=== PATIENT | male | born 1990 | race Caucasian/White ===

== ENCOUNTER 2023-03-12 16:30 | Inpatient (IN) | payer MEDICAID, OTHER ==
[2023-03-12] MEDS ORDERED: SODIUM CHLORIDE 0.9% 1,000 ML IV STA ×2 (17:07→17:28)
[2023-03-12] MEDS ORDERED: ASPIRIN 81 MG PO STA (17:07)
[2023-03-12] MEDS ORDERED: KETOROLAC 15 MG/ML 1 ML VIAL IVP STA (17:08)
[2023-03-12] MEDS ORDERED: THIAMINE 100 MG/ML 2 ML VIAL IM STA (17:27)
[2023-03-12] MEDS ORDERED: LORazepam 2 MG/ML INJ IV PRN ×3 (17:27)
--- NOTE | 2023-03-12 17:27 | ED ---
General Adult HPI - General Chief complaint: Psychiatric Symptoms Stated complaint: Suicidal Time Seen by Provider: 03/12/23 16:40 Source: patient, EMS, RN notes reviewed, old records reviewed Mode of arrival: EMS Limitations: altered mental status - History of Present Illness Initial comments: Patient is a 32-year-old male who presents emergency Department who complains of suicidal ideations. Has a history of alcohol abuse. Has not been evaluated at our facility before. States he felt daily. States he attempted to kill himself today by drinking too much alcohol. States he has been having these thoughts for a long time. Denies any other attempts. Denies any other plans. Denies homicidal ideations, attempts complaints. Denies visual or auditory hallucinations. He endorses chronic chest pain across his chest that is nonspecific otherwise he is concerned about his heart. States has been there for months. No change. States is always there. States he does have a history of alcohol withdrawals. His no other acute complaints at this time. Presents for psychiatric evaluation as well as alcohol intoxication. - Related Data Home Medications Medication Instructions Recorded Confirmed No Known Home Medications 03/12/23 03/12/23 Allergies Allergy/AdvReac Type Severity Reaction Status Date / Time No Known Allergies Allergy Verified 03/13/23 08:00 Review of Systems ROS Statement: Those systems with pertinent positive or pertinent negative responses have been documented in the HPI. Review of Systems: CONST: Denies fever EYES: Denies blurry vision ENT: Denies nasal congestion C/V: Endorses chronic chest pain RESP: Denies shortness of breath GI: Denies abdominal pain : Denies dysuria SKIN: Denies rash. MSK: Denies joint pain. NEURO: Denies headache PSYCH: Denies homicidal ideations/plans/attempts. Denies visual or auditory hallucinations. He endorses suicidal ideation, plan. Also had loose attempt of drinking himself to . However is a chronic alcoholic. ROS Other: All systems not noted in ROS Statement are negative. Past Medical History Past Medical History: Hypertension Past Surgical History: No Surgical Hx Reported Past Psychological History: Anxiety, Bipolar, Depression Smoking Status: Vaper Past Alcohol Use History: Abuse Past Drug Use History: None Reported General Exam Limitations: altered mental status Course Vital Signs 03/12/23 03/13/23 03/13/23 16:38 00:14 06:44 Temperature 98.4 F 98.4 F Pulse Rate 111 H 74 Pulse Rate [ Pulse Oximetery ] Pulse Rate [ 76 Right Sitting Pulse Oximetery ] Respiratory 18 18 18 Rate Blood Pressure 117/63 112/64 Blood Pressure [Left Arm] Blood Pressure 130/73 [Right Arm Sitting] O2 Sat by Pulse 98 99 97 Oximetry 03/13/23 09:37 Temperature Pulse Rate Pulse Rate [ 96 Pulse Oximetery ] Pulse Rate [ Right Sitting Pulse Oximetery ] Respiratory 18 Rate Blood Pressure Blood Pressure 126/76 [Left Arm] Blood Pressure [Right Arm Sitting] O2 Sat by Pulse 96 Oximetry Medical Decision Making - Medical Decision Making Was pt. sent in by a medical professional or institution (, PA, WHEEL ROLLER, urgent care, hospital, or senior living...) When possible be specific @ -No Did you speak to anyone other than the patient for history (EMS, parent, family, police, friend...)? What history was obtained from this source @ -No Did you review nursing and triage notes (agree or disagree)? Why? @ -I reviewed and agree with nursing and triage notes Were old charts reviewed (outside hosp., previous admission, EMS record, old EKG, old radiological studies, urgent care reports/EKG's, senior living records)? Report findings @ -No old charts were reviewed Differential Diagnosis (chest pain, altered mental status, abdominal pain women, abdominal pain men, vaginal bleeding, weakness, fever, dyspnea, syncope, heada aundrea, dizziness, GI bleed, back pain, seizure, CVA, palpatations, mental health, musculoskeletal)? @ -Differential Chest Pain: Stable Angina, Unstable Angina, STEMI, NSTEMI Aortic Dissection, Pneumothorax, Musculoskeletal, Esophageal Spasm GERD, Cholecystitis, Pancreatitis, Zoster, this is not meant to be an all-inclusive list. Differential Mental Health Depression, anxiety, bipolar, psychosis, schizophrenia, borderline personality, situational depression, adjustment disorder, behavioral disorder, brain tumor, malingering, substance abuse, encephalopathy, medication reaction, dementia, hypothyroidism, degenerative neurologic disorder, lupus.... This is not meant to be all-inclusive list EKG interpreted by me (3pts min.). @ -As above X-rays interpreted by me (1pt min.). @ -Chest x-ray revealed no obvious acute cardio pulmonary process. CT interpreted by me (1pt min.). @ -None done U/S interpreted by me (1pt. min.). @ -None done What testing was considered but not performed or refused? (CT, X-rays, U/S, labs)? Why? @ -None What meds were considered but not given or refused? Why? @ -None Did you discuss the management of the patient with other professionals (professionals i.e. ., PA, WHEEL ROLLER, lab, RT, psych nurse, social scientist, internet retailer, teacher, chemical instrumentation officer, immigration case worker)? Give summary @ -I spoke with ANDREY Ward and notified her of the patient pending sobriety requiring psychiatric evaluation and she was in agreement this plan. Was smoking cessation discussed for >3mins.? @ -No Was critical care preformed (if so, how long)? @ -No Were there social determinants of health that impacted care today? How? (Homelessness, low income, unemployed, alcoholism, drug addiction, transportation, low edu. Level, literacy, decrease access to med. care, care home, rehab)? @ -No Was there de-escalation of care discussed even if they declined (Discuss DNR or withdrawal of care, Hospice)? DNR status @ -No What co-morbidities impacted this encounter? (DM, HTN, Smoking, COPD, CAD, Cancer, CVA, ARF, Chemo, Hep., AIDS, mental health diagnosis, sleep apnea, morbid obesity)? @ -Alcohol abuse Was patient admitted / discharged? Hospital course, mention meds given and route, prescriptions, significant lab abnormalities, going to OR and other pertinent info. @ -Based on the patient's presentation and physical exam, I'm concerned for suicidal ideations for the patient as well as his chronic chest pain. We have no prior evaluation. The patient in our system. Therefore we will obtain a cardiac workup. Patient was placed in green scrubs. Sitter was ordered. Suicide precautions were ordered. He does not appear to be acutely withdrawing from alcohol but we will monitor him closely. Vital signs are within except for limits. He was in agreement with this plan. He will be started on IV fluids. Will receive Toradol and aspirin for his chest pain. EKG is unremarkable. Chest x-ray within acceptable limits. Labs are relatively unremarkable except for acute alcohol intoxication of 256. Troponin is undetectable. On reevaluation, patient is resting comfortably. Still no evidence of alcohol withdrawals. Chest pain is resolved. I discussed is negative workup. Patient is cleared from a medical standpoint at this time other than the alcohol intoxication. His chest pain is chronic and his heart score is low at 1. Disposition is pending psychiatric evaluation upon sobriety. I did the patient and he was in agreement this plan. He was placed on CIWV protocol for alcohol withdrawals. Currently no evidence of withdrawals at this time. I notify Sylvia of EPS was notified of the patient, and they will evaluate the patient when sober. Patient eventually evaluated and admitted to inpatient psych after my shift. Undiagnosed new problem with uncertain prognosis? @ -No Drug Therapy requiring intensive monitoring for toxicity (Heparin, Nitro, Insulin, Cardizem)? @ -No Were any procedures done? @ -No Diagnosis/symptom? @ -Alcohol abuse, chest pain Acute, or Chronic, or Acute on Chronic? @ -Chronic Uncomplicated (without systemic symptoms) or Complicated (systemic symptoms)? @ -Uncomplicated Side effects of treatment? @ -none Exacerbation, Progression, or Severe Exacerbation] @ -no Poses a threat to life or bodily function? @ -no Diagnosis/symptom? @ -Suicidal ideations, plan Acute, or Chronic, or Acute on Chronic? @ -Acute Uncomplicated (without systemic symptoms) or Complicated (systemic symptoms)? @ -Uncomplicated Side effects of treatment? @ -none Exacerbation, Progression, or Severe Exacerbation] @ -no Poses a threat to life or bodily function? @ -Yes - Lab Data Result diagrams: 03/12/23 17:28 03/12/23 17:28 Lab Results 03/12/23 03/12/23 03/12/23 Range/Units 17:28 17:28 17:28 WBC 4.9 (3.8-10.6) k/uL RBC 4.61 (4.30-5.90) m/uL Hgb 13.8 (13.0-17.5) gm/dL Hct 42.3 (39.0-53.0) % MCV 91.7 (80.0-100.0) fL MCH 29.9 (25.0-35.0) pg MCHC 32.6 (31.0-37.0) g/dL RDW 13.5 (11.5-15.5) % Plt Count 242 (150-450) k/uL MPV 8.8 Neutrophils % 56 % Lymphocytes % 30 % Monocytes % 8 % Eosinophils % 3 % Basophils % 1 % Neutrophils # 2.7 (1.3-7.7) k/uL Lymphocytes # 1.5 (1.0-4.8) k/uL Monocytes # 0.4 (0-1.0) k/uL Eosinophils # 0.1 (0-0.7) k/uL Basophils # 0.0 (0-0.2) k/uL PT 10.2 (9.0-12.0) sec INR 1.0 (<1.2) APTT 25.1 (22.0-30.0) sec Sodium (137-145) mmol/L Potassium (3.5-5.1) mmol/L Chloride (98-107) mmol/L Carbon Dioxide (22-30) mmol/L Anion Gap mmol/L BUN (9-20) mg/dL Creatinine (0.66-1.25) mg/dL Est GFR (CKD-EPI)AfAm (>60 ml/min/1.73 sqM) Est GFR (CKD-EPI)NonAf (>60 ml/min/1.73 sqM) Glucose (74-99) mg/dL Calcium (8.4-10.2) mg/dL Magnesium (1.6-2.3) mg/dL Total Bilirubin (0.2-1.3) mg/dL AST (17-59) U/L ALT (4-49) U/L Alkaline Phosphatase (38-126) U/L Troponin I (0.000-0.034) ng/mL Total Protein (6.3-8.2) g/dL Albumin (3.5-5.0) g/dL Lipase (23-300) U/L Urine Opiates Screen Not Detected (NotDetected) Ur Oxycodone Screen Not Detected (NotDetected) Urine Methadone Screen Not Detected (NotDetected) Ur Propoxyphene Screen Not Detected (NotDetected) Ur Barbiturates Screen Not Detected (NotDetected) U Tricyclic Antidepress Not Detected (NotDetected) Ur Phencyclidine Scrn Not Detected (NotDetected) Ur Amphetamines Screen Not Detected (NotDetected) U Methamphetamines Scrn Not Detected (NotDetected) U Benzodiazepines Scrn Not Detected (NotDetected) Urine Cocaine Screen Not Detected (NotDetected) U Marijuana (THC) Screen Not Detected (NotDetected) Serum Alcohol mg/dL Coronavirus (PCR) (Not Detectd) 03/12/23 03/12/23 03/13/23 Range/Units 17:28 17:28 04:00 WBC (3.8-10.6) k/uL RBC (4.30-5.90) m/uL Hgb (13.0-17.5) gm/dL Hct (39.0-53.0) % MCV (80.0-100.0) fL MCH (25.0-35.0) pg MCHC (31.0-37.0) g/dL RDW (11.5-15.5) % Plt Count (150-450) k/uL MPV Neutrophils % % Lymphocytes % % Monocytes % % Eosinophils % % Basophils % % Neutrophils # (1.3-7.7) k/uL Lymphocytes # (1.0-4.8) k/uL Monocytes # (0-1.0) k/uL Eosinophils # (0-0.7) k/uL Basophils # (0-0.2) k/uL PT (9.0-12.0) sec INR (<1.2) APTT (22.0-30.0) sec Sodium 146 H (137-145) mmol/L Potassium 4.0 (3.5-5.1) mmol/L Chloride 110 H (98-107) mmol/L Carbon Dioxide 23 (22-30) mmol/L Anion Gap 13 mmol/L BUN 8 L (9-20) mg/dL Creatinine 0.79 (0.66-1.25) mg/dL Est GFR (CKD-EPI)AfAm >90 (>60 ml/min/1.73 sqM) Est GFR (CKD-EPI)NonAf >90 (>60 ml/min/1.73 sqM) Glucose 105 H (74-99) mg/dL Calcium 8.3 L (8.4-10.2) mg/dL Magnesium 2.0 (1.6-2.3) mg/dL Total Bilirubin 0.4 (0.2-1.3) mg/dL AST 43 (17-59) U/L ALT 48 (4-49) U/L Alkaline Phosphatase 96 (38-126) U/L Troponin I <0.012 (0.000-0.034) ng/mL Total Protein 7.8 (6.3-8.2) g/dL Albumin 4.5 (3.5-5.0) g/dL Lipase 136 (23-300) U/L Urine Opiates Screen (NotDetected) Ur Oxycodone Screen (NotDetected) Urine Methadone Screen (NotDetected) Ur Propoxyphene Screen (NotDetected) Ur Barbiturates Screen (NotDetected) U Tricyclic Antidepress (NotDetected) Ur Phencyclidine Scrn (NotDetected) Ur Amphetamines Screen (NotDetected) U Methamphetamines Scrn (NotDetected) U Benzodiazepines Scrn (NotDetected) Urine Cocaine Screen (NotDetected) U Marijuana (THC) Screen (NotDetected) Serum Alcohol 256 H* mg/dL Coronavirus (PCR) Not Detected (Not Detectd) - EKG Data -: EKG Interpreted by Me EKG Comments: 12-lead Electrocardiogram Interpretation Note EKG was reviewed and interpreted by myself. 12-lead ECG performed at 1757 is interpreted by me as revealing normal sinus rhythm at a rate of 95 beats per minute. Edmond is normal. CO interval is 194 ms, QRS durations 109 ms, QTc is 405 ms.. There were no ST or T wave abnormalities to suggest myocardial ischemia or injury. R wave progression across the precordium was satisfactory. By my interpretation this EKG is non-diagnostic for acute ischemia. Disposition Clinical Impression: Suicidal ideation, Alcohol intoxication, Encounter for psychological evaluation, Chronic chest pain Disposition: ADMITTED IP TO THIS HOSP Condition: Stable
[2023-03-12 17:41] LABS: Basophils % (A) 1 %; Eosinophils # (A) 0.1 k/uL (0-0.7); Eosinophils % (A) 3 %; HCT 42.3 % (39.0-53.0); HGB 13.8 gm/dL (13.0-17.5); Lymphocytes # (A) 1.5 k/uL (1.0-4.8); Lymphocytes % (A) 30 %; MCH 29.9 pg (25.0-35.0); MCHC 32.6 g/dL (31.0-37.0); MCV 91.7 fL (80.0-100.0); Mean Platelet Volume 8.8; Monocytes # (A) 0.4 k/uL (0-1.0); Monocytes % (A) 8 %; Neutrophils # (A) 2.7 k/uL (1.3-7.7); Neutrophils % (A) 56 %; Platelet Count 242 k/uL (150-450); RBC 4.61 m/uL (4.30-5.90); RDW 13.5 % (11.5-15.5); WBC 4.9 k/uL (3.8-10.6)
--- NOTE | 2023-03-12 17:53 | XR ---
EXAMINATION TYPE: XR chest 2V DATE OF EXAM: 03/12/2023 5:49 PM COMPARISON: None TECHNIQUE: XR chest 2V Frontal and lateral views of the chest. CLINICAL INDICATION:Male, 32 years old with history of Chest Pain; FINDINGS: Lungs/Pleura: There is no evidence of pleural effusion, focal consolidation, or pneumothorax. Pulmonary vascularity: Unremarkable. Heart/mediastinum: Cardiomediastinal silhouette is unremarkable. Musculoskeletal: No acute osseous pathology. IMPRESSION: No acute cardiopulmonary disease/process.
[2023-03-12 17:56] LABS: Partial Thromboplastin Time 25.1 sec (22.0-30.0); Prothrombin Time 10.2 sec (9.0-12.0)
[2023-03-12 18:03] LABS: ALT 48 U/L (4-49); AST 43 U/L (17-59); African American GFR (CKD) >90 (>60 ml/min/1.73 sqM); Albumin 4.5 g/dL (3.5-5.0); Alkaline Phosphatase 96 U/L (38-126); Anion Gap 13 mmol/L; Blood Urea Nitrogen 8 mg/dL (9-20); Calcium 8.3 mg/dL (8.4-10.2); Carbon Dioxide 23 mmol/L (22-30); Chloride 110 mmol/L (98-107); Glucose 105 mg/dL (74-99); Lipase 136 U/L (23-300); Non-African American GFR(CKD) >90 (>60 ml/min/1.73 sqM); Sodium 146 mmol/L (137-145); Total Bilirubin 0.4 mg/dL (0.2-1.3); Total Protein 7.8 g/dL (6.3-8.2)
[2023-03-12 18:14] LABS: Alcohol 256 mg/dL
[2023-03-12 18:19] LABS: Amphetamine Screen,Urine Not Detected (NotDetected); Barbiturate Screen,Urine Not Detected (NotDetected); Benzodiazepines Screen,Urine Not Detected (NotDetected); Cocaine Screen,Urine Not Detected (NotDetected); Methadone Screen, Urine Not Detected (NotDetected); Opiate Screen,Urine Not Detected (NotDetected); Oxycodone Screen, Urine Not Detected (NotDetected); Phencyclidine Screen,Urine Not Detected (NotDetected); Tricyclic Antidepressant,Urine Not Detected (NotDetected); Urn Cannabinoid Scrn Not Detected (NotDetected)
[2023-03-13] MEDS ORDERED: LORazepam 1 MG TAB PO STA (05:15)
[2023-03-13] MEDS ORDERED: ACETAMINOPHEN TAB 325 MG TAB PO PRN (05:46)
[2023-03-13] MEDS ORDERED: MAGNESIUM HYDROXIDE 2,400 MG/10 ML CUP PO PRN (05:46)
[2023-03-13] MEDS ORDERED: LORazepam 1 MG TAB PO PRN (05:46)
[2023-03-13] MEDS ORDERED: HALOPERIDOL LACTATE 5 MG/ML 1 ML VIAL IM PRN (05:46)
[2023-03-13] MEDS ORDERED: MAG HYDROX/AL HYDROX/SIMETH 30 ML CUP PO PRN (05:46)
[2023-03-13] MEDS ORDERED: LORazepam 2 MG/ML INJ IM PRN (05:46)
[2023-03-13 08:00] LABS: ALT 40 U/L (4-49); AST 31 U/L (17-59); Albumin 3.9 g/dL (3.5-5.0); Alkaline Phosphatase 94 U/L (38-126); Bilirubin, Delta 0.1 mg/dL (0.0-0.2); Bilirubin,Unconjugated 0.3 mg/dL (0.0-1.1); Total Bilirubin 0.4 mg/dL (0.2-1.3)
[2023-03-13] MEDS: NICOTINE 14MG/24HR PATCH TRANSDERM SCH (09:29)
[2023-03-13] MEDS: FOLIC ACID 1 MG TAB PO SCH (09:31)
[2023-03-13] MEDS: THIAMINE 100 MG TAB PO SCH (09:31)
[2023-03-13] MEDS: MULTIVITAMINS, THERA 1 EACH TAB PO SCH (09:31)
[2023-03-13] MEDS: LORazepam 1 MG TAB PO PRN ×2 (09:40→20:21)
[2023-03-13] MEDS: PARoxetine 20 MG TAB PO SCH (11:31)
[2023-03-13 14:10] LABS: Chol/HDL Ratio 4.32 Ratio; LDL Cholesterol,Calculated 79.5 mg/dL (0.0-131.0)
--- NOTE | 2023-03-13 15:47 | P.HP ---
Psychiatric H&P - . H&P Date: 03/13/23 History & Physical: Allergies Allergy/AdvReac Type Severity Reaction Status Date / Time No Known Allergies Allergy Verified 03/13/23 08:00 Vital Signs Temp 98.4 F 03/13/23 06:44 Pulse 96 03/13/23 09:37 Resp 18 03/13/23 09:37 BP 126/76 03/13/23 09:37 Pulse Ox 96 03/13/23 09:37 FiO2 Intake & Output 03/12/23 03/13/23 03/13/23 18:59 06:59 18:59 Weight 99.79 kg 161.1 kg Laboratory Last Values WBC 4.9 k/uL (3.8-10.6) 03/12/23 17: RBC 4.61 m/uL (4.30-5.90) 03/12/23 17:28 Hgb 13.8 gm/dL (13.0-17.5) 03/12/23 17:28 Hct 42.3 % (39.0-53.0) 03/12/23 17:28 MCV 91.7 fL (80.0-100.0) 03/12/23 17:28 MCH 29.9 pg (25.0-35.0) 03/12/23 17:28 MCHC 32.6 g/dL (31.0-37.0) 03/12/23 17:28 RDW 13.5 % (11.5-15.5) 03/12/23 17:28 Plt Count 242 k/uL (150-450) 03/12/23 17:28 MPV 8.8 03/12/23 17:28 Neutrophils % 56 % 03/12/23 17:28 Lymphocytes % 30 % 03/12/23 17:28 Monocytes % 8 % 03/12/23 17:28 Eosinophils % 3 % 03/12/23 17:28 Basophils % 1 % 03/12/23 17:28 Neutrophils # 2.7 k/uL (1.3-7.7) 03/12/23 17:28 Lymphocytes # 1.5 k/uL (1.0-4.8) 03/12/23 17:28 Monocytes # 0.4 k/uL (0-1.0) 03/12/23 17:28 Eosinophils # 0.1 k/uL (0-0.7) 03/12/23 17:28 Basophils # 0.0 k/uL (0-0.2) 03/12/23 17:28 PT 10.2 sec (9.0-12.0) 03/12/23 17: INR 1.0 (<1.2) 03/12/23 17:28 APTT 25.1 sec (22.0-30.0) 03/12/23 17:28 Sodium 146 mmol/L (137-145) H 03/12/23 17:28 Potassium 4.0 mmol/L (3.5-5.1) 03/12/23 17: Chloride 110 mmol/L (98-107) H 03/12/23 17:28 Carbon Dioxide 23 mmol/L (22-30) 03/12/23 17: Anion Gap 13 mmol/L 03/12/23 17: BUN 8 mg/dL (9-20) L 03/12/23 17: Creatinine 0.79 mg/dL (0.66-1.25) 03/12/23 17:28 Est GFR (CKD-EPI)AfAm >90 (>60 ml/min/1.73 sqM) 03/12/23 17: Est GFR (CKD-EPI)NonAf >90 (>60 ml/min/1.73 sqM) 03/12/23 17: Glucose 105 mg/dL (74-99) H 03/12/23 17:28 Calcium 8.3 mg/dL (8.4-10.2) L 03/12/23 17:28 Magnesium 2.0 mg/dL (1.6-2.3) 03/12/23 17:28 Total Bilirubin 0.4 mg/dL (0.2-1.3) 03/13/23 07:19 Conjugated Bilirubin 0.0 mg/dL (0.0-0.3) 03/13/23 07: Unconjugated Bilirubin 0.3 mg/dL (0.0-1.1) 03/13/23 07:19 Delta Bilirubin 0.1 mg/dL (0.0-0.2) 03/13/23 07:19 AST 31 U/L (17-59) 03/13/23 07:19 ALT 40 U/L (4-49) 03/13/23 07:19 Alkaline Phosphatase 94 U/L (38-126) 03/13/23 07:19 Troponin I <0.012 ng/mL (0.000-0.034) 03/12/23 17:28 Total Protein 7.0 g/dL (6.3-8.2) 03/13/23 07:19 Albumin 3.9 g/dL (3.5-5.0) 03/13/23 07:19 Lipase 136 U/L (23-300) 03/12/23 17:28 TSH 0.420 mIU/L (0.465-4.680) L 03/13/23 07:19 Urine Opiates Screen Not Detected (NotDetected) 03/12/23 17:28 Ur Oxycodone Screen Not Detected (NotDetected) 03/12/23 17:28 Urine Methadone Screen Not Detected (NotDetected) 03/12/23 17:28 Ur Propoxyphene Screen Not Detected (NotDetected) 03/12/23 17:28 Ur Barbiturates Screen Not Detected (NotDetected) 03/12/23 17:28 U Tricyclic Antidepress Not Detected (NotDetected) 03/12/23 17:28 Ur Phencyclidine Scrn Not Detected (NotDetected) 03/12/23 17:28 Ur Amphetamines Screen Not Detected (NotDetected) 03/12/23 17:28 U Methamphetamines Scrn Not Detected (NotDetected) 03/12/23 17:28 U Benzodiazepines Scrn Not Detected (NotDetected) 03/12/23 17:28 Urine Cocaine Screen Not Detected (NotDetected) 03/12/23 17:28 U Marijuana (THC) Screen Not Detected (NotDetected) 03/12/23 17:28 Serum Alcohol 256 mg/dL H* 03/12/23 17:28 Coronavirus (PCR) Not Detected (Not Detectd) 03/13/23 04:00 03/13/23 09:44 IDENTIFYING DATA: Patient is a single, unemployed, 32-year-old I[place]ian male who is presenting with suicidal ideation and alcohol use. HPI: Patient states that he has been residing at [address] [place] [address] and was sober for 3 months. He reports having stress at work, that he drank on 03/11/23 night (drank a fifth) and quit his work that he disliked. He says he continued to drink (around a pint) during the daytime on 03/12/[address] [place] [address] and therefore needed to leave the housing. He reports feeling suicidal subsequently and was thinking about "drinking himself to ". He says that while he was walking down the street, he decided to call 911 instead. He describes a long history of struggle with alcohol. He says that thoughts of "I'm just going to do it once" being a trigger. He endorses a history of becoming delirious but denies having experienced seizures. He endorses experiencing passive suicidal ideation when sober but says that it worsens while he is drinking. He describes a cycle of guilt and shame that causes him to become more depressed. He currently endorses suicidal ideation and says that he would like to drink himself to . He reports doing well on Paxil 20 mg daily and Seroquel 100 mg at night. He states that he is compliant with the medications. Regarding alcohol use, he says he began drinking when he was 21 years old and it increased significantly when he was 22 years old. At the time, he was drinking 1 pint daily of Vodka. He says in 2019, his drinking increased considerably for 3 months to being throughout the day. He went to rehab in 2018 at [facility] and was sober for 2 months. In 2021, he reports attending a different sober house and was sober for 3 months (longest period of sobriety). More recently, he was drinking 2-3 days at a time and then got mental health help along with residential rehab. He reports experiencing depressed mood from his teen years. He says he has recently been feeling depressed for the past 3 years. He reports decreased concentration, anhedonia, fluctuating energy, and feelings of guilt. He says he has a fair appetite. He endorses sleep maintenance issues but is convinced that he has sleep apnea. He did not have sleep study but hopes to get this scheduled. He endorses worrying often and says he has catastrophic thinking. He reports having racing thoughts and feeling keyed up. He states that he is able to relax and that his sleep is not impacted by his worrying. Patient denies constellation of symptoms consistent with mahnaz. He denies homicidal ideation, auditory and visual hallucinations, and paranoia, as asked and assessed. PSYCH HX: Previous psychiatrist: Elmer Jhaveri [facility] Past tx: Paxil 20 mg daily and Seroquel 100 mg qHS. He reports compliance with these medications at home. Trazodone - "wired" and says he did not feel tired from this Hospitalizations: Once in 2018, twice in 2018, and numerous times since then. Most recently was at [facility] Dec 2022. NSSI: Cut himself twice in the past SA: Tried to hang himself with a noose, was planning to get hit by a train but he passed out before that from drinking PMH: Hypertension? ALLERGIES: Denies PCP: Denies Head injuries: Denies Seizures: Denies SUBSTANCE HX: Alcohol: he began drinking when he was 21 years old and it increased significantly when he was 22 years old. At the time, he was drinking 1 pint daily of Vodka. He says in 2019, his drinking increased considerably for 3 months to being throughout the day. He went to rehab in 2018 at [facility] and was sober for 2 months. In 2021, he reports attending a different sober house and was sober for 3 months (longest period of sobriety). More recently, he was drinking 2-3 days at a time and then got mental health help along with residential rehab. Tobacco: Vape Cannabis: Denies Denies using other substances SOCIAL/LEGAL HX: He grew up near [place]. He says his parents when he was 2 years old but he was able to spend time with both of them. He describes having had a happy childhood. He has 1 older sister and 2 half brother and 2 half sisters. He says he is close to his father, grandmother, and aunt. 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 Legal problems: DUI in 2018 and a fight in 2021 FAM PSYCH HX: Father's side and his father: alcohol Mother's side: depression and anxiety Suicide attempts: Sister MENTAL STATUS EXAM: General Appearance: Patient appears to be stated age is alert, directable, and attempts to cooperate. Overweight with a well groomed [place]. Patient appears to have fair hygiene and grooming. Behavior: Patient is seated without any agitated behavior. Speech: Patient's speech is fluent and nonpressured. Mood/Affect: Patient reports their mood is "depressed", affect is congruent and constricted. Suicidality/Homicidality: Patient denies having any homicidal ideation intent or plan. Endorses suicidal ideation with plan Perceptions: Patient denies any visual hallucinations and denies any auditory hallucinations Though content/process: There is no evidence of any delusional thought content and thought process is linear and goal-directed. Memory and concentration: AOX3, grossly intact for the purposes of this session. Can spell "WORLD" backwards Judgment and insight: Fair towards seeking treatment but poor towards substance use STRENGTHS/WEAKNESSES: Strength is seeking treatment. Weakness is comorbid severe alcohol use use INTELLECT: average IMPRESSIONS: Major depressive disorder, recurrent, severe, without psychotic features Alcohol use disorder, severe Generalized Anxiety Disorder PLAN: -Patient is admitted under voluntary status to MHU for stabilization of psychiatric symptoms and safety. Patient signed adult voluntary form and medication consent and is placed in patient's chart. -Medications: Resume Paxil 20 mg daily Resume Seroquel 100 mg HS Thiamin and folate CIWA protocol. Monitoring vital signs and symptoms Discussed medication assisted treatment for alcohol use disorder including naltrexone, Campral, Antabuse. However, patient is hesitant and refuses any one of these medications at this time. -Haldol/Ativan for agitation -Risks, benefits, side effects, and alternative treatments were discussed. -Patient was counselled on substance abuse and desired to cut back on use. Motivational interviewing. Patient interested in seeking rehab following discharge from inpatient psychiatric hospitalization. -Patient was informed of the risks, benefits and side effects of the medication and patient verbally consented to taking the medications. Patient signed med consent form and was placed in chart. -Internal Medicine consult to perform medical evaluation and physical. -SW on board for discharge planning. Encourage patient to participate in groups to work on coping skills. 03/13/23 15:33 03/13/23 15:47
--- NOTE | 2023-03-13 17:46 | P.MDCNMH ---
History of Present Illness H&P Date: 03/13/23 Chief Complaint: Medical evaluation 32-year-old man with a medical history of hypertension, obesity class III, alcohol abuse disorder presented for mental health evaluation. Medicine was consulted for medical clearance as well as evaluation. Patient has no complaints at this time. He has a history of high blood pressure, but does not take any medication for this. He was supposed to be under lifestyle modifications. He denies fevers, chills, nausea, vomiting, chest pain, palpitations, syncope, presyncope, cough, dyspnea, abdominal pain, constipation, diarrhea, dysuria, dyschezia, numbness/weakness of extremities. Upon my Evaluation, patient was afebrile, 126/76, heart rate 96, 96% on room air. CBC is unremarkable. Chemistry showed hypernatremia to 146, hyper chloremia to 110. Liver function tests are unremarkable. Troponin was less than 0.012. Lipase was 136. Coags were unremarkable. Urine tox screen is negative. Serum alcohol level was 256 on arrival. Covid was negative. Today, lab work demonstrates a TSH of 0.42, HDL 34, triglycerides 175, liver function profile is unremarkable. A1c was 5.9%. EKG demonstrates normal sinus rhythm with right axis deviation. Chest x-ray demonstrates clear parenchyma bilaterally with no evidence of overt heart failure, acute pathology. All Systems reviewed and pertinent positives and negatives noted in HPI, all other symptoms are negative Gen: in no apparent distress, resting comfortably in bed Eyes: PERRL, no scleral injection or icterus HENT: normocephalic, atraumatic, good hearing acuity, moist mucous membranes Neck: no tracheal deviation, full range of motion Resp: good air exchange, breathing comfortably with no accessory muscle use, no tactile fremitus CVS: good distal perfusion x 4, no pitting edema GI: soft, NTTP, ND, no hepatosplenomegaly : no suprapubic tenderness, no CVAT, hercules catheter not present MSK: no clubbing, no cyanosis, no noted contractures of extremities Skin: no noted rashes, petechiae; temperature of skin is appropriate Neuro: moving all extremities without signs of weakness, CN II-XII intact Psych: cooperative, euthymic mood, insight and judgment intact Labs and imaging as above Assessment: Hypertension Prediabetes Obesity, class III Alcohol abuse disorder Abnormal TSH Hypertriglyceridemia Plan: Vital signs reviewed and noted in the HPI Lab work reviewed and noted in the HPI EKG and CXR are personally interpreted and noted in the HPI High blood pressure should be monitored, continue lifestyle modifications at home including diet, exercise, cessation of alcohol TSH should be followed up with a free T4, if this is not ordered as a reflex, I recommend it is placed as an a.m. lab Patient has prediabetes as well as obesity, would be a candidate for 500 twice a day of metformin on discharge, no need to start while inpatient Thank you for this consult. A member of our team is available [phone], should any questions or concerns arise, please reach out via perfect serve Past Medical History Past Medical History: Hypertension History of Any Multi-Drug Resistant Organisms: None Reported Past Surgical History: No Surgical Hx Reported Past Anesthesia/Blood Transfusion Reactions: No Reported Reaction Past Psychological History: Anxiety, Bipolar, Depression Smoking Status: Vaper Past Alcohol Use History: Abuse Past Drug Use History: None Reported Medications and Allergies Home Medications Medication Instructions Recorded Confirmed Type No Known Home Medications 03/12/23 03/12/23 History Allergies Allergy/AdvReac Type Severity Reaction Status Date / Time No Known Allergies Allergy Verified 03/13/23 08:00 Physical Exam Osteopathic Statement: *. No significant issues noted on an osteopathic st ructural exam other than those noted in the History and Physical/Consult. Vitals: Vital Signs Temp Pulse Pulse Pulse Resp BP BP 03/13/23 09:37 96 18 126/76 03/13/23 06:44 98.4 F 76 18 03/13/23 00:14 74 18 112/64 BP Pulse Ox 03/13/23 09:37 96 03/13/23 06:44 130/73 97 03/13/23 00:14 99 Intake and Output 03/13/23 03/13/23 03/13/23 06:59 14:59 22:59 Other: Weight 161.1 kg Cranial Nerve Examination - Cranial Nerves Cranial Nerve II- Optic: Intact Cranial Nerve III- Oculomotor: Intact Cranial Nerve IV- Trochlear: Intact Cranial Nerve V- Trigeminal: Intact Cranial Nerve - Abducens: Intact Cranial Nerve VII- Facial: Intact Cranial Nerve VIII- Auditory: Intact Cranial Nerve IX- Glossopharyngeal: Intact Cranial Nerve X- Vagus: Intact Cranial Nerve XI- Accessory: Intact Cranial Nerve XII- Hypoglossal: Intact Results CBC & Chem 7: 03/12/23 17:28 03/12/23 17:28 Labs: Abnormal Lab Results - Last 24 Hours (Table) 03/12/23 03/13/23 Range/Units 17:28 07:19 Sodium 146 H (137-145) mmol/L Chloride 110 H (98-107) mmol/L BUN 8 L (9-20) mg/dL Glucose 105 H (74-99) mg/dL Calcium 8.3 L (8.4-10.2) mg/dL Triglycerides 175.00 H (0.00-149.00) mg/dL HDL Cholesterol 34.50 L (40.00-60.00) mg/dL TSH 0.420 L (0.465-4.680) mIU/L Serum Alcohol 256 H* mg/dL
[2023-03-13] MEDS: QUEtiapine 100 MG TAB PO SCH (20:21)
[2023-03-14] MEDS: FOLIC ACID 1 MG TAB PO SCH (08:33)
[2023-03-14] MEDS: MULTIVITAMINS, THERA 1 EACH TAB PO SCH (08:33)
[2023-03-14] MEDS: THIAMINE 100 MG TAB PO SCH (08:33)
[2023-03-14] MEDS: PARoxetine 20 MG TAB PO SCH (08:33)
[2023-03-14] MEDS: NICOTINE 14MG/24HR PATCH TRANSDERM SCH (10:07)
--- NOTE | 2023-03-14 13:18 | P.PN ---
Progress Note - Text Progress Note Date: 03/14/23 Interval History: Patient was seen bedside this morning. Patient states that he is feeling "depressed ". Reports that his mood is so low and therefore he would like to be resting during the daytime today. Behavioral activation was encouraged and patient said that he would like to participate in more groups tomorrow. He states that he is continuing to have suicidal ideation today without a current plan. However, patient is not future oriented and states that he does not have anything to live for. He reports sleeping well and fair appetite. He reports low energy levels. He denies other concerns. At this time patient denies any homicidal ideations, intent or plan. Patient denies any auditory, visual hallucinations and denies any paranoia or delusions. Patient denies any side effects from the medications and has been compliant with meds. Mental Status Exam: General Appearance: Patient appears to be stated age is alert, directable, and attempts to cooperate. Overweight with a well groomed [place]. Patient appears to have poor hygiene and grooming. Behavior: Patient is seated without any agitated behavior. Speech: Patient's speech is fluent and nonpressured. Mood/Affect: Patient reports their mood is "depressed", affect is congruent and constricted. Suicidality/Homicidality: Patient denies having any homicidal ideation intent or plan. Endorses suicidal ideation Perceptions: Patient denies any visual hallucinations and denies any auditory hallucinations Though content/process: There is no evidence of any delusional thought content and thought process is linear and goal-directed. Memory and concentration: AOX3, grossly intact for the purposes of this session. Can spell "WORLD" backwards Judgment and insight: Fair towards seeking treatment but poor towards substance use Assessment Major depressive disorder, recurrent, severe, without psychotic features Alcohol use disorder, severe Generalized Anxiety Disorder PLAN: -Patient is admitted under voluntary status to [facility] for stabilization of psych iatric symptoms and safety. Patient signed adult voluntary form and medication consent and is placed in patient's chart. -Medications: Increase Paxil to 30 mg daily Continue Seroquel 100 mg HS Thiamin and folate CIWA protocol. Monitoring vital signs and symptoms Discussed medication assisted treatment for alcohol use disorder including naltrexone, Campral, Antabuse. However, patient is hesitant and refuses any one of these medications at this time. -Haldol/Ativan for agitation -Risks, benefits, side effects, and alternative treatments were discussed. -Patient was counselled on substance abuse and desired to cut back on use. Motivational interviewing. Patient interested in seeking rehab following discharge from inpatient psychiatric hospitalization. -Patient was informed of the risks, benefits and side effects of the medication and patient verbally consented to taking the medications. Patient signed med consent form and was placed in chart. -Internal Medicine consult to perform medical evaluation and physical. -SW on board for discharge planning. Encourage patient to participate in groups to work on coping skills.
[2023-03-14] MEDS: QUEtiapine 100 MG TAB PO SCH (22:01)
[2023-03-15] MEDS: PARoxetine 10 MG TAB PO SCH (08:38)
[2023-03-15] MEDS: MULTIVITAMINS, THERA 1 EACH TAB PO SCH (08:38)
[2023-03-15] MEDS: THIAMINE 100 MG TAB PO SCH (08:38)
[2023-03-15] MEDS: FOLIC ACID 1 MG TAB PO SCH (08:38)
[2023-03-15] MEDS: NICOTINE 14MG/24HR PATCH TRANSDERM SCH (08:38)
--- NOTE | 2023-03-15 11:52 | P.PN ---
Progress Note - Text Progress Note Date: 03/15/23 Interval History: Patient was seen initially in his room however was complaining of a panic attack in his psychiatric evaluation. After he was able to work out a discharge plan in terms of going to rehab, he was directable and agreeable to speak with the check writer in the office. Currently, the patient is not reporting any suicidal or homicidal ideation, intention, and/or plan. He is not reporting any auditory or visual hallucinations. He is not reporting any paranoia or other delusions. He has been adherent with his medication and is not reporting any significant side effects. The patient reports that he was extremely overwhelmed after relapsing into heavy alcohol use again and was kicked out of [facility]. He was reporting feeling hopeless and suicidal as he felt that he had no place to go. He states that [facility] is going to take him back if he goes back to substance abuse rehabilitation. He reports that he has contacted [facility] and is working on going to rehab. The patient does report a long history of anxiety. He expresses that he feels l jovanni he needs to isolate when he feels anxious. He is encouraged to go to groups. He reports no issues regarding his sleep or his appetite. Mental Status Exam: General Appearance: Patient appears to be stated age is alert, directable, and cooperative. Behavior: Patient is calmly seated without any agitated behavior. Speech: Patient's speech is fluent and nonpressured. Mood/Affect: Mood is improving mildly, affect is congruent and constricted. Suicidality/Homicidality: Patient denies having any suicidal or homicidal ideation intent or plan. Perceptions: Patient denies any visual hallucinations and denies any auditory hallucinations Though content/process: There is no evidence of any delusional thought content and thought process is linear and goal-directed. Memory and concentration: AOX3, grossly intact for the purposes of this session Judgment and insight: Improving mildly Vital Signs Temp 97.4 F L 03/15/23 06:53 Pulse 114 H 03/15/23 08:43 Resp 16 03/15/23 06:53 BP 129/91 03/15/23 08:43 Pulse Ox 98 03/15/23 06:53 FiO2 Intake & Output 03/14/23 03/15/23 03/15/23 18:59 06:59 18:59 Weight 115.4 kg Assessment Major depressive disorder, recurrent, severe, without psychotic features Alcohol use disorder, severe Generalized Anxiety Disorder Rule out cluster B personality disorder Plan: -Patient continues to meet criteria for inpatient psychiatric admission for symptom stabilization and safety. Patient has signed adult voluntary form and medication consent and was placed in patient's chart. -Medications: Paxil 30 mg daily for depression/anxiety Seroquel 100 mg by mouth at bedtime for insomnia/mood augmentation CIWA protocol. Thiamine and folate. -Discussed with the patient initiation of alcohol cessation medications including naltrexone, Campral, and Antabuse. He is refusing at this time. -When necessary Ativan and Haldol for agitation/aggression. -SW on board for discharge planning. Encouraged the patient to participate in milieu.
[2023-03-15] MEDS: LORazepam 1 MG TAB PO PRN (18:50)
[2023-03-15] MEDS: QUEtiapine 100 MG TAB PO SCH (20:05)
[2023-03-16] MEDS: THIAMINE 100 MG TAB PO SCH (09:21)
[2023-03-16] MEDS: FOLIC ACID 1 MG TAB PO SCH (09:21)
[2023-03-16] MEDS: PARoxetine 10 MG TAB PO SCH (09:21)
[2023-03-16] MEDS: MULTIVITAMINS, THERA 1 EACH TAB PO SCH (09:21)
[2023-03-16] MEDS: LORazepam 1 MG TAB PO PRN ×2 (09:25→20:54)
[2023-03-16] MEDS: haloperidoL 5 MG TAB PO PRN (09:25)
[2023-03-16] MEDS: NICOTINE 14MG/24HR PATCH TRANSDERM SCH (09:39)
--- NOTE | 2023-03-16 13:23 | P.PN ---
Progress Note - Text Progress Note Date: 03/16/23 Interval History: Patient was seen wandering the hallways and was agreeable to keno writer / runner in the office. Currently, the patient expresses future and goal orientation and plans to go to [place] for inpatient substance rehabilitation for his alcohol use so that he may return to [facility] for housing. He is currently denying any suicidal or homicidal ideation, intention, and/or plan. He is not sure visual hallucinations. He reports no paranoia or other delusions. He reports that his anxiety continues to be elevated however is improving. He reports no issues regarding his sleep or his appetite. He has been in adherent with his medication and is not endorsing any significant side effects. He did contact access. Mental Status Exam: General Appearance: Patient appears to be stated age is alert, directable, and cooperative. Behavior: Patient is calmly seated without any agitated behavior. Speech: Patient's speech is fluent and nonpressured. Mood/Affect: Mood is improving mildly, affect is congruent and constricted. Suicidality/Homicidality: Patient denies having any suicidal or homicidal ideation intent or plan. Perceptions: Patient denies any visual hallucinations and denies any auditory hallucinations Though content/process: There is no evidence of any delusional thought content and thought process is linear and goal-directed. Memory and concentration: AOX3, grossly intact for the purposes of this session Judgment and insight: Improving mildly Vital Signs Temp 98.6 F 03/16/23 06:47 Pulse 66 03/16/23 06:47 Resp 17 03/16/23 06:47 BP 126/79 03/16/23 06:47 Pulse Ox 94 L 03/16/23 06:47 FiO2 Laboratory Results WBC 4.9 k/uL (3.8-10.6) 03/12/23 17: RBC 4.61 m/uL (4.30-5.90) 03/12/23 17:28 Hgb 13.8 gm/dL (13.0-17.5) 03/12/23 17:28 Hct 42.3 % (39.0-53.0) 03/12/23 17: MCV 91.7 fL (80.0-100.0) 03/12/23 17: MCH 29.9 pg (25.0-35.0) 03/12/23 17:28 MCHC 32.6 g/dL (31.0-37.0) 03/12/23 17: RDW 13.5 % (11.5-15.5) 03/12/23 17: Plt Count 242 k/uL (150-450) 03/12/23 17: MPV 8.8 03/12/23 17: Neutrophils % 56 % 03/12/23 17: Lymphocytes % 30 % 03/12/23 17: Monocytes % 8 % 03/12/23 17: Eosinophils % 3 % 03/12/23 17: Basophils % 1 % 03/12/23 17: Neutrophils # 2.7 k/uL (1.3-7.7) 03/12/23: Lymphocytes # 1.5 k/uL (1.0-4.8) 03/12/23: Monocytes # 0.4 k/uL (0-1.0) 03/12/23: Eosinophils # 0.1 k/uL (0-0.7) 03/12/23: Basophils # 0.0 k/uL (0-0.2) 03/12/23 17: PT 10.2 sec (9.0-12.0) 03/12/23 17: INR 1.0 (<1.2) 03/12/23: APTT 25.1 sec (22.0-30.0) 03/12/23 17: Sodium 146 mmol/L (137-145) H 03/12/23 17: Potassium 4.0 mmol/L (3.5-5.1) 03/12/23 17: Chloride 110 mmol/L (98-107) H 03/12/23 17: Carbon Dioxide 23 mmol/L (22-30) 03/12/23 17: Anion Gap 13 mmol/L 03/12/23 17: BUN 8 mg/dL (9-20) L 03/12/23 17: Creatinine 0.79 mg/dL (0.66-1.25) 03/12/23 17: Est GFR (CKD-EPI)AfAm >90 (>60 ml/min/1.73 sqM) 03/12/23 17: Est GFR (CKD-EPI)NonAf >90 (>60 ml/min/1.73 sqM) 03/12/23 17:28 Glucose 105 mg/dL (74-99) H 03/12/23 17:[address] Glu mg/dL 123 03/13/23 07:19 Hemoglobin A1c 5.9 % (0.0-6.0) 03/13/23 07:19 Calcium 8.3 mg/dL (8.4-10.2) L 03/12/23 17: Magnesium 2.0 mg/dL (1.6-2.3) 03/12/23 17:28 Total Bilirubin 0.4 mg/dL (0.2-1.3) 03/13/23 07:19 Conjugated Bilirubin 0.0 mg/dL (0.0-0.3) 03/13/23 07: Unconjugated Bilirubin 0.3 mg/dL (0.0-1.1) 03/13/23 07:19 Delta Bilirubin 0.1 mg/dL (0.0-0.2) 03/13/23 07:19 AST 31 U/L (17-59) 03/13/23 07:19 ALT 40 U/L (4-49) 03/13/23 07:19 Alkaline Phosphatase 94 U/L (38-126) 03/13/23 07:19 Troponin I <0.012 ng/mL (0.000-0.034) 03/12/23 17:28 Total Protein 7.0 g/dL (6.3-8.2) 03/13/23 07:19 Albumin 3.9 g/dL (3.5-5.0) 03/13/23 07:19 Triglycerides 175.00 mg/dL (0.00-149.00) H 03/13/23 07:19 Cholesterol 149.00 mg/dL (0.00-200.00) 03/13/23 07:19 LDL Cholesterol, Calc 79.5 mg/dL (0.0-131.0) 03/13/23 07:19 VLDL Cholesterol, Calc 35.00 mg/dL (5.00-40.00) 03/13/23 07:19 HDL Cholesterol 34.50 mg/dL (40.00-60.00) L 03/13/23 07:19 Cholesterol/HDL Ratio 4.32 Ratio 03/13/23 07:19 Lipase 136 U/L (23-300) 03/12/23 17:28 TSH 0.420 mIU/L (0.465-4.680) L 03/13/23 07:19 Urine Opiates Screen Not Detected (NotDetected) 03/12/23 17:28 Ur Oxycodone Screen Not Detected (NotDetected) 03/12/23 17:28 Urine Methadone Screen Not Detected (NotDetected) 03/12/23 17:28 Ur Propoxyphene Screen Not Detected (NotDetected) 03/12/23 17:28 Ur Barbiturates Screen Not Detected (NotDetected) 03/12/23 17:28 U Tricyclic Antidepress Not Detected (NotDetected) 03/12/23 17:28 Ur Phencyclidine Scrn Not Detected (NotDetected) 03/12/23 17:28 Ur Amphetamines Screen Not Detected (NotDetected) 03/12/23 17:28 U Methamphetamines Scrn Not Detected (NotDetected) 03/12/23 17:28 U Benzodiazepines Scrn Not Detected (NotDetected) 03/12/23 17:28 Urine Cocaine Screen Not Detected (NotDetected) 03/12/23 17:28 U Marijuana (THC) Screen Not Detected (NotDetected) 03/12/23 17:28 Serum Alcohol 256 mg/dL H* 03/12/23 17:28 Coronavirus (PCR) Not Detected (Not Detectd) 03/13/23 04:00 Assessment Major depressive disorder, recurrent, severe, without psychotic features Alcohol use disorder, severe Generalized Anxiety Disorder Rule out cluster B personality disorder Plan: -Patient continues to meet criteria for inpatient psychiatric admission for symptom stabilization and safety. Patient has signed adult voluntary form and medication consent and was placed in patient's chart. -Medications: Paxil 30 mg daily for depression/anxiety Seroquel 100 mg by mouth at bedtime for insomnia/mood augmentation [facility] protocol. Thiamine and folate. -Discussed with the patient initiation of alcohol cessation medications including naltrexone, Campral, and Antabuse. He is refusing at this time. -When necessary Ativan and Haldol for agitation/aggression. -SW on board for discharge planning. Encouraged the patient to participate in milieu.
[2023-03-16] MEDS: QUEtiapine 100 MG TAB PO SCH (20:53)
[2023-03-17] MEDS: THIAMINE 100 MG TAB PO SCH (10:21)
[2023-03-17] MEDS: FOLIC ACID 1 MG TAB PO SCH (10:21)
[2023-03-17] MEDS: PARoxetine 10 MG TAB PO SCH (10:21)
[2023-03-17] MEDS: MULTIVITAMINS, THERA 1 EACH TAB PO SCH (10:22)
[2023-03-17] MEDS: haloperidoL 5 MG TAB PO PRN (10:25)
[2023-03-17] MEDS: LORazepam 1 MG TAB PO PRN ×2 (10:26→19:47)
[2023-03-17] MEDS: NICOTINE 14MG/24HR PATCH TRANSDERM SCH (10:32)
--- NOTE | 2023-03-17 10:53 | P.PN ---
Progress Note - Text Progress Note Date: 03/17/23 Interval History: Patient was seen wandering the hallways and was agreeable to chart writer in the office. Currently, the patient expresses future and goal orientation and plans to go to [place] for inpatient substance rehabilitation for his alcohol use so that he may return to [facility] for housing. He reports that he got accepted to [facility] with his intake on Wednesday. He is currently not reporting any suicidal or homicidal ideation, intention, and/or plan. He denies any issues regarding his sleep or his appetite. He continues to report elevated anxiety and required when necessary Ativan and Haldol due to intense panic. He states he would like to continue his current medication regimen and may consider an increase tomorrow. Mental Status Exam: General Appearance: Patient appears to be stated age is alert, directable, and cooperative. Behavior: Patient is calmly seated without any agitated behavior. Speech: Patient's speech is fluent and nonpressured. Mood/Affect: Mood is "very anxious", affect is congruent and nervous. Suicidality/Homicidality: Patient denies having any suicidal or homicidal ideation intent or plan. Perceptions: Patient denies any visual hallucinations and denies any auditory hallucinations Though content/process: There is no evidence of any delusional thought content and thought process is linear and goal-directed. Memory and concentration: AOX3, grossly intact for the purposes of this session Judgment and insight: Improving mildly Vital Signs Temp 98.6 F 03/16/23 06:47 Pulse 66 03/16/23 06:47 Resp 17 03/16/23 06:47 BP 126/79 03/16/23 06:47 Pulse Ox 94 L 03/16/23 06:47 FiO2 Assessment Major depressive disorder, recurrent, severe, without psychotic features Alcohol use disorder, severe Generalized Anxiety Disorder Rule out cluster B personality disorder Plan: -Patient continues to meet criteria for inpatient psychiatric admission for symptom stabilization and safety. Patient has signed adult voluntary form and medication consent and was placed in patient's chart. -Medications: Paxil 30 mg daily for depression/anxiety Seroquel 100 mg by mouth at bedtime for insomnia/mood augmentation Thiamine and folate. -Discussed with the patient initiation of alcohol cessation medications including naltrexone, Campral, and Antabuse. He is refusing at this time. -When necessary Ativan and Haldol for agitation/aggression. -SW on board for discharge planning. Encouraged the patient to participate in milieu.
[2023-03-17] MEDS: QUEtiapine 100 MG TAB PO SCH (19:47)
[2023-03-18] MEDS: PARoxetine 10 MG TAB PO SCH (08:27)
[2023-03-18] MEDS: MULTIVITAMINS, THERA 1 EACH TAB PO SCH (08:27)
[2023-03-18] MEDS: THIAMINE 100 MG TAB PO SCH (08:27)
[2023-03-18] MEDS: FOLIC ACID 1 MG TAB PO SCH (08:27)
[2023-03-18] MEDS: LORazepam 1 MG TAB PO PRN (08:28)
[2023-03-18] MEDS: NICOTINE 14MG/24HR PATCH TRANSDERM SCH (08:28)
[2023-03-18] MEDS ORDERED: LORazepam 2 MG/ML INJ IM PRN (10:40)
[2023-03-18] MEDS ORDERED: LORazepam 1 MG TAB PO PRN (10:41)
--- NOTE | 2023-03-18 10:45 | P.PN ---
Progress Note - Text Progress Note Date: 03/18/23 Interval History: Patient was seen wandering the hallways and was agreeable to chief writer in the office. Currently, the patient expresses future and goal orientation and plans to go to [place] for inpatient substance rehabilitation for his alcohol use so that he may return to [facility] for housing. He however has been intermittently attending groups and continues to endorse anxiety however has been using PRN ativan frequently. He was informed that he is to attend groups and milieu therapies. He was also informed that his ativan will be tapered as he will be going to rehab in the near future and there will be no ativan at the rehab facility. He expresses understanding. He reports no suicidal or homicidal ideation, intention, and/or plan. He reports no auditory or visual hallucinations. He reports no paranoia or other delusions. He reports fatigue as a side effect of his medications. He reports no medical issues or concerns. Mental Status Exam: General Appearance: Patient appears to be stated age is alert, directable, and cooperative. Behavior: Patient is calmly seated without any agitated behavior. Speech: Patient's speech is fluent and nonpressured. Mood/Affect: Mood is "nervous", affect is euthymic. Suicidality/Homicidality: Patient denies having any suicidal or homicidal ideation intent or plan. Perceptions: Patient denies any visual hallucinations and denies any auditory hallucinations Though content/process: There is no evidence of any delusional thought content and thought process is linear and goal-directed. Memory and concentration: AOX3, grossly intact for the purposes of this session Judgment and insight: Improving mildly Vital Signs Temp 98.1 F 03/18/23 08:30 Pulse 110 H 03/18/23 08:30 Resp 17 03/16/23 06:47 BP 137/81 03/18/23 08:30 Pulse Ox 94 L 03/16/23 06:47 FiO2 Assessment Major depressive disorder, recurrent, severe, without psychotic features Alcohol use disorder, severe Generalized Anxiety Disorder Rule out cluster B personality disorder Plan: -Patient continues to meet criteria for inpatient psychiatric admission for symptom stabilization and safety. Patient has signed adult voluntary form and medication consent and was placed in patient's chart. -Medications: Paxil 30 mg daily for depression/anxiety Seroquel 100 mg by mouth at bedtime for insomnia/mood augmentation -TAPER ATIVAN TO 1 MG BID. Will taper to 0.5 mg BID tomorrow. Thiamine and folate. -Discussed with the patient initiation of alcohol cessation medications including naltrexone, Campral, and Antabuse. He is refusing at this time. -When necessary Ativan and Haldol for agitation/aggression. -SW on board for discharge planning. Encouraged the patient to participate in milieu.
[2023-03-18] MEDS: QUEtiapine 100 MG TAB PO SCH (20:08)
[2023-03-18] MEDS ORDERED: LORazepam 1 MG TAB PO SCH (21:00)
[2023-03-19 05:40] VITALS: BP 122/79; PULSE 108; RESP 16; TEMP 98.5
[2023-03-19] MEDS: PARoxetine 10 MG TAB PO SCH (08:57)
[2023-03-19] MEDS: FOLIC ACID 1 MG TAB PO SCH (08:57)
[2023-03-19] MEDS: MULTIVITAMINS, THERA 1 EACH TAB PO SCH (08:57)
[2023-03-19] MEDS: THIAMINE 100 MG TAB PO SCH (08:58)
[2023-03-19] MEDS: NICOTINE 14MG/24HR PATCH TRANSDERM SCH (08:58)
--- NOTE | 2023-03-19 12:04 | P.DS ---
Providers Date of admission: 03/13/23 05:31 Expected date of discharge: 03/19/23 Attending physician: Laron Blackwell MD Consults: 03/13/23 05:46 Consult Physician Routine Consulting Provider: Iram Hoff Consult Reason/Comments: For H & P for Medical Follow Up Do you want consulting provider notified?: Yes Primary care physician: Stated None - Discharge Diagnosis(es) (1) Major depressive disorder, recurrent episode, severe Status: Acute Priority: High (2) Alcohol use disorder Status: Chronic Priority: Medium (3) Generalized anxiety disorder Status: Chronic Priority: Medium (4) Cluster B personality disorder Status: Chronic Priority: Medium Hospital Course: Admission HPI: Initial psychiatric evaluation was completed by Dr Saavedra on 03/13/2023 who wrote: Patient is a single, unemployed, 32-year-old [place] male who is presenting with suicidal ideation and alcohol use. Patient states that he has been residing at [address] [place] [address] and was sober for 3 months. He reports having stress at work, that he drank on 03/11/23 night (drank a fifth) and quit his work that he disliked. He says he continued to drink (around a pint) during the daytime on 03/12/[address] [place] [id number] and therefore needed to leave the housing. He reports feeling suicidal subsequently and was thinking about "drinking himself to ". He says that while he was walking down the street, he decided to call 911 instead. He describes a long history of struggle with alcohol. He says that thoughts of "I'm just going to do it once" being a trigger. He endorses a history of becoming delirious but denies having experienced seizures. He endorses experiencing passive suicidal ideation when sober but says that it worsens while he is drinking. He describes a cycle of guilt and shame that causes him to become more depressed. He currently endorses suicidal ideation and says that he would like to drink himself to . He reports doing well on Paxil 20 mg daily and Seroquel 100 mg at night. He states that he is compliant with the medications. Regarding alcohol use, he says he began drinking when he was 21 years old and it increased significantly when he was 22 years old. At the time, he was drinking 1 pint daily of Vodka. He says in 2019, his drinking increased considerably for 3 months to being throughout the day. He went to rehab in 2018 at [facility] and was sober for 2 months. In 2021, he reports attending a different sober house and was sober for 3 months (longest period of sobriety). More recently, he was drinking 2-3 days at a time and then got mental health help along with residential rehab. He reports experiencing depressed mood from his teen years. He says he has recently been feeling depressed for the past 3 years. He reports decreased concentration, anhedonia, fluctuating energy, and feelings of guilt. He says he has a fair appetite. He endorses sleep maintenance issues but is convinced that he has sleep apnea. He did not have sleep study but hopes to get this scheduled. He endorses worrying often and says he has catastrophic thinking. He reports having racing thoughts and feeling keyed up. He states that he is able to relax and that his sleep is not impacted by his worrying. Patient denies constellation of symptoms consistent with mahnaz. He denies homicidal ideation, auditory and visual hallucinations, and paranoia, as asked and assessed. Hospital course: Upon admission to the unit patient was initially as depressed in the context of alcohol relapse and pending homelessness. Patient was however directable and agreeable to commence treatment. Patient got along well with other patients on t he unit and followed unit protocol. Patient was compliant with the medications and denied any side effects throughout hospital course. Patient was started on Paxil and Seroquel for management of his depression and anxiety. Patient spoke of his stressors however was intermittently adherent with any milieu therapies. He expresses strong desire to go to rehab and was able to set up an intake with [facility] for 03/22/2023. Initially, the patient wanted to stay on the psychiatric unit until his rehab appointment however he did not wish to participate in treatment programs regarding his anxiety. He refused to attend groups and would only attend them if encouraged to do so. On the day of discharge, the patient is not reporting any suicidal or homicidal ideation, intention, and/or plan. He reports that he wishes to be discharged so that he may not have to attend any groups stating that he feels like he is able to handle things. He is not reporting any auditory or visual hallucinations. He is denying any paranoia or other delusions. He reports no access to firearms or other weapons. The patient remains future and goal oriented with plans to go to rehab on Wednesday. As the patient no longer met criteria for continued inpatient psychiatric hospitalization, he was subsequently discharged. Mental status exam: General Appearance: Patient appears to be stated age is alert, pleasant, and cooperative. Patient is in no acute distress and has fair hygiene and grooming Behavior: Patient is calmly seated without any agitated behavior. Speech: Patient's speech is fluent and nonpressured. Mood/Affect: Patient reports their mood is "much better", affect is congruent and euthymic. Suicidality/Homicidality: Patient denies having any suicidal or homicidal ideation intent or plan. Perceptions: Patient denies any auditory or visual hallucinations. Though content/process: There is no evidence of any delusional thought content and thought process is linear and goal-directed. Patient is future oriented Memory and concentration: AOX3, grossly intact for the purposes of this session. Can spell "WORLD" backwards correctly. Judgment and insight: Improved with guarded prognosis Impression: Major depressive disorder, recurrent, severe, without psychotic features Alcohol use disorder, severe Generalized Anxiety Disorder Cluster B personality disorder Plan: -Continue with discharge today as patient has improved and stabilized psychiatrically and is not currently an imminent threat to himself and/or others. Patient will remain at chronically elevated risk due to his alcohol use, poor frustration tolerance, and poor ego integrity. -Continue medications: Multivitamin, folic acid, thiamine supplementation Seroquel 100 mg by mouth at bedtime for mood augmentation Paxil 30 mg by mouth daily for depression/anxiety -Patient was counseled on the need for medication compliance and appropriate follow-up at mental health and also primary care for medical issues. Patient verbalized understanding and agreed. -Social work to arrange for and conduct family meeting to ensure safety upon discharge and answer any questions/concerns. Social work also to arrange for patients follow up appointments with [facility] for substance abuse/psychiatric care along with follow up with primary care provider. -Patient counseled on abstaining from recreational drugs and marijuana and alcohol. Was informed/educated on the adverse effects on their physical and mental health. Patient verbally agreed and understood. Patient is scheduled to go to [facility] on Wednesday, March 22. -Patient was instructed to return to the hospital or seek immediate medical care if their psychiatric or medical symptoms do worsen or reoccur. -Psychoeducation and supportive therapy provided to patient. Risks and benefits of pharmacological treatment versus the risks and benefits of nontreatment weight and discussed. Informed consent discussion held. Common side effects of psychotropics discussed such as, but not limited to headache, GI disturbance, sexual dysfunction, movement disorders, sedation, and orthostatic hypotension. Life threatening and blackbox warnings of prescribed medications also discussed. Potential risks of operating a vehicle or heavy machinery discussed with patient at length. Advised on importance of compliance and a reliable and responsible manner. Patient advised to review FDA consumer labeling of all medications prior to taking. Patient verbalized understanding of potential risks, and agrees with current treatment plan. Patient advised to medically contact physician/emergency personnel if any acute changes in condition occur. Vital Signs Temp 98.5 F 03/19/23 05:39 Pulse 108 H 03/19/23 05:39 Resp 16 03/19/23 05:39 BP 122/79 03/19/23 05:39 Pulse Ox 98 03/19/23 05:39 FiO2 Laboratory Results WBC 4.9 k/uL (3.8-10.6) 03/12/23 17: RBC 4.61 m/uL (4.30-5.90) 03/12/23 17: Hgb 13.8 gm/dL (13.0-17.5) 03/12/23 17:28 Hct 42.3 % (39.0-53.0) 03/12/23 17: MCV 91.7 fL (80.0-100.0) 03/12/23 17: MCH 29.9 pg (25.0-35.0) 03/12/23 17: MCHC 32.6 g/dL (31.0-37.0) 03/12/23 17: RDW 13.5 % (11.5-15.5) 03/12/23 17: Plt Count 242 k/uL (150-450) 03/12/23 17: MPV 8.8 03/12/23 17: Neutrophils % 56 % 03/12/23 17:28 Lymphocytes % 30 % 03/12/23 17:28 Monocytes % 8 % 03/12/23 17: Eosinophils % 3 % 03/12/23 17:28 Basophils % 1 % 03/12/23 17:28 Neutrophils # 2.7 k/uL (1.3-7.7) 03/12/23 17:28 Lymphocytes # 1.5 k/uL (1.0-4.8) 03/12/23 17:28 Monocytes # 0.4 k/uL (0-1.0) 03/12/23 17:28 Eosinophils # 0.1 k/uL (0-0.7) 03/12/23 17:28 Basophils # 0.0 k/uL (0-0.2) 03/12/23 17:28 PT 10.2 sec (9.0-12.0) 03/12/23 17: INR 1.0 (<1.2) 03/12/23 17: APTT 25.1 sec (22.0-30.0) 03/12/23 17:28 Sodium 146 mmol/L (137-145) H 03/12/23 17: Potassium 4.0 mmol/L (3.5-5.1) 03/12/23 17: Chloride 110 mmol/L (98-107) H 03/12/23 17:28 Carbon Dioxide 23 mmol/L (22-30) 03/12/23 17: Anion Gap 13 mmol/L 03/12/23 17:28 BUN 8 mg/dL (9-20) L 03/12/23 17:28 Creatinine 0.79 mg/dL (0.66-1.25) 03/12/23 17:28 Est GFR (CKD-EPI)AfAm >90 (>60 ml/min/1.73 sqM) 03/12/23 17:28 Est GFR (CKD-EPI)NonAf >90 (>60 ml/min/1.73 sqM) 03/12/23 17:28 Glucose 105 mg/dL (74-99) H 03/12/23 17:[address] Glu mg/dL 123 03/13/23 07:19 Hemoglobin A1c 5.9 % (0.0-6.0) 03/13/23 07:19 Calcium 8.3 mg/dL (8.4-10.2) L 03/12/23 17:28 Magnesium 2.0 mg/dL (1.6-2.3) 03/12/23 17:28 Total Bilirubin 0.4 mg/dL (0.2-1.3) 03/13/23 07:19 Conjugated Bilirubin 0.0 mg/dL (0.0-0.3) 03/13/23 07:19 Unconjugated Bilirubin 0.3 mg/dL (0.0-1.1) 03/13/23 07:19 Delta Bilirubin 0.1 mg/dL (0.0-0.2) 03/13/23 07:19 AST 31 U/L (17-59) 03/13/23 07:19 ALT 40 U/L (4-49) 03/13/23 07:19 Alkaline Phosphatase 94 U/L (38-126) 03/13/23 07:19 Troponin I <0.012 ng/mL (0.000-0.034) 03/12/23 17:28 Total Protein 7.0 g/dL (6.3-8.2) 03/13/23 07:19 Albumin 3.9 g/dL (3.5-5.0) 03/13/23 07:19 Triglycerides 175.00 mg/dL (0.00-149.00) H 03/13/23 07:19 Cholesterol 149.00 mg/dL (0.00-200.00) 03/13/23 07:19 LDL Cholesterol, Calc 79.5 mg/dL (0.0-131.0) 03/13/23 07:19 VLDL Cholesterol, Calc 35.00 mg/dL (5.00-40.00) 03/13/23 07:19 HDL Cholesterol 34.50 mg/dL (40.00-60.00) L 03/13/23 07:19 Cholesterol/HDL Ratio 4.32 Ratio 03/13/23 07:19 Lipase 136 U/L (23-300) 03/12/23 17:28 TSH 0.420 mIU/L (0.465-4.680) L 03/13/23 07:19 Urine Opiates Screen Not Detected (NotDetected) 03/12/23 17:28 Ur Oxycodone Screen Not Detected (NotDetected) 03/12/23 17:28 Urine Methadone Screen Not Detected (NotDetected) 03/12/23 17:28 Ur Propoxyphene Screen Not Detected (NotDetected) 03/12/23 17:28 Ur Barbiturates Screen Not Detected (NotDetected) 03/12/23 17:28 U Tricyclic Antidepress Not Detected (NotDetected) 03/12/23 17:28 Ur Phencyclidine Scrn Not Detected (NotDetected) 03/12/23 17:28 Ur Amphetamines Screen Not Detected (NotDetected) 03/12/23 17:28 U Methamphetamines Scrn Not Detected (NotDetected) 03/12/23 17:28 U Benzodiazepines Scrn Not Detected (NotDetected) 03/12/23 17:28 Urine Cocaine Screen Not Detected (NotDetected) 03/12/23 17:28 U Marijuana (THC) Screen Not Detected (NotDetected) 03/12/23 17:28 Serum Alcohol 256 mg/dL H* 03/12/23 17:28 Coronavirus (PCR) Not Detected (Not Detectd) 03/13/23 04:00 Allergies Allergy/AdvReac Type Severity Reaction Status Date / Time No Known Allergies Allergy Verified 03/13/23 08:00 Patient Condition at Discharge: Stable Plan - Discharge Summary New Discharge Prescriptions: New QUEtiapine [SEROquel] 100 mg PO HS 30 Days #30 tab Thiamine [Vitamin B-1] 100 mg PO DAILY 30 Days #30 tab Folic Acid 1 mg PO DAILY 30 Days #30 tab Multivitamins, Thera [Multivitamin (formulary)] 1 each PO DAILY 30 Days #30 tab PARoxetine [Paxil] 30 mg PO DAILY 30 Days #90 tab Discharge Medication List Folic Acid 1 mg PO DAILY 30 Days #30 tab 03/19/23 [Rx] Multivitamins, Thera [Multivitamin (formulary)] 1 each PO DAILY 30 Days #30 tab 03/19/23 [Rx] PARoxetine [Paxil] 30 mg PO DAILY 30 Days #90 tab 03/19/23 [Rx] QUEtiapine [SEROquel] 100 mg PO HS 30 Days #30 tab 03/19/23 [Rx] Thiamine [Vitamin B-1] 100 mg PO DAILY 30 Days #30 tab 03/19/23 [Rx] Follow up Appointment(s)/Referral(s): [facility] [Outside] - 03/22/23 10:00 am [facility] [NON-STAFF] - 1 Week Patient Instructions/Handouts: Depression (DC), Generalized Anxiety Disorder (GEN), Abuse of Alcohol (DC), Borderline Personality Disorder (DC) Activity/Diet/Wound Care/Special Instructions: Avoid the use of street drugs and alcohol. Take all medications as prescribed. When you are in need of refills on your medications, please contact your medical provider and/or outpatient psychiatrist to have this done. Please go to scheduled outpatient appointments for aftercare treatment. If symptoms return or become worse, call the crisis line at and/or go to the nearest emergency room for evaluation. Discharge/Stand Alone Forms: AA Meetings [place] Discharge Disposition: HOME SELF-CARE
== END 2023-03-19 11:48 | disposition home or self-care (01) | DRG 751 ==
LOC: EC 16:30 → 3MHU 03-13 05:31
PROVIDERS: ADMIT Psychiatry & Neurology Psychiatry; ATTEND Psychiatry & Neurology Psychiatry
DX: F33.2 Major depressive disorder, recurrent severe without psychotic features (principal); F10.229 Alcohol dependence with intoxication, unspecified; F10.239 Alcohol dependence with withdrawal, unspecified; F31.9 Bipolar disorder, unspecified; F41.0 Panic disorder [episodic paroxysmal anxiety]; F41.1 Generalized anxiety disorder; F60.89 Other specific personality disorders; G47.30 Sleep apnea, unspecified; G89.29 Other chronic pain; R45.851 Suicidal ideations; Z79.899 Other long term (current) drug therapy; Z20.822 Contact with and (suspected) exposure to COVID-19
CPT/HCPCS: 36415; 71046; 80053; 80061; 80076; 80306; 80320; 82075; 83036; 83690; 83735; 84443; 84484; 85025; 85610; 85730; 87635; 93005; 96361; 96372; 96374; 99285

== ENCOUNTER 2023-03-19 20:56 | Inpatient (IN) | payer MEDICAID, OTHER ==
--- NOTE | 2023-03-19 21:40 | ED ---
Psych HPI - General Source: EMS, RN notes reviewed, old records reviewed Mode of arrival: EMS Limitations: altered mental status, physical limitation - History of Present Illness MD Complaint: suicidal ideation, feels depressed, altered mental status, other (Alcohol intoxication) -: unknown Associated Psychiatric Symptoms: depression, suicidal ideation History of same: Yes Quality: constant Improves With: none Worsens With: none Context: recent alcohol abuse Associated Symptoms: denies other symptoms Treatments Prior to Arrival: placed on mental health hold If Self Harm: admits thoughts of self harm <Edgar Everett - Last Filed: 03/19/23 22:06> <Maik Stephenson - Last Filed: 03/20/23 08:55> - General Chief Complaint: Psychiatric Symptoms Stated Complaint: MENTAL HEALTH Time Seen by Provider: 03/19/23 21:07 - History of Present Illness Initial Comments: This is a 30-year-old male to the emergency department for evaluation by my PD petition. Patient's petition for psychiatric evaluation secondary to suicidal thoughts patient significantly intoxicated not participating history taking (Edgar Everett) - Related Data Home Medications Medication Instructions Recorded Confirmed Multivitamins, Thera [Multivitamin 1 tab PO DAILY 03/19/23 03/19/23 (formulary)] Previous Rx's Medication Instructions Recorded Folic Acid 1 mg PO DAILY 30 Days #30 tab 03/19/23 PARoxetine [Paxil] 30 mg PO DAILY 30 Days #90 tab 03/19/23 QUEtiapine [SEROquel] 100 mg PO HS 30 Days #30 tab 03/19/23 Thiamine [Vitamin B-1] 100 mg PO DAILY 30 Days #30 tab 03/19/23 Allergies Allergy/AdvReac Type Severity Reaction Status Date / Time No Known Allergies Allergy Verified 03/19/23 21:43 Review of Systems ROS Other: All systems not noted in ROS Statement are negative. <Edgar Everett - Last Filed: 03/19/23 22:06> ROS Other: All systems not noted in ROS Statement are negative. <Maik Stephenson - Last Filed: 03/20/23 08:55> ROS Statement: Those systems with pertinent positive or pertinent negative responses have been documented in the HPI. Past Medical History Past Medical History: Hypertension History of Any Multi-Drug Resistant Organisms: None Reported Past Surgical History: No Surgical Hx Reported Past Anesthesia/Blood Transfusion Reactions: No Reported Reaction Past Psychological History: Anxiety, Bipolar, Depression Smoking Status: Vaper Past Alcohol Use History: Abuse Past Drug Use History: None Reported <Edgar Everett - Last Filed: 03/19/23 22:06> General Exam Limitations: altered mental status General appearance: alert, appears intoxicated, anxious, lethargic Head exam: Present: atraumatic, normocephalic, normal inspection Eye exam: Present: normal appearance, PERRL, EOMI. Absent: scleral icterus, conjunctival injection, periorbital swelling ENT exam: Present: normal exam, mucous membranes moist Neck exam: Present: normal inspection. Absent: tenderness, meningismus, lymphadenopathy Respiratory exam: Present: normal lung sounds bilaterally. Absent: respiratory distress, wheezes, rales, rhonchi, stridor Cardiovascular Exam: Present: normal rhythm, tachycardia, normal heart sounds. Absent: systolic murmur, diastolic murmur, rubs, gallop, clicks GI/Abdominal exam: Present: soft, normal bowel sounds. Absent: distended, tenderness, guarding, rebound, rigid Extremities exam: Present: normal inspection, full ROM, normal capillary refill. Absent: tenderness, pedal edema, joint swelling, calf tenderness Back exam: Present: normal inspection Neurological exam: Present: alert, oriented X3, CN II-XII intact Psychiatric exam: Present: normal affect, normal mood Skin exam: Present: warm, dry, intact, normal color. Absent: rash <Edgar Everett - Last Filed: 03/19/23 22:06> Course <Edgar Everett - Last Filed: 03/19/23 22:06> Vital Signs 03/19/23 21:07 Temperature 98.9 F Pulse Rate 110 H Respiratory 18 Rate Blood Pressure 123/84 O2 Sat by Pulse 94 L Oximetry - Reevaluation(s) Reevaluation #1: 03/19/23 22:06 Medical record review of (Edgar Everett) Reevaluation #2: 03/19/23 22:06 Medical clear for psychiatric evaluation (Edgar Everett) Medical Decision Making <Maik Stephenson - Last Filed: 03/20/23 08:55> - Medical Decision Making Patient was holding in the emergency department pending psychiatric evaluation. EPS notified me following evaluation and determined that he will be admitted to inpatient psychiatry. Clinical certificate was completed by myself. Patient admitted in stable condition. Diagnosis/symptom? @ -Alcohol intoxication, suicidal ideations, encounter for psychiatric evaluation Acute, or Chronic, or Acute on Chronic? @ -Acute Uncomplicated (without systemic symptoms) or Complicated (systemic symptoms)? @ -Complicated Side effects of treatment? @ -none Exacerbation, Progression, or Severe Exacerbation] @ -no Poses a threat to life or bodily function? @ -Yes (Maik Stephenson) Disposition <Edgar Everett - Last Filed: 03/19/23 22:06> <Maik Stephenson - Last Filed: 03/20/23 08:55> Clinical Impression: Encounter for psychiatric assessment, Suicidal ideations Disposition: ADMITTED IP TO THIS HOSP Condition: Stable
[2023-03-19] MEDS ORDERED: NICOTINE 21MG/24HR PATCH TRANSDERM STA (21:49)
[2023-03-20] MEDS ORDERED: MAG HYDROX/AL HYDROX/SIMETH 30 ML CUP PO PRN (07:45)
[2023-03-20] MEDS ORDERED: HALOPERIDOL LACTATE 5 MG/ML 1 ML VIAL IM PRN (07:45)
[2023-03-20] MEDS ORDERED: ACETAMINOPHEN TAB 325 MG TAB PO PRN (07:45)
[2023-03-20] MEDS ORDERED: haloperidoL 5 MG TAB PO PRN (07:45)
[2023-03-20] MEDS ORDERED: MAGNESIUM HYDROXIDE 2,400 MG/10 ML CUP PO PRN (07:45)
[2023-03-20] MEDS ORDERED: LORazepam 0.5 MG TAB PO STA (08:25)
[2023-03-20] MEDS ORDERED: ONDANSETRON ODT 4 MG TAB PO STA (08:25)
[2023-03-20] MEDS: MULTIVITAMINS, THERA 1 EACH TAB PO SCH (08:38)
[2023-03-20] MEDS: FOLIC ACID 1 MG TAB PO SCH (08:38)
[2023-03-20] MEDS: PARoxetine 10 MG TAB PO SCH (08:38)
[2023-03-20] MEDS: NICOTINE 14MG/24HR PATCH TRANSDERM SCH (08:40)
[2023-03-20] MEDS: LORazepam 1 MG TAB PO PRN ×2 (10:10→19:01)
--- NOTE | 2023-03-20 17:10 | P.HP ---
Psychiatric H&P - . H&P Date: 03/20/23 History & Physical: IDENTIFYING DATA: Patient is a single, unemployed, 32-year-old male who is presenting with suicidal ideation and alcohol use. HPI: Patient presented to the hospital last night due to suicidal ideations. Per EPS note, "Patient brought to and petitioned by police after a receiving a 911 call from Dad who stated patient called him and stated he was going to kill himself by ETOH and believed to be in the [place] area. Patient just discharged yesterday from [facility] and was staying at hotel near by until transfer to [place] on Wednesday. Patient was found naked and blacked out on the floor of his hotel room. Patient reports doesnt know why just relapsed and denies remembering talking to his Dad. Patient reports not having suicidal at present it always happens when I am drinking and I have needed inpatient multiple ray es." Per petition completed by precinct police lieutenant, "male was passed out in the hallway of a hotel. Male was unaware of his surroundings and what day it is. Father told police Horcae called him saying he was 'done' with life and was going to kill himself. He has a history of suicide [attempt]." On assessment, he reports he left the hospital on Wednesday, he was not suicidal when he left the hospital but admits he was craving alcohol, and went to the part store and bought 1/2 gallon of vodka, went to a hotel and drank about 1/5 of vodka. He reports he started to feel suicidal after drinking, reports he "blacked out fairly quickly". He does not recall calling his father to say he was suicidal. Police went into the hotel room for a safety check and found him naked on his bed, but does not recall what happened. Today, he states he feels "concerned" but denies suicidal thoughts, intent or plan. He reports he started drinking at age 22 yo, and has been drinking heavily for the past 10 years but is has gotten worse. He plans to go to rehab on Wednesday morning at [facility] at 9am. He reports his mood is "not that bad" but is anxious and worried. Patient denies any suicidal or homicidal ideation, intent or plan. At this time patient denies any auditory or visual hallucinations. Patient denies any flight of ideas racing thoughts and increased in goal directed behavior. PAST PSYCHIATRIC HISTORY: The following history is taken from H&P dated 03/13/23 and updated as needed: Previous psychiatrist: [facility] Past tx: Paxil 20 mg daily and Seroquel 100 mg qHS. He reports compliance with these medications at home. Trazodone - "wired" and says he did not feel tired from this Hospitalizations: Once in 2017, twice in 2018, and numerous times since then. Most recently was at [facility] Dec 2022 and again at [facility] 03/13/23-03/19/23. NSSI: Cut himself twice in the past SA: Tried to hang himself with a noose, was planning to get hit by a train but he passed out before that from drinking PMH: The following history is taken from H&P dated 03/13/23 and updated as needed: Hypertension? ALLERGIES: Denies PCP: Denies Head injuries: Denies Seizures: Denies ALLERGIES: as per EMR CHEMICAL DEPENDENCY HISTORY: The following history is taken from H&P dated 03/13/23 and updated as needed: Alcohol: he began drinking when he was 21 years old and it increased significantly when he was 22 years old. At the time, he was drinking 1 pint daily of Vodka. He says in 2019, his drinking increased considerably for 3 months to being throughout the day. He went to rehab in 2018 at [facility] and was sober for 2 months. In 2021, he reports attending a different sober house and was sober for 3 months (longest period of sobriety). More recently, he was drinking 2-3 days at a time and then got mental health help along with residential rehab. Tobacco: Vape Cannabis: Denies Denies using other substances FAMILY PSYCHIATRIC/SUBSTANCE USE HISTORY: The following history is taken from H&P dated 03/13/23 and updated as needed: Father's side and his father: alcohol Mother's side: depression and anxiety Suicide attempts: Sister SOCIAL HISTORY: Homeless, staying at hotel. The following history is taken from H&P dated 03/13/23 and updated as needed: He grew up near [place]. He says his parents when he was 2 years old but he was able to spend time with both of them. He describes having had a happy childhood. He has 1 older sister and 2 half brother and 2 half sisters. He says he is close to his father, grandmother, and aunt. Highest level of education: High school Vocation: Worked in a [employer] and [employer]. Legal problems: DUI in 2018 and a fight in 2021 MENTAL STATUS EXAM: General Appearance: Patient appears to be stated age is alert, directable, and attempts to cooperate. Has worthington and nose ring, has tattoos on his neck and hands. Behavior: Patient is seated without any agitated behavior. Speech: Patient's speech is fluent and non-pressured. Mood/Affect: Patient reports their mood is "not that bad" but anxious, affect is congruent and constricted. Suicidality/Homicidality: Patient denies having any homicidal ideation intent or plan. Denies any suicidal ideation, intent or plan. Perceptions: Patient denies any visual hallucinations and denies any auditory hallucinations. Though content/process: There is no evidence of any delusional thought content and thought process is linear and goal-directed. Memory and concentration: AOX3, grossly intact for the purposes of this session. Can spell "WORLD" backwards Judgment and insight: Poor STRENGTHS/WEAKNESSES: Strength is that patient is patient has some family support. Weakness is that patient has poor judgment, is impulsive, substance abuse and unstable housing. INTELLECT: Average IMPRESSIONS: Major depressive disorder, recurrent, severe, without psychotic features Alcohol use disorder, severe Generalized Anxiety Disorder Cluster B personality disorder PLAN: -Patient is admitted under involuntary status (pet/cert) to MHU for stabilization of psychiatric symptoms and safety. Patient has signed adult voluntary form and medication consent and is placed in patient's chart. -Medications: Will continue patient on Paxil 30 mg daily for depression/anxiety and Seroquel 100 mg QHS for mood augmentation. -Ativan and Haldol PRN for agitation/aggression -Started thiamine, MVM for Etoh use -CIWA protocol with Ativan PRN for ETOH withdrawal -Patient was counselled on substance abuse and desired to cut back on use -Patient was informed of the risks, benefits and side effects of the medication and patient verbally consented to taking the medications. Patient signed med consent form and was placed in chart. -Internal Medicine consult to perform medical evaluation and physical. -NRT - nicotine patch -SW on board for discharge planning. Encourage patient to participate in groups to work on coping skills. Will await deferral and court date. Allergies Allergy/AdvReac Type Severity Reaction Status Date / Time No Known Allergies Allergy Verified 03/20/23 10:15 Vital Signs Temp 98.4 F 03/20/23 09:30 Pulse 95 03/20/23 09:30 Resp 18 03/20/23 09:30 BP 134/73 03/20/23 09:30 Pulse Ox 97 03/20/23 09:30 FiO2 Intake & Output 03/19/23 03/20/23 03/20/23 18:59 06:59 18:59 Weight 116.3 kg 114.56 kg Laboratory Last Values Coronavirus (PCR) Not Detected (Not Detectd) 03/20/23 07:39 03/20/23 14:43 03/20/23 16:12
[2023-03-20] MEDS: QUEtiapine 100 MG TAB PO SCH (21:19)
--- NOTE | 2023-03-21 00:28 | P.PN ---
Progress Note - Text Progress Note Date: 03/21/23 Attempted to see the patient in the mental health unit. The patient refused to be seen or be evaluated. Will attempt again tomorrow
[2023-03-21 06:59] VITALS: TEMP 97.8
[2023-03-21] MEDS: LORazepam 1 MG TAB PO PRN ×3 (07:03→20:30)
[2023-03-21] MEDS: PARoxetine 10 MG TAB PO SCH (08:38)
[2023-03-21] MEDS: FOLIC ACID 1 MG TAB PO SCH (08:39)
[2023-03-21] MEDS: MULTIVITAMINS, THERA 1 EACH TAB PO SCH (08:39)
[2023-03-21] MEDS: NICOTINE 14MG/24HR PATCH TRANSDERM SCH (08:39)
[2023-03-21] MEDS: QUEtiapine 100 MG TAB PO SCH (20:30)
--- NOTE | 2023-03-21 20:47 | P.PN ---
Progress Note - Text Progress Note Date: 03/21/23 Interval history: Patient was seen asleep in his room and snoring loudly. He was directable and agreeable to speak with communications writer. He states he suspects he has sleep apnea and will go see a sleep doctor after discharge due to his snoring. At this time patient denies any suicidal or homicidal ideation, intent or plan. Denies any auditory or visual hallucinations. Patient denies any side effects from the medications and has been compliant with meds. He is looking forward to discharge tomorrow morning to go to substance abuse rehab. Mental status exam: General Appearance: Patient appears to be stated age is alert, directable, and attempts to cooperate. Has worthington and nose ring, has tattoos on his neck and hands. Behavior: Patient is seated without any agitated behavior. Speech: Patient's speech is fluent and non-pressured. Mood/Affect: Patient reports their mood is "ok", affect is congruent and constricted. Suicidality/Homicidality: Patient denies having any homicidal ideation intent or plan. Denies any suicidal ideation, intent or plan. Perceptions: Patient denies any visual hallucinations and denies any auditory hallucinations. Though content/process: There is no evidence of any delusional thought content and thought process is linear and goal-directed. Memory and concentration: AOX3, grossly intact for the purposes of this session. Judgment and insight: improving mildly Assessment/Plan: Continue with current diagnosis. Patient continues to meet criteria for inpatient psychiatric admission for symptom stabilization and safety. Patient will be maintained on current psychotropic medication regimen. Monitor for medication compliance and for any psychotropic medication side effects. Will continue to monitor ongoing response to treatment. Encouraged participation in milieu. Plan to discharge tomorrow morning to substance abuse treatment facility for alcoholism.
--- NOTE | 2023-03-21 23:09 | P.CONS ---
History of Present Illness - Reason for Consult Consult date: 03/21/23 - History of Present Illness The patient is a 32-year-old male with a PMH of alcohol abuse who presented to the emergency room with complaints of depression and suicidal ideation. The patient was admitted to the mental health unit where he was seen and evaluated. The patient reports that he has been having alcohol binges where he drinks a fifth a day. He is trying to quit and wanted to seek further help. He also rep orts that he was depressed and feeling down about his life due to his ongoing alcohol abuse which prompted him to come to the emergency room. At time of the interview, the patient denied experiencing any physical complaints. He denied chest discomfort, shortness of breath, nausea, vomiting, fever, chills, cough. He denied illicit substance use. Review of systems: Pertinent positives and negatives as discussed in HPI, a complete review of systems was performed and all other systems are negative. Physical examination: General: non toxic, no distress, appears at stated age, normal weight Derm: no unusual rashes/lesions, no unusual ecchymoses, warm, dry Head: atraumatic, normocephalic, symmetric Eyes: EOMI, no lid lag, anicteric sclera ENT: Nose and ears atraumatic, no thrush, no pharyngeal erythema Neck: trachea midline, supple Mouth: no lip lesion, mucus membranes moist Cardiovascular: S1S2 reg, no murmur, no edema Lungs: CTA bilateral, no rhonchi, no rales , no accessory muscle use Abdominal: soft, nontender to palpation, no guarding Ext: no gross muscle atrophy, no contractures, Neuro: No gross focal neuro deficits noted Psych: Alert, oriented, appropriate affect Assessment: Alcohol abuse Depression and suicidal ideation Imaging: None performed Data Review: Coronavirus PCR negative Plan: Strongly advised on importance of alcohol use cessation Monitor CIWA scale Defer management of depression and suicidal ideation to the primary psychitry service Thank you for allowing us to participate in the care of this patient. We will follow peripherally. Do not hesitate to contact us with questions. Someone can be reached from the [facility] hospitalist group at all hours of the day at [phone]. Past Medical History Past Medical History: Hypertension History of Any Multi-Drug Resistant Organisms: None Reported Past Surgical History: No Surgical Hx Reported Past Anesthesia/Blood Transfusion Reactions: No Reported Reaction Smoking Status: Vaper - Past Family History Mother Family Medical History: Hyperlipidemia Medications and Allergies Home Medications Medication Instructions Recorded Confirmed Type Folic Acid 1 mg PO DAILY 30 Days #30 tab 03/19/23 03/19/23 Rx Multivitamins, Thera [Multivitamin 1 tab PO DAILY 03/19/23 03/19/23 History (formulary)] PARoxetine [Paxil] 30 mg PO DAILY 30 Days #90 tab 03/19/23 03/19/23 Rx QUEtiapine [SEROquel] 100 mg PO HS 30 Days #30 tab 03/19/23 03/19/23 Rx Thiamine [Vitamin B-1] 100 mg PO DAILY 30 Days #30 tab 03/19/23 03/19/23 Rx Allergies Allergy/AdvReac Type Severity Reaction Status Date / Time No Known Allergies Allergy Verified 03/20/23 10:15 Physical Exam Vitals: Vital Signs Temp Pulse Resp BP Pulse Ox 03/21/23 06:58 97.8 F 97 18 127/96 98 Intake and Output 03/21/23 03/21/23 03/21/23 06:59 14:59 22:59 Other: Weight 116.3 kg
[2023-03-22 06:45] VITALS: BP 121/89; PULSE 91; RESP 16
--- NOTE | 2023-03-22 13:51 | P.DS ---
Providers Date of admission: 03/20/23 07:39 Expected date of discharge: 03/22/23 Attending physician: Laron Blackwell MD Consults: 03/20/23 07:45 Consult Physician Routine Consulting Provider: Iram Hoff Consult Reason/Comments: H&P for [facility] admission Do you want consulting provider notified?: Yes Primary care physician: Stated None - Discharge Diagnosis(es) (1) Major depressive disorder, recurrent episode, severe Status: Acute Priority: High (2) Alcohol use disorder Status: Chronic Priority: Medium (3) Cluster B personality disorder Status: Chronic Priority: Medium (4) Generalized anxiety disorder Status: Chronic Priority: Medium Hospital Course: Admission HPI: Patient is a single, unemployed, 32-year-old male who is presenting with suicidal ideation and alcohol use. Patient presented to the hospital last night due to suicidal ideations. Per EPS note, "Patient brought to and petitioned by police after a receiving a 911 call from Dad who stated patient called him and stated he was going to kill himself by ETOH and believed to be in the [place] area. Patient just discharged yesterday from [facility] and [facility] until transfer to [place] on Wednesday. Patient was found naked and blacked out on the floor of his hotel room. Patient reports doesnt know why just relapsed and denies remembering talking to his Dad. Patient reports not having suicidal at present it always happens when I am drinking and I have needed inpatient multiple times." Per petition completed by police lieutenant, "male was passed out in the hallway of a hotel. Male was unaware of his surroundings and what day it is. Father told police Horace called him saying he was 'done' with life and was going to kill himself. He has a history of suicide attempt." On assessment, he reports he left the hospital on Wednesday, he was not suicidal when he left the hospital but admits he was craving alcohol, and went to the part store and bought 1/2 gallon of vodka, went to a hotel and drank about 1/5 of vodka. He reports he started to feel suicidal after drinking, reports he "blacked out fairly quickly". He does not recall calling his father to say he was suicidal. Police went into the hotel room for a safety check and found him naked on his bed, but does not recall what happened. Today, he states he feels "concerned" but denies suicidal thoughts, intent or plan. He reports he started drinking at age 22 yo, and has been drinking heavily for the past 10 years but is has gotten worse. He plans to go to rehab on Wednesday morning at [facility] at 9am. He reports his mood is "not that bad" but is anxious and worried. Patient denies any suicidal or homicidal ideation, intent or plan. At this time patient denies any auditory or visual hallucinations. Patient denies any flight of ideas racing thoughts and increased in goal directed behavior. Hospital course: Patient was recently released on March 19 after an admission to the unit for depression and suicidal ideation in the context of alcohol relapse and pending homelessness. The patient decided that he would prefer to return to the psychiatric unit on Wednesday. Patient was compliant with the medications and denied any side effects throughout hospital course. Patient was started on Paxil and Seroquel for management of his depression and anxiety. Patient spoke of his stressors however was intermittently adherent with any milieu therapies. He expresses strong desire to go to rehab and was able to set up an intake with [facility] for 03/22/2023. On the day of discharge, the patient is not reporting any suicidal or homicidal ideation, intention, and/or plan. He reports that he wishes to be discharged so that he may not have to attend any groups stating that he feels like he is able to handle things. He is not reporting any auditory or visual hallucinations. He is denying any paranoia or other delusions. He reports no access to firearms or other weapons. The patient remains future and goal oriented with plans to go to rehab on Wednesday. As the patient no longer met criteria for continued inpatient psychiatric hospitalization, he was subsequently discharged. Mental status exam: General Appearance: Patient appears to be stated age is alert, pleasant, and cooperative. Patient is in no acute distress and has fair hygiene and grooming Behavior: Patient is calmly seated without any agitated behavior. Speech: Patient's speech is fluent and nonpressured. Mood/Affect: Patient reports their mood is "much better", affect is congruent and euthymic. Suicidality/Homicidality: Patient denies having any suicidal or homicidal ideation intent or plan. Perceptions: Patient denies any auditory or visual hallucinations. Though content/process: There is no evidence of any delusional thought content and thought process is linear and goal-directed. more future oriented Memory and concentration: AOX3, grossly intact for the purposes of this session. Can spell "WORLD" backwards correctly. Judgment and insight: Improved with guarded prognosis Impression: Major depressive disorder, recurrent, severe, without psychotic features Alcohol use disorder, severe Generalized Anxiety Disorder Cluster B personality disorder Plan: -Continue with discharge today as patient has improved and stabilized psychiatrically and is not currently an imminent threat to himself and/or others. Patient will remain at chronically elevated risk due to his alcohol use, poor frustration tolerance, and poor ego integrity. He appears to have a cluster B personality disorder underlying his substance abuse. -Continue medications: Multivitamin, folic acid, thiamine supplementation Seroquel 100 mg by mouth at bedtime for mood augmentation Paxil 30 mg by mouth daily for depression/anxiety -Patient was counseled on the need for medication compliance and appropriate fo llow-up at mental health and also primary care for medical issues. Patient verbalized understanding and agreed. -Social work to arrange for and conduct family meeting to ensure safety upon discharge and answer any questions/concerns. Social work also to arrange for patients follow up appointments with [facility] for substance abuse/psychiatric care along with follow up with primary care provider. -Patient counseled on abstaining from recreational drugs and marijuana and alcohol. Was informed/educated on the adverse effects on their physical and mental health. Patient verbally agreed and understood. Patient will be going to [facility] today. -Patient was instructed to return to the hospital or seek immediate medical care if their psychiatric or medical symptoms do worsen or reoccur. -Psychoeducation and supportive therapy provided to patient. Risks and benefits of pharmacological treatment versus the risks and benefits of nontreatment weight and discussed. Informed consent discussion held. Common side effects of psychotropics discussed such as, but not limited to headache, GI disturbance, sexual dysfunction, movement disorders, sedation, and orthostatic hypotension. Life threatening and blackbox warnings of prescribed medications also discussed. Potential risks of operating a vehicle or heavy machinery discussed with patient at length. Advised on importance of compliance and a reliable and responsible manner. Patient advised to review FDA consumer labeling of all medications prior to taking. Patient verbalized understanding of potential risks, and agrees with current treatment plan. Patient advised to medically contact physician/emergency personnel if any acute changes in condition occur. Vital Signs Temp 97.8 F 03/21/23 06:58 Pulse 91 03/22/23 06:45 Resp 16 03/22/23 06:45 BP 121/89 03/22/23 06:45 Pulse Ox 98 03/22/23 06:45 FiO2 Intake & Output 03/21/23 03/22/23 03/22/23 18:59 06:59 18:59 Weight 116.3 kg Laboratory Results Coronavirus (PCR) Not Detected (Not Detectd) 03/20/23 07:39 Allergies Allergy/AdvReac Type Severity Reaction Status Date / Time No Known Allergies Allergy Verified 03/20/23 10:15 Patient Condition at Discharge: Stable Plan - Discharge Summary New Discharge Prescriptions: Continue QUEtiapine [SEROquel] 100 mg PO HS 30 Days #30 tab Thiamine [Vitamin B-1] 100 mg PO DAILY 30 Days #30 tab Folic Acid 1 mg PO DAILY 30 Days #30 tab PARoxetine [Paxil] 30 mg PO DAILY 30 Days #90 tab Multivitamins, Thera [Multivitamin (formulary)] 1 tab PO DAILY Discharge Medication List Folic Acid 1 mg PO DAILY 30 Days #30 tab 03/19/23 [Rx] Multivitamins, Thera [Multivitamin (formulary)] 1 tab PO DAILY 03/19/23 [History] PARoxetine [Paxil] 30 mg PO DAILY 30 Days #90 tab 03/19/23 [Rx] QUEtiapine [SEROquel] 100 mg PO HS 30 Days #30 tab 03/19/23 [Rx] Thiamine [Vitamin B-1] 100 mg PO DAILY 30 Days #30 tab 03/19/23 [Rx] Follow up Appointment(s)/Referral(s): [facility] [Outside] - 03/22/23 9:45 am [facility]int[facility] Patient Instructions/Handouts: Depression (DC), Generalized Anxiety Disorder (ED), Alcohol Intoxication (DC) Activity/Diet/Wound Care/Special Instructions: Avoid the use of street drugs and alcohol. Take all medications as prescribed. When you are in need of refills on your medications, please contact your medical provider and/or outpatient psychiatrist to have this done. Please go to scheduled outpatient appointments for aftercare treatment. If symptoms return o r become worse, call the crisis line at and/or go to the nearest emergency room for evaluation. Discharge Disposition: HOME SELF-CARE
== END 2023-03-22 09:58 | DRG 751 ==
LOC: EC 20:56 → 3MHU 03-20 07:39
PROVIDERS: ADMIT Psychiatry & Neurology Psychiatry; ATTEND Psychiatry & Neurology Psychiatry
DX: F33.2 Major depressive disorder, recurrent severe without psychotic features (principal); R45.851 Suicidal ideations; F10.229 Alcohol dependence with intoxication, unspecified; F60.89 Other specific personality disorders; Z20.822 Contact with and (suspected) exposure to COVID-19; Z28.310 Unvaccinated for COVID-19; F41.1 Generalized anxiety disorder; I10 Essential (primary) hypertension; R06.83 Snoring; Z79.899 Other long term (current) drug therapy; Z91.51 Personal history of suicidal behavior; Z56.0 Unemployment, unspecified; Z59.00 Homelessness unspecified; Z65.3 Problems related to other legal circumstances
CPT/HCPCS: 82075; 87635; 99285

== ENCOUNTER 2023-09-22 14:07 | Observation (INO) | payer OTHER ==
[2023-09-22 15:54] LABS: Basophils % (A) 1 %; Eosinophils # (A) 0.1 k/uL (0-0.7); Eosinophils % (A) 2 %; HCT 39.1 % (39.0-53.0); HGB 13.4 gm/dL (13.0-17.5); Lymphocytes # (A) 1.9 k/uL (1.0-4.8); Lymphocytes % (A) 33 %; MCH 30.9 pg (25.0-35.0); MCHC 34.2 g/dL (31.0-37.0); MCV 90.5 fL (80.0-100.0); Mean Platelet Volume 8.9; Monocytes # (A) 0.3 k/uL (0-1.0); Monocytes % (A) 5 %; Neutrophils # (A) 3.5 k/uL (1.3-7.7); Neutrophils % (A) 59 %; Platelet Count 205 k/uL (150-450); RBC 4.32 m/uL (4.30-5.90); RDW 13.1 % (11.5-15.5); WBC 5.9 k/uL (3.8-10.6)
--- NOTE | 2023-09-22 16:10 | ED ---
Psych HPI - General Chief Complaint: Psychiatric Symptoms Stated Complaint: Mental Health Time Seen by Provider: 09/22/23 14:21 Source: patient, RN notes reviewed Mode of arrival: ambulatory Limitations: no limitations - History of Present Illness Initial Comments: This is a 32-year-old male who presents to the emergency department for suicidal ideations and alcohol intoxication. Reports feeling increasingly depressed and suicidal recently, and states that last night he had plans of potentially jumping in front of a train. He went to the extent of looking up local train times and schedules. Denies any homicidal ideations or auditory/visual hallu cinations. States that he has also started to drink heavily again and consumed a pint of alcohol earlier today. Denies any nausea/vomiting or other complaints. Does state that after being in the hospital he plans on moving away from [place]. He is also currently homeless. MD Complaint: suicidal ideation, feels depressed - Related Data Home Medications Medication Instructions Recorded Confirmed No Known Home Medications 09/22/23 09/22/23 Allergies Allergy/AdvReac Type Severity Reaction Status Date / Time No Known Allergies Allergy Verified 09/22/23 16:59 Review of Systems ROS Statement: Those systems with pertinent positive or pertinent negative responses have been documented in the HPI. ROS Other: All systems not noted in ROS Statement are negative. Past Medical History Past Medical History: Hypertension History of Any Multi-Drug Resistant Organisms: None Reported Past Surgical History: No Surgical Hx Reported Past Anesthesia/Blood Transfusion Reactions: No Reported Reaction Past Psychological History: Anxiety, Bipolar, Depression Smoking Status: Vaper Past Alcohol Use History: Abuse, Daily, Heavy Past Drug Use History: None Reported - Past Family History Mother Family Medical History: Hyperlipidemia General Exam Limitations: no limitations General appearance: alert, appears intoxicated Head exam: Present: atraumatic, normocephalic, normal inspection Respiratory exam: Present: normal lung sounds bilaterally. Absent: respiratory distress, wheezes, rales, rhonchi, stridor Cardiovascular Exam: Present: regular rate, normal rhythm, normal heart sounds. Absent: systolic murmur, diastolic murmur, rubs, gallop, clicks Neurological exam: Present: alert, oriented X3, CN II-XII intact Psychiatric exam: Present: normal affect, normal mood Skin exam: Present: warm, dry, intact, normal color. Absent: rash Course Vital Signs 09/22/23 09/22/23 14:08 19:36 Temperature 98.4 F 97.6 F Pulse Rate 113 H 89 Respiratory 18 20 Rate Blood Pressure 122/82 108/61 O2 Sat by Pulse 96 99 Oximetry Medical Decision Making - Medical Decision Making This is a 32-year-old male who presents to the emergency department for suicidal ideations and alcohol intoxication. Was pt. sent in by a medical professional or institution? @ -No Did you speak to anyone other than the patient for history? @ -No Did you review nursing and triage notes? @ -Yes, and I agree, it is accurate with regards to the patient's symptoms. Were old charts reviewed? @ -No Differential Diagnosis? @ -Differential Mental Health: Depression, anxiety, bipolar, psychosis, schizophrenia, borderline personality, situational depression, adjustment disorder, behavioral disorder, brain tumor, malingering, substance abuse, encephalopathy, medication reaction, dementia, hypothyroidism, degenerative neurologic disorder, lupus.... This is not meant to be all-inclusive list EKG interpreted by me (3pts min.)? @ -Not obtained X-rays interpreted by me (1pt min.)? @ -Not obtained CT interpreted by me (1pt min.)? @ -Not obtained U/S interpreted by me (1pt. min.)? @ -Not obtained What testing was considered but not performed? (CT, X-rays, U/S, labs)? Why? @ -None What meds were considered but not given? Why? @ -None Did you discuss the management of the patient with other professionals? @ -Yes, Brock Whiting with [facility] who accepts the patient for admission. Did you reconcile home meds? @ -Yes Was smoking cessation discussed for >3mins.? @ -No Was critical care preformed (if so, how long)? @ -No Were there social determinants of health that impacted care today? How? (Homelessness, low income, unemployed, alcoholism, drug addiction, transportation, low edu. Level, literacy, decrease access to med. care, [facility], rehab)? @ -Alcoholism, increasing his mental health problems and leading to hospital visits for alcohol intoxication. Patient is also homeless, making it difficult for him to get to medical appointments and this also increases the severity of his mental health problems. Was there de-escalation of care discussed even if they declined? (Discuss DNR or withdrawal of care, Hospice)? @ -No What co-morbidities impacted this encounter? (DM, HTN, Smoking, COPD, CAD, Cancer, CVA, Hep., AIDS, mental health diagnosis, sleep apnea, morbid obesity)? @ -Mental health diagnosis, alcoholism Was patient admitted / discharged? @ -Admitted. Lab work obtained revealing an alcohol level of 355, and was otherwise unremarkable. This indicates that the patient will be sober in 14 hours at approximately 0530 tomorrow morning. Patient admitted to medicine for alcohol intoxication with plan for psychiatric evaluation in the morning related to suicidal ideations and increasing depression. Consult placed for psychiatry in the morning. CIWA protocol ordered in the event it is needed. Undiagnosed new problem with uncertain prognosis? @ -None Drug Therapy requiring intensive monitoring for toxicity (Heparin, Nitro, Insulin, Cardizem)? @ -None Were any procedures done? @ -None Diagnosis/symptom? @ -Suicidal ideations, alcohol intoxication Acute, or Chronic, or Acute on Chronic? @ -Acute Uncomplicated (without systemic symptoms) or Complicated (systemic symptoms)? @ -Uncomplicated Side effects of treatment? @ -None Exacerbation, Progression, or Severe Exacerbation] @ -Not applicable Poses a threat to life or bodily function? @ -Yes This case was discussed in detail with the attending ED physician, Dr. Everett. Presentation, findings, and treatment plan discussed in detail as well. - Lab Data Result diagrams: 09/22/23 15:26 09/22/23 15:26 Lab Results 09/22/23 09/22/23 Range/Units 15:26 15:26 WBC 5.9 (3.8-10.6) k/uL RBC 4.32 (4.30-5.90) m/uL Hgb 13.4 (13.0-17.5) gm/dL Hct 39.1 (39.0-53.0) % MCV 90.5 (80.0-100.0) fL MCH 30.9 (25.0-35.0) pg MCHC 34.2 (31.0-37.0) g/dL RDW 13.1 (11.5-15.5) % Plt Count 205 (150-450) k/uL MPV 8.9 Neutrophils % 59 % Lymphocytes % 33 % Monocytes % 5 % Eosinophils % 2 % Basophils % 1 % Neutrophils # 3.5 (1.3-7.7) k/uL Lymphocytes # 1.9 (1.0-4.8) k/uL Monocytes # 0.3 (0-1.0) k/uL Eosinophils # 0.1 (0-0.7) k/uL Basophils # 0.0 (0-0.2) k/uL Sodium 146 H (137-145) mmol/L Potassium 3.6 (3.5-5.1) mmol/L Chloride 107 (98-107) mmol/L Carbon Dioxide 24 (22-30) mmol/L Anion Gap 15 mmol/L BUN 8 L (9-20) mg/dL Creatinine 0.72 (0.66-1.25) mg/dL Est GFR (CKD-EPI)AfAm >90 (>60 ml/min/1.73 sqM) Est GFR (CKD-EPI)NonAf >90 (>60 ml/min/1.73 sqM) Glucose 100 H (74-99) mg/dL Calcium 8.6 (8.4-10.2) mg/dL Phosphorus 4.0 (2.5-4.5) mg/dL Magnesium 1.9 (1.6-2.3) mg/dL Total Bilirubin 0.6 (0.2-1.3) mg/dL AST 26 (17-59) U/L ALT 26 (4-49) U/L Alkaline Phosphatase 69 (38-126) U/L Total Protein 7.6 (6.3-8.2) g/dL Albumin 4.5 (3.5-5.0) g/dL Serum Alcohol 355 H* mg/dL Disposition Clinical Impression: Suicidal ideations, Alcohol intoxication Disposition: ADMITTED IP TO THIS HOSP
[2023-09-22 16:11] LABS: ALT 26 U/L (4-49); AST 26 U/L (17-59); African American GFR (CKD) >90 (>60 ml/min/1.73 sqM); Albumin 4.5 g/dL (3.5-5.0); Alkaline Phosphatase 69 U/L (38-126); Anion Gap 15 mmol/L; Blood Urea Nitrogen 8 mg/dL (9-20); Calcium 8.6 mg/dL (8.4-10.2); Carbon Dioxide 24 mmol/L (22-30); Chloride 107 mmol/L (98-107); Glucose 100 mg/dL (74-99); Magnesium 1.9 mg/dL (1.6-2.3); Non-African American GFR(CKD) >90 (>60 ml/min/1.73 sqM); Potassium 3.6 mmol/L (3.5-5.1); Sodium 146 mmol/L (137-145); Total Bilirubin 0.6 mg/dL (0.2-1.3); Total Protein 7.6 g/dL (6.3-8.2)
[2023-09-22 16:38] LABS: Alcohol 355 mg/dL
[2023-09-22] MEDS ORDERED: IBUPROFEN 400 MG TAB PO PRN (17:03)
[2023-09-22] MEDS ORDERED: ONDANSETRON 4 MG/2 ML VIAL IVP PRN (17:03)
[2023-09-22] MEDS ORDERED: ACETAMINOPHEN TAB 325 MG TAB PO PRN (17:03)
[2023-09-22] MEDS ORDERED: NALOXONE 0.4 MG/ML 1 ML VIAL IV PRN (17:03)
[2023-09-22] MEDS ORDERED: chlordiazePOXIDE 25 MG CAP PO PRN ×3 (17:08)
[2023-09-22] MEDS ORDERED: THIAMINE 100 MG/ML 2 ML VIAL IM STA (17:08)
[2023-09-22] MEDS ORDERED: LORazepam 2 MG/ML INJ IV PRN (17:08)
[2023-09-22] MEDS: chlordiazePOXIDE 25 MG CAP PO PRN (17:24)
[2023-09-22] MEDS: LORazepam 1 MG TAB PO PRN ×2 (17:45→22:46)
[2023-09-23] MEDS: LORazepam 1 MG TAB PO PRN ×2 (00:58→06:48)
[2023-09-23] MEDS ORDERED: traMADol 50 MG TAB PO PRN (09:25)
[2023-09-23] MEDS ORDERED: HYDROcodone/APAP 5-325MG 1 EACH TAB PO PRN (09:25)
[2023-09-23] MEDS ORDERED: HYDROmorphone 1 MG/ML 1 ML SYRINGE IVP PRN (09:25)
[2023-09-23] MEDS: THIAMINE 100 MG TAB PO SCH (10:34)
[2023-09-23] MEDS: chlordiazePOXIDE 25 MG CAP PO PRN (11:10)
[2023-09-23] MEDS: SODIUM CHLORIDE 0.9% 1,000 ML IV SCH ×2 (11:49→21:07)
--- NOTE | 2023-09-23 12:09 | P.HPIM ---
History of Present Illness H&P Date: 09/23/23 Chief Complaint: Suicidal ideation * 32-year-old gentleman with past medical history significant for hypertension, presents to the emergency department with suicidal ideation and noted to be intoxicated. Patient noted to have blood alcohol level which was elevated. While in the emergency patient was noted to be depressed and had suicidal ideation. Patient mentioned to the side that he planned to jump in front of a train and hypertensive.. Patient denied associated homicidal ideation. * Workup initiated in ER included hepatology which was essentially normal. Serum chemistry obtained showed sodium of 146, renal function B18 creatinine 0.72 and blood glucose ordered liver profile within normal limits * Blood alcohol level 355 * Patient admitted to medical floor with consultation from behavioral health team for further evaluation REVIEW OF SYSTEMS: Depressed mood, suicidal ideation CONSTITUTIONAL: No fever, no malaise, no fatigue. HEENT: No recent visual problems or hearing problems. Denied any sore throat. CARDIOVASCULAR: No chest pain, orthopnea, PND, no palpitations, no syncope. PULMONARY: No shortness of breath, no cough, no hemoptysis. GASTROINTESTINAL: No diarrhea, no nausea, no vomiting, no abdominal pain. NEUROLOGICAL: No headaches, no weakness, no numbness. HEMATOLOGICAL: Denies any bleeding or petechiae. GENITOURINARY: Denies any burning micturition, frequency, or urgency. MUSCULOSKELETAL/RHEUMATOLOGICAL: Denies any joint pain, swelling, or any muscle pain. ENDOCRINE: Denies any polyuria or polydipsia. PHYSICAL EXAMINATION: GENERAL: The patient is alert and oriented x3, not in any acute distress. Well developed, well nourished. HEENT: Pupils are round and equally reacting to light. EOMI. CARDIOVASCULAR: S1 and S2 present. No murmurs, rubs, or gallops. PULMONARY: Chest is clear to auscultation, no wheezing or crackles. ABDOMEN: Soft, nontender, nondistended, normoactive bowel sounds. No palpable organomegaly. MUSCULOSKELETAL: No joint swelling or deformity. EXTREMITIES: No cyanosis, clubbing, or pedal edema. NEUROLOGICAL: Gross neurological examination did not reveal any focal deficits. SKIN: No rashes. Past Medical History Past Medical History: Hypertension Additional Past Medical History / Comment(s): Patient states they occasionally have high BP but in coorlation to drinking, not a continual condition they have History of Any Multi-Drug Resistant Organisms: None Reported Past Surgical History: No Surgical Hx Reported Past Anesthesia/Blood Transfusion Reactions: No Reported Reaction Past Psychological History: Anxiety, Bipolar, Depression Smoking Status: Vaper Past Alcohol Use History: Abuse, Daily, Heavy Past Drug Use History: None Reported - Past Family History Mother Family Medical History: Hyperlipidemia Medications and Allergies Home Medications Medication Instructions Recorded Confirmed Type No Known Home Medications 09/22/23 09/22/23 History Allergies Allergy/AdvReac Type Severity Reaction Status Date / Time No Known Allergies Allergy Verified 09/22/23 16:59 Physical Exam Vitals: Vital Signs Temp Pulse Pulse Resp BP BP Pulse Ox 09/23/23 07:35 93 18 09/23/23 07:22 97.6 F 93 18 111/71 98 09/23/23 00:50 97.9 F 84 17 111/69 94 L 09/22/23 21:43 97.5 F L 77 18 110/71 92 L 09/22/23 19:36 97.6 F 89 20 108/61 99 09/22/23 14:08 98.4 F 113 H 18 122/82 96 Intake and Output 09/22/23 09/23/23 09/23/23 22:59 06:59 14:59 Output Total 0 0 Balance 0 0 Output: Urine 0 0 Other: # Voids 1 1 Weight 108.862 kg Results CBC & Chem 7: 09/22/23 15:26 09/22/23 15:26 Labs: Abnormal Lab Results - Last 24 Hours (Table) 09/22/23 Range/Units 15:26 Sodium 146 H (137-145) mmol/L BUN 8 L (9-20) mg/dL Glucose 100 H (74-99) mg/dL Serum Alcohol 355 H* mg/dL Thrombosis Risk Factor Assmnt - Choose All That Apply Any of the Below Risk Factors Present?: No Other Risk Factors: No Thrombosis Risk Factor Assessment Level: Very Low Risk Assessment and Plan Assessment: Assessment and plan Major depression with suicidal ideation Alcohol use disorder with intoxication Acute hypernatremia * In regards to depression, so psychiatry consulted for evaluation. Maintain maximal safety precautions while inpatient * In regards to acute hypernatremia continue patient on IV normal saline follow- up on serum chemistry and complaints of metabolic panel * In regards to alcohol use continue patient on Librium, as needed Zofran ordered continue thiamine * CODE STATUS is full code
[2023-09-23] MEDS ORDERED: traZODone HCL 50 MG TAB PO PRN (14:15)
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
[2023-09-23] MEDS: chlordiazePOXIDE 25 MG CAP PO SCH ×2 (16:30→21:11)
[2023-09-24] MEDS: chlordiazePOXIDE 25 MG CAP PO SCH ×2 (08:14→17:46)
[2023-09-24] MEDS: THIAMINE 100 MG TAB PO SCH (08:14)
[2023-09-24] MEDS: LORazepam 1 MG TAB PO PRN (08:25)
[2023-09-24] MEDS ORDERED: ENOXAPARIN 40 MG/0.4 ML SYRINGE SQ SCH (09:00)
[2023-09-24 10:51] LABS: Basophils # (A) 0.05 X 10*3/uL (0.00-0.10); Basophils % (A) 1.1 %; Eosinophils # (A) 0.16 X 10*3/uL (0.04-0.35); Eosinophils % (A) 3.5 %; HCT 38.4 % (39.6-50.0); HGB 12.9 g/dL (13.0-17.0); Lymphocytes # (A) 1.34 X 10*3/uL (0.90-5.00); Lymphocytes % (A) 29.7 %; MCH 30.6 pg (27.0-32.0); MCHC 33.6 g/dL (32.0-37.0); MCV 91.2 FL (80.0-97.0); Mean Platelet Volume 11.6 FL (9.5-12.2); Monocytes # (A) 0.34 X 10*3/uL (0.20-1.00); Monocytes % (A) 7.5 %; NRBC Per 100 WBC 0 X 10*3/uL (0.00-0.01); Neutrophils % (A) 57.8 %; Platelet Count 181 X 10*3/uL (140-440); RBC 4.21 X 10*6/uL (4.40-5.60); RDW 13.1 % (11.5-14.5); WBC 4.51 X 10*3/uL (4.50-10.00)
[2023-09-24 11:15] LABS: ALT 21 U/L (10-49); AST 15 U/L (14-35); Albumin 3.8 g/dL (3.8-4.9); Albumin/Globulin Ratio 1.58 Ratio (1.60-3.17); Alkaline Phosphatase 73 U/L (41-126); BUN/Creat Ratio 12.83 Ratio (12.00-20.00); Blood Urea Nitrogen 7.7 mg/dL (9.0-27.0); Calcium 8.8 mg/dL (8.7-10.3); Carbon Dioxide 25.8 mmol/L (21.6-31.8); Chloride 106 mmol/L (96-109); Globulin 2.4 g/dL (1.6-3.3); Glucose 91 mg/dL (70-110); Magnesium 1.8 mg/dL (1.5-2.4); Sodium 141 mmol/L (135-145); Total Bilirubin 0.9 mg/dL (0.3-1.2); Total Protein 6.2 g/dL (6.2-8.2)
--- NOTE | 2023-09-24 11:16 | P.DS ---
Providers Date of admission: 09/22/23 16:44 Expected date of discharge: 09/24/23 Attending physician: Serg Calzada Consults: 09/23/23 05:30 Consult Physician Routine Consulting Provider: Silver Escobedo Consult Reason/Comments: Suicidal ideations, sober at 0530 am 09/23 Do you want consulting provider notified?: Already Contacted Primary care physician: Stated None Hospital Course: * 32-year-old gentleman with past medical history significant for hypertension, presents to the emergency department with suicidal ideation and noted to be intoxicated. Patient noted to have blood alcohol level which was elevated. While in the emergency patient was noted to be depressed and had suicidal ideation. Patient mentioned to the side that he planned to jump in front of a train and hypertensive.. Patient denied associated homicidal ideation. * Workup initiated in ER included hepatology which was essentially normal. Serum chemistry obtained showed sodium of 146, renal function B18 creatinine 0.72 and blood glucose ordered liver profile within normal limits * Blood alcohol level 355 * Patient admitted to medical floor with consultation from behavioral health team for further evaluation * Patient was admitted to medical floor and monitored for alcohol withdrawal. * During the hospital stay patient was seen by psychiatry as well and recommended inpatient behavioral health admission * Blood work included comprehensive metabolic panel and left frontal panel was reviewed * Patient was given Librium, thiamine while inpatient upon discharge to psychiatry unit we will health team to reassess and start medications for anxiety and insomnia REVIEW OF SYSTEMS: Depressed mood, suicidal ideation CONSTITUTIONAL: No fever, no malaise, no fatigue. HEENT: No recent visual problems or hearing problems. Denied any sore throat. CARDIOVASCULAR: No chest pain, orthopnea, PND, no palpitations, no syncope. PULMONARY: No shortness of breath, no cough, no hemoptysis. GASTROINTESTINAL: No diarrhea, no nausea, no vomiting, no abdominal pain. NEUROLOGICAL: No headaches, no weakness, no numbness. HEMATOLOGICAL: Denies any bleeding or petechiae. GENITOURINARY: Denies any burning micturition, frequency, or urgency. MUSCULOSKELETAL/RHEUMATOLOGICAL: Denies any joint pain, swelling, or any muscle pain. ENDOCRINE: Denies any polyuria or polydipsia. PHYSICAL EXAMINATION: GENERAL: The patient is alert and oriented x3, not in any acute distress. Well developed, well nourished. HEENT: Pupils are round and equally reacting to light. EOMI. CARDIOVASCULAR: S1 and S2 present. No murmurs, rubs, or gallops. PULMONARY: Chest is clear to auscultation, no wheezing or crackles. ABDOMEN: Soft, nontender, nondistended, normoactive bowel sounds. No palpable organomegaly. MUSCULOSKELETAL: No joint swelling or deformity. EXTREMITIES: No cyanosis, clubbing, or pedal edema. NEUROLOGICAL: Gross neurological examination did not reveal any focal deficits. SKIN: No rashes. Assessment: Assessment and plan Major depression with suicidal ideation Alcohol use disorder with intoxication Acute hypernatremia resolved * In regards to depression, so psychiatry consulted for evaluation. Maintain maximal safety precautions while inpatient, commended transition to inpatient behavioral health unit petition and circulation completed * In regards to acute hypernatremia continue patient on IV normal saline follow- up on serum chemistry shows normal serum sodium levels liver profile within normal limits * In regards to alcohol use , CIWWA protocol was initiated. patient remains stable and discharged to inpatient behavioral health unit Patient Condition at Discharge: Fair Plan - Discharge Summary Discharge Rx Participant: No New Discharge Prescriptions: No Action No Known Home Medications Discharge Medication List No Known Home Medications 09/22/23 [History] Follow up Appointment(s)/Referral(s): None,Stated [Primary Care Provider] - 1-2 days Discharge Disposition: TRANSFER TO PSYCH HOSP/UNIT
[2023-09-24 20:23] VITALS: BP 121/78; PULSE 68; RESP 16; TEMP 98.3
== END 2023-09-24 22:10 ==
LOC: EC 14:07 → 6NMEDSUR 16:44 → 4SSUR 21:08
PROVIDERS: ADMIT Hospitalist; ATTEND Hospitalist
DX: F33.2 Major depressive disorder, recurrent severe without psychotic features (principal); R45.851 Suicidal ideations; F10.220 Alcohol dependence with intoxication, uncomplicated; E87.0 Hyperosmolality and hypernatremia; F41.1 Generalized anxiety disorder; F60.89 Other specific personality disorders; I10 Essential (primary) hypertension; F17.290 Nicotine dependence, other tobacco product, uncomplicated; Y90.8 Blood alcohol level of 240 mg/100 ml or more; Z20.822 Contact with and (suspected) exposure to COVID-19; Z59.00 Homelessness unspecified
CPT/HCPCS: 96372 ×2; 82075; 96374; 99285; 36415; 80053 ×2; 83735 ×2; 84100; 85025 ×2; 87635; G0378 ×4; G0480; J3411; J2405; J1650; 80320

== ENCOUNTER 2023-09-24 22:01 | Inpatient (IN) | payer MEDICAID, OTHER ==
[2023-09-24] MEDS ORDERED: LORazepam 1 MG TAB PO PRN (22:16)
[2023-09-24] MEDS ORDERED: HALOPERIDOL LACTATE 5 MG/ML 1 ML VIAL IM PRN (22:16)
[2023-09-24] MEDS ORDERED: MAG HYDROX/AL HYDROX/SIMETH 30 ML CUP PO PRN (22:16)
[2023-09-24] MEDS ORDERED: MAGNESIUM HYDROXIDE 2,400 MG/30 ML CUP PO PRN (22:16)
[2023-09-24] MEDS ORDERED: haloperidoL 5 MG TAB PO PRN (22:16)
[2023-09-24] MEDS ORDERED: LORazepam 2 MG/ML INJ IM PRN (22:16)
[2023-09-24] MEDS ORDERED: ACETAMINOPHEN TAB 325 MG TAB PO PRN (22:16)
[2023-09-24] MEDS ORDERED: chlordiazePOXIDE 25 MG CAP PO STA (22:47)
[2023-09-25] MEDS: LORazepam 1 MG TAB PO PRN ×2 (01:20→18:43)
[2023-09-25] MEDS: NICOTINE 14MG/24HR PATCH TRANSDERM SCH (09:31)
[2023-09-25] MEDS: chlordiazePOXIDE 25 MG CAP PO SCH ×3 (09:31→21:00)
--- NOTE | 2023-09-25 12:15 | P.CONS ---
History of Present Illness - Reason for Consult Consult date: 09/25/23 - Chief Complaint Suicidal ideation - History of Present Illness * 32 old gentleman with past medical history significant for hypertension, depression admitted to behavioral health unit after seen in patient for suicidal ideation. At the time of presentation in ED patient was noted to be intoxicated with blood alcohol level elevated. Patient was seen by psychiatry during inpatient hospitalization and recommended transfer to inpatient behavioral health unit for depression and suicidal ideation * Patient was seen in behavioral health unit alert and oriented 4 appears depressed however denies active suicidal ideation * Blood work obtained from 09/24 including serum chemistry reviewed REVIEW OF SYSTEMS: CONSTITUTIONAL: No fever, no malaise, no fatigue. Depressed HEENT: No recent visual problems or hearing problems. Denied any sore throat. CARDIOVASCULAR: No chest pain, orthopnea, PND, no palpitations, no syncope. PULMONARY: No shortness of breath, no cough, no hemoptysis. GASTROINTESTINAL: No diarrhea, no nausea, no vomiting, no abdominal pain. NEUROLOGICAL: No headaches, no weakness, no numbness. HEMATOLOGICAL: Denies any bleeding or petechiae. GENITOURINARY: Denies any burning micturition, frequency, or urgency. MUSCULOSKELETAL/RHEUMATOLOGICAL: Denies any joint pain, swelling, or any muscle pain. ENDOCRINE: Denies any polyuria or polydipsia. PHYSICAL EXAMINATION: GENERAL: The patient is alert and oriented x3, not in any acute distress. Well developed, well nourished. HEENT: Pupils are round and equally reacting to light. EOMI. CARDIOVASCULAR: S1 and S2 present. No murmurs, rubs, or gallops. PULMONARY: Chest is clear to auscultation, no wheezing or crackles. ABDOMEN: Soft, nontender, nondistended, normoactive bowel sounds. No palpable organomegaly. MUSCULOSKELETAL: No joint swelling or deformity. EXTREMITIES: No cyanosis, clubbing, or pedal edema. NEUROLOGICAL: Gross neurological examination did not reveal any focal deficits. SKIN: No rashes. Past Medical History Past Medical History: Hypertension Additional Past Medical History / Comment(s): Patient states they occasionally have high BP but in correlation to drinking. History of Any Multi-Drug Resistant Organisms: None Reported Past Surgical History: No Surgical Hx Reported Past Anesthesia/Blood Transfusion Reactions: No Reported Reaction Past Psychological History: Anxiety, Bipolar, Depression Smoking Status: Vaper Past Alcohol Use History: Abuse, Daily, Heavy Past Drug Use History: None Reported - Past Family History Mother Family Medical History: Hyperlipidemia Medications and Allergies Home Medications Medication Instructions Recorded Confirmed Type No Known Home Medications 09/22/23 09/24/23 History Allergies Allergy/AdvReac Type Severity Reaction Status Date / Time No Known Allergies Allergy Verified 09/22/23 16:59 Physical Exam Vitals: Vital Signs Temp Resp BP Pulse Ox 09/25/23 00:10 97.8 F 16 130/82 97 Intake and Output 09/24/23 09/25/23 09/25/23 22:59 06:59 14:59 Other: Weight 105 kg 100.1 kg Assessment and Plan Assessment: Assessment and plan * Major depression with suicidal ideation * Alcohol use disorder * Continue management in behavioral health unit, maintain maximum safety precautions * Patient started on Librium, Haldol as needed ordered, Ativan ordered, trazodone * Recommend QTC monitoring while on anti psychotic medications Time with Patient: Greater than 30
[2023-09-25] MEDS: traZODone HCL 50 MG TAB PO PRN (21:00)
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
--- NOTE | 2023-09-26 09:31 | P.PN ---
Progress Note - Text Interval history: Patient was seen in his room and was directable and agreeable to speak with advertising copywriter. States that he continues to have suicidal ideations with a plan. States that his withdrawal symptoms are improving. Reports anxiety, tremors, feeling tired. Per nursing, he had a Ciwa of 16 last night. Reports lethargy due to medications.. At this time patient denies any suicidal or homicidal ideations intent or plan. Denies any Auditory or visual hallucinations. He was given the option of starting psychotropic today or holding off until tomorrow when his withdrawals improve, patient chose the latter Mental status exam: General Appearance: [Patient appears to be stated age is alert, directable, and cooperative.] Behavior: [No agitated behavior. Patient is calm and directable] Speech: Patient's speech is fluent and nonpressured. Mood/Affect: Mood is improving mildly, affect is congruent and constricted. Suicidality/Homicidality: States that he has suicidal ideations with a plan. Patient denies having homicidal ideation intent or plan. Perceptions: Patient denies any auditory or visual hallucinations. Though content/process: [There is no evidence of any delusional thought content and thought process is linear and goal-directed.] Memory and concentration: AOX3, grossly intact for the purposes of this session Judgment and insight: improving mildly Assessment/Plan: Continue with current diagnosis. Patient continues to meet criteria for inpatient psychiatric admission for symptom stabilization and safety.[Patient will be maintained on current psychotropic medication regimen.] Will defer discussion of psychotropic to primary team tomorrow after his withdrawals improve. Monitor for medication compliance and for any medication side effects. Will continue to monitor ongoing response to treatment. Encouraged participation in milieu.
[2023-09-26] MEDS: chlordiazePOXIDE 25 MG CAP PO SCH ×3 (09:32→21:00)
[2023-09-26] MEDS: NICOTINE 14MG/24HR PATCH TRANSDERM SCH (10:42)
[2023-09-26] MEDS: LORazepam 1 MG TAB PO PRN ×2 (13:16→19:08)
[2023-09-26] MEDS: traZODone HCL 50 MG TAB PO PRN (22:34)
[2023-09-27] MEDS: LORazepam 1 MG TAB PO PRN ×2 (01:05→07:53)
[2023-09-27] MEDS: NICOTINE 14MG/24HR PATCH TRANSDERM SCH (07:51)
[2023-09-27] MEDS: chlordiazePOXIDE 25 MG CAP PO SCH (07:53)
--- NOTE | 2023-09-27 11:32 | P.PN ---
Progress Note - Text Progress Note Date: 09/27/23 Interval history: Patient was seen in the hallway, and was directable and agreeable to speak with content writer. Claims that he was very intoxicated, and was told to say he was suicidial to be able to get a bed on the unit, because he was kicked out of the 3/4 house he was staying at. States that his withdrawal symptoms are improving. Reports some anxiety. Patient is going to groups. States sleep has not been well, because of excitement at the opportunity to go to the [facility] [place].. At this time patient denies any suicidal or homicidal ideations intent or plan. Denies any Auditory or visual hallucinations. Patient counseled on medication for alcohol cravings, patient will think about it. Minimizing need for treatment. Mental status exam: General Appearance: Patient appears to be stated age is alert, directable, and cooperative. Behavior: No agitated behavior. Patient is calm and directable Speech: Patient's speech is fluent and nonpressured. Mood/Affect: Mood is improving mildly, affect is congruent and composed. Suicidality/Homicidality: denies SI Patient denies having homicidal ideation intent or plan. Perceptions: Patient denies any auditory or visual hallucinations. Though content/process: There is no evidence of any delusional thought content and thought process is linear and goal-directed. Memory and concentration: AOX3, grossly intact for the purposes of this session Judgment and insight: improving mildly Plan: -Patient continues to meet criteria for inpatient psychiatric admission for symptom stabilization and safety. Patient has signed adult voluntary form and medication consent and was placed in patient's chart. -Medications: start Effexor 37.5mg daily for mood/anxiety, decrease Librium 10mg po qid for etoh withdrawal, trazadone 50mg po qhs prn for insomnia. Melatonin 6mg qhs for sleep will monitor for side effects. Patient counseled on medication for alcohol cravings, patient will think about it -When necessary Ativan and Haldol for agitation/aggression. -NRT - nicotine patch -SW on board for discharge planning. [facility] peer support is trying to get him a place in [place] at a recovery center. Encouraged the patient to participate in milieu. likely discharge wednesday if patient continues to improve.
[2023-09-27] MEDS: VENLAFAXINE HCL ER 37.5 MG CAP PO SCH (12:15)
[2023-09-27] MEDS ORDERED: MELATONIN 3 MG TABLET PO SCH (21:00)
[2023-09-28 01:56] VITALS: TEMP 97.6
[2023-09-28] MEDS: traZODone HCL 50 MG TAB PO PRN ×2 (01:57→21:27)
[2023-09-28] MEDS: VENLAFAXINE HCL ER 37.5 MG CAP PO SCH (08:34)
[2023-09-28] MEDS: NICOTINE 14MG/24HR PATCH TRANSDERM SCH (08:34)
[2023-09-28 17:02] VITALS: RESP 16
[2023-09-28] MEDS ORDERED: MELATONIN 5 MG TABLET PO SCH (21:00)
[2023-09-29 07:30] VITALS: BP 131/76; PULSE 73
[2023-09-29] MEDS: NICOTINE 14MG/24HR PATCH TRANSDERM SCH (08:16)
[2023-09-29] MEDS: VENLAFAXINE HCL ER 37.5 MG CAP PO SCH (08:17)
--- NOTE | 2023-09-29 10:05 | P.PN ---
Progress Note - Text Progress Note Date: 09/28/23 Interval history: Patient was seen in the hallway, and was directable and agreeable to speak with freelance writer. States that his withdrawal symptoms gone.. Patient is going to groups. Patient is excited for Wednesday, as he will be going to [place] for recovery. States sleep is improving. States anxiety and mood are 'really good'. Patient denies any side effects from medication, and is tolerating it well. At this time patient denies any suicidal or homicidal ideations intent or plan. Denies any Auditory or visual hallucinations. Mental status exam: General Appearance: Patient appears to be stated age is alert, directable, and cooperative. Behavior: No agitated behavior. Patient is calm and directable Speech: Patient's speech is fluent and nonpressured. Mood/Affect: Mood is improving .affect is congruent and composed. Suicidality/Homicidality: denies SI Patient denies having homicidal ideation intent or plan. Perceptions: Patient denies any auditory or visual hallucinations. Though content/process: There is no evidence of any delusional thought content and thought process is linear and goal-directed. Memory and concentration: AOX3, grossly intact for the purposes of this session Judgment and insight: improving Plan: -Patient continues to meet criteria for inpatient psychiatric admission for symptom stabilization and safety. Patient has signed adult voluntary form and medication consent and was placed in patient's chart. -Medications Effexor 37.5mg daily for mood/anxiety, decrease Librium 10mg po tid for etoh withdrawal, trazadone 50mg po qhs prn for insomnia. Increase Melatonin 10mg qhs for sleep. will monitor for side effects. Patient counseled on medication for alcohol cravings, patient will think about it -When necessary Ativan and Haldol for agitation/aggression. -NRT - nicotine patch -SW on board for discharge planning. [facility] peer support is trying to get him a place in [place] at a recovery center. Encouraged the patient to participate in milieu. likely discharge to hot with father, wednesday if patient continues to improve.
--- NOTE | 2023-09-29 11:30 | P.DS ---
Providers Date of admission: 09/24/23 22:12 Expected date of discharge: 09/29/23 Attending physician: Silver Escobedo MD Consults: 09/24/23 22:25 Consult Physician Routine Consulting Provider: Serg Calzada Consult Reason/Comments: Medical managment Do you want consulting provider notified?: Yes, Notify in am Primary care physician: Stated None - Discharge Diagnosis(es) (1) Major depressive disorder, recurrent severe without psychotic features Current Visit: Yes Status: Acute Priority: High (2) Suicidal ideations Current Visit: Yes Status: Acute Priority: High (3) Alcohol abuse Current Visit: Yes Status: Acute Priority: High (4) Cluster B personality disorder Current Visit: Yes Status: Acute Priority: Medium (5) Nicotine dependence Current Visit: Yes Status: Acute Priority: Low Hospital Course: Admission HPI: Admission note was completed by Dr Goodson "Patient is a single, unemployed, 32-year-old male who is presenting with suicidal ideation and alcohol use/intoxication. [facility]. Single, no kids, currently works at the [employer]. Mr. Nguyen is admitted to the mental health unit after being transferred from the medical floor. He was admitted to the hospital on September 22 for suicidal ideations and alcohol intoxication. He voiced suicidal ideations with a plan. According to ER report patient was apparently endorsing depression and a plan to jump into train tracks and apparently was looking into trying schedules and times. He has not been taking his medications for the past month. On interview, he states that he was suicidal yesterday but denies current suicidal ideations. He states that he is "real tight". He denies any withdrawal symptoms, hallucinations, medication side effects. Patient denies any flight of ideas racing thoughts and increased in goal directed behavior. Drinking one pint per day of vodka." Hospital course: Upon admission to the unit patient was directable and agreeable to commence treatment and signed adult voluntary form. Patient got along well with other patients on the unit and followed unit protocol. Patient was compliant with the medications and denied any side effects throughout hospital course. Patient was started on CIWA protocol with when necessary Ativan and also scheduled Librium which was gradually tapered off for alcohol withdrawal. Patient was also started on Effexor XL 37.5 mg daily for mood/anxiety, trazodone 50 mg daily at bedtime when necessary for insomnia, melatonin 10 mg daily at bedtime for sleep. Consultation on medications for alcohol cravings however patient declined at this time. Patient spoke of his stressors and engaged in therapy both group and individual. Patient was also seen by medical team for history and physical exam. Throughout the course of the hospitalization patient gradually improved with regards to mood, anxiety, suicidal thoughts, sleep and became more future oriented with improved insight and judgment. On the day of discharge patient denied any suicidal or homicidal ideations intent or plan denied any auditory or visual hallucinations. Patient endorsed wanting to live for his sobriety and his future. The patient denied any access to guns or weapons. Patient denied any paranoia and did not endorse any delusions. Patient does have a significant history of substance abuse and was counseled on abstaining from all substances including alcohol and marijuana. Patient was accepted to a rehab in [place], he will be discharged today to gather his belongings, take care of errands and also await his flight on Wednesday to [place] to go to rehab. Patient's father will be taking him to the airport. Patient was also counseled on the medications and need for regular compliance and was encouraged to follow-up with their outpatient appointment for mental health and also for primary care. Prior to discharge a family meeting will be arranged by social studies department chair to answer any questions and ensure safety upon discharge. Mental status exam: General Appearance: Patient appears to be stated age is alert, pleasant, and cooperative. Patient is in no acute distress and has improved hygiene and grooming Behavior: Patient is calmly seated without any agitated behavior. Speech: Patient's speech is fluent and nonpressured. Mood/Affect: Patient reports their mood is "good", affect is congruent Suicidality/Homicidality: Patient denies having any suicidal or homicidal ideation intent or plan. Perceptions: Patient denies any auditory or visual hallucinations. Though content/process: There is no evidence of any delusional thought content and thought process is linear and goal-directed. more future oriented Memory and concentration: AOX3, grossly intact for the purposes of this session. Can spell "WORLD" backwards correctly. Judgment and insight: improved with guarded prognosis Impression: Major depressive disorder, severe, without psychotic features Suicidal ideations Alcohol abuse Cluster B personality disorder Nicotine dependence Plan: -Continue with discharge today as patient has improved and stabilized psychiatr ically and is not currently an imminent threat to himself and/or others. Patient will remain at chronically elevated risk for harm to self and/or others due to his impulsivity and substance abuse. -Continue medications: Effexor XR 37.5 mg daily for mood/anxiety, Librium was discontinued. Trazodone 50 mg-100 mg when necessary for insomnia, melatonin 10 mg daily at bedtime for sleep. -Patient was counseled on the need for medication compliance and appropriate follow-up at mental health and also primary care for medical issues. Patient verbalized understanding and agreed. -Social work to arrange for and conduct family meeting to ensure safety upon discharge and answer any questions/concerns. Social work also to arrange for patients follow up appointments for psychiatric care along with follow up with primary care provider. -Patient counseled on abstaining from recreational drugs and marijuana and alcohol. Was informed/educated on the adverse effects on their physical and mental health. Patient verbally agreed and understood. Patient will be discharged to a hotel for today, will be taking care of errands for the next couple of days, he is accepted to rehab in [place], his flight will leave on Wednesday, his father will be taking him to the airport. -Patient was instructed to return to the hospital or seek immediate medical care if their psychiatric or medical symptoms do worsen or reoccur. Allergies Allergy/AdvReac Type Severity Reaction Status Date / Time No Known Allergies Allergy Verified 09/22/23 16:59 Vital Signs Temp 97.6 F 09/28/23 01:36 Pulse 73 09/29/23 07:10 Resp 16 09/28/23 16:35 BP 131/76 09/29/23 07:10 Pulse Ox 99 09/26/23 07:00 FiO2 Patient Condition at Discharge: Stable Plan - Discharge Summary Discharge Rx Participant: Yes New Discharge Prescriptions: New Nicotine 14Mg/24Hr Patch [Habitrol] 1 patch TRANSDERM DAILY 14 Days #14 patch Venlafaxine HCl ER [Effexor XR] 37.5 mg PO DAILY 30 Days #30 cap Melatonin 10 mg PO HS 30 Days #60 tab traZODone HCL 50 - 100 mg PO HS PRN 30 Days #30 tablet PRN Reason: Insomnia Discharge Medication List Melatonin 10 mg PO HS 30 Days #60 tab 09/29/23 [Rx] Nicotine 14Mg/24Hr Patch [Habitrol] 1 patch TRANSDERM DAILY 14 Days #14 patch 09/29/23 [Rx] Venlafaxine HCl ER [Effexor XR] 37.5 mg PO DAILY 30 Days #30 cap 09/29/23 [Rx] traZODone HCL 50 - 100 mg PO HS PRN 30 Days #30 tablet 09/29/23 [Rx] Follow up Appointment(s)/Referral(s): [facility] [Other] - 10/04/23 Patient Instructions/Handouts: How to Stop Smoking (DC), Depression (DC), Gen eralized Anxiety Disorder (GEN), Abuse of Alcohol (DC) Activity/Diet/Wound Care/Special Instructions: Avoid the use of street drugs and alcohol. Take all medications as prescribed. When you are in need of refills on your medications, please contact your medical provider and/or outpatient psychiatrist/provider to have this done. Please go to your scheduled outpatient appointment for aftercare treatment. If symptoms return or become worse, call the crisis line at and/or go to the nearest emergency room for evaluation. National Suicide Hotline 645. Discharge Disposition: OTHER INSTITUTION NOT DEFINED
== END 2023-09-29 11:25 | disposition home or self-care (01) | DRG 751 ==
LOC: 3MHU 22:12
PROVIDERS: ADMIT Psychiatry & Neurology Psychiatry; ATTEND Psychiatry & Neurology Psychiatry
DX: F33.2 Major depressive disorder, recurrent severe without psychotic features (principal); F10.239 Alcohol dependence with withdrawal, unspecified; F17.200 Nicotine dependence, unspecified, uncomplicated; F31.9 Bipolar disorder, unspecified; F41.1 Generalized anxiety disorder; F60.89 Other specific personality disorders; G47.00 Insomnia, unspecified; I10 Essential (primary) hypertension; R45.851 Suicidal ideations; Z59.00 Homelessness unspecified; Z79.899 Other long term (current) drug therapy; Z91.148 Patient's other noncompliance with medication regimen for other reason

== ENCOUNTER 2023-10-03 10:00 | Observation (INO) | payer OTHER ==
[2023-10-03 10:25] VITALS: BP 140/90; PULSE 111; RESP 18; TEMP 98
[2023-10-03] MEDS ORDERED: SODIUM CHLORIDE 0.9% 1,000 ML IV ONE (10:27)
[2023-10-03 11:18] LABS: Basophils # (A) 0.1 k/uL (0-0.2); Basophils % (A) 1 %; Eosinophils # (A) 0.1 k/uL (0-0.7); Eosinophils % (A) 1 %; HCT 48.6 % (39.0-53.0); Lymphocytes # (A) 2.1 k/uL (1.0-4.8); Lymphocytes % (A) 30 %; MCH 31.3 pg (25.0-35.0); MCHC 34.4 g/dL (31.0-37.0); MCV 90.8 fL (80.0-100.0); Monocytes # (A) 0.3 k/uL (0-1.0); Monocytes % (A) 5 %; Neutrophils # (A) 4.3 k/uL (1.3-7.7); Neutrophils % (A) 62 %; Platelet Count 252 k/uL (150-450); RBC 5.35 m/uL (4.30-5.90); RDW 13.9 % (11.5-15.5)
[2023-10-03 11:21] LABS: HGB 16.7 gm/dL (13.0-17.5)
[2023-10-03 11:32] LABS: ALT 35 U/L (4-49); AST 47 U/L (17-59); African American GFR (CKD) >90 (>60 ml/min/1.73 sqM); Albumin 4.8 g/dL (3.5-5.0); Alkaline Phosphatase 94 U/L (38-126); Anion Gap 16 mmol/L; Blood Urea Nitrogen 10 mg/dL (9-20); Calcium 8.9 mg/dL (8.4-10.2); Carbon Dioxide 28 mmol/L (22-30); Chloride 100 mmol/L (98-107); Glucose 137 mg/dL (74-99); Non-African American GFR(CKD) >90 (>60 ml/min/1.73 sqM); Potassium 4.4 mmol/L (3.5-5.1); Sodium 144 mmol/L (137-145); Total Protein 8.4 g/dL (6.3-8.2)
[2023-10-03 12:31] LABS: Alcohol 328 mg/dL
--- NOTE | 2023-10-03 12:33 | ED ---
General Adult HPI - General Chief complaint: Alcohol Stated complaint: ETOH Time Seen by Provider: 10/03/23 10:26 Source: EMS Mode of arrival: EMS Limitations: no limitations - History of Present Illness Initial comments: 32-year-old male with past medical history significant for EtOH presents to the emergency department with a chief complaint of alcohol withdrawal. Patient reports that he's had a brief period of being sober however he had a relapse today. Drink a pint of vodka. He does report that he has withdrawn in the past however denies any seizures. Denies any recent falls or trauma. Denies dizziness or lightheadedness, headache, vision changes vision loss, abdominal pain. Patient verbalizes that he would like assistance in detoxing. - Related Data Home Medications Medication Instructions Recorded Confirmed No Known Home Medications 10/03/23 10/03/23 Allergies Allergy/AdvReac Type Severity Reaction Status Date / Time No Known Allergies Allergy Verified 10/03/23 15:07 Review of Systems ROS Statement: Those systems with pertinent positive or pertinent negative responses have been documented in the HPI. ROS Other: All systems not noted in ROS Statement are negative. Past Medical History Past Medical History: Hypertension Additional Past Medical History / Comment(s): Patient states they occasionally have high BP but in correlation to drinking. History of Any Multi-Drug Resistant Organisms: None Reported Past Surgical History: No Surgical Hx Reported Past Anesthesia/Blood Transfusion Reactions: No Reported Reaction Past Psychological History: Anxiety, Bipolar, Depression Smoking Status: Vaper Past Alcohol Use History: Abuse, Daily, Heavy Past Drug Use History: None Reported - Past Family History Mother Family Medical History: Hyperlipidemia General Exam - General Exam Comments Initial Comments: General: Alert, in no acute distress, appears clinically intoxicated Head: atraumatic normocephalic. Eyes PERRL, EOMI intact, mucous membranes moist Respiratory: Lungs clear to auscultation bilaterally Cardiovascular: Tachycardic Abdominal: Soft without guarding or rebound Extremities: Normal inspection with full range of motion and normal capillary refill Neuroogic: alert and oriented 3, CN II-XII intact, able to ambulate with steady gait Skin: warm dry and intact with normal color Limitations: no limitations Course Vital Signs 10/03/23 10:03 Temperature 98 F Pulse Rate 111 H Respiratory 18 Rate Blood Pressure 140/90 O2 Sat by Pulse 96 Oximetry - Reevaluation(s) Reevaluation #1: 10/03/23 13:[address] Gallardo who agrees with plan of care EKG Findings - EKG Comments: EKG Findings:: I interpreted the following: EKG performed at 11:10 rate 11 0 bpm and sinus tachycardia CO interval 186, QRS duration 107, QT/QTc 33/399 Medical Decision Making - Medical Decision Making Was pt. sent in by a medical professional or institution (, [facility], GOLDBEATER, urgent care, hospital, or assisted...) When possible be specific @ -[No] Did you speak to anyone other than the patient for history (EMS, parent, family, police, friend...)? What history was obtained from this source @ -EMS Did you review nursing and triage notes (agree or disagree)? Why? @ -[I reviewed and agree with nursing and triage notes] Were old charts reviewed (outside hosp., previous admission, EMS record, old EKG, old radiological studies, urgent care reports/EKG's, assisted records)? Report findings @ -[No old charts were reviewed] Differential Diagnosis (chest pain, altered mental status, abdominal pain women, abdominal pain men, vaginal bleeding, weakness, fever, dyspnea, syncope, headache, dizziness, GI bleed, back pain, seizure, CVA, palpatations, mental health, musculoskeletal)? @ -[not applicable] EKG interpreted by me (3pts min.). @ -[As above] X-rays interpreted by me (1pt min.). @ -[None done] CT interpreted by me (1pt min.). @ -[None done] U/S interpreted by me (1pt. min.). @ -[None done] What testing was considered but not performed or refused? (CT, X-rays, U/S, labs)? Why? @ -[None] What meds were considered but not given or refused? Why? @ -[None] Did you discuss the management of the patient with other professionals (professionals i.e. LAMAR Le, GOLDBEATER, lab, RT, psych nurse, social services director, purchasing specialist, teacher, chief sustainability officer, telehealth case manager)? Give summary @ -Dr. gallardo who agrees and accepts Was smoking cessation discussed for >3mins.? @ -[No] Was critical care preformed (if so, how long)? @ -[No] Were there social determinants of health that impacted care today? How? (Homelessness, low income, unemployed, alcoholism, drug addiction, transportation, low edu. Level, literacy, decrease access to med. care, retirement, rehab)? @ -[No] Was there de-escalation of care discussed even if they declined (Discuss DNR or withdrawal of care, Hospice)? DNR status @ -[No] What co-morbidities impacted this encounter? (DM, HTN, Smoking, COPD, CAD, Cancer, CVA, ARF, Chemo, Hep., AIDS, mental health diagnosis, sleep apnea, morbid obesity)? @ -[None] Was patient admitted / discharged? Hospital course, mention meds given and route, prescriptions, significant lab abnormalities, going to OR and other pertinent info. @ -Admission. This is a 32-year-old male who presents the emergency department with alcohol intoxication. Patient had a thorough physical exam performed. Physical exam essentially unremarkable. Patient appears clinically intoxicated. Patient's alcohol level 328 Case is discussed with Dr. Patterson who agrees and accepts the patient for admission for observation and assistance with alcohol withdrawal. Undiagnosed new problem with uncertain prognosis? @ -[No] Drug Therapy requiring intensive monitoring for toxicity (Heparin, Nitro, Insulin, Cardizem)? @ -[No] Were any procedures done? @ -[No] Diagnosis/symptom? @ -Alcohol intoxication Acute, or Chronic, or Acute on Chronic? @ -Acute Uncomplicated (without systemic symptoms) or Complicated (systemic symptoms)? @ -Uncomplicated Side effects of treatment? @ -[No] Exacerbation, Progression, or Severe Exacerbation? @ -[No] Poses a threat to life or bodily function? How? (Chest pain, USA, [place], pneumonia, PE, COPD, DKA, ARF, appy, cholecystitis, CVA, Diverticulitis, Homicidal, Suicidal, threat to staff... and all critical care pts) @ -Low likleihood - Lab Data Result diagrams: 10/03/23 11:04 10/03/23 11:04 Lab Results 10/03/23 10/03/23 Range/Units 11:04 11:04 WBC 7.0 (3.8-10.6) k/uL RBC 5.35 (4.30-5.90) m/uL Hgb 16.7 D (13.0-17.5) gm/dL Hct 48.6 (39.0-53.0) % MCV 90.8 (80.0-100.0) fL MCH 31.3 (25.0-35.0) pg MCHC 34.4 (31.0-37.0) g/dL RDW 13.9 (11.5-15.5) % Plt Count 252 (150-450) k/uL MPV 8.0 Neutrophils % 62 % Lymphocytes % 30 % Monocytes % 5 % Eosinophils % 1 % Basophils % 1 % Neutrophils # 4.3 (1.3-7.7) k/uL Lymphocytes # 2.1 (1.0-4.8) k/uL Monocytes # 0.3 (0-1.0) k/uL Eosinophils # 0.1 (0-0.7) k/uL Basophils # 0.1 (0-0.2) k/uL Sodium 144 (137-145) mmol/L Potassium 4.4 (3.5-5.1) mmol/L Chloride 100 (98-107) mmol/L Carbon Dioxide 28 (22-30) mmol/L Anion Gap 16 mmol/L BUN 10 (9-20) mg/dL Creatinine 0.66 (0.66-1.25) mg/dL Est GFR (CKD-EPI)AfAm >90 (>60 ml/min/1.73 sqM) Est GFR (CKD-EPI)NonAf >90 (>60 ml/min/1.73 sqM) Glucose 137 H (74-99) mg/dL Calcium 8.9 (8.4-10.2) mg/dL Total Bilirubin 1.0 (0.2-1.3) mg/dL AST 47 (17-59) U/L ALT 35 (4-49) U/L Alkaline Phosphatase 94 (38-126) U/L Total Protein 8.4 H (6.3-8.2) g/dL Albumin 4.8 (3.5-5.0) g/dL Serum Alcohol 328 H* mg/dL Disposition Clinical Impression: Alcohol intoxication, Alcohol abuse Disposition: LEFT AGAINST MEDICAL ADVICE Condition: Fair Time of Disposition: 13:01
[2023-10-03] MEDS ORDERED: LORazepam 2 MG/ML INJ IV PRN ×3 (13:02)
[2023-10-03] MEDS ORDERED: LORazepam 1 MG TAB PO PRN ×3 (13:02)
[2023-10-03] MEDS ORDERED: THIAMINE 100 MG/ML 2 ML VIAL IM STA (13:02)
[2023-10-03] MEDS ORDERED: LORazepam 0.5 MG TAB PO PRN (13:02)
[2023-10-03] MEDS ORDERED: ONDANSETRON 4 MG/2 ML VIAL IVP PRN (13:04)
[2023-10-03] MEDS ORDERED: NALOXONE 0.4 MG/ML 1 ML VIAL IV PRN (13:04)
[2023-10-03] MEDS ORDERED: SODIUM CHLORIDE 0.9% 1,000 ML IV SCH (13:15)
--- NOTE | 2023-10-03 15:13 | P.HPIM ---
History of Present Illness H&P Date: 10/03/23 History of Presenting Illness: Patient is a 32-year-old male with a past medical history of anxiety and bipolar disorder with long-standing history of alcohol abuse reportedly drinking 1-1/2 pints daily of vodka. Patient reports long-standing history of alcohol abuse and was sober for 2 months but again has been binge drinking over the past few days. Patient reports he came to the emergency department today because he needs assistance with detox because he wants to stop. Patient denies history of alcohol withdrawal seizures but does report multiple hospitalizations for withdrawal. He denies any ICU stays or need for intubation during withdrawal process. Patient seen and fully evaluated at the bedside. Patient currently intoxicated and reports feeling anxious and a little nauseous. He denies having any headache, lightheadedness, dizziness, chest pain, palpitations, shortness of breath, or experiencing any numbness/tingling/weakness/swelling in his extremities. Patient underwent full evaluation in the emergency department. Labs completed and reviewed. CBC and CMP were unremarkable with no abnormalities. Serum alcohol level was 328. Patient was admitted under our services to medical observation unit for assistance with detox. Review of systems: Pertinent positives and negatives as discussed in HPI, a complete review of systems was performed and all other systems are negative. Physical exam: Vital signs reviewed and stable. General: Nontoxic, no distress and appears stated age. Derm: Skin warm and dry, normal coloration for ethnicity. Head: Atraumatic, normocephalic and symmetric. Eyes: EOMs intact, no lid lag, and anicteric sclera Mouth: no lip lesions, mucus membranes moist Cardiovascular: regular rate and rhythm with normal S1S2, no murmur, positive posterior tibial pulses bilaterally, and cap refill < 2 seconds. Lungs: Respirations even, regular, and unlabored on room air. Lungs CTA bilaterally, no rhonchi, no rales, no wheezing, and no accessory muscle usage. Abdominal: soft, nontender to palpation, no guarding, no appreciable organomegaly Ext: ROM intact. No gross muscle atrophy, no edema, no contractures Neuro: Speech clear, face symmetrical and CN II-XII grossly intact with no noted focal neuro deficits Psych: Alert and oriented to person, place, time, and situation. Appropriate and pleasant affect. Assessment and Plan of Care: Alcohol intoxication pending withdrawal Anxiety Bipolar disorder -Order placed for monitoring of CIWA scores and patient to be medicated with Ativan 0.5 mg every 4 hours as needed for CIWA score of 4-5, Ativan 1 mg every 4 hours for CIWA score of 6-7, Ativan 2 mg every 3 hours CIWA score of 8-9, and Ativan 2 mg every 2 hours forr CIWA score of 10 or greater. -Continuous IV hydration. -Thiamine 100 mg twice a day -Multivitamin daily -Folate 1 mg daily -Seizure, fall, aspiration, and elopement precautions in place. -Urine drug screen -Continued close monitoring of electrolytes and replace as needed. -Telemetry monitoring. CODE STATUS: Full code Anticipated discharge date: Clinical course to determine likely 24-[address]: Home Patient was seen independently by Nurse Practitioner. This document was prepared using [employer] dictation software. Please allow for errors in grain receiver while rare they do occur. Gt Donaldson NP rendered care for this patient independently, reviewed the findings and plan as documented in the note above. I did not physically speak with or examine the patient on this date. Past Medical History Past Medical History: Hypertension Additional Past Medical History / Comment(s): Patient states they occasionally have high BP but in correlation to drinking. History of Any Multi-Drug Resistant Organisms: None Reported Past Surgical History: No Surgical Hx Reported Past Anesthesia/Blood Transfusion Reactions: No Reported Reaction Past Psychological History: Anxiety, Bipolar, Depression Smoking Status: Vaper Past Alcohol Use History: Abuse, Daily, Heavy Past Drug Use History: None Reported - Past Family History Mother Family Medical History: Hyperlipidemia Medications and Allergies Home Medications Medication Instructions Recorded Confirmed Type No Known Home Medications 10/03/23 10/03/23 History Allergies Allergy/AdvReac Type Severity Reaction Status Date / Time No Known Allergies Allergy Verified 10/03/23 15:07 Physical Exam Vitals: Vital Signs Temp Pulse Resp BP Pulse Ox 10/03/23 10:03 98 F 111 H 18 140/90 96 Intake and Output 10/03/23 10/03/23 10/03/23 06:59 14:59 22:59 Other: Weight 79.379 kg Results CBC & Chem 7: 10/03/23 11:04 10/03/23 11:04 Labs: Abnormal Lab Results - Last 24 Hours (Table) 10/03/23 Range/Units 11:04 Glucose 137 H (74-99) mg/dL Total Protein 8.4 H (6.3-8.2) g/dL Serum Alcohol 328 H* mg/dL
--- NOTE | 2023-10-04 07:46 | P.DS ---
Providers Date of admission: 10/03/23 13:21 Expected date of discharge: 10/04/23 Attending physician: Jordon Garrett MD Primary care physician: Stated None Hospital Course: Per Documentation in chart, patient reportedly left AGAINST MEDICAL ADVICE on 10/03/23 at 3:44 PM. Providers were not notified of patient's leaving until review of chart. Gt Donaldson NP rendered care for this patient independently, reviewed the findings and plan as documented in the note above. I did not physically speak with or examine the patient on this date. Patient Condition at Discharge: Undetermined Plan - Discharge Summary New Discharge Prescriptions: No Action No Known Home Medications Discharge Medication List No Known Home Medications 10/03/23 [History] Follow up Appointment(s)/Referral(s): None,Stated [Primary Care Provider] - 1-2 days Discharge Disposition: LEFT AGAINST MEDICAL ADVICE
[2023-10-04] MEDS ORDERED: THIAMINE 100 MG TAB PO SCH (09:00)
[2023-10-04] MEDS ORDERED: FOLIC ACID 1 MG TAB PO SCH (09:00)
[2023-10-04] MEDS ORDERED: MULTIVITAMINS, THERA 1 EACH TAB PO SCH (09:00)
== END 2023-10-03 15:52 | disposition left against medical advice (07) ==
LOC: EC 10:00 → 6NMEDSUR 13:21
PROVIDERS: ADMIT Student in an Organized Health Care Education/Training Program; ATTEND Student in an Organized Health Care Education/Training Program
DX: F10.129 Alcohol abuse with intoxication, unspecified (principal); R00.0 Tachycardia, unspecified; F41.9 Anxiety disorder, unspecified; F31.9 Bipolar disorder, unspecified; I10 Essential (primary) hypertension; F17.290 Nicotine dependence, other tobacco product, uncomplicated; Y90.8 Blood alcohol level of 240 mg/100 ml or more; Z53.29 Procedure and treatment not carried out because of patient's decision for other reasons; Z83.49 Family history of other endocrine, nutritional and metabolic diseases
CPT/HCPCS: 82075; 96372; 99285; 36415; 93005; 80053; 85025; G0378; G0480; J3411; 80320

== ENCOUNTER 2024-11-12 19:01 | Inpatient (IN) | payer MEDICAID, OTHER ==
--- NOTE | 2024-11-12 21:07 | ED ---
Psych HPI - General Source: patient Mode of arrival: ambulatory <Fatou Amador - Last Filed: 11/12/24 21:01> <Richard Elder - Last Filed: 11/13/24 04:15> - General Chief Complaint: Psychiatric Symptoms Stated Complaint: Suicidal ideations Time Seen by Provider: 11/12/24 19:24 - History of Present Illness Initial Comments: 33-year-old male with past medical history of alcohol abuse, hypertension who presents emergency department suicidal ideations. Patient has history of depression. Previously admitted for suicidal ideations. States that if we handed him a gun he would kill himself. He denies any attempt at harming himself. Admits that he has been drinking heavily today. Denies homicidal ideations. No hallucinations. No other alleviating, precipitating or modifying factors (Fatou Amador) - Related Data Home Medications Medication Instructions Recorded Confirmed No Known Home Medications 10/03/23 10/03/23 Allergies Allergy/AdvReac Type Severity Reaction Status Date / Time No Known Allergies Allergy Verified 11/12/24 19:15 Review of Systems ROS Other: All systems not noted in ROS Statement are negative. <Fatou Amador - Last Filed: 11/12/24 21:01> ROS Other: All systems not noted in ROS Statement are negative. <Richard Elder - Last Filed: 11/13/24 04:15> ROS Statement: Those systems with pertinent positive or pertinent negative responses have been documented in the HPI. Past Medical History Past Medical History: Hypertension Additional Past Medical History / Comment(s): Patient states they occasionally have high BP but in correlation to drinking. History of Any Multi-Drug Resistant Organisms: None Reported Past Surgical History: No Surgical Hx Reported Past Anesthesia/Blood Transfusion Reactions: No Reported Reaction Past Psychological History: Anxiety, Bipolar, Depression Smoking Status: Former smoker, Vaper Past Alcohol Use History: Abuse, Daily, Heavy Past Drug Use History: None Reported - Past Family History Mother Family Medical History: Hyperlipidemia <PerryFatou Sophie - Last Filed: 11/12/24 21:01> General Exam Limitations: altered mental status General appearance: alert, appears intoxicated Head exam: Present: atraumatic, normocephalic, normal inspection Eye exam: Present: normal appearance, PERRL, EOMI. Absent: scleral icterus, conjunctival injection, periorbital swelling ENT exam: Present: normal exam, mucous membranes moist Neck exam: Present: normal inspection. Absent: tenderness, meningismus, lymphadenopathy Respiratory exam: Present: normal lung sounds bilaterally. Absent: respiratory distress, wheezes, rales, rhonchi, stridor Cardiovascular Exam: Present: tachycardia GI/Abdominal exam: Present: soft, normal bowel sounds. Absent: distended, tenderness, guarding, rebound, rigid Neurological exam: Present: altered Psychiatric exam: Present: depressed <Fatou Amador A - Last Filed: 11/12/24 21:01> Course Vital Signs 11/12/24 19:12 Temperature 98.2 F Pulse Rate 111 H Respiratory 20 Rate Blood Pressure 123/79 O2 Sat by Pulse 96 Oximetry Medical Decision Making <PerryFatou A - Last Filed: 11/12/24 21:01> <Richard Elder - Last Filed: 11/13/24 04:15> - Medical Decision Making Was pt. sent in by a medical professional or institution (, PA, FOUND[employer]IDENT [employer], urgent care, hospital, or senior living...) When possible be specific @ -No Did you speak to anyone other than the patient for history (EMS, parent, family, police, friend...)? What history was obtained from this source @ -No Did you review nursing and triage notes (agree or disagree)? Why? @ -I reviewed and agree with nursing and triage notes Were old charts reviewed (outside hosp., previous admission, EMS record, old EKG, old radiological studies, urgent care reports/EKG's, senior living records)? Report findings @ -No old charts were reviewed Differential Diagnosis (chest pain, altered mental status, abdominal pain women, abdominal pain men, vaginal bleeding, weakness, fever, dyspnea, syncope, headache, dizziness, GI bleed, back pain, seizure, CVA, palpatations, mental health, musculoskeletal)? @ -Differential Mental Health Depression, anxiety, bipolar, psychosis, schizophrenia, borderline personality, situational depression, adjustment disorder, behavioral disorder, brain tumor, malingering, substance abuse, encephalopathy, medication reaction, dementia, hypothyroidism, degenerative neurologic disorder, lupus.... This is not meant to be all-inclusive list EKG interpreted by me (3pts min.). @ -Not done X-rays interpreted by me (1pt min.). @ -None done CT interpreted by me (1pt min.). @ -None done U/S interpreted by me (1pt. min.). @ -None done What testing was considered but not performed or refused? (CT, X-rays, U/S, labs)? Why? @ -None What meds were considered but not given or refused? Why? @ -None Did you discuss the management of the patient with other professionals (professionals i.e. , PA, FOUNDER PRESIDENT [employer] CEO, lab, RT, psych nurse, social science professor, traffic rate computer, teacher, contact officer, case management social worker)? Give summary @ -EPS Was smoking cessation discussed for >3mins.? @ -No Was critical care preformed (if so, how long)? @ -No Were there social determinants of health that impacted care today? How? (Homelessness, low income, unemployed, alcoholism, drug addiction, transportation, low edu. Level, literacy, decrease access to med. care, correction, rehab)? @ -No Was there de-escalation of care discussed even if they declined (Discuss DNR or withdrawal of care, Hospice)? DNR status @ -No What co-morbidities impacted this encounter? (DM, HTN, Smoking, COPD, CAD, Cancer, CVA, ARF, Chemo, Hep., AIDS, mental health diagnosis, sleep apnea, morbid obesity)? @ -Alcohol abuse Was patient admitted / discharged? Hospital course, mention meds given and route, prescriptions, significant lab abnormalities, going to OR and other pertinent info. @ -Patient arrives reporting suicidal ideations. He is intoxicated. He will be medically clear at 3 AM and EPS will evaluate him at that time Undiagnosed new problem with uncertain prognosis? @ -No Drug Therapy requiring intensive monitoring for toxicity (Heparin, Nitro, Insulin, Cardizem)? @ -No Were any procedures done? @ -No Diagnosis/symptom? @ -depression, suicidal ideations Acute, or Chronic, or Acute on Chronic? @ -acute Uncomplicated (without systemic symptoms) or Complicated (systemic symptoms)? @ -complicated Side effects of treatment? @ -No Exacerbation, Progression, or Severe Exacerbation? @ -No Poses a threat to life or bodily function? How? (Chest pain, [place], [place], pneumonia, PE, COPD, DKA, ARF, appy, cholecystitis, CVA, Diverticulitis, Homicidal, Suicidal, threat to staff... and all critical care pts) @ -yes as patient is suicidal (PerryFatou) Patient care signed out to me by previous shift physician, Dr. Ba. Briefly, patient is a 33-year-old male presents with alcohol intoxication and suicidal ideation. Plan at signout was to follow-up of EPS evaluation. EPS evaluated the patient after ER observation pending sobriety and recommended admission. Clinical certification completed. (Richard Elder) - Lab Data Lab Results 11/12/24 Range/Units 19:48 Influenza Type A (PCR) Not Detected (Not Detectd) Influenza Type B (PCR) Not Detected (Not Detectd) RSV (PCR) Not Detected (Not Detectd) SARS-CoV-2 (PCR) Not Detected (Not Detectd) Disposition <Fatou Amador - Last Filed: 11/12/24 21:01> <Richard Elder - Last Filed: 11/13/24 04:15> Clinical Impression: Suicidal ideation Disposition: TRANSFER TO PSYCH HOSP/UNIT Condition: Fair Referrals: None,Stated [Primary Care Provider] - 1-2 days
[2024-11-13] MEDS: LORazepam 2 MG/ML INJ IM STA (06:26)
[2024-11-13 06:46] LABS: Appearance,Urine Clear (Clear); Bilirubin,Urine Negative (Negative); Blood,Urine Negative (Negative); Color,Urine Light Yellow; Glucose,Urine (UA) Negative (Negative); Ketones,Urine 1+ (Negative); Leukocyte Esterase,Urine Negative (Negative); Nitrite,Urine Negative (Negative); PH, Urine 6.5 (5.0-8.0); Protein,Urine Trace (Negative); Specific Gravity,Urine 1.031 (1.001-1.035); Urobilinogen,Urine <2.0 mg/dL (<2.0)
[2024-11-13 07:00] LABS: Amphetamine Screen,Urine Not Detected (NotDetected); Barbiturate Screen,Urine Not Detected (NotDetected); Benzodiazepines Screen,Urine Not Detected (NotDetected); Cocaine Screen,Urine Not Detected (NotDetected); Methadone Screen, Urine Not Detected (NotDetected); Opiate Screen,Urine Not Detected (NotDetected); Oxycodone Screen, Urine Not Detected (NotDetected); Phencyclidine Screen,Urine Not Detected (NotDetected); Tricyclic Antidepressant,Urine Not Detected (NotDetected); Urn Cannabinoid Scrn Not Detected (NotDetected)
[2024-11-13 07:01] LABS: Basophils # (A) 0.1 k/uL (0-0.2); Basophils % (A) 1 %; Eosinophils # (A) 0.1 k/uL (0-0.7); Eosinophils % (A) 2 %; HGB 14.3 gm/dL (13.0-17.5); Lymphocytes # (A) 1.5 k/uL (1.0-4.8); Lymphocytes % (A) 28 %; MCH 31.2 pg (25.0-35.0); MCHC 33.3 g/dL (31.0-37.0); MCV 93.7 fL (80.0-100.0); Mean Platelet Volume 8.4; Monocytes # (A) 0.5 k/uL (0-1.0); Monocytes % (A) 9 %; Neutrophils # (A) 3.2 k/uL (1.3-7.7); Neutrophils % (A) 59 %; Platelet Count 195 k/uL (150-450); RBC 4.59 m/uL (4.30-5.90); RDW 13.7 % (11.5-15.5); WBC 5.5 k/uL (3.8-10.6)
[2024-11-13 07:16] LABS: ALT 36 U/L (4-49); AST 27 U/L (17-59); African American GFR (CKD) >90 (>60 ml/min/1.73 sqM); Albumin 4.2 g/dL (3.5-5.0); Alkaline Phosphatase 67 U/L (38-126); Anion Gap 11 mmol/L; Blood Urea Nitrogen 15 mg/dL (9-20); Calcium 8.5 mg/dL (8.4-10.2); Carbon Dioxide 25 mmol/L (22-30); Chloride 108 mmol/L (98-107); Glucose 97 mg/dL (74-99); Non-African American GFR(CKD) >90 (>60 ml/min/1.73 sqM); Potassium 3.8 mmol/L (3.5-5.1); Sodium 144 mmol/L (137-145); Total Bilirubin 0.2 mg/dL (0.2-1.3); Total Protein 6.8 g/dL (6.3-8.2)
[2024-11-13] MEDS ORDERED: HALOPERIDOL LACTATE 5 MG/ML 1 ML VIAL IM PRN (14:43)
[2024-11-13] MEDS ORDERED: LORazepam 2 MG/ML INJ IM PRN (14:43)
[2024-11-13] MEDS ORDERED: haloperidoL 5 MG TAB PO PRN (14:43)
[2024-11-13] MEDS ORDERED: MAG HYDROX/AL HYDROX/SIMETH 355 ML BOTTLE PO PRN (14:43)
[2024-11-13] MEDS ORDERED: MAGNESIUM HYDROXIDE 2,400 MG/30 ML CUP PO PRN (14:43)
[2024-11-13] MEDS ORDERED: ACETAMINOPHEN TAB 325 MG TAB PO PRN (14:43)
[2024-11-13] MEDS: IBUPROFEN 600 MG TAB PO PRN (16:03)
[2024-11-13] MEDS: LORazepam 1 MG TAB PO PRN (16:03)
[2024-11-13] MEDS: chlordiazePOXIDE 25 MG CAP PO SCH (16:54)
[2024-11-13] MEDS: carBAMazepine 200 MG TAB PO SCH (20:41)
[2024-11-14] MEDS: LORazepam 1 MG TAB PO PRN (10:57)
[2024-11-14] MEDS: MULTIVITAMINS, THERA 1 EACH TAB PO SCH (10:58)
[2024-11-14] MEDS: THIAMINE 100 MG TAB PO SCH (10:58)
[2024-11-14] MEDS: FOLIC ACID 1 MG TAB PO SCH (10:58)
[2024-11-14] MEDS: PARoxetine 10 MG TAB PO SCH (10:58)
[2024-11-14] MEDS: NICOTINE 14MG/24HR PATCH TRANSDERM SCH (10:58)
--- NOTE | 2024-11-14 14:45 | P.HP ---
Psychiatric H&P - . H&P Date: 11/14/24 History & Physical: Allergies Allergy/AdvReac Type Severity Reaction Status Date / Time No Known Allergies Allergy Verified 11/12/24 19:15 Vital Signs Temp 97.5 F L 11/14/24 06:35 Pulse 92 11/14/24 11:00 Resp 16 11/14/24 06:35 BP 145/86 11/14/24 11:00 Pulse Ox 98 11/14/24 06:35 FiO2 Intake & Output 11/13/24 11/14/24 11/14/24 18:59 06:59 18:59 Weight 108.7 kg Laboratory Last Values WBC 5.5 k/uL (3.8-10.6) 11/13/24 06:42 RBC 4.59 m/uL (4.30-5.90) 11/13/24 06:42 Hgb 14.3 gm/dL (13.0-17.5) 11/13/24 06:42 Hct 43.0 % (39.0-53.0) 11/13/24 06:42 MCV 93.7 fL (80.0-100.0) 11/13/24 06:42 MCH 31.2 pg (25.0-35.0) 11/13/24 06:42 MCHC 33.3 g/dL (31.0-37.0) 11/13/24 06:42 RDW 13.7 % (11.5-15.5) 11/13/24 06:42 Plt Count 195 k/uL (150-450) 11/13/24 06:42 MPV 8.4 11/13/24 06:42 Neutrophils % 59 % 11/13/24 06:42 Lymphocytes % 28 % 11/13/24 06:42 Monocytes % 9 % 11/13/24 06:42 Eosinophils % 2 % 11/13/24 06:42 Basophils % 1 % 11/13/24 06:42 Neutrophils # 3.2 k/uL (1.3-7.7) 11/13/24 06:42 Lymphocytes # 1.5 k/uL (1.0-4.8) 11/13/24 06:42 Monocytes # 0.5 k/uL (0-1.0) 11/13/24 06:42 Eosinophils # 0.1 k/uL (0-0.7) 11/13/24 06:42 Basophils # 0.1 k/uL (0-0.2) 11/13/24 06:42 Sodium 144 mmol/L (137-145) 11/13/24 06:42 Potassium 3.8 mmol/L (3.5-5.1) 11/13/24 06:42 Chloride 108 mmol/L (98-107) H 11/13/24 06:42 Carbon Dioxide 25 mmol/L (22-30) 11/13/24 06:42 Anion Gap 11 mmol/L 11/13/24 06:42 BUN 15 mg/dL (9-20) 11/13/24 06:42 Creatinine 0.77 mg/dL (0.66-1.25) 11/13/24 06:42 Est GFR (CKD-EPI)AfAm >90 (>60 ml/min/1.73 sqM) 11/13/24 06:42 Est GFR (CKD-EPI)NonAf >90 (>60 ml/min/1.73 sqM) 11/13/24 06:42 Glucose 97 mg/dL (74-99) 11/13/24 06:[address] Glu mg/dL 105 mg/dL 11/14/24 07:38 Hemoglobin A1c 5.3 % (<=6.0) 11/14/24 07:38 Calcium 8.5 mg/dL (8.4-10.2) 11/13/24 06:42 Total Bilirubin 0.2 mg/dL (0.2-1.3) 11/13/24 06:42 AST 27 U/L (17-59) 11/13/24 06:42 ALT 36 U/L (4-49) 11/13/24 06:42 Alkaline Phosphatase 67 U/L (38-126) 11/13/24 06:42 Total Protein 6.8 g/dL (6.3-8.2) 11/13/24 06:42 Albumin 4.2 g/dL (3.5-5.0) 11/13/24 06:42 TSH 0.941 mIU/L (0.465-4.680) 11/14/24 07:38 Urine Color Light Yellow 11/13/24 04:15 Urine Appearance Clear (Clear) 11/13/24 04:15 Urine pH 6.5 (5.0-8.0) 11/13/24 04:15 Ur Specific Mandan 1.031 (1.001-1.035) 11/13/24 04:15 Urine Protein Trace (Negative) H 11/13/24 04:15 Urine Glucose (UA) Negative (Negative) 11/13/24 04:15 Urine Ketones 1+ (Negative) H 11/13/24 04:15 Urine Blood Negative (Negative) 11/13/24 04:15 Urine Nitrite Negative (Negative) 11/13/24 04:15 Urine Bilirubin Negative (Negative) 11/13/24 04:15 Urine Urobilinogen <2.0 mg/dL (<2.0) 11/13/24 04:15 Ur Leukocyte Esterase Negative (Negative) 11/13/24 04:15 Urine Opiates Screen Not Detected (NotDetected) 11/12/24 19:26 Ur Oxycodone Screen Not Detected (NotDetected) 11/12/24 19:26 Urine Methadone Screen Not Detected (NotDetected) 11/12/24 19:26 Ur Barbiturates Screen Not Detected (NotDetected) 11/12/24 19:26 U Tricyclic Antidepress Not Detected (NotDetected) 11/12/24 19:26 Ur Phencyclidine Scrn Not Detected (NotDetected) 11/12/24 19:26 Ur Amphetamines Screen Not Detected (NotDetected) 11/12/24 19:26 U Methamphetamines Scrn Not Detected (NotDetected) 11/12/24 19:26 U Benzodiazepines Scrn Not Detected (NotDetected) 11/12/24 19:26 Urine Cocaine Screen Not Detected (NotDetected) 11/12/24 19:26 U Marijuana (THC) Screen Not Detected (NotDetected) 11/12/24 19:26 Influenza Type A (PCR) Not Detected (Not Detectd) 11/12/24 19:48 Influenza Type B (PCR) Not Detected (Not Detectd) 11/12/24 19:48 RSV (PCR) Not Detected (Not Detectd) 11/12/24 19:48 SARS-CoV-2 (PCR) Not Detected (Not Detectd) 11/12/24 19:48 11/14/24 14:33 IDENTIFYING DATA: Patient is a 33-year-old male, unemployed and living at [facility] CHIEF COMPLAINT: Suicidal ideations HPI: Patient presented to the hospital with SI. EPS note revealed, "Patient intoxicated with BAT 0.219 upon admission to , pt sober at 0230. Patient states he relapsed on alcohol approx 2 days ago. Patient states he is still actively suicidal with "a plan to drink self ". Patient states I have a lot of "suicidal ideations and have negative thoughts". Patient denies HI, A/VH. Patient states he has "not strong will to live". Patient states being sober is "uncomfortable" but not being sober is "depressing". Patient believes his low dose of paxil has not helped either. Patient states he currently lives in a recovery house and they are aware of his relapse and his belongings are still there, he believes he can still return. Patient denies access to guns and weapons, states he has a support system. Patient rates depression 10/10 and anxiety 10/10. Patient states poor sleep, poor appetite and poor hygiene. Patient has multiple IP stays, and rehab stays. Patient states last IP was 1 month ago but pt unsure of name or city of stand alone facility." Patient seen and evaluated on the unit and was agreeable with speaking to automobile service writer in office. He required frequent attempts at interview as he declined earlier due to not having his cap that he wears on his head. Patient would not divulge in the reasonings behind this but staff stated he mentioned that this was "spiritual". He states maintaining sobriety for roughly 5 months before relapsing on Wednesday. He states he has been staying at a recovery house and contacted his sponsor who recommended he come to the ED after he was expressing suicidal thoughts. He no longer feels suicidal but does report depressive symptoms, specifically hypersomnia, low energy, anhedonia but denied any appetite changes. He is interested in going to [facility] and then later transitioning to a recovery house and he wants to be started on disulfiram however we do not have this medication in stock in the pharmacy. He states the recovery house is willing to administer disulfiram every morning to have so that he will not be able to relapse on alcohol. He declined starting naltrexone today stating that this was ineffective in the past. He does report a history of panic attacks however has last had one 6 months ago but does report generalized worry about many different things outside of his control. Patient denies any suicidal or homicidal ideations intent or plan. At this time patient denies any auditory or visual hallucinations. Patient denies any flight of ideas racing thoughts and increased in goal directed behavior. Patient admits to using alcohol only, relapsing on Wednesday after 5 months of sobriety. His last drink was on Wednesday to arrival to the hospital. PAST PSYCHIATRIC HISTORY: Patient has a history of MDD, alcohol use disorder, cluster B traits. Patient is currently prescribed Paxil 10 mg daily, Tegretol 200 mg daily. He said he has tried several psychotropic medications in the past however he has had good experience with Paxil and prefers to stay on this. Patient reports greater than 10 inpatient hospitalizations, most recent in an unknown facility 1 month ago. He was last seen here back in 2022. Patient denies any psychiatric outpatient follow-up. Patient denies any history of suicide attempts in the past. PMH: as per ER note ALLERGIES: as per EMR SUBSTANCE USE HISTORY: As per HPI FAMILY PSYCHIATRIC/SUBSTANCE USE HISTORY: Denies SOCIAL HISTORY: Patient is single and have no children. He completed high school and is currently unemployed. He is currently staying at [facility] MENTAL STATUS EXAM: General Appearance: Patient appears to be stated age is alert, directable, and attempts to cooperate. Patient appears to have fair hygiene and grooming. He is wearing a black cap in his head Behavior: Patient is seated without any agitated behavior. Speech: Patient's speech is fluent and nonpressured. Mood/Affect: Patient reports their mood is depressed, affect is congruent and constricted. Suicidality/Homicidality: Patient denies having any homicidal ideation intent or plan. Denies any suicidal ideations intent or plan Perceptions: Patient denies any visual hallucinations and denies any auditory hallucinations Though content/process: There is no evidence of any delusional thought content and thought process is linear and goal-directed. Memory and concentration: AOX3, grossly intact for the purposes of this session. Can spell "WORLD" backwards Judgment and insight: Poor STRENGTHS/WEAKNESSES: strength is that patient is resilient. Weakness is that patient abuses alcohol, has poor judgment and is impulsive INTELLECT: Average IMPRESSIONS: Depression, unspecified, likely substance-induced Alcohol use disorder, in withdrawal Generalized anxiety disorder with panic attacks Tobacco use disorder, in sustained remission Cluster B traits PLAN: -Patient is admitted under voluntary status to [facility]HU for stabilization of psychiatric symptoms and safety. Patient has signed adult voluntary form and medication consent and is placed in patient's chart. -Medications : Increase Paxil to 20 mg daily for depression/anxiety, continue Tegretol 200 mg daily for mood stabilization, unable to start disulfiram for alcohol use as pharmacy does not have this in stock. -Ativan and Haldol PRN for agitation/aggression -Started thiamine, MVM for etoh use -CIWA protocol with Ativan PRN for ETOH withdrawal. Scheduled Librium for alcohol withdrawal with plan to taper. -Patient was counselled on substance abuse and desired to cut back on use. Patient states he wishes to go to [facility] re[facility] and then transition to sober living facility -Patient was informed of the risks, benefits and side effects of the medication and patient verbally consented to taking the medications. Patient signed med consent form and was placed in chart. -Internal Medicine consult to perform medical evaluation and physical. -NRT -not needed as patient does not smoke -SW on board for discharge planning. Encourage patient to participate in groups to work on coping skills. 11/14/24 14:40
[2024-11-14] MEDS: PARoxetine 10 MG TAB PO STA (15:21)
[2024-11-14 15:50] LABS: Chol/HDL Ratio 4.65 Ratio; LDL Cholesterol,Calculated 85.8 mg/dL (0.0-131.0)
[2024-11-15] MEDS: PARoxetine 20 MG TAB PO SCH (08:17)
[2024-11-15] MEDS: LORazepam 1 MG TAB PO PRN (08:17)
--- NOTE | 2024-11-15 14:31 | P.PN ---
Progress Note - Text Progress Note Date: 11/15/24 Interval History: Patient was seen in bed however he declined interview stating he was tired. P atient has been adherent with medications and CIWA's have been low. Will continue tapering Librium. Patient to be discharged to rehab pending stabilization and suicidal ideations and withdrawal symptoms Mental Status Exam: General Appearance: Patient appears to be stated age is fatigued and uncooperative Behavior: Patient is calmly laying without any agitated behavior. Speech: Patient's speech is brief and nonpressured. Mood/Affect: Mood is "tired", affect is congruent and constricted. Suicidality/Homicidality: Patient denies having any suicidal or homicidal ideation intent or plan. Perceptions: Patient denies any visual hallucinations and denies any auditory hallucinations Though content/process: There is no overt delusional thoughts expressed Memory and concentration: AOX3, grossly intact for the purposes of this session Judgment and insight: Improving mildly Assessment Depression, unspecified, likely substance-induced Alcohol use disorder, in withdrawal Generalized anxiety disorder with panic attacks Tobacco use disorder, in sustained remission Cluster B traits Plan: -Patient continues to meet criteria for inpatient psychiatric admission for symptom stabilization and safety. Patient has signed adult voluntary form and medication consent and was placed in patient's chart. -Medications: Continue Paxil 20 mg daily for depression/anxiety, Tegretol 200 mg daily for mood stabilization. Patient to start disulfiram for alcohol use once discharged as pharmacy does not have this medication in stock -When necessary Ativan and Haldol for agitation/aggression. -Labs: Reviewed -CIWA protocol with Ativan PRN for ETOH withdrawal. Continue to taper Librium -SW on board for discharge planning. Encouraged the patient to participate in milieu. Patient to call access for rehab
[2024-11-15] MEDS: chlordiazePOXIDE 25 MG CAP PO SCH (15:43)
--- NOTE | 2024-11-16 01:37 | P.MDCNMH ---
History of Present Illness H&P Date: 11/16/24 Chief Complaint: medical eval 33 year old male with alcohol abuse , patient presented due to suicidal ideation , patient admits to alcohol abuse and denies any street drugs or smoking . he claims quitting smoking about 2 months ago Denies any fever, chills, cough, sore throat, chest pain , trouble breathing , nausea , vomiting, abd pain , changes in urinary or bowel habits. review of systems Pertinent positives as noted in HPI. All other systems were reviewed and are negative on exam Constitutional: No acute distress, conversant, pleasant Eyes: Anicteric sclerae, moist conjunctiva, Pupils equal round reactive to light ENMT: NC/AT Oropharynx clear, no erythema, or exudates Lungs: Clear to auscultation Clear to percussion Normal respiratory effort, no accessory muscle use Cardiovascular: Heart regular in rate and rhythm, No murmurs, gallops, or rubs No peripheral edema Abdominal: Soft Nontender, no guarding, rebound or rigidity Abdomen moving with respiration Normoactive bowel sounds Psychiatric: Alert and oriented to person, place and time Neuro Muscles Strength 5/5 in all 4 extremities Sensation to light touch grossly present throughout Cranial nerves II-XII grossly intact Past Medical History Past Medical History: No Reported History, Hypertension Additional Past Medical History / Comment(s): Patient states they occasionally have high BP but in correlation to drinking. History of Any Multi-Drug Resistant Organisms: None Reported Past Surgical History: No Surgical Hx Reported Past Anesthesia/Blood Transfusion Reactions: No Reported Reaction Smoking Status: Current every day smoker, Vaper - Past Family History Mother Family Medical History: Hyperlipidemia Medications and Allergies Home Medications Medication Instructions Recorded Confirmed Type PARoxetine [Paxil] 10 mg PO DAILY 11/13/24 11/13/24 History carBAMazepine [TEGretol] 200 mg PO BID 11/13/24 11/13/24 History Allergies Allergy/AdvReac Type Severity Reaction Status Date / Time No Known Allergies Allergy Verified 11/12/24 19:15 Physical Exam Vitals: Vital Signs Temp Pulse Resp BP Pulse Ox 11/15/24 06:44 97.7 F 80 16 117/78 98 Cranial Nerve Examination - Cranial Nerves Cranial Nerve II- Optic: Intact Cranial Nerve III- Oculomotor: Intact Cranial Nerve IV- Trochlear: Intact Cranial Nerve V- Trigeminal: Intact Cranial Nerve - Abducens: Intact Cranial Nerve VII- Facial: Intact Cranial Nerve VIII- Auditory: Intact Cranial Nerve IX- Glossopharyngeal: Intact Cranial Nerve X- Vagus: Intact Cranial Nerve XI- Accessory: Intact Cranial Nerve XII- Hypoglossal: Intact Results CBC & Chem 7: 11/13/24 06:42 11/13/24 06:42 Assessment and Plan Assessment: alcohol abuse monitor for alcohol withdrawal Benzo per CIWA thiamine PO daily counseled to quit drinking suicidal ideation , management per psych blood work reviewed and unremarkable thank you for this consultation
--- NOTE | 2024-11-16 12:49 | P.PN ---
Progress Note - Text Progress Note Date: 11/16/24 Interval History: Patient was seen wandering the hallways and was directable and agreeable to sp ping with property underwriter in the office. He states feeling "okay" today, the same as yesterday. He reports moderate depression today but states that it is more manageable. He has yet to call access for rehab and now appears contemplative on going or not. He states that he has contacts that he is able to stay with and that he has income if he decides not to go to rehab. He denied any withdrawal symptoms. CIWA's have been low but up to 11 patient did receive 1 as needed Ativan for this. He does not feel like he needs Librium anymore as he states he only relapsed for 2 days. At this time patient denies any suicidal or homicidal ideations, intent or plan. Patient denies any auditory, visual hallucinations and denies any paranoia or delusions. Patient denies any side effects from the medications and has been compliant with meds. Mental Status Exam: General Appearance: Patient appears to be stated age is alert, directable, and cooperative. He is wearing a black cap Behavior: Patient is calmly seated without any agitated behavior. Speech: Patient's speech is fluent and nonpressured. Mood/Affect: Mood is improving mildly, affect is congruent and constricted. Suicidality/Homicidality: Patient denies having any suicidal or homicidal ideation intent or plan. Perceptions: Patient denies any visual hallucinations and denies any auditory hallucinations Though content/process: There is no evidence of any delusional thought content and thought process is linear and goal-directed. Memory and concentration: AOX3, grossly intact for the purposes of this session Judgment and insight: Improving mildly Assessment Depression, unspecified, likely substance-induced Alcohol use disorder Generalized anxiety disorder with panic attacks Tobacco use disorder, in sustained remission Cluster B traits Plan: -Patient continues to meet criteria for inpatient psychiatric admission for symptom stabilization and safety. Patient has signed adult voluntary form and medication consent and was placed in patient's chart. -Medications: Increase Paxil to 40 mg daily for depression/anxiety tomorrow and continue Tegretol 200 mg daily for mood stabilization. -When necessary Ativan and Haldol for agitation/aggression. Librium to be tapered off today -Labs: Reviewed -CIWA protocol with Ativan PRN for ETOH withdrawal. -SW on board for discharge planning. Encouraged the patient to participate in milieu. Anticipate discharge either tomorrow with friend or early next week with rehab
[2024-11-16] MEDS ORDERED: chlordiazePOXIDE 25 MG CAP PO SCH (21:00)
[2024-11-17 06:56] VITALS: BP 100/67; PULSE 73; RESP 14; TEMP 97.3
[2024-11-17] MEDS: PARoxetine 20 MG TAB PO SCH (08:56)
--- NOTE | 2024-11-17 11:54 | P.DS ---
Providers Date of admission: 11/13/24 14:41 Expected date of discharge: 11/17/24 Attending physician: Tiny Holguin MD Consults: 11/13/24 14:43 Consult Physician Routine Consulting Provider: Iram Hoff Consult Reason/Comments: H&P and medical Do you want consulting provider notified?: Yes Primary care physician: Stated None - Discharge Diagnosis(es) (1) Depression, unspecified Current Visit: Yes Status: Acute Priority: High (2) Generalized anxiety disorder with panic attacks Current Visit: Yes Status: Acute Priority: Medium (3) Cluster B personality disorder Current Visit: Yes Status: Acute Priority: Low (4) Alcohol use disorder Current Visit: Yes Status: Chronic Priority: High (5) Tobacco use disorder, mild, in early remission Current Visit: No Status: Chronic Priority: Low Hospital Course: Admission HPI: Admission note was completed by manual writer "Patient presented to the hospital with SI. EPS note revealed, "Patient intoxicated with BAT 0.219 upon admission to , pt sober at 0230. Patient states he relapsed on alcohol approx 2 days ago. Patient states he is still actively suicidal with "a plan to drink self ". Patient states I have a lot of "suicidal ideations and have negative thoughts". Patient denies HI, A/VH. Patient states he has "not strong will to live". Patient states being sober is "uncomfortable" but not being sober is "depressing". Patient believes his low dose of paxil has not helped either. Patient states he currently lives in a recovery house and they are aware of his relapse and his belongings are still there, he believes he can still return. Patient denies access to guns and weapons, states he has a support system. Patient rates depression 10/10 and anxiety 10/10. Patient states poor sleep, poor appetite and poor hygiene. Patient has multiple IP stays, and rehab stays. Patient states last IP was 1 month ago but pt unsure of name or city of stand alone facility." Patient seen and evaluated on the unit and was agreeable with speaking to manual writer in office. He required frequent attempts at interview as he declined earlier due to not having his cap that he wears on his head. Patient would not divulge in the reasonings behind this but staff stated he mentioned that this was "spiritual". He states maintaining sobriety for roughly 5 months before relapsing on Wednesday. He states he has been staying at a recovery house and contacted his sponsor who recommended he come to the ED after he was expressing suicidal thoughts. He no longer feels suicidal but does report depressive symptoms, specifically hypersomnia, low energy, anhedonia but denied any appetite changes. He is interested in going to [place] and then later transitioning to a recovery house and he wants to be started on disulfiram however we do not have this medication in stock in the pharmacy. He states the recovery house is willing to administer disulfiram every morning to have so that he will not be able to relapse on alcohol. He declined starting naltrexone today stating that this was ineffective in the past. He does report a history of panic attacks however has last had one 6 months ago but does report generalized worry about many different things outside of his control. Patient denies any suicidal or homicidal ideations intent or plan. At this time patient denies any auditory or visual hallucinations. Patient denies any flight of ideas racing thoughts and increased in goal directed behavior. Patient admits to using alcohol only, relapsing on Wednesday after 5 months of sobriety. His last drink was on Wednesday to arrival to the hospital." Hospital course: Upon admission to the unit patient was directable and agreeable to commence treatment and signed adult voluntary form.. Patient got along well with other patients on the unit and followed unit protocol. Patient was initially isolative to room, often seen sleeping however towards the end of his stay was attending groups and more social. Patient was compliant with the medications and denied any side effects throughout hospital course. Patient was started on Paxil and this was increased to 40 mg daily for depression/anxiety, Tegretol continued at 200 mg daily for mood stabilization. Patient was also started on Librium for alcohol withdrawal which was tapered off. Patient spoke of his stressors and engaged in therapy both group and individual. Patient was also seen by medical team for history and physical exam. Throughout the course of the hospitalization patient gradually improved with regards to mood, anxiety, sleep and became more future oriented with improved insight and judgment. On the day of discharge patient denied any suicidal or homicidal ideations intent or plan denied any auditory or visual hallucinations. The patient denied any access to guns or weapons. Patient denied any paranoia and did not endorse any delusions. Patient does have a significant history of substance abuse and was counseled on abstaining from all substances including alcohol and marijuana. Patient was offered however declined inpatient substance-abuse rehab. Patient was also counseled on the medications and need for regular compliance and was encouraged to follow-up with their outpatient appointment for mental health and also for primary care. Patient to be discharged to [facility] and will follow-up with [facility]. Mental status exam: General Appearance: Patient appears to be stated age is alert, pleasant, and cooperative. Patient is in no acute distress and has good hygiene and grooming. He is wearing a black cap Behavior: Patient is calmly seated without any agitated behavior. Speech: Patient's speech is fluent and nonpressured. Mood/Affect: Patient reports their mood is "better", affect is congruent and euthymic, reactive. Suicidality/Homicidality: Patient denies having any suicidal or homicidal ideation intent or plan. Perceptions: Patient denies any auditory or visual hallucinations. Though content/process: There is no evidence of any delusional thought content and thought process is linear and goal-directed. More future oriented Memory and concentration: AOX3, grossly intact for the purposes of this session. Can spell "WORLD" backwards correctly. Judgment and insight: Fair Impression: Depression, unspecified, likely substance-induced Alcohol use disorder Generalized anxiety disorder with panic attacks Tobacco use disorder, in sustained remission Cluster B traits Plan: -Continue with discharge today as patient has improved and stabilized psychiatrically and is not currently an imminent threat to themself and/or others. Patient will remain at chronically elevated risk for harm to self and/or others due to their impulsivity and substance abuse. -Continue medications: Paxil 40 mg daily, Tegretol 200 mg daily -Patient was counseled on the need for medication compliance and appropriate follow-up at mental health and also primary care for medical issues. Patient verbalized understanding and agreed. -Social work to [help coordinate patients discharge today. also to ensure safe home environment that guns/weapons are either removed from the home or locked away. Social work also to arrange for patients follow up appointments with [facility] for psychiatric care along with follow up with primary care provider. -Patient counseled on abstaining from recreational drugs and marijuana and alcohol. Was informed/educated on the adverse effects on their physical and mental health. Patient verbally agreed and understood. Patient was offered substance abuse treatment however declined at this time. -Patient was instructed to return to the hospital or seek immediate medical care if their psychiatric or medical symptoms do worsen or reoccur. Abnormal Labs 11/13/24 11/13/24 11/14/24 04:15 06:42 07:38 Chloride 108 H Triglycerides 297.00 H VLDL Cholesterol, Calc 59.40 H HDL Cholesterol 39.80 L Urine Protein Trace H Urine Ketones 1+ H Vital Signs Temp 97.3 F L 11/17/24 06:56 Pulse 73 11/17/24 06:56 Resp 14 11/17/24 06:56 BP 100/67 11/17/24 06:56 Pulse Ox 96 11/17/24 06:56 FiO2 Allergies Allergy/AdvReac Type Severity Reaction Status Date / Time No Known Allergies Allergy Verified 11/12/24 19:15 Patient Condition at Discharge: Stable Plan - Discharge Summary Discharge Rx Participant: No New Discharge Prescriptions: New Folic Acid 1 mg PO DAILY 30 Days #30 tab PARoxetine [Paxil] 40 mg PO DAILY 30 Days #60 tab Thiamine [Vitamin B-1] 100 mg PO DAILY 30 Days #30 tab Multivitamins, Thera [Multivitamin (formulary)] 1 each PO DAILY 30 Days #30 tab Continue carBAMazepine [TEGretol] 200 mg PO BID Discontinued PARoxetine [Paxil] 10 mg PO DAILY Discharge Medication List carBAMazepine [TEGretol] 200 mg PO BID 11/13/24 [History] Folic Acid 1 mg PO DAILY 30 Days #30 tab 11/17/24 [Rx] Multivitamins, Thera [Multivitamin (formulary)] 1 each PO DAILY 30 Days #30 tab 11/17/24 [Rx] PARoxetine [Paxil] 40 mg PO DAILY 30 Days #60 tab 11/17/24 [Rx] Thiamine [Vitamin B-1] 100 mg PO DAILY 30 Days #30 tab 11/17/24 [Rx] Follow up Appointment(s)/Referral(s): [facility] [NON-STAFF] - 1 Week Patient Instructions/Handouts: Depression (DC), Generalized Anxiety Disorder (GEN), Abuse of Alcohol (DC) Activity/Diet/Wound Care/Special Instructions: [facility] Discharge Info Avoid the use of street drugs and alcohol. Take all medications as prescribed. When you are in need of refills on your medications, please contact your outpatient medical provider and/or outpatient psychiatrist. Please go to your scheduled outpatient appointments for aftercare treatment. If symptoms return or become worse, call the crisis line at or and/or visit the nearest emergency room for assistance. National Suicide and Crisis Lifeline - call or text 988 Discharge Disposition: HOME SELF-CARE
== END 2024-11-17 13:50 | disposition home or self-care (01) | DRG 751 ==
LOC: EC 19:01 → 3MHU 11-13 14:41
PROVIDERS: ADMIT Psychiatry & Neurology Psychiatry; ATTEND Psychiatry & Neurology Psychiatry
PROC: HZ2ZZZZ Detoxification Services for Substance Abuse Treatment (ICD-10-PCS; principal; 2024-11-13)
DX: F32.A Depression, unspecified (principal); F10.139 Alcohol abuse with withdrawal, unspecified; F41.0 Panic disorder [episodic paroxysmal anxiety]; F60.89 Other specific personality disorders; F12.288 Cannabis dependence with other cannabis-induced disorder; F10.188 Alcohol abuse with other alcohol-induced disorder; I10 Essential (primary) hypertension; F41.1 Generalized anxiety disorder; F17.210 Nicotine dependence, cigarettes, uncomplicated; Z71.6 Tobacco abuse counseling; R45.851 Suicidal ideations; Z56.0 Unemployment, unspecified; Z79.899 Other long term (current) drug therapy; Z71.41 Alcohol abuse counseling and surveillance of alcoholic; Z71.51 Drug abuse counseling and surveillance of drug abuser
CPT/HCPCS: 36415; 80053; 80061; 80306; 81003; 82075; 83036; 84443; 85025; 87636; 96372; 99291

== ENCOUNTER 2024-11-21 11:36 | Observation (INO) | payer OTHER ==
--- NOTE | 2024-11-21 11:48 | ED ---
General Adult HPI - General Stated complaint: ETOH,Suicidal Ideations Time Seen by Provider: 11/21/24 11:38 - History of Present Illness Initial comments: Dictation was produced using [employer] dictation software. please excuse any grammatical, word or spelling errors. Chief Complaint: 34-year-old male presents to the ER for suicidal ideation History of Present Illness: Patient is a 34-year-old alcoholic dependent male presents to the emergency department for suicidal ideation. Patient does not have a specific plan states he last drank just before coming to the emergency department. Patient states he has history of psychiatric illness and had con templated suicide in the past. Denies any physical complaints. States that he depends on alcohol or also gets shaky. The ROS documented in this emergency department record has been reviewed and co nfirmed by me. Those systems with pertinent positive or negative responses have been documented in the HPI. All other systems are other negative and/or noncontributory. - Related Data Home Medications Medication Instructions Recorded Confirmed carBAMazepine [TEGretol] 200 mg PO BID 11/13/24 11/13/24 Multivitamins, Thera [Multivitamin 1 tab PO DAILY 11/21/24 11/21/24 (formulary)] Previous Rx's Medication Instructions Recorded Folic Acid 1 mg PO DAILY 30 Days #30 tab 11/17/24 PARoxetine [Paxil] 40 mg PO DAILY 30 Days #60 tab 11/17/24 Thiamine [Vitamin B-1] 100 mg PO DAILY 30 Days #30 tab 11/17/24 Allergies Allergy/AdvReac Type Severity Reaction Status Date / Time No Known Allergies Allergy Verified 11/21/24 13:35 Review of Systems ROS Statement: Those systems with pertinent positive or pertinent negative responses have been documented in the HPI. ROS Other: All systems not noted in ROS Statement are negative. Past Medical History Past Medical History: No Reported History, Hypertension Additional Past Medical History / Comment(s): Patient states they occasionally have high BP but in correlation to drinking. History of Any Multi-Drug Resistant Organisms: None Reported Past Surgical History: No Surgical Hx Reported Past Anesthesia/Blood Transfusion Reactions: No Reported Reaction Smoking Status: Current every day smoker, Vaper - Past Family History Mother Family Medical History: Hyperlipidemia General Exam - General Exam Comments Initial Comments: PHYSICAL EXAM: General Impression: Alert and oriented x3, not in acute distress HEENT: Normocephalic atraumatic, extra-ocular movements intact, pupils equal and reactive to light bilaterally, mucous membranes moist. Cardiovascular: Heart regular rate and rhythm Chest: Able to complete full sentences, no retractions, no tachypnea Abdomen: abdomen soft, non-tender, non-distended, no organomegaly Musculoskeletal: Pulses present and equal in all extremities, no peripheral edema Motor: no focal deficits noted Neurological: CN II-XII grossly intact, no focal motor or sensory deficits noted Skin: Intact with no visualized rashes Psych: Normal affect and mood Course Vital Signs 11/21/24 11/21/24 11:48 11:53 Temperature 99 F Pulse Rate 105 H 96 Respiratory 20 20 Rate Blood Pressure 141/97 140/96 O2 Sat by Pulse 98 98 Oximetry Medical Decision Making - Medical Decision Making Was pt. sent in by a medical professional or institution (, PA, PRODUCTION ADMINISTRATOR, urgent care, hospital, or correction...) When possible be specific @ -No Did you speak to anyone other than the patient for history (EMS, parent, family, police, friend...)? What history was obtained from this source @ -No Did you review nursing and triage notes (agree or disagree)? Why? @ -I reviewed and agree with nursing and triage notes Were old charts reviewed (outside hosp., previous admission, EMS record, old EKG, old radiological studies, urgent care reports/EKG's, correction records)? Report findings @ -No old charts were reviewed Differential Diagnosis (chest pain, altered mental status, abdominal pain women, abdominal pain men, vaginal bleeding, musculoskeletal, weakness, fever, dyspnea, syncope, headache, dizziness, GI bleed, back pain, seizure, CVA, palpatations, mental health)? @ -Differential Mental Health: Depression, anxiety, bipolar, psychosis, schizophrenia, borderline personality, situational depression, adjustment disorder, behavioral disorder, brain tumor, malingering, substance abuse, encephalopathy, medication reaction, dementia, hypothyroidism, degenerative neurologic disorder, lupus.... This is not meant to be all-inclusive list EKG interpreted by me (3pts min.). @ -None done X-rays interpreted by me (1pt min.). @ -None done CT interpreted by me (1pt min.). @ -None done U/S interpreted by me (1pt. min.). @ -None done What testing was considered but not performed or refused? (CT, X-rays, U/S, la bs)? Why? @ -None What meds were considered but not given or refused? Why? @ -None Was smoking cessation discussed for >3mins.? @ -No Were there social determinants of health that impacted care today? How? (Homelessness, low income, unemployed, alcoholism, drug addiction, transportation, low edu. Level, literacy, decrease access to med. care, senior care, rehab)? @ -Alcohol dependence Was there de-escalation of care discussed even if they declined (Discuss DNR or withdrawal of care, Hospice)? DNR status @ -No What co-morbidities impacted this encounter? (DM, HTN, Smoking, COPD, CAD, Cancer, CVA, ARF, Chemo, Hep., AIDS, mental health diagnosis, sleep apnea, morbid obesity)? @ -None Was patient admitted / discharged? Hospital course, mention meds given and route, prescriptions, significant lab abnormalities, going to OR and other pertinent info. @ -34-year-old male with suicidal ideation. Vital signs stable. Patient states he drank just prior to arrival in our emergency department. Laboratory evaluation obtained. Alcohol level is 281. Rest of labs within acceptable limits. No acidosis. Patient be admitted for alcohol intoxication. Psychiatry consult for suicidal ideation. Did you discuss the management of the patient with other professionals (professionals i.e. , PA, PRODUCTION ADMINISTRATOR, lab, RT, psych nurse, psychiatric social worker, shirt trimmer, teacher, vessel traffic officer, poker manager)? Give summary @ -Case discussed with hospitalist for admission Was critical care preformed (if so, how long)? @ -No Undiagnosed new problem with uncertain prognosis? @ -No Drug Therapy requiring intensive monitoring for toxicity (Heparin, Nitro, Insulin, Cardizem)? @ -No Were any procedures done? @ -No Diagnosis/symptom? Acute, or Chronic, or Acute on Chronic? Uncomplicated (without systemic symptoms) or Complicated (systemic symptoms)? @ -Suicidal ideation, alcohol intoxication Side effects of treatment? @ -No Exacerbation, Progression, or Severe Exacerbation? @ -No Poses a threat to life or bodily function? How? (Chest pain, USA, DE, pneumonia, PE, COPD, DKA, ARF, appy, cholecystitis, CVA, Diverticulitis, Homicidal, Suicidal, threat to staff... and all critical care pts) @ -Yes - Lab Data Result diagrams: 11/21/24 11:47 11/21/24 11:47 Lab Results 11/21/24 11/21/24 Range/Units 11:47 11:47 WBC 5.5 (3.8-10.6) k/uL RBC 5.29 (4.30-5.90) m/uL Hgb 16.7 (13.0-17.5) gm/dL Hct 48.5 (39.0-53.0) % MCV 91.6 (80.0-100.0) fL MCH 31.5 (25.0-35.0) pg MCHC 34.4 (31.0-37.0) g/dL RDW 13.3 (11.5-15.5) % Plt Count 230 (150-450) k/uL MPV 7.8 Neutrophils % 60 % Lymphocytes % 29 % Monocytes % 7 % Eosinophils % 1 % Basophils % 1 % Neutrophils # 3.3 (1.3-7.7) k/uL Lymphocytes # 1.6 (1.0-4.8) k/uL Monocytes # 0.4 (0-1.0) k/uL Eosinophils # 0.1 (0-0.7) k/uL Basophils # 0.1 (0-0.2) k/uL Sodium 143 (137-145) mmol/L Potassium 4.0 (3.5-5.1) mmol/L Chloride 101 (98-107) mmol/L Carbon Dioxide 28 (22-30) mmol/L Anion Gap 14 mmol/L BUN 15 (9-20) mg/dL Creatinine 0.81 (0.66-1.25) mg/dL Est GFR (CKD-EPI)AfAm >90 (>60 ml/min/1.73 sqM) Est GFR (CKD-EPI)NonAf >90 (>60 ml/min/1.73 sqM) Glucose 105 H (74-99) mg/dL Calcium 8.5 (8.4-10.2) mg/dL Magnesium 1.9 (1.6-2.3) mg/dL Total Bilirubin 0.4 (0.2-1.3) mg/dL AST 40 (17-59) U/L ALT 43 (4-49) U/L Alkaline Phosphatase 71 (38-126) U/L Total Protein 7.7 (6.3-8.2) g/dL Albumin 4.7 (3.5-5.0) g/dL Serum Alcohol 281 H* mg/dL Disposition Clinical Impression: Alcohol intoxication, Suicidal ideation Disposition: ADMITTED IP TO THIS HOSP Condition: Fair Referrals: None,Stated [Primary Care Provider] - 1-2 days Decision Time: 13:36
[2024-11-21 12:58] LABS: Basophils # (A) 0.1 k/uL (0-0.2); Basophils % (A) 1 %; Eosinophils # (A) 0.1 k/uL (0-0.7); Eosinophils % (A) 1 %; HCT 48.5 % (39.0-53.0); HGB 16.7 gm/dL (13.0-17.5); Lymphocytes # (A) 1.6 k/uL (1.0-4.8); Lymphocytes % (A) 29 %; MCH 31.5 pg (25.0-35.0); MCHC 34.4 g/dL (31.0-37.0); MCV 91.6 fL (80.0-100.0); Mean Platelet Volume 7.8; Monocytes # (A) 0.4 k/uL (0-1.0); Monocytes % (A) 7 %; Neutrophils # (A) 3.3 k/uL (1.3-7.7); Neutrophils % (A) 60 %; Platelet Count 230 k/uL (150-450); RBC 5.29 m/uL (4.30-5.90); RDW 13.3 % (11.5-15.5); WBC 5.5 k/uL (3.8-10.6)
[2024-11-21 13:11] LABS: ALT 43 U/L (4-49); AST 40 U/L (17-59); African American GFR (CKD) >90 (>60 ml/min/1.73 sqM); Albumin 4.7 g/dL (3.5-5.0); Alkaline Phosphatase 71 U/L (38-126); Anion Gap 14 mmol/L; Blood Urea Nitrogen 15 mg/dL (9-20); Calcium 8.5 mg/dL (8.4-10.2); Carbon Dioxide 28 mmol/L (22-30); Chloride 101 mmol/L (98-107); Glucose 105 mg/dL (74-99); Magnesium 1.9 mg/dL (1.6-2.3); Non-African American GFR(CKD) >90 (>60 ml/min/1.73 sqM); Sodium 143 mmol/L (137-145); Total Bilirubin 0.4 mg/dL (0.2-1.3); Total Protein 7.7 g/dL (6.3-8.2)
[2024-11-21 13:25] LABS: Alcohol 281 mg/dL
[2024-11-21] MEDS ORDERED: NALOXONE 0.4 MG/ML 1 ML VIAL IV PRN (13:29)
[2024-11-21] MEDS: SODIUM CHLORIDE 0.9% 1,000 ML IV SCH (13:57)
[2024-11-21] MEDS: LORazepam 2 MG/ML INJ IV PRN ×2 (14:02→17:54)
--- NOTE | 2024-11-21 18:54 | P.HPIM ---
History of Present Illness H&P Date: 11/21/24 Chief Complaint: Alcohol withdrawal, depressed I am covering for Dr. Lobito Arriaga, who called me this evening he is not feeling well. 34-year-old patient, presented to the ER with suicidal ideation and some alcohol withdrawal. He normally drinks vodka and gin. And had drank just before coming to the ER. During my interview he still feels suicidal and depressed. After presenting he started hallucinating and thirtieths people standing at the edge of the bed. Had a bowel movement today. He was discharged just a week ago from the psychiatry unit. Admitted with depression unspecified. Generalized anxiety disorder and panic attacks. Upon getting discharged patient went and checked himself into a hotel. And went back to drinking alcohol. Review of systems: GEN.: None EYES: None HEENT: None NECK: None RESPIRATORY: None CARDIOVASCULAR: None GASTROINTESTINAL: None GENITOURINARY: None MUSCULOSKELETAL: None LYMPHATICS: None HEMATOLOGICAL: None PSYCHIATRY: Depressed suicidal] Social history: Patient checked into a hotel after leaving from here a week ago. Does vaping. Does variable amount of vodka and gin. Physical examination: VITAL SIGNS: 99, 110, 20, [birth year]08[birth year]1985, 98% room air GENERAL: BMI 31.6, laying bed awake slightly anxious depressed. EYES: Pupils equal. Conjunctiva manpreet l. HEENT: External appearance of nose and ears normal, oral cavity grossly normal. NECK: JVD not raised; masses not palpable. HEART: First and second heart sounds are normal; no edema. LUNGS: Respiratory rate normal; clear to auscultation. ABDOMEN: Soft, nontender, liver spleen not palpable, no masses palpable. PSYCH: [Alert and oriented x3; mood and affect with anxious and depressed. MUSCULOSKELETAL:No Clubbing/cyanosis;muscles-grossly intact NEUROLOGICAL: Cranial nerves grossly intact; no facial asymmetry, power and sensation grossly intact. LYMPHATICS: No lymph nodes palpable in the axilla and neck NEUROLOGICAL: None INVESTIGATIONS, reviewed in the clinical context: November 21: White count 5.5 hemoglobin 16.7 platelets 230 sodium 143 potassium 4 creatinine 0.81. Serum alcohol 281 Recent labs: LDL 85.8 Assessment plan: -Acute alcohol excessive intake in a patient with known chronic alcoholism Alcohol level was 281 on presentation. He drank just before coming in. Will start the patient on Valium 2 mg 3 times daily for DVT prophylaxis. Will also add a small dose of Lopressor to cut back on sympathetic drive. -Early alcohol withdrawals Valium 2 mg 3 times daily. CIWA scale. Lopressor 12.5 twice daily. -Chronic alcohol use disorder. Patient been drinking since age of 22. Progressively getting worse specially during COVID. Will add thiamine. Multivitamin. -Depression otherwise specified. Panic attacks with anxiety disorder. Suicidal ideations. More recently under the care of psychiatrist. Will be consulted. Sitter at bedside Care was discussed with patient. Questions answered. Past Medical History Past Medical History: No Reported History, Hypertension Additional Past Medical History / Comment(s): Patient states they occasionally have high BP but in correlation to drinking. History of Any Multi-Drug Resistant Organisms: None Reported Past Surgical History: No Surgical Hx Reported Past Anesthesia/Blood Transfusion Reactions: No Reported Reaction Smoking Status: Current every day smoker, Vaper - Past Family History Mother Family Medical History: Hyperlipidemia Medications and Allergies Home Medications Medication Instructions Recorded Confirmed Type carBAMazepine [TEGretol] 200 mg PO BID 11/13/24 11/21/24 History Folic Acid 1 mg PO DAILY 30 Days #30 tab 11/17/24 11/21/24 Rx PARoxetine [Paxil] 40 mg PO DAILY 30 Days #60 tab 11/17/24 11/21/24 Rx Thiamine [Vitamin B-1] 100 mg PO DAILY 30 Days #30 tab 11/17/24 11/21/24 Rx Multivitamins, Thera [Multivitamin 1 tab PO DAILY 11/21/24 11/21/24 History (formulary)] Allergies Allergy/AdvReac Type Severity Reaction Status Date / Time No Known Allergies Allergy Verified 11/21/24 13:35 Physical Exam Vitals: Vital Signs Temp Pulse Resp BP Pulse Ox 11/21/24 17:50 110 H 20 130/86 98 11/21/24 15:58 112 H 20 125/81 96 11/21/24 14:00 108 H 16 130/60 98 11/21/24 13:53 104 H 20 137/84 98 11/21/24 11:53 96 20 140/96 98 11/21/24 11:48 99 F 105 H 20 141/97 98 Intake and Output 11/21/24 11/21/24 11/21/24 06:59 14:59 22:59 Other: Weight 99.79 kg Results CBC & Chem 7: 11/21/24 11:47 11/21/24 11:47 Labs: Abnormal Lab Results - Last 24 Hours (Table) 11/21/24 Range/Units 11:47 Glucose 105 H (74-99) mg/dL Serum Alcohol 281 H* mg/dL
[2024-11-21] MEDS: carBAMazepine 200 MG TAB PO SCH (20:40)
[2024-11-21] MEDS: METOPROLOL TARTRATE 12.5 MG TAB PO SCH (20:40)
[2024-11-21] MEDS: diazePAM 2 MG TAB PO SCH (21:51)
[2024-11-22] MEDS: MULTIVITAMINS, THERA 1 EACH TAB PO SCH (08:10)
[2024-11-22] MEDS: PARoxetine 20 MG TAB PO SCH (08:10)
[2024-11-22] MEDS: THIAMINE 100 MG TAB PO SCH (08:11)
[2024-11-22] MEDS: FOLIC ACID 1 MG TAB PO SCH (08:11)
--- NOTE | 2024-11-22 11:43 | P.PN ---
Progress Note - Text Progress Note Date: 11/22/24 Chief Complaint: Alcohol withdrawal, depressed I am covering for Dr. Lobito Arriaga, who called me this evening he is not feeling well. 34-year-old patient, presented to the ER with suicidal ideation and some alcohol withdrawal. He normally drinks vodka and gin. And had drank just before coming to the ER. During my interview he still feels suicidal and depressed. After presenting he started hallucinating and thirtieths people standing at the edge of the bed. Had a bowel movement today. He was discharged just a week ago from the psychiatry unit. Admitted with depression unspecified. Generalized anxiety disorder and panic attacks. Upon getting discharged patient went and checked himself into a hotel. And went back to drinking alcohol. November 22: Patient on Valium 2 mg 3 times daily and small dose of Lopressor for alcohol withdrawal. Appears rather comfortable. Slept well. No further hallucinations. Had a full breakfast. Has a sitter. Awaiting psychiatry input. Active Medications Carbamazepine (Carbamazepine 200 Mg Tab) 200 mg PO BID [facility] Last Admin: 11/22/24 08:11 Dose: 200 mg Diazepam (Diazepam 2 Mg Tab) 2 mg PO TID [facility] Last Admin: 11/22/24 08:10 Dose: 2 mg Folic Acid (Folic Acid 1 Mg Tab) 1 mg PO DAILY [facility] Last Admin: 11/22/24 08:11 Dose: 1 mg Sodium Chloride (Saline 0.9%) 1,000 mls @ 20 mls/hr IV .Q24H [facility] Last Admin: 11/21/24 13:57 Dose: 20 mls/hr Lorazepam (Lorazepam 2 Mg/Ml Inj) 1 mg IV Q1HR PRN PRN Reason: CIWA 10 to 15 Last Admin: 11/22/24 08:10 Dose: 1 mg Lorazepam (Lorazepam 2 Mg/Ml Inj) 1 mg IV Q2HR PRN PRN Reason: CIWA 8 or 9 Lorazepam (Lorazepam 2 Mg/Ml Inj) 2 mg IV Q10M PRN PRN Reason: CIWA 16 or higher Stop: 11/23/24 13:30 Last Admin: 11/21/24 17:54 Dose: 2 mg Metoprolol Tartrate (Metoprolol Tartrate 12.5 Mg Tab) 12.5 mg PO BID [facility] Last Admin: 11/22/24 08:10 Dose: 12.5 mg Multivitamins (Multivitamins, Thera 1 Each Tab) 1 each PO DAILY [facility] Last Admin: 11/22/24 08:10 Dose: 1 each Naloxone HCl (Naloxone 0.4 Mg/Ml 1 Ml Vial) 0.2 mg IV Q2M PRN PRN Reason: Opioid Reversal Paroxetine HCl (Paroxetine 20 Mg Tab) 40 mg PO DAILY [facility] Last Admin: 11/22/24 08:10 Dose: 40 mg Thiamine HCl (Thiamine 100 Mg Tab) 100 mg PO DAILY [facility] Last Admin: 11/22/24 08:11 Dose: 100 mg Social history: Patient checked into a hotel after leaving from here a week ago. Does vaping. Does variable amount of vodka and gin. Physical examination: VITAL SIGNS: 97.6, 84, 18, 143/90, 99% room air GENERAL: BMI 31.6, rest in bed. Multiple tattoos EYES: Pupils equal. Conjunctiva manpreet l. HEENT: External appearance of nose and ears normal, oral cavity grossly normal. NECK: JVD not raised; masses not palpable. HEART: First and second heart sounds are normal; no edema. LUNGS: Respiratory rate normal; clear to auscultation. ABDOMEN: Soft, nontender, liver spleen not palpable, no masses palpable. PSYCH: [Alert and oriented x3; mood and affect with anxious and depressed. NEUROLOGICAL: Cranial nerves grossly intact; no facial asymmetry, power and sensation grossly intact. No tremors INVESTIGATIONS, reviewed in the clinical context: November 21: White count 5.5 hemoglobin 16.7 platelets 230 sodium 143 potassium 4 creatinine 0.81. Serum alcohol 281 Recent labs: LDL 85.8 Assessment plan: -Acute alcohol excessive intake in a patient with known chronic alcoholism Alcohol level was 281 on presentation. He drank just before coming in. Valium 2 mg 3 times daily for DVT prophylaxis. small dose of Lopressor to cut back on sympathetic drive. -Early alcohol withdrawals Valium 2 mg 3 times daily. CIWA scale. Lopressor 12.5 twice daily. -Chronic alcohol use disorder. Patient been drinking since age of 22. Progressively getting worse specially during COVID. Will add thiamine. Multivitamin. -Depression otherwise specified. Panic attacks with anxiety disorder. Suicidal ideations. More recently under the care of psychiatrist. Will be consulted. Sitter at bedside Discussed with patient. Sitter. Await psychiatry input. Past Medical History Past Medical History: No Reported History, Hypertension Additional Past Medical History / Comment(s): Patient states they occasionally have high BP but in correlation to drinking. History of Any Multi-Drug Resistant Organisms: None Reported Past Surgical History: No Surgical Hx Reported Past Anesthesia/Blood Transfusion Reactions: No Reported Reaction Smoking Status: Current every day smoker, Vaper
--- NOTE | 2024-11-22 12:55 | P.CN ---
Psychiatric Consult - . Consult date: 11/22/24 Consult:: 11/22/24 12:45 IDENTIFYING DATA: This patient is a 34-year-old male, unemployed and living in a hotel REASON FOR REFERRAL: Psychiatry was consulted for SI HISTORY OF PRESENT ILLNESS: The patient presented to the hospital suicidal ideat ion and alcohol intoxication. Patient reportedly had last drink just before coming to the ED with alcohol level at 281. Patient was placed on CIWA protocol with Valium scheduled. CIWA's has been up to 16. Patient seen and evaluated in his room with sitter at bedside. He states going to a hotel once discharged on the and immediately began binging on alcohol. Patient was unable to quantify the amount however he states that it was a "sizable amount however it was all a blur". He expressed feeling guilty because of his alcohol use that led to him having suicidal ideations with a plan however he thought of his mom and how that would make her feel and this is what brought him to the hospital to seek help. He now realizes he needs to go to rehab as he is unable to maintain control without help. He states speaking to recovery house later and they are willing for him to return as long as he is able to be monitored for administration of Antabuse daily. He reports sleep difficulties, feeling guilty, low energy, but denied any appetite changes. He reported suicidal ideations however was able to contract for safety in the hospital. He reported high anxiety, more generalized in nature. He reports being nonadherent with his psychotropic medications and is agreeable with cross titrating Paxil with a different antidepressant. At this time patient denies any homical ideations, intent or plan. Patient denies any auditory, visual hallucinations and denies any paranoia or delusions. Patients admits to using alcohol daily and nicotine intermittently. PAST PSYCHIATRIC HISTORY: Patient has a a history of depression, cluster B traits, AMANDA, alcohol use disorder. Patient was recently admitted to [facility] and was discharged on Paxil 40 mg daily, Tegretol 200 mg twice daily. Patient reports >10 inpatient hospitalizations in his lifetime. Patient denies any psychiatric outpatient follow-up. Patient denies any history of suicide attempts in the past. PAST MEDICAL HISTORY: Hypertension. ALLERGIES: as per EMR. CHEMICAL DEPENDENCY HISTORY: as per HPI. FAMILY PSYCHIATRIC/SUBSTANCE USE HISTORY: Patient reports strong alcohol use disorder on his father side including his father but denied any suicide attempts in the family. SOCIAL HISTORY: Patient is single and has no children. He completed high school and is currently unemployed, living at a hotel. MENTAL STATUS EXAM: General Appearance: Patient appears to be stated age is alert, pleasant, and cooperative. Patient appears to have fair hygiene poor grooming wearing hospital gown with fair eye contact. Behavior: Patient is calmly lying in bed without any agitated behavior. Speech: Patient's speech is fluent and nonpressured. Mood/Affect: Patient reports their mood is "depressed", affect is congruent Suicidality/Homicidality: Patient denies having any homicidal ideation intent or plan. He reports suicidal ideations with a plan, no intent Perceptions: Patient denies any visual hallucinations and denies any auditory hallucinations Though content/process: There is no evidence of any delusional thought content and thought process is linear and logical. Memory and concentration: AOX3, grossly intact for the purposes of this session. Can spell "WORLD" backwards Judgment and insight: Poor IMPRESSIONS: Alcohol use disorder, severe in withdrawal Depression, unspecified, likely substance-induced Generalized anxiety disorder with panic attacks Cluster B traits PLAN: -At this time patient DOES meet criteria for inpatient psychiatric admission. -Would recommend the following medication changes/additions: Decrease Paxil to 20 mg daily for depression/anxiety. Will cross titrate this medication with another antidepressant but will wait until transfer to MHU given withdrawal symptoms -WA protocol with PRN Ativan for alcohol withdrawal. Continue to monitor vital signs. Continue scheduled Valium -Continue 1:1 sitter for safety -Cannot leave AMA at this time. Patient will need a petition and certification if attempting to leave AMA. -Binder Lockstitch spoke with patient about substance abuse and the harmful effects on medical and mental health, patient verbally understood and agreed. -When medically stable, patient is eligible for transfer to a psych bed when available. -Communicated plan to patient's nurse -Psychiatry will sign off at this time -Please contact with any questions.
[2024-11-22] MEDS: LORazepam 2 MG/ML INJ IV PRN (14:29)
[2024-11-23] MEDS: PARoxetine 20 MG TAB PO SCH (09:23)
--- NOTE | 2024-11-23 19:33 | P.DS ---
Providers Date of admission: 11/21/24 13:30 Expected date of discharge: 11/23/24 Attending physician: Lobito Arriaga Consults: 11/21/24 13:29 Consult Physician Routine Consulting Provider: Silver Escobedo Consult Reason/Comments: suicidal Do you want consulting provider notified?: Yes Primary care physician: Stated None Hospital Course: Chief Complaint: Alcohol withdrawal, depressed I am covering for Dr. Lobito Arriaga, who called me this evening he is not feeling well. 34-year-old patient, presented to the ER with suicidal ideation and some alcohol withdrawal. He normally drinks vodka and gin. And had drank just before coming to the ER. During my interview he still feels suicidal and depressed. After presenting he started hallucinating and thirtieths people standing at the edge of the bed. Had a bowel movement today. He was discharged just a week ago from the psychiatry unit. Admitted with depression unspecified. Generalized anxiety disorder and panic attacks. Upon getting discharged patient went and checked himself into a hotel. And went back to drinking alcohol. November 22: Patient on Valium 2 mg 3 times daily and small dose of Lopressor for alcohol withdrawal. Appears rather comfortable. Slept well. No further hallucinations. Had a full breakfast. Has a sitter. Awaiting psychiatry input. November 23: Stable. Tolerating diet. Up to the bathroom. Has a sitter. Excepted by psychiatry to [facility]. Will stop Valium after the evening dose. Lopressor discontinued. Discussed with patient. He is ready to go down to [facility]. Did call [facility]. Social history: Patient checked into a hotel after leaving from here a week ago. Does vaping. Does variable amount of vodka and gin. Physical examination: VITAL SIGNS: 97.4, 73, 17, 115 x 68, 97% room air GENERAL: BMI 31.6, rest in bed. Multiple tattoos. Comfortable EYES: Pupils equal. Conjunctiva manpreet l. HEENT: External appearance of nose and ears normal, oral cavity grossly normal. NECK: JVD not raised; masses not palpable. HEART: First and second heart sounds are normal; no edema. LUNGS: Respiratory rate normal; clear to auscultation. ABDOMEN: Soft, nontender, liver spleen not palpable, no masses palpable. PSYCH: [Alert and oriented x3; mood and affect low NEUROLOGICAL: Cranial nerves grossly intact; no facial asymmetry, power and sensation grossly intact. No tremors INVESTIGATIONS, reviewed in the clinical context: November 21: White count 5.5 hemoglobin 16.7 platelets 230 sodium 143 potassium 4 creatinine 0.81. Serum alcohol 281 Recent labs: LDL 85.8 Assessment plan: -Acute alcohol excessive intake in a patient with known chronic alcoholism Alcohol level was 281 on presentation. He drank just before coming in. Received Valium and Lopressor. Will be discontinued -Early alcohol withdrawals Valium and Lopressor will be discontinued tonight -Chronic alcohol use disorder. Patient been drinking since age of 22. Progressively getting worse specially during COVID. Will add thiamine. Multivitamin. -Depression otherwise specified. Panic attacks with anxiety disorder. Suicidal ideations. Seen by psychiatrist. Excepted to [facility]. Sitter at bedside Disposition: Inpatient psychiatry unit at [facility] at [facility]. Past Medical History Past Medical History: No Reported History, Hypertension Additional Past Medical History / Comment(s): Patient states they occasionally have high BP but in correlation to drinking. History of Any Multi-Drug Resistant Organisms: None Reported Past Surgical History: No Surgical Hx Reported Past Anesthesia/Blood Transfusion Reactions: No Reported Reaction Smoking Status: Current every day smoker, Vaper Plan - Discharge Summary New Discharge Prescriptions: New PARoxetine [Paxil] 20 mg PO DAILY tab Continue carBAMazepine [TEGretol] 200 mg PO BID Folic Acid 1 mg PO DAILY 30 Days #30 tab Thiamine [Vitamin B-1] 100 mg PO DAILY 30 Days #30 tab Multivitamins, Thera [Multivitamin (formulary)] 1 tab PO DAILY Discontinued PARoxetine [Paxil] 40 mg PO DAILY 30 Days #60 tab Discharge Medication List carBAMazepine [TEGretol] 200 mg PO BID 11/13/24 [History] Folic Acid 1 mg PO DAILY 30 Days #30 tab 11/17/24 [Rx] Thiamine [Vitamin B-1] 100 mg PO DAILY 30 Days #30 tab 11/17/24 [Rx] Multivitamins, Thera [Multivitamin (formulary)] 1 tab PO DAILY 11/21/24 [History] PARoxetine [Paxil] 20 mg PO DAILY tab 11/23/24 [Rx] Follow up Appointment(s)/Referral(s): Lobito Arriaga MD [STAFF PHYSICIAN] - 1 Week
[2024-11-23 20:02] VITALS: BP 131/80; PULSE 86; RESP 16; TEMP 98.3
[2024-11-23 22:07] LABS: Influenza A Not Detected (Not Detectd); Influenza B Not Detected (Not Detectd); RSV Not Detected (Not Detectd)
== END 2024-11-23 23:22 ==
LOC: EC 11:36 → 5NMEDONC 13:30
PROVIDERS: ADMIT Family Medicine; ATTEND Family Medicine
DX: R45.851 Suicidal ideations (principal); F10.230 Alcohol dependence with withdrawal, uncomplicated; F10.229 Alcohol dependence with intoxication, unspecified; Y90.8 Blood alcohol level of 240 mg/100 ml or more; I10 Essential (primary) hypertension; F32.A Depression, unspecified; F41.1 Generalized anxiety disorder; F41.0 Panic disorder [episodic paroxysmal anxiety]; F17.290 Nicotine dependence, other tobacco product, uncomplicated; Z56.0 Unemployment, unspecified; Z59.01 Sheltered homelessness; Z79.899 Other long term (current) drug therapy
CPT/HCPCS: 96376 ×3; 82075; 96374; 99285; 36415; 80053; 83735; 85025; 80320; 87636; G0378 ×3; J2060 ×3

== ENCOUNTER 2024-11-23 22:11 | Inpatient (IN) | payer MEDICAID ==
[2024-11-23] MEDS ORDERED: IBUPROFEN 600 MG TAB PO PRN (22:14)
[2024-11-23] MEDS ORDERED: traZODone HCL 50 MG TAB PO PRN (22:14)
[2024-11-23] MEDS ORDERED: MAG HYDROX/AL HYDROX/SIMETH 355 ML BOTTLE PO PRN (22:14)
[2024-11-23] MEDS ORDERED: MAGNESIUM HYDROXIDE 2,400 MG/30 ML CUP PO PRN (22:14)
[2024-11-23] MEDS ORDERED: HALOPERIDOL LACTATE 5 MG/ML 1 ML VIAL IM PRN (22:14)
[2024-11-23] MEDS ORDERED: LORazepam 2 MG/ML INJ IM PRN (22:14)
[2024-11-24] MEDS: MULTIVITAMINS, THERA 1 EACH TAB PO SCH (08:27)
[2024-11-24] MEDS: NICOTINE 14MG/24HR PATCH TRANSDERM SCH (08:27)
[2024-11-24] MEDS: THIAMINE 100 MG TAB PO SCH (08:27)
[2024-11-24] MEDS: FOLIC ACID 1 MG TAB PO SCH (08:27)
[2024-11-24] MEDS ORDERED: chlordiazePOXIDE 25 MG CAP PO SCH (09:00)
[2024-11-24] MEDS: SERTRALINE 50 MG TAB PO SCH (12:29)
--- NOTE | 2024-11-24 13:38 | P.HP ---
Psychiatric H&P - . H&P Date: 11/24/24 History & Physical: Allergies Allergy/AdvReac Type Severity Reaction Status Date / Time No Known Allergies Allergy Verified 11/21/24 13:35 Vital Signs Temp 98.0 F 11/23/24 22:27 Pulse 111 H 11/24/24 08:29 Resp 16 11/23/24 22:27 BP 125/93 11/24/24 08:29 Pulse Ox 98 11/23/24 22:27 FiO2 Intake & Output 11/23/24 11/24/24 11/24/24 18:59 06:59 18:59 Weight 105.744 kg 11/24/24 13:30 IDENTIFYING DATA: Patient is a 34-year-old male, unemployed and living in a hotel CHIEF COMPLAINT: SI, alcohol use HPI: Patient presented to the hospital with suicidal ideations and alcohol intoxication. Grain Inspector saw patient when he was admitted to the medical floor and note is as follows: "Patient reportedly had last drink just before coming to the ED with alcohol level at 281. Patient was placed on CIWA protocol with Valium scheduled. CIWA's has been up to 16. Patient seen and evaluated in his room with sitter at bedside. He states going to a hotel once discharged on the and immediately began binging on alcohol. Patient was unable to quantify the amount however he states that it was a "sizable amount however it was all a blur". He expressed feeling guilty because of his alcohol use that led to him having suicidal ideations with a plan however he thought of his mom and how that would make her feel and this is what brought him to the hospital to seek help. He now realizes he needs to go to rehab as he is unable to maintain control without help. He states speaking to recovery house later and they are willing for him to return as long as he is able to be monitored for administration of Antabuse daily. He reports sleep difficulties, feeling guilty, low energy, but denied any appetite changes. He reported suicidal ideations however was able to contract for safety in the hospital. He reported high anxiety, more generalized in nature. He reports being nonadherent with his psychotropic medications and is agreeable with cross titrating Paxil with a different antidepressant. At th is time patient denies any homical ideations, intent or plan. Patient denies any auditory, visual hallucinations and denies any paranoia or delusions. Patients admits to using alcohol daily and nicotine intermittently." Patient was placed on CIWA and was medically cleared transferred to behavioral health unit. Patient seen and evaluated on the unit and was agreeable with speaking to conventional underwriter in his room. He states still being open to rehab however he wishes to focus on his depressive symptoms initially as his suicidal ideations are "at an all-time high". He denied any discontinuation symptoms from decreasing Paxil he was agreeable with trying Zoloft, stating he has tried this in the past but for only 1 week. He reports sleep difficulties but declined any medications to help with this. He reports cravings, stating naltrexone was not effective in the past but he is open to trying Antabuse once he gets to rehab as this is not in formulary at this hospital. Patient reports suicidal ideations with no intent, stating he realizes he is in a safe environment and is unable to do so. Patient denies any homicidal ideations intent or plan. At this time patient denies any auditory or visual hallucinations. Patient denies any flight of ideas racing thoughts and increased in goal directed behavior. Patient admits to using alcohol daily and nicotine intermittently. PAST PSYCHIATRIC HISTORY: Patient has a history of alcohol use disorder, depression, cluster B traits, AMANDA. And has had >10 inpatient hospitalizations, most recent earlier this month at this facility. He is currently taking Paxil 40 mg daily, Tegretol 200 mg twice daily. He states trying Abilify, Lexapro, Zoloft, Cymbalta in the past however did state not taking them for long before discontinuing. Patient denies any psychiatric outpatient follow-up. Patient denies any history of suicide attempts in the past. PMH: as per ER note ALLERGIES: as per EMR SUBSTANCE USE HISTORY: As per HPI FAMILY PSYCHIATRIC/SUBSTANCE USE HISTORY: He states alcohol use disorder on his father side including his father, no suicide attempts in the family SOCIAL HISTORY: Patient is single, has no children. He completed high school and is currently unemployed, living at a hotel MENTAL STATUS EXAM: General Appearance: Patient appears to be stated age is alert, directable, and attempts to cooperate. Patient appears to have fair hygiene and grooming. Behavior: Patient is laying without any agitated behavior. Speech: Patient's speech is fluent and nonpressured. Mood/Affect: Patient reports their mood is depressed, affect is congruent and constricted. Suicidality/Homicidality: Patient denies having any homicidal ideation intent or plan. He reports suicidal ideations, no intent Perceptions: Patient denies any visual hallucinations and denies any auditory hallucinations Though content/process: There is no evidence of any delusional thought content and thought process is linear and logical. Memory and concentration: AOX3, grossly intact for the purposes of this session. Can spell "WORLD" backwards Judgment and insight: Poor STRENGTHS/WEAKNESSES: strength is that patient is resilient and resourceful. Weakness is that patient abuses alcohol, has poor judgment and is impulsive INTELLECT: Average IMPRESSIONS: Depression, unspecified, likely substance-induced Alcohol use disorder, severe Generalized anxiety disorder with panic attacks Cluster B traits PLAN: -Patient is admitted under voluntary status to MHU for stabilization of psychiatric symptoms and safety. Patient has signed adult voluntary form and medication consent and is placed in patient's chart. -Medications : Start Zoloft 50 mg daily for depression/anxiety trazodone 50 mg as needed at bedtime for insomnia -Ativan and Haldol PRN for agitation/aggression -Started thiamine, MVM for etoh use -CIWA protocol with Ativan PRN for ETOH withdrawal. Scheduled Librium for alcohol withdrawal with plan to taper. -Patient was counselled on substance abuse and desired to cut back on use-Will offer patient subtance use rehab -Patient was informed of the risks, benefits and side effects of the medication and patient verbally consented to taking the medications. Patient signed med consent form and was placed in chart. -Internal Medicine consult to perform medical evaluation and physical. -NRT -nicotine patch -SW on board for discharge planning. Encourage patient to participate in groups to work on coping skills.
[2024-11-24] MEDS: ACETAMINOPHEN TAB 325 MG TAB PO PRN (14:27)
[2024-11-24] MEDS: LORazepam 1 MG TAB PO PRN ×3 (14:27→22:44)
--- NOTE | 2024-11-24 16:34 | P.CONS ---
History of Present Illness - Reason for Consult Consult date: 11/24/24 Medical management Requesting physician: Silver Escobedo - Chief Complaint Depression - History of Present Illness I am covering for Dr. Lobito Arriaga, . Patient was inpatient medical service from November 21 through November 23. 34-year-old patient, presented to the ER with suicidal ideation and some alcohol withdrawal. He normally drinks vodka and gin. And had drank just before coming to the ER. During my interview he still feels suicidal and depressed. After presenting he started hallucinating and thirtieths people standing at the edge of the bed. Had a bowel movement today. He was discharged just a week ago from the psychiatry unit. Admitted with depression unspecified. Generalized anxiety disorder and panic attacks. Upon getting discharged patient went and checked himself into a hotel. And went back to drinking alcohol. Patient was treated with Valium. CIWA scale. Had a sitter. Responded. Seen by psychiatry. Excepted to 3 with psychiatry unit. Today patient doing well. Still depressed. Oral intake good. Ambulating.. Review of systems: GEN.: None EYES: None HEENT: None NECK: None RESPIRATORY: None CARDIOVASCULAR: None GASTROINTESTINAL: None GENITOURINARY: None MUSCULOSKELETAL: None LYMPHATICS: None HEMATOLOGICAL: None PSYCHIATRY: Depressed Social history: Patient checked into a hotel after leaving from here a week ago. Does vaping. Does variable amount of vodka and gin. Physical examination: VITAL SIGNS: 98, 87, 16, 134/90, 98% room air GENERAL: BMI 33.4, sitting up, eating, fairly well-groomed EYES: Pupils equal. Conjunctiva mapnreet l. HEENT: External appearance of nose and ears normal, oral cavity grossly normal. NECK: JVD not raised; masses not palpable. HEART: First and second heart sounds are normal; no edema. LUNGS: Respiratory rate normal; clear to auscultation. ABDOMEN: Soft, nontender, liver spleen not palpable, no masses palpable. PSYCH: [Alert and oriented x3; mood and affect low NEUROLOGICAL: Cranial nerves grossly intact; no facial asymmetry, power and sensation grossly intact. No tremors INVESTIGATIONS, reviewed in the clinical context: November 21: White count 5.5 hemoglobin 16.7 platelets 230 sodium 143 potassium 4 creatinine 0.81. Serum alcohol 281 Influenza type A, type B, RSV, COVID-19: Not detected Recent labs: LDL 85.8 Assessment plan: -Acute alcohol excessive intake in a patient with known chronic alcoholism on presentation Alcohol level was 281 on November 21. No withdrawal symptoms -Chronic alcohol use disorder. Patient been drinking since age of 22. Progressively getting worse specially during COVID. thiamine. Multivitamin. -Depression otherwise specified. Panic attacks with anxiety disorder. Suicidal ideations. Seen by psychiatrist. Medications as per psychiatry Patient had no questions. Thank you Past Medical History Past Medical History: No Reported History, Hypertension Additional Past Medical History / Comment(s): Patient states they occasionally have high BP but in correlation to drinking. History of Any Multi-Drug Resistant Organisms: None Reported Past Surgical History: No Surgical Hx Reported Past Anesthesia/Blood Transfusion Reactions: No Reported Reaction Smoking Status: Current every day smoker, Vaper Past Medical History Past Medical History: Hypertension Additional Past Medical History / Comment(s): Patient states they occasionally have high BP but in correlation to drinking. History of Any Multi-Drug Resistant Organisms: None Reported Past Surgical History: No Surgical Hx Reported Past Anesthesia/Blood Transfusion Reactions: No Reported Reaction Past Psychological History: Anxiety, Bipolar, Depression Smoking Status: Current every day smoker, Vaper Past Alcohol Use History: Abuse, Daily, Heavy Past Drug Use History: Marijuana - Past Family History Mother Family Medical History: Hyperlipidemia Medications and Allergies Home Medications Medication Instructions Recorded Confirmed Type carBAMazepine [TEGretol] 200 mg PO BID 11/13/24 11/24/24 History Folic Acid 1 mg PO DAILY 30 Days #30 tab 11/17/24 11/24/24 Rx Thiamine [Vitamin B-1] 100 mg PO DAILY 30 Days #30 tab 11/17/24 11/24/24 Rx Multivitamins, Thera [Multivitamin 1 tab PO DAILY 11/21/24 11/24/24 History (formulary)] PARoxetine [Paxil] 20 mg PO DAILY tab 11/23/24 11/24/24 Rx Allergies Allergy/AdvReac Type Severity Reaction Status Date / Time No Known Allergies Allergy Verified 11/21/24 13:35 Physical Exam Vitals: Vital Signs Temp Pulse Resp BP Pulse Ox 11/24/24 08:29 111 H 125/93 11/23/24 22:27 98.0 F 87 16 134/90 98
[2024-11-24] MEDS: haloperidoL 5 MG TAB PO PRN (22:44)
--- NOTE | 2024-11-25 13:03 | P.PN ---
Subjective Progress Note Date: 11/25/24 Principal diagnosis: major depression recurrent nonpsychotic subjective: Patient bases says he is here to get back on his medications that he has got restarted not having him bad side effects really don't want talk to him by to Wednesday when the regular doctor comes back. He says he is not particularly sleepy this sleepy during the day because it is boring around here. Objective patient was lying in bed at 10:00 when I saw him and he refuses doctor because he just fall asleep. I came back at 1 and he was well and talk briefly but not in any depth. Response time for reasonable eye contact was adequate self-care was adequate but cooperation with pretty low. He said he been in places "like this" before I just needs to get back on his medicine. MENTAL STATUS EXAM: General Appearance: Patient appears to be stated age is alert, directable, and attempts to cooperate. Patient appears to have fair hygiene and grooming. Behavior: Patient is laying without any agitated behavior. Speech: Patient's speech is fluent and nonpressured. Mood/Affect: Patient reports their mood is depressed, affect is congruent and constricted. Suicidality/Homicidality: Patient denies having any homicidal ideation intent or plan. He reports suicidal ideations, no intent Perceptions: Patient denies any visual hallucinations and denies any auditory hallucinations Though content/process: There is no evidence of any delusional thought content and thought process is linear and logical. Memory and concentration: AOX3, grossly intact for the purposes of this session. Can spell "WORLD" backwards Judgment and insight: Poor STRENGTHS/WEAKNESSES: strength is that patient is resilient and resourceful. Weakness is that patient abuses alcohol, has poor judgment and is impulsive IMPRESSIONS: Depression, unspecified, likely substance-induced Alcohol use disorder, severe Generalized anxiety disorder with panic attacks Cluster B traits PLAN: no change in medications I told him that if he had issues a like talking about the would be willing to listen and try to help him. -Patient is admitted under voluntary status to [facility] for stabilization of psychiatric symptoms and safety. Patient has signed adult voluntary form and medication consent and is placed in patient's chart. -Medications : Start Zoloft 50 mg daily for depression/anxiety trazodone 50 mg as needed at bedtime for insomnia -Ativan and Haldol PRN for agitation/aggression -Started thiamine, MVM for etoh use -CIWA protocol with Ativan PRN for ETOH withdrawal. Scheduled Librium for alcohol withdrawal with plan to taper. -Patient was counselled on substance abuse and desired to cut back on use-Will offer patient subtance use rehab -Patient was informed of the risks, benefits and side effects of the medication and patient verbally consented to taking the medications. Patient signed med consent form and was placed in chart. -Internal Medicine consult to perform medical evaluation and physical. -NRT -nicotine patch -SW on board for discharge planning. Encourage patient to participate in groups to work on coping skills.subjective: Objective - Vital Signs Vital signs: Vital Signs Temp 97.6 F 11/25/24 00:05 Pulse 112 H 11/25/24 08:38 Resp 16 11/25/24 00:05 BP 119/84 11/25/24 08:38 Pulse Ox 100 11/25/24 00:05 FiO2
[2024-11-26] MEDS: QUEtiapine 100 MG TAB PO STA (00:37)
--- NOTE | 2024-11-26 13:30 | P.PN ---
Subjective Progress Note Date: 11/26/24 Principal diagnosis: major depression recurrent nonpsychotic subjective: Patient bases says he is here to get back on his medications. He did not get any benifit from the trazodone but was able to sleep with ativan and some seroquel. Objective The patient came readily to talk, no questions but did ask for an increase in seroquel MENTAL STATUS EXAM: General Appearance: Patient appears to be stated age is alert, directable, and attempts to cooperate. Patient appears to have fair hygiene and grooming. Behavior: Patient is laying without any agitated behavior. Speech: Patient's speech is fluent and nonpressured. Mood/Affect: Patient reports their mood is depressed, affect is congruent and constricted. Suicidality/Homicidality: Patient denies having any homicidal ideation intent or plan. He reports suicidal ideations, no intent Perceptions: Patient denies any visual hallucinations and denies any auditory hallucinations Though content/process: There is no evidence of any delusional thought content and thought process is linear and logical. Memory and concentration: AOX3, grossly intact for the purposes of this session. Can spell "WORLD" backwards Judgment and insight: Poor STRENGTHS/WEAKNESSES: strength is that patient is resilient and resourceful. Weakness is that patient abuses alcohol, has poor judgment and is impulsive IMPRESSIONS: Depression, unspecified, likely substance-induced Alcohol use disorder, severe Generalized anxiety disorder with panic attacks Cluster B traits PLAN: Increase Seroquel as needed to 200 mg at night -Patient is admitted under voluntary status to [facility]HU for stabilization of psychiatric symptoms and safety. Patient has signed adult voluntary form and medication consent and is placed in patient's chart. -Medications :Increase zoloft to 100 mg daily for depression/anxiety trazodone 50 mg as needed at bedtime for insomnia -Ativan and Haldol PRN for agitation/aggression -Started thiamine, MVM for etoh use -CIWA protocol with Ativan PRN for ETOH withdrawal. Scheduled Librium for alcohol withdrawal with plan to taper. -Patient was counselled on substance abuse and desired to cut back on use-Will offer patient subtance use rehab -Patient was informed of the risks, benefits and side effects of the medication and patient verbally consented to taking the medications. Patient signed med consent form and was placed in chart. -Internal Medicine consult to perform medical evaluation and physical. -NRT -nicotine patch -SW on board for discharge planning. Encourage patient to participate in groups to work on coping skills.subjective: Objective - Vital Signs Vital signs: Vital Signs Temp 97.9 F 11/26/24 06:38 Pulse 98 11/26/24 06:38 Resp 16 11/25/24 00:05 BP 143/89 11/26/24 06:38 Pulse Ox 99 11/26/24 06:38 FiO2
[2024-11-26] MEDS: QUEtiapine 200 MG TAB PO PRN (21:30)
[2024-11-27] MEDS: SERTRALINE 50 MG TAB PO ONE (09:44)
--- NOTE | 2024-11-27 13:17 | P.PN ---
Progress Note - Text Progress Note Date: 11/27/24 Interval History: Patient was seen wandering the hallways and was directable and agreeable to armand feng with caption writer in the office. He reports issues with a peer over the weekend however he has been able to maintain his distance. He reports sleeping better at 100 mg Seroquel and requested decrease this tonight. Patient continues to display precontemplation in terms of going to rehab, stating he has already been taught the skills there he just needs to apply this however caption writer strongly encouraged him to consider rehab as he immediately relapsed once was discharged from the hospital at his most recent visit. He states he will be likely discharged back to her hotel and that he will be in contact with his sponsor. He states anxiety fluctuates but his baseline is 4-5. At this time patient denies any suicidal or homicidal ideations, intent or plan. Patient denies any auditory, visual hallucinations and denies any paranoia or delusions. Patient denies any side effects from the medications and has been compliant with meds. Mental Status Exam: General Appearance: Patient appears to be stated age is alert, directable, and cooperative. Wearing a black cap with fair grooming and hygiene Behavior: Patient is calmly seated without any agitated behavior. Speech: Patient's speech is fluent and nonpressured. Mood/Affect: Mood is improving mildly, affect is congruent and constricted. Suicidality/Homicidality: Patient denies having any suicidal or homicidal ideation intent or plan. Perceptions: Patient denies any visual hallucinations and denies any auditory hallucinations Though content/process: There is no evidence of any delusional thought content and thought process is linear and goal-directed. Memory and concentration: AOX3, grossly intact for the purposes of this session Judgment and insight: Improving mildly Assessment Depression, unspecified, likely substance-induced Alcohol use disorder, severe Generalized anxiety disorder with panic attacks Cluster B traits Plan: -Patient continues to meet criteria for inpatient psychiatric admission for symptom stabilization and safety. Patient has signed adult voluntary form and medication consent and was placed in patient's chart. -Medications: Continue Zoloft 100 mg daily for depression/anxiety, decrease Seroquel to 100 mg as needed at bedtime for insomnia. Librium to be tapered off today -When necessary Ativan and Haldol for agitation/aggression. -Labs: Reviewed -SW on board for discharge planning. Encouraged the patient to participate in milieu. Anticipate discharge to [facility] tomorrow. Patient to be set up with dual diagnosis treatment for outpatient
[2024-11-27] MEDS: QUEtiapine 100 MG TAB PO PRN (20:01)
[2024-11-28] MEDS: SERTRALINE 100 MG TAB PO SCH (08:45)
[2024-11-28] MEDS ORDERED: hydrOXYzine pamoate 25 MG CAP PO PRN (09:45)
--- NOTE | 2024-11-28 10:57 | P.PN ---
Progress Note - Text Progress Note Date: 11/28/24 Interval History: Patient was seen group and was directable and agreeable to speak with typewriter repairer in the office. He states reflecting heavily yesterday and ultimately, to the decision that he needs to go to rehab given his ongoing cravings and recent relapse which resulted in suicidal ideations when he was previously discharged to a hotel. He states he will contact access today and at least get date set up before being discharged. He reports poor sleep overnight due to these issues but states he would likely not need any as needed medications for sleep as he feels tired this morning. He states Seroquel causes an increase in anxiety in addition to trazodone and he was agreeable with trying hydroxyzine as needed instead. He reports high anxiety today likely related to poor sleep overnight. At this time patient denies any suicidal or homicidal ideations, intent or plan. Patient denies any auditory, visual hallucinations and denies any paranoia or delusions. Patient denies any side effects from the medications and has been compliant with meds. Mental Status Exam: General Appearance: Patient appears to be stated age is alert, directable, and cooperative. He is wearing a black cap with fair grooming and hygiene Behavior: Patient is calmly seated without any agitated behavior. Speech: Patient's speech is fluent and nonpressured. Mood/Affect: Mood is improving mildly, affect is congruent and blunted but reactive. Suicidality/Homicidality: Patient denies having any suicidal or homicidal ideation intent or plan. Perceptions: Patient denies any visual hallucinations and denies any auditory hallucinations Though content/process: There is no evidence of any delusional thought content and thought process is linear and goal-directed. Memory and concentration: AOX3, grossly intact for the purposes of this session Judgment and insight: Improving mildly Assessment Depression, unspecified, likely substance-induced Alcohol use disorder, severe Generalized anxiety disorder with panic attacks Cluster B traits Plan: -Patient continues to meet criteria for inpatient psychiatric admission for symptom stabilization and safety. Patient has signed adult voluntary form and medication consent and was placed in patient's chart. -Medications: Continue Zoloft 100 mg daily for depression/anxiety, change Seroquel to Vistaril 50 mg as needed at bedtime for insomnia -When necessary Ativan and Haldol for agitation/aggression. -Labs: Reviewed -SW on board for discharge planning. Encouraged the patient to participate in milieu. Anticipate discharge to rehab later this week, will keep patient here in the interim given recent history of suicidal ideations once discharged prior to rehab
[2024-11-28] MEDS: LORazepam 1 MG TAB PO ONE (12:04)
[2024-11-29 06:30] VITALS: BP 101/63; PULSE 58; RESP 15; TEMP 97.9
--- NOTE | 2024-11-29 13:35 | P.DS ---
Providers Date of admission: 11/23/24 22:11 Expected date of discharge: 11/29/24 Attending physician: Tiny Holguin MD Consults: 11/23/24 22:14 Consult Physician Routine Consulting Provider: Lobito Arriaga Consult Reason/Comments: H & P Do you want consulting provider notified?: Yes, Notify in am Primary care physician: Lobito Arriaga - Discharge Diagnosis(es) (1) Depression, unspecified Status: Acute Priority: High (2) Generalized anxiety disorder with panic attacks Status: Acute Priority: Medium (3) Alcohol use disorder Status: Chronic Priority: High (4) Cluster B personality disorder Status: Chronic Priority: Medium Hospital Course: Admission HPI: Admission note was completed by technical proposal writer" Patient presented to the hospital with suicidal ideations and alcohol intoxication. Recruiting Coordinator saw patient when he was admitted to the medical floor and note is as follows: "Patient reportedly had last drink just before coming to the ED with alcohol level at 281. Patient was placed on CIWA protocol with Valium scheduled. CIWA's has been up to 16. Patient seen and evaluated in his room with sitter at bedside. He states going to a hotel once discharged on the and immediately began binging on alcohol. Patient was unable to quantify the amount however he states that it was a "sizable amount however it was all a blur". He expressed feeling guilty because of his alcohol use that led to him having suicidal ideations with a plan however he thought of his mom and how that would make her feel and this is what brought him to the hospital to seek help. He now realizes he needs to go to rehab as he is unable to maintain control without help. He states speaking to recovery house later and they are willing for him to return as long as he is able to be monitored for administration of Antabuse daily. He reports sleep difficulties, feeling guilty, low energy, but denied any appetite changes. He reported suicidal ideations however was able to contract for safety in the hospital. He reported high anxiety, more generalized in nature. He reports being nonadherent with his psychotropic medications and is agreeable with cross titrating Paxil with a different antidepressant. At this time patient denies any homical ideations, intent or plan. Patient denies any auditory, visual hallucinations and denies any paranoia or delusions. Patients admits to using alcohol daily and nicotine intermittently." Patient was placed on CIWA and was medically cleared transferred to behavioral health unit. Patient seen and evaluated on the unit and was agreeable with speaking to technical proposal writer in his room. He states still being open to rehab however he wishes to focus on his depressive symptoms initially as his suicidal ideations are "at an all-time high". He denied any discontinuation symptoms from decreasing Paxil he was agreeable with trying Zoloft, stating he has tried this in the past but for only 1 week. He reports sleep difficulties but declined any medications to help with this. He reports cravings, stating naltrexone was not effective in the past but he is open to trying Antabuse once he gets to rehab as this is not in formulary at this hospital. Patient reports suicidal ideations with no intent, stating he realizes he is in a safe environment and is unable to do so. Patient denies any homicidal ideations intent or plan. At this time patient denies any auditory or visual hallucinations. Patient denies any flight of ideas racing thoughts and increased in goal directed behavior. Patient admits to using alcohol daily and nicotine intermittently." Hospital course: Upon admission to the unit patient was directable and agreeable to commence treatment and signed adult voluntary form.. Patient got along well with other patients on the unit and followed unit protocol. Patient was compliant with the medications and denied any side effects throughout hospital course. Patient was started on Zoloft and this was increased to 100 mg daily for depression/anxiety, seroquel as needed at bedtime for insomnia however this was discontinued due to increase in anxiety. Patient was offered however declined to be started on naltrexone for alcohol cravings and sobriety. Patient spoke of his stressors and engaged in therapy both group and individual. Patient was also seen by medical team for history and physical exam. Throughout the course of the hospitalization patient gradually improved with regards to mood, anxiety, sleep and returned back to their baseline level of functioning. On the day of discharge patient denied any suicidal or homicidal ideations intent or plan denied any auditory or visual hallucinations. The patient denied any access to guns or weapons. Patient denied any paranoia and did not endorse any delusions. Patient does have a significant history of substance abuse and was counseled on abstaining from all substances including alcohol and marijuana. Patient ended up agreeing to inpatient subtance rehab. Patient was also counseled on the medications and need for regular compliance and was encouraged to follow-up with their outpatient appointment for mental health and also for primary care. Patient to be discharged to [facility] given ongoing substance use. Mental status exam: General Appearance: Patient appears to be stated age is alert, pleasant, and cooperative. Patient is in no acute distress and has improved hygiene and grooming Behavior: Patient is calmly seated without any agitated behavior. Speech: Patient's speech is fluent and nonpressured. Mood/Affect: Patient reports their mood is "better", affect is congruent and euthymic. Suicidality/Homicidality: Patient denies having any suicidal or homicidal i deation intent or plan. Perceptions: Patient denies any auditory or visual hallucinations. Though content/process: There is no evidence of any delusional thought content and thought process is linear and goal-directed. More future oriented Memory and concentration: AOX3, grossly intact for the purposes of this session. Can spell "WORLD" backwards correctly. Judgment and insight: Chronically poor, however has improved with guarded prognosis Impression: Depression, unspecified, likely substance-induced Alcohol use disorder, severe Generalized anxiety disorder with panic attacks Cluster B traits Plan: -Continue with discharge today as patient has improved and stabilized psychiatrically and is not currently an imminent threat to themself and/or others. Patient will remain at chronically elevated risk for harm to self and/or others due to their impulsivity and substance abuse. -Continue medications: Zoloft 100 mg daily, patient also on thiamine, folic acid and multivitamins -Patient was counseled on the need for medication compliance and appropriate follow-up at mental health and also primary care for medical issues. Patient verbalized understanding and agreed. -Social work to help coordinate patients discharge today. also to ensure safe home environment that guns/weapons are either removed from the home or locked away. Social work also to arrange for patients follow up appointments with [facility] for psychiatric care along with follow up with primary care provider. -Patient counseled on abstaining from recreational drugs and marijuana and alcohol. Was informed/educated on the adverse effects on their physical and mental health. Patient verbally agreed and understood. -Patient was instructed to return to the hospital or seek immediate medical care if their psychiatric or medical symptoms do worsen or reoccur. Allergies Allergy/AdvReac Type Severity Reaction Status Date / Time No Known Allergies Allergy Verified 11/21/24 13:35 Vital Signs Temp 97.9 F 11/29/24 06:29 Pulse 58 L 11/29/24 06:29 Resp 15 11/29/24 06:29 BP 101/63 11/29/24 06:29 Pulse Ox 96 11/28/24 06:22 FiO2 Patient Condition at Discharge: Stable Plan - Discharge Summary Discharge Rx Participant: No New Discharge Prescriptions: New Folic Acid 1 mg PO DAILY 30 Days #30 tab Multivitamins, Thera [Multivitamin (formulary)] 1 each PO DAILY 30 Days #30 tab Thiamine [Vitamin B-1] 100 mg PO DAILY 30 Days #30 tab Sertraline [Zoloft] 100 mg PO DAILY 30 Days #30 tab Discontinued carBAMazepine [TEGretol] 200 mg PO BID Folic Acid 1 mg PO DAILY 30 Days #30 tab Thiamine [Vitamin B-1] 100 mg PO DAILY 30 Days #30 tab Multivitamins, Thera [Multivitamin (formulary)] 1 tab PO DAILY PARoxetine [Paxil] 20 mg PO DAILY tab Discharge Medication List Folic Acid 1 mg PO DAILY 30 Days #30 tab 11/29/24 [Rx] Multivitamins, Thera [Multivitamin (formulary)] 1 each PO DAILY 30 Days #30 tab 11/29/24 [Rx] Sertraline [Zoloft] 100 mg PO DAILY 30 Days #30 tab 11/29/24 [Rx] Thiamine [Vitamin B-1] 100 mg PO DAILY 30 Days #30 tab 11/29/24 [Rx] Follow up Appointment(s)/Referral(s): [facility] [Outside] - 11/29/24 12:00 pm (Intake ) Lobito Arriaga MD [Primary Care Provider] - 1 Week Patient Instructions/Handouts: Depression (DC), Generalized Anxiety Disorder (GEN), Abuse of Alcohol (DC) Activity/Diet/Wound Care/Special Instructions: [facility] Discharge Info Avoid the use of street drugs and alcohol. Take all medications as prescribed. When you are in need of refills on your medications, please contact your outpatient medical provider and/or outpatient psychiatrist. Please go to your scheduled outpatient appointments for aftercare treatment. If symptoms return or become worse, call the crisis line at or and/or visit the nearest emergency room for assistance. National Suicide and Crisis Lifeline - call or text 988 Discharge Disposition: HOME SELF-CARE
== END 2024-11-29 10:51 | disposition other institution (70) | DRG 751 ==
LOC: 3MHU 22:11
PROVIDERS: ADMIT Psychiatry & Neurology Psychiatry; ATTEND Psychiatry & Neurology Psychiatry
DX: F32.A Depression, unspecified (principal); F10.229 Alcohol dependence with intoxication, unspecified; F41.0 Panic disorder [episodic paroxysmal anxiety]; F17.290 Nicotine dependence, other tobacco product, uncomplicated; F10.239 Alcohol dependence with withdrawal, unspecified; F41.1 Generalized anxiety disorder; G47.9 Sleep disorder, unspecified; F60.89 Other specific personality disorders; I10 Essential (primary) hypertension; R45.851 Suicidal ideations; Z56.0 Unemployment, unspecified; Z59.01 Sheltered homelessness; Z79.899 Other long term (current) drug therapy; Z28.310 Unvaccinated for COVID-19; Z28.21 Immunization not carried out because of patient refusal; Z71.41 Alcohol abuse counseling and surveillance of alcoholic; Z71.89 Other specified counseling

== ENCOUNTER 2024-12-15 14:45 | Inpatient (IN) | payer OTHER ==
--- NOTE | 2024-12-15 15:00 | ED ---
General Adult HPI - General Chief complaint: Chest Pain Stated complaint: Chest pain,L arm pain Time Seen by Provider: 12/15/24 14:54 Source: patient Mode of arrival: wheelchair Limitations: no limitations - History of Present Illness Initial comments: Dictation was produced using [employer] dictation software. please excuse any grammatical, word or spelling errors. Chief Complaint: 34-year-old male with chest pain History of Present Illness: Patient 34-year-old male recovering alcoholic and opiate use disorder presents to the ER for chest pain states its pressure-like radiation to the left arm numbness. No associate diaphoresis but does complain of some nausea. Patient has history of hypertension. Complains of 8 out of 10 chest pressure at the bedside. States that he has extensive family history of acute coronary syndrome with his father having had a heart attack in his late 30s. The ROS documented in this emergency department record has been reviewed and confirmed by me. Those systems with pertinent positive or negative responses millan ve been documented in the HPI. All other systems are other negative and/or noncontributory. - Related Data Previous Rx's Medication Instructions Recorded Folic Acid 1 mg PO DAILY 30 Days #30 tab 11/29/24 Multivitamins, Thera [Multivitamin 1 each PO DAILY 30 Days #30 tab 11/29/24 (formulary)] Sertraline [Zoloft] 100 mg PO DAILY 30 Days #30 tab 11/29/24 Thiamine [Vitamin B-1] 100 mg PO DAILY 30 Days #30 tab 11/29/24 Allergies Allergy/AdvReac Type Severity Reaction Status Date / Time No Known Allergies Allergy Verified 11/21/24 13:35 Review of Systems ROS Statement: Those systems with pertinent positive or pertinent negative responses have been documented in the HPI. ROS Other: All systems not noted in ROS Statement are negative. Past Medical History Past Medical History: Hypertension Additional Past Medical History / Comment(s): Patient states they occasionally have high BP but in correlation to drinking. History of Any Multi-Drug Resistant Organisms: None Reported Past Surgical History: No Surgical Hx Reported Past Anesthesia/Blood Transfusion Reactions: No Reported Reaction Past Psychological History: Anxiety, Bipolar, Depression Smoking Status: Former smoker, Vaper Past Alcohol Use History: Abuse, Daily, Heavy Past Drug Use History: Marijuana - Past Family History Mother Family Medical History: Hyperlipidemia General Exam - General Exam Comments Initial Comments: PHYSICAL EXAM: General Impression: Alert and oriented x3, not in acute distress HEENT: Normocephalic atraumatic, extra-ocular movements intact, pupils equal and reactive to light bilaterally, mucous membranes moist. Cardiovascular: Heart regular rate and rhythm Chest: Able to complete full sentences, no retractions, no tachypnea Abdomen: abdomen soft, non-tender, non-distended, no organomegaly Musculoskeletal: Pulses present and equal in all extremities, no peripheral edema Motor: no focal deficits noted Neurological: CN II-XII grossly intact, no focal motor or sensory deficits noted Skin: Intact with no visualized rashes Psych: Normal affect and mood Limitations: no limitations Course Vital Signs 12/15/24 12/15/24 12/15/24 14:46 17:21 19:04 Temperature 98.4 F 98.1 F Pulse Rate 77 89 71 Respiratory 18 18 Rate Blood Pressure 136/84 109/77 127/77 O2 Sat by Pulse 97 96 98 Oximetry EKG Findings - EKG Comments: EKG Findings:: My EKG interpretation: Ventricular rate 74, sinus rhythm,. 160, cures 114, QTc 389. No TN prolongation, no QTC prolongation, no ST or T-wave changes noted. EKG compared to 03/03/2023 showing no changes. Overall, this EKG is unremarkable Medical Decision Making - Medical Decision Making Was pt. sent in by a medical professional or institution (LAMAR Le, TRAUMA COUNSELLOR, urgent care, hospital, or intermediate...) When possible be specific @ -No Did you speak to anyone other than the patient for history (EMS, parent, family, police, friend...)? What history was obtained from this source @ -No Did you review nursing and triage notes (agree or disagree)? Why? @ -I reviewed and agree with nursing and triage notes Were old charts reviewed (outside hosp., previous admission, EMS record, old EKG, old radiological studies, urgent care reports/EKG's, intermediate records)? Report findings @ -No old charts were reviewed Differential Diagnosis (chest pain, altered mental status, abdominal pain women, abdominal pain men, vaginal bleeding, musculoskeletal, weakness, fever, dyspnea, syncope, headache, dizziness, GI bleed, back pain, seizure, CVA, palpatations, mental health)? @ -Differential Chest Pain: Stable Angina, Unstable Angina, STEMI, NSTEMI Aortic Dissection, Pneumothorax, Musculoskeletal, Esophageal Spasm GERD, Cholecystitis, Pancreatitis, Zoster, this is not meant to be an all-inclusive list. EKG interpreted by me (3pts min.). @ -See above X-rays interpreted by me (1pt min.). @ -Chest x-ray is nonacute CT interpreted by me (1pt min.). @ -None done U/S interpreted by me (1pt. min.). @ -None done What testing was considered but not performed or refused? (CT, X-rays, U/S, labs)? Why? @ -None What meds were considered but not given or refused? Why? @ -None Was smoking cessation discussed for >3mins.? @ -No Were there social determinants of health that impacted care today? How? (Homel essness, low income, unemployed, alcoholism, drug addiction, transportation, low edu. Level, literacy, decrease access to med. care, shelter, rehab)? @ -No Was there de-escalation of care discussed even if they declined (Discuss DNR or withdrawal of care, Hospice)? DNR status @ -No What co-morbidities impacted this encounter? (DM, HTN, Smoking, COPD, CAD, Cancer, CVA, ARF, Chemo, Hep., AIDS, mental health diagnosis, sleep apnea, morbid obesity)? @ -Family history of acute coronary syndrome Was patient admitted / discharged? Hospital course, mention meds given and route, prescriptions, significant lab abnormalities, going to OR and other pertinent info. @ -34-year-old male with atypical chest pain typical features. He does have risk factor of family history of early ACS. Vital signs stable. EKG shows no acute process. Laboratory evaluation obtained. Troponin is negative. Disposition options were discussed with patient he is agreeable for observation admission with cardiology consultation. Patient given aspirin Did you discuss the management of the patient with other professionals (professionals i.e. , PA, TRAUMA COUNSELLOR, lab, RT, psych nurse, geriatric social work professor, automotive worker foreman, teacher, security flex officer, rn case management)? Give summary @ -No Was critical care preformed (if so, how long)? @ -No Undiagnosed new problem with uncertain prognosis? @ -No Drug Therapy requiring intensive monitoring for toxicity (Heparin, Nitro, Insulin, Cardizem)? @ -No Were any procedures done? @ -No Diagnosis/symptom? Acute, or Chronic, or Acute on Chronic? Uncomplicated (without systemic symptoms) or Complicated (systemic symptoms)? @ -Chest pain Side effects of treatment? @ -No Exacerbation, Progression, or Severe Exacerbation? @ -No Poses a threat to life or bodily function? How? (Chest pain, [place], [place], pneumonia, PE, COPD, DKA, ARF, appy, cholecystitis, CVA, Diverticulitis, Homicidal, Suicidal, threat to staff... and all critical care pts) @ -yes - Lab Data Result diagrams: 12/15/24 15:09 12/15/24 15:09 Lab Results 12/15/24 12/15/24 12/15/24 Range/Units 15: 15: 15: WBC 6.8 (3.8-10.6) k/uL RBC 4.84 (4.30-5.90) m/uL Hgb 15.3 (13.0-17.5) gm/dL Hct 45.0 (39.0-53.0) % MCV 92.9 (80.0-100.0) fL MCH 31.7 (25.0-35.0) pg MCHC 34.1 (31.0-37.0) g/dL RDW 12.7 (11.5-15.5) % Plt Count 218 (150-450) k/uL MPV 7.9 Neutrophils % 74 % Lymphocytes % 13 % Monocytes % 7 % Eosinophils % 4 % Basophils % 1 % Neutrophils # 5.0 (1.3-7.7) k/uL Lymphocytes # 0.9 L (1.0-4.8) k/uL Monocytes # 0.5 (0-1.0) k/uL Eosinophils # 0.2 (0-0.7) k/uL Basophils # 0.1 (0-0.2) k/uL PT 11.2 (10.0-12.5) sec INR 1.0 (<1.2) APTT 25.4 (22.0-30.0) sec Sodium 137 (137-145) mmol/L Potassium 4.1 (3.5-5.1) mmol/L Chloride 101 (98-107) mmol/L Carbon Dioxide 26 (22-30) mmol/L Anion Gap 10 mmol/L BUN 14 (9-20) mg/dL Creatinine 0.71 (0.66-1.25) mg/dL Est GFR (CKD-EPI)AfAm >90 (>60 ml/min/1.73 sqM) Est GFR (CKD-EPI)NonAf >90 (>60 ml/min/1.73 sqM) Glucose 145 H (74-99) mg/dL Calcium 9.1 (8.4-10.2) mg/dL Magnesium 1.9 (1.6-2.3) mg/dL Total Bilirubin 0.6 (0.2-1.3) mg/dL AST 27 (17-59) U/L ALT 36 (4-49) U/L Alkaline Phosphatase 90 (38-126) U/L Troponin I (0.000-0.034) ng/mL Total Protein 7.5 (6.3-8.2) g/dL Albumin 4.5 (3.5-5.0) g/dL 12/15/24 Range/Units 15:09 WBC (3.8-10.6) k/uL RBC (4.30-5.90) m/uL Hgb (13.0-17.5) gm/dL Hct (39.0-53.0) % MCV (80.0-100.0) fL MCH (25.0-35.0) pg MCHC (31.0-37.0) g/dL RDW (11.5-15.5) % Plt Count (150-450) k/uL MPV Neutrophils % % Lymphocytes % % Monocytes % % Eosinophils % % Basophils % % Neutrophils # (1.3-7.7) k/uL Lymphocytes # (1.0-4.8) k/uL Monocytes # (0-1.0) k/uL Eosinophils # (0-0.7) k/uL Basophils # (0-0.2) k/uL PT (10.0-12.5) sec INR (<1.2) APTT (22.0-30.0) sec Sodium (137-145) mmol/L Potassium (3.5-5.1) mmol/L Chloride (98-107) mmol/L Carbon Dioxide (22-30) mmol/L Anion Gap mmol/L BUN (9-20) mg/dL Creatinine (0.66-1.25) mg/dL Est GFR (CKD-EPI)AfAm (>60 ml/min/1.73 sqM) Est GFR (CKD-EPI)NonAf (>60 ml/min/1.73 sqM) Glucose (74-99) mg/dL Calcium (8.4-10.2) mg/dL Magnesium (1.6-2.3) mg/dL Total Bilirubin (0.2-1.3) mg/dL AST (17-59) U/L ALT (4-49) U/L Alkaline Phosphatase (38-126) U/L Troponin I <0.012 (0.000-0.034) ng/mL Total Protein (6.3-8.2) g/dL Albumin (3.5-5.0) g/dL Disposition Clinical Impression: Chest pain Disposition: ADMITTED IP TO THIS [facility] Condition: Fair Referrals: None,Stated [Primary Care Provider] - 1-2 days Decision Time: 19:13
--- NOTE | 2024-12-15 15:30 | XR ---
EXAMINATION TYPE: XR chest 2V DATE OF EXAM: 12/15/2024 3:26 PM COMPARISON: Chest radiographs from 03/12/2023 CLINICAL INDICATION: Male, 34 years old with history of Chest Pain; TECHNIQUE: XR chest 2V Frontal and lateral views of the chest. FINDINGS: Lungs/Pleura: There is no evidence of pleural effusion, focal consolidation, or pneumothorax. Pulmonary vascularity: Unremarkable. Heart/mediastinum: Cardiomediastinal silhouette is unremarkable. Musculoskeletal: No acute osseous pathology. IMPRESSION: No acute cardiopulmonary disease/process. [facility], , 12/15/2024 3:28 PM
[2024-12-15 15:38] LABS: Basophils # (A) 0.1 k/uL (0-0.2); Basophils % (A) 1 %; Eosinophils # (A) 0.2 k/uL (0-0.7); Eosinophils % (A) 4 %; HGB 15.3 gm/dL (13.0-17.5); Lymphocytes # (A) 0.9 k/uL (1.0-4.8); Lymphocytes % (A) 13 %; MCH 31.7 pg (25.0-35.0); MCHC 34.1 g/dL (31.0-37.0); MCV 92.9 fL (80.0-100.0); Mean Platelet Volume 7.9; Monocytes # (A) 0.5 k/uL (0-1.0); Monocytes % (A) 7 %; Neutrophils % (A) 74 %; Platelet Count 218 k/uL (150-450); RBC 4.84 m/uL (4.30-5.90); RDW 12.7 % (11.5-15.5); WBC 6.8 k/uL (3.8-10.6)
[2024-12-15 15:46] LABS: Partial Thromboplastin Time 25.4 sec (22.0-30.0); Prothrombin Time 11.2 sec (10.0-12.5)
[2024-12-15 15:59] LABS: ALT 36 U/L (4-49); AST 27 U/L (17-59); African American GFR (CKD) >90 (>60 ml/min/1.73 sqM); Albumin 4.5 g/dL (3.5-5.0); Alkaline Phosphatase 90 U/L (38-126); Anion Gap 10 mmol/L; Blood Urea Nitrogen 14 mg/dL (9-20); Calcium 9.1 mg/dL (8.4-10.2); Carbon Dioxide 26 mmol/L (22-30); Chloride 101 mmol/L (98-107); Glucose 145 mg/dL (74-99); Magnesium 1.9 mg/dL (1.6-2.3); Non-African American GFR(CKD) >90 (>60 ml/min/1.73 sqM); Potassium 4.1 mmol/L (3.5-5.1); Sodium 137 mmol/L (137-145); Total Bilirubin 0.6 mg/dL (0.2-1.3); Total Protein 7.5 g/dL (6.3-8.2)
[2024-12-15] MEDS: NITROGLYCERIN SL TABS 0.4 MG TAB SUBLINGUAL STA (19:03)
[2024-12-15] MEDS: ASPIRIN 81 MG PO STA (19:03)
--- NOTE | 2024-12-16 01:05 | P.HPIM ---
History of Present Illness H&P Date: 12/15/24 Patient is a 34-year-old male with no known past medical history who presents to the emergency department today with chief complaint of chest pain. He states that he has had worsening intermittent chest pain with exertion for the last few weeks but has had recurring chest pain similar to this for years. He states that today the chest pain worsened and radiated to the left arm as well as causing jaw heaviness. He rates the chest pain 8/10 but now is a 6/10 describing it as a squeezing feeling in his left arm. He expresses that the chest pain occurs with very minimal physical activity, including walking up 2 or 3 steps. He reports that he sometimes feels tingling in his left hand and fing ers. Currently all of his pain is localized to the left anterior chest and shoulder. He reports that he had a stress test about 10 years ago and was told that it was normal. His family history significant for paternal grandfather and father having MD at 39 and 38, respectively. He reports a fairly sedentary lifestyle due to the chest pain even with minimal exertion. He denies any medical history but does report a history of alcohol abuse currently in recovery for the last month. He states that in some of his past withdrawals he's had blood pressure readings with systolic in the 150s. At this time he denies fever/chills, nausea/vomiting, abdominal pain. He does report dyspnea and chest pain. Initial EKG: Sinus rhythm with ventricular rate 74 bpm Initial chest x-ray: No acute cardiopulmonary disease/process Review of Systems Constitutional: Denies chills, Denies fever, Denies sweats Cardiovascular: Reports chest pain, Reports dyspnea on exertion, Reports rapid heart beat, Denies orthopnea Respiratory: Reports cough with sputum ("typical phlegm"), Reports dyspnea Gastrointestinal: Reports nausea (when the L chest/arm pain occurring), Denies BRBPR, Denies hematochezia, Denies melena, Denies vomiting Past Medical History Past Medical History: Hypertension Additional Past Medical History / Comment(s): Patient states they occasionally have high BP but in correlation to drinking/withdrawal. History of Any Multi-Drug Resistant Organisms: None Reported Past Surgical History: Orthopedic Surgery Additional Past Surgical History / Comment(s): rt ankle, hardware Past Anesthesia/Blood Transfusion Reactions: No Reported Reaction Past Psychological History: Anxiety, Bipolar, Depression Smoking Status: Former smoker (quit vaping 1 month ago) Past Alcohol Use History: Abuse, Daily (hasn't drank in 1 month), Heavy Additional Past Alcohol Use History / Comment(s): last drink 11-20-2024 Past Drug Use History: Marijuana (says none in last year) - Past Family History Mother Family Medical History: Hyperlipidemia Father Family Medical History: Myocardial Infarction (MD) (Dad and paternal grandpa history of MD in late 30s) Medications and Allergies Home Medications Medication Instructions Recorded Confirmed Type Folic Acid 1 mg PO DAILY 30 Days #30 tab 11/29/24 12/15/24 Rx Sertraline [Zoloft] 100 mg PO DAILY 30 Days #30 tab 11/29/24 12/15/24 Rx Thiamine [Vitamin B-1] 100 mg PO DAILY 30 Days #30 tab 11/29/24 12/15/24 Rx Multivitamins, Thera [Multivitamin 1 tab PO DAILY 12/15/24 12/15/24 History (formulary)] Allergies Allergy/AdvReac Type Severity Reaction Status Date / Time No Known Allergies Allergy Verified 12/15/24 20:33 Physical Exam Vitals: Vital Signs Temp Pulse Resp BP Pulse Ox 12/15/24 19:04 71 18 127/77 98 12/15/24 17:21 98.1 F 89 109/77 96 12/15/24 14:46 98.4 F 77 18 136/84 97 Intake and Output 12/15/24 12/15/24 12/15/24 06:59 14:59 22:59 Other: Weight 108.862 kg 108.862 kg - Constitutional General appearance: no acute distress - Respiratory Respiratory: bilateral: CTA, negative: rales, rhonchi, wheezing - Cardiovascular Rhythm: regular Heart sounds: normal: S1, S2 Abnormal Heart Sounds: no systolic murmur, no diastolic murmur, no rub dorsalis pedis Peripheral Pulses: bilateral: Normal radial pulse Peripheral Pulses: bilateral: Normal - Gastrointestinal General gastrointestinal: no distended, normal bowel sounds, no tenderness - Integumentary Integumentary: normal - Psychiatric Psychiatric: A&O x's 3, appropriate affect, intact judgment & insight Results CBC & Chem 7: 12/15/24 15:09 12/15/24 15:09 Labs: Abnormal Lab Results - Last 24 Hours (Table) 12/15/24 12/15/24 Range/Units 15:09 15:09 Lymphocytes # 0.9 L (1.0-4.8) k/uL Glucose 145 H (74-99) mg/dL Thrombosis Risk Factor Assmnt - DVT/VTE Prophylaxis DVT/VTE Prophylaxis: Low risk, early ambulation encouraged - Choose All That Apply Each Factor Represents 1 point: Obesity (BMI >25) Thrombosis Risk Factor Assessment Total Risk Factor Score: 1 Thrombosis Risk Factor Assessment Level: Low Risk Assessment and Plan Assessment: Patient is a 34-year-old male with no known past medical history admitted for chest pain. Plan: #. Atypical chest pain, rule out ACS Troponin X2 <0.012 EKG: Normal sinus rhythm with ventricular rate of 74 bpm MAL score: 0 Cardiology consulted Begin aspirin 81 mg daily Nitroglycerin as needed for chest pain Supplemental oxygen as needed Obtain echocardiogram Cardiac monitoring #. History of alcohol abuse Patient states last drink was about a month ago CIWA protocol not indicated at this time DVT prophylaxis: Lovenox 40 mg subcutaneous daily GI prophylaxis: Protonix 40 mg daily Heart healthy diet I have seen and evaluated the patient today. I Discussed the case with the barrie stone and agree with the resident's findings I edited the assessment and plan as necessary as documented in the resident's note.
[2024-12-16 05:48] LABS: Amphetamine Screen,Urine Not Detected (NotDetected); Barbiturate Screen,Urine Not Detected (NotDetected); Benzodiazepines Screen,Urine Detected (NotDetected); Cocaine Screen,Urine Not Detected (NotDetected); Methadone Screen, Urine Not Detected (NotDetected); Opiate Screen,Urine Not Detected (NotDetected); Oxycodone Screen, Urine Not Detected (NotDetected); Phencyclidine Screen,Urine Not Detected (NotDetected); Tricyclic Antidepressant,Urine Not Detected (NotDetected); Urn Cannabinoid Scrn Not Detected (NotDetected)
[2024-12-16] MEDS: ASPIRIN 81 MG PO SCH (08:36)
[2024-12-16] MEDS ORDERED: ASPIRIN 325 MG TAB PO SCH (09:00)
--- NOTE | 2024-12-16 10:45 | P.CRDCN ---
History of Present Illness Consult date: 12/16/24 History of present illness: The patient is a pleasant 34-year-old gentleman with no significant past medical history besides vaping presented to the emergency department complaining of chest discomfort. For the last several months he has been experiencing intermittent episodes of chest discomfort in the middle of the chest as a pressure on the chest with no radiation to the arms or neck or shoulders or back and he stated that sometimes the discomfort is worse with exertion and better with resting but does not all the time. No other cardiovascular symptoms of any shortness of breath or dizziness or lightheadedness or any feeling of heart racing or fluttering or presyncope or syncope or edema in the lower extremities or lower extremities intermittent claudication. He underwent further evaluation including an EKG showing sinus mechanism with early repolarization and also cardiac enzymes came in to be unremarkable and also chest x-ray came in to be unremarkable. He still have mild to moderate chest discomfort about 4-5/10 in intensity. I am going to give the patient nitroglycerin sublingual and address the response of the chest pain to the nitroglycerin sublingual. No history of CAD or heart failure or cardiac arrhythmia and never seen a marketing rotation associate before. He does have significant family history of cardiovascular disease. The physical examination is remarkable for regular rhythm with a soft systolic murmur at the right and left upper sternal border with clear breathing sounds bilaterally and no carotid bruit and no edema was noted Assessment Chest discomfort Vaping Significant for history of cardiovascular disease Plan Acute coronary event was ruled out Obtain further cardiac evaluation including an echocardiogram with Doppler Consider obtaining a stress test as well Follow-up with the patient Past Medical History Past Medical History: Hypertension Additional Past Medical History / Comment(s): Patient states they occasionally have high BP but in correlation to drinking/withdrawal. History of Any Multi-Drug Resistant Organisms: None Reported Past Surgical History: Orthopedic Surgery Additional Past Surgical History / Comment(s): rt ankle, hardware Past Anesthesia/Blood Transfusion Reactions: No Reported Reaction Past Psychological History: Anxiety, Bipolar, Depression Smoking Status: Former smoker (quit vaping 1 month ago) Past Alcohol Use History: Abuse, Daily (hasn't drank in 1 month), Heavy Additional Past Alcohol Use History / Comment(s): last drink 11-20-2024 Past Drug Use History: Marijuana (says none in last year) - Past Family History Mother Family Medical History: Hyperlipidemia Additional Family Medical History / Comment(s): Dad and paternal grandpa history of SD in late 30s Father Family Medical History: Myocardial Infarction (SD) (Dad and paternal grandpa history of SD in late 30s) Medications and Allergies Home Medications Medication Instructions Recorded Confirmed Type Folic Acid 1 mg PO DAILY 30 Days #30 tab 11/29/24 12/15/24 Rx Sertraline [Zoloft] 100 mg PO DAILY 30 Days #30 tab 11/29/24 12/15/24 Rx Thiamine [Vitamin B-1] 100 mg PO DAILY 30 Days #30 tab 11/29/24 12/15/24 Rx Multivitamins, Thera [Multivitamin 1 tab PO DAILY 12/15/24 12/15/24 History (formulary)] Allergies Allergy/AdvReac Type Severity Reaction Status Date / Time No Known Allergies Allergy Verified 12/15/24 20:33 Physical Exam Vitals: Vital Signs Temp Pulse Pulse Resp BP BP Pulse Ox 12/16/24 07:00 97.4 F L 76 15 110/69 96 12/16/24 01:02 98 F 58 L 18 116/71 96 12/15/24 23:01 98.3 F 12/15/24 22:15 71 18 112/65 96 12/15/24 19:04 71 18 127/77 98 12/15/24 17:21 98.1 F 89 109/77 96 12/15/24 14:46 98.4 F 77 18 136/84 97 Intake and Output 12/15/24 12/16/24 12/16/24 22:59 06:59 14:59 Other: # Voids 1 Weight 108.862 kg Results 12/15/24 15:09 12/15/24 15:09 Cardiac Enzymes 12/15/24 12/15/24 12/15/24 Range/Units 15:09 15:09 19:05 AST 27 (17-59) U/L Troponin I <0.012 <0.012 (0.000-0.034) ng/mL 12/16/24 12/16/24 Range/Units 00:11 04:50 AST (17-59) U/L Troponin I <0.012 <0.012 (0.000-0.034) ng/mL Coagulation 12/15/24 Range/Units 15:09 PT 11.2 (10.0-12.5) sec APTT 25.4 (22.0-30.0) sec CBC 12/15/24 Range/Units 15:09 WBC 6.8 (3.8-10.6) k/uL RBC 4.84 (4.30-5.90) m/uL Hgb 15.3 (13.0-17.5) gm/dL Hct 45.0 (39.0-53.0) % Plt Count 218 (150-450) k/uL Comprehensive Metabolic Panel 12/15/24 Range/Units 15:09 Sodium 137 (137-145) mmol/L Potassium 4.1 (3.5-5.1) mmol/L Chloride 101 (98-107) mmol/L Carbon Dioxide 26 (22-30) mmol/L BUN 14 (9-20) mg/dL Creatinine 0.71 (0.66-1.25) mg/dL Glucose 145 H (74-99) mg/dL Calcium 9.1 (8.4-10.2) mg/dL AST 27 (17-59) U/L ALT 36 (4-49) U/L Alkaline Phosphatase 90 (38-126) U/L Total Protein 7.5 (6.3-8.2) g/dL Albumin 4.5 (3.5-5.0) g/dL Current Medications Generic Name Dose Route Start Last Admin Trade Name Freq PRN Reason Stop Dose Admin Aspirin 81 mg 12/16/24 09:00 12/16/24 08:36 Aspirin 81 Mg PO 81 mg DAILY GUICHO Administration Nitroglycerin 0.4 mg 12/16/24 01:06 Nitroglycerin Sl Tabs 0.4 Mg Tab SUBLINGUAL ONCE PRN Chest Pain Intake and Output 12/15/24 12/16/24 12/16/24 22:59 06:59 14:59 Other: # Voids 1 Weight 108.862 kg 12/15/24 15:09 12/15/24 15:09
[2024-12-16] MEDS: NITROGLYCERIN SL TABS 0.4 MG TAB SUBLINGUAL PRN (10:47)
--- NOTE | 2024-12-16 13:37 | P.PN ---
Subjective Progress Note Date: 12/16/24 Patient was seen and examined. He reports exertional chest pain. Worsening pain with deep inspiration. Trop < 0.012 x 3. D-Dimer < 0.17. UDS + benzo. General: non toxic, no distress, appears at stated age Derm: warm, dry Head: atraumatic, normocephalic, symmetric Eyes: EOMI, no lid lag, anicteric sclera Mouth: no lip lesion, mucus membranes moist Cardiovascular: S1S2 reg, no murmur Lungs: Clear to auscultation bilateral, no rhonchi, no rales , no accessory muscle use Ext: no gross muscle atrophy, no edema, no contractures Neuro: no focal neuro deficits Psych: Alert, oriented, appropriate affect Based on my assessment of this patient, this patient meets a high complexity level of care. Exertional chest pain: Troponins trended and ACS ruled out. EKG NSR. CXR within normal limits. Echo pending. Family history of father and grandfather NH in their 30s. Would recommend stress test. ASA 81 mg PO QD. Echo pending. Telemetry monitoring. Cardiology on board. Obesity: Structured weight loss diet. CODE STATUS: FULL CODE DVT Prophylaxis: SCD and early ambulation GI Prophylaxis: Designated medical POA if patient is not able to make medical decisions for themselves: I have reviewed the following design studio consultant notes: Cardiology. I have reviewed the results of the following tests: Trop x 2, D-Dimer, UDS. I have ordered the following tests: I have discussed the care of this patient with the following independent historian: I have independently interpreted the following test below: I have discussed the management of this patient with the following physician: Objective - Vital Signs Vital signs: Vital Signs Temp 97.4 F L 12/16/24 07:00 Pulse 76 12/16/24 07:00 Resp 15 12/16/24 07:00 BP 110/69 12/16/24 07:00 Pulse Ox 96 12/16/24 07:00 FiO2 Intake & Output 12/15/24 12/16/24 12/16/24 18:59 06:59 18:59 Weight 108.862 kg 108.862 kg Other: # Voids 1 - Labs CBC & Chem 7: 12/15/24 15:09 12/15/24 15:09 Labs: Abnormal Lab Results - Last 24 Hours (Table) 12/15/24 12/15/24 12/16/24 Range/Units 15:09 15:09 03:45 Lymphocytes # 0.9 L (1.0-4.8) k/uL Glucose 145 H (74-99) mg/dL U Benzodiazepines Scrn Detected H (NotDetected)
[2024-12-17] MEDS: NITROGLYCERIN SL TABS 0.4 MG TAB SUBLINGUAL PRN (11:10)
--- NOTE | 2024-12-17 12:50 | P.PN ---
Subjective Progress Note Date: 12/17/24 Patient was seen and examined. He reports tachycardia with ambulation followed by chest pain today. Feels like he has POTS. Worsening pain with deep inspiration. No new labs done today. Echo pending. Cardiology considering stress test. General: non toxic, no distress, appears at stated age Derm: warm, dry Head: atraumatic, normocephalic, symmetric Eyes: EOMI, no lid lag, anicteric sclera Mouth: no lip lesion, mucus membranes moist Cardiovascular: S1S2 reg, no murmur Lungs: Clear to auscultation bilateral, no rhonchi, no rales , no accessory muscle use Ext: no gross muscle atrophy, no edema, no contractures Neuro: no focal neuro deficits Psych: Alert, oriented, appropriate affect Based on my assessment of this patient, this patient meets a high complexity level of care. Exertional chest pain: Troponins trended and ACS ruled out. EKG NSR. CXR within normal limits. Echo pending. Family history of father and grandfather NH in their 30s. Would recommend stress test. ASA 81 mg PO QD. Echo pending. Telemetry monitoring. Cardiology on board. Obesity: Structured weight loss diet. CODE STATUS: FULL CODE DVT Prophylaxis: SCD and early ambulation GI Prophylaxis: Designated medical POA if patient is not able to make medical decisions for themselves: I have reviewed the following applications consultant notes: I have reviewed the results of the following tests: I have ordered the following tests: Trop/EKG ordered this morning. I have discussed the care of this patient with the following independent historian: ANABEL. I have independently interpreted the following test below: I have discussed the management of this patient with the following physician: Objective - Vital Signs Vital signs: Vital Signs Temp 97.6 F 12/17/24 07:00 Pulse 88 12/17/24 10:47 Resp 16 12/17/24 07:00 BP 132/85 12/17/24 10:47 Pulse Ox 99 12/17/24 10:47 FiO2 Intake & Output 12/16/24 12/17/24 12/17/24 18:59 06:59 18:59 Intake Total 240 360 Balance 240 360 Intake: Oral 240 360 Other: # Voids 2 5 - Labs CBC & Chem 7: 12/15/24 15:09 12/15/24 15:09
--- NOTE | 2024-12-17 17:18 | CA ---
Transthoracic Echo Report Name: Horace Nguyen Age: 34 Gender: M : 1990 Exam Date: 12/16/2024 15:16 Exam Location: [place] [facility] Ht (in): 70 Wt (lb): 249 Ordering Physician: Merissa Dugan MD Attending/Referring Phys: Paramedic Mihaela Dial RDCS Procedure CPT: Indications: Chest Pain Cardiac Hx: Technical Quality: Fair Contrast 1: Total Dose (mL): Contrast 2: Total Dose (mL): MEASUREMENTS (Male / Female) Normal Values 2D ECHO LV Diastolic Diameter PLAX 4.7 cm 4.2 - 5.9 / 3.9 - 5.3 cm LV Systolic Diameter PLAX 2.9 cm IVS Diastolic Thickness 1.3 cm 0.6 - 1.0 / 0.6 - 0.9 cm LVPW Diastolic Thickness 1.2 cm 0.6 - 1.0 / 0.6 - 0.9 cm LV Relative Wall Thickness 0.5 RV Internal Dim ED PLAX 3.6 cm LVOT Diameter 2.3 cm LV Diastolic Volume MOD BP 101.6 cm??? 67 - 155 / 56 - 104 cm??? LV Systolic Volume MOD BP 45.8 cm??? 22 - 58 / 19 - 49 cm??? LV Ejection Fraction MOD BP 54.9 % >= 55 % LV Cardiac Index MOD BP 1577.1 cm???/min???m??? LV Diastolic Volume MOD 4C 95.2 cm??? LV Systolic Volume MOD 4C 35.0 cm??? LV Ejection Fraction MOD 4C 63.2 % LV Cardiac Index MOD 4C 1702.4 cm???/min???m??? LV Diastolic Length 4C 8.8 cm LV Systolic Length 4C 7.3 cm LV Diastolic Volume MOD 2C 108.7 cm??? LV Systolic Volume MOD 2C 61.8 cm??? LV Ejection Fraction MOD 2C 43.1 % LV Cardiac Index MOD 2C 1326.4 cm???/min???m??? LV Diastolic Length 2C 8.8 cm LV Systolic Length 2C 7.4 cm LA Volume 44.2 cm??? 18 - 58 / 22 - 52 cm??? LA Volume Index 18.4 cm???/m??? 16 - 28 cm???/m??? DOPPLER AV Peak Velocity 115.5 cm/s AV Peak Gradient 5.3 mmHg AV Mean Velocity 80.4 cm/s AV Mean Gradient 2.9 mmHg AV Velocity Time Integral 19.0 cm LVOT Peak Velocity 87.2 cm/s LVOT Peak Gradient 3.0 mmHg LVOT Velocity Time Integral 15.9 cm LVOT Stroke Volume 64.7 cm??? LVOT Stroke Volume Index 28.2 ml/m??? LVOT Cardiac Index 1830.1 cm???/min???m??? AV Area Cont Eq vti 3.4 cm??? AV Area Cont Eq pk 3.1 cm??? MV Area PHT 3.2 cm??? Mitral E Point Velocity 69.1 cm/s Mitral A Point Velocity 40.4 cm/s Mitral E to A Ratio 1.7 MV Deceleration Time 235.7 ms MV E' Velocity 7.0 cm/s Mitral E to MV E' Ratio 9.9 FINDINGS Left Ventricle Left ventricular cavity size normal. Mildly increased left ventricular wall thickness. Normal left ventricular systolic function with no obvious regional wall motion abnormalities. Left ventricular ejection fraction is estimated at 55 %. Normal left ventricular diastolic filling pattern. Right Ventricle Normal right ventricular size and function. Right ventricular systolic pressure within normal limits. Right Atrium Normal right atrial size. Left Atrium Normal left atrial size. Mitral Valve Structurally normal mitral valve. No mitral stenosis, regurgitation or prolapse. Aortic Valve Trileaflet aortic valve. No aortic valve stenosis or regurgitation. Tricuspid Valve Structurally normal tricuspid valve. Trace tricuspid regurgitation. Pulmonic Valve Structurally normal pulmonic valve. Pericardium No pericardial effusion. Aorta Normal size aortic root and proximal ascending aorta. CONCLUSIONS Normal biventricular systolic function No significant valvular abnormalities noted No pericardial effusion Normal pulmonary artery systolic pressure Normal aortic root and proximal ascending aorta Previewed by: Dr. Mark Cobos MD (Electronically Signed) Final Date: 17 December 2024 17:17
--- NOTE | 2024-12-17 17:31 | P.PN ---
Subjective Progress Note Date: 12/17/24 The patient is a pleasant 34-year-old gentleman with no significant past medical history besides vaping presented to the emergency department complaining of chest discomfort. For the last several months he has been experiencing intermittent episodes of chest discomfort in the middle of the chest as a pre ssure on the chest with no radiation to the arms or neck or shoulders or back and he stated that sometimes the discomfort is worse with exertion and better with resting but does not all the time. No other cardiovascular symptoms of any shortness of breath or dizziness or lightheadedness or any feeling of heart racing or fluttering or presyncope or syncope or edema in the lower extremities or lower extremities intermittent claudication. He underwent further evaluation including an EKG showing sinus mechanism with early repolarization and also cardiac enzymes came in to be unremarkable and also chest x-ray came in to be unremarkable. He still have mild to moderate chest discomfort about 4-5/10 in intensity. I am going to give the patient nitroglycerin sublingual and address the response of the chest pain to the nitroglycerin sublingual. No history of CAD or heart failure or cardiac arrhythmia and never seen a computer repair technician before. He does have significant family history of cardiovascular disease. The physical examination is remarkable for regular rhythm with a soft systolic murmu r at the right and left upper sternal border with clear breathing sounds bilaterally and no carotid bruit and no edema was noted December 17, 2024 The patient was seen and evaluated this morning. Unfortunately he continues to have ongoing chest discomfort about 6/10 intensity. The chest discomfort is worse with exertion and better with resting. Otherwise no other cardiovascular symptoms besides mild shortness of repeat the echo showed preserved LV systolic function with no significant valvular abnormalities. D-dimer is unremarkable. The physical examination is remarkable for regular rhythm with a soft systolic murmur at the right upper sternal border with clear breathing sounds bilaterally and no edema was noted in the lower extremities Assessment Chest discomfort appears to be ongoing Vaping Significant for history of cardiovascular disease Plan Proceed with coronary angiogram Objective - Vital Signs Vital signs: Vital Signs Temp 98.4 F 12/17/24 14:46 Pulse 75 12/17/24 14:46 Resp 16 12/17/24 14:46 BP 112/73 12/17/24 14:46 Pulse Ox 96 12/17/24 14:46 FiO2 Intake & Output 12/16/24 12/17/2412/17/25 18:59 06:59 18:59 Intake Total 240 600 Balance 240 600 Intake: Oral 240 600 Other: # Voids 2 5 2 - Labs CBC & Chem 7: 12/15/24 15:09 12/15/24 15:09
[2024-12-17] MEDS ORDERED: NITROGLYCERIN SL TABS 0.4 MG TAB SUBLINGUAL PRN (17:45)
[2024-12-17] MEDS ORDERED: ALPRAZolam 0.25 MG TAB PO PRN (17:45)
[2024-12-17] MEDS ORDERED: SODIUM CHLORIDE 0.9% 1,000 ML IV SCH (18:00)
[2024-12-17] MEDS: ATORVASTATIN 80 MG TAB PO STA (18:03)
[2024-12-17] MEDS: ASPIRIN 325 MG TAB PO STA (18:03)
[2024-12-17 18:11] LABS: Glucose,Whole Blood 104 mg/dL (70-110)
[2024-12-17] MEDS: MIDAZOLAM 2 MG/2 ML VIAL IVP ONE (18:37)
[2024-12-17] MEDS: LIDOCAINE 1% INJ 10MG/ML (20 ML MDV) SQ ONE (18:38)
[2024-12-17] MEDS: VERAPAMIL SYRINGE (5 MG/10 ML) INTRAARTER ONE (18:39)
[2024-12-17] MEDS: HEPARIN SODIUM 1,000 UN/ML (10ML VL) IV ONE (18:41)
[2024-12-17] MEDS: SODIUM CHLORIDE 0.9% 1,000 ML IV ONE (18:41)
[2024-12-17] MEDS: HEPARIN SODIUM,PORCINE (1 ML) 2,500 UNIT in SODIUM CHLORIDE 0.9% 250 ML IRRIGATION PRN (18:42)
[2024-12-17] MEDS ORDERED: LIDOCAINE 2% SYG (PF) 100 MG/5 ML ONE (18:42)
[2024-12-17] MEDS: HEPARIN SODIUM,PORCINE 10,000 UNIT in SODIUM CHLORIDE 0.9% 1,000 ML IRRIGATION PRN (18:42)
[2024-12-17] MEDS: LIDOCAINE 2% SYG (PF) 100 MG/5 ML MISCELLANE ONE (18:42)
[2024-12-17] MEDS ORDERED: RX INFO: IV CONTRAST WAS GIVEN 1 EACH MISC MISCELLANE PRN (19:07)
[2024-12-17] MEDS: IOPAMIDOL-370 100ML BTL INJ ONE (19:09)
--- NOTE | 2024-12-17 19:11 | P.PCN ---
Date of Procedure: 12/17/24 Operative Findings: CARDIAC CATHETERIZATION PERFORMING PHYSICIAN: Mark Cobos MD, RPVI PROCEDURE PERFORMED: 1. Selective right and left coronary angiogram 2. Ultrasound-guided access of the right radial artery INDICATION: Overt concerning for unstable angina in this 34-year-old gentleman who smoke and continues to have ongoing chest discomfort about 5/10 in intensity worse with exertion and better with nitroglycerin sublingual COMPLICATION: Ventricular fibrillation required multiple shocks APPROACH: Right radial artery LEVEL OF SEDATION: Moderate with a sedation length of 22 minutes PROCEDURE DESCRIPTION: After obtaining an informed consent, the patient was brought to cardiac floating labor gang supervisor. Local anesthesia was performed using lidocaine subcutaneously. The right radial artery was cannulated using Seldinger technique, under ultrasound guidance, the guidewire passed easily, following that we advanced a 5-[place] sheath dilator assembly, the wire and dilator were removed and sheath was flushed. Following that, 2 mg of verapamil along with 5000 unit heparin were given. Selective right and left coronary angiogram using a 5-[place] JR4 and JL 3.5 catheters. The procedure was completed there was no complication. SELECTIVE CORONARY ANGIOGRAM: The right coronary artery: Large-caliber vessel and a dominant vessel. The ostial RCA on the MAYORGA view has a concerning lesion appears to be in the range of 50 to 60%. Left main: Is angiographically normal The left circumflex: Large-caliber vessel nondominant vessel appears to be normal and gives rise into large OM branch which appears to be normal The left anterior descending artery: Large-caliber vessel appears to be angiographically normal and gives rise into a diagonal branch which appears to be normal CONCLUSION: 1. Intermediate disease involving the ostial RCA POSTPROCEDURE MANAGEMENT: Consider coronary CTA
[2024-12-17] MEDS: ACETAMINOPHEN IV (For NPO) 1,000 MG in EMPTY BAG 1 BAG IVPB ONE (20:07)
[2024-12-17] MEDS: ATORVASTATIN 40 MG TAB PO SCH (20:07)
[2024-12-17] MEDS: ALPRAZolam 0.5 MG TAB PO PRN (20:07)
[2024-12-17] MEDS: SODIUM CHLORIDE 0.9% 1,000 ML IV SCH (20:08)
[2024-12-17 20:14] LABS: Glucose,Whole Blood 99 mg/dL (70-110)
[2024-12-17 20:34] LABS: African American GFR (CKD) >90 (>60 ml/min/1.73 sqM); Anion Gap 14 mmol/L; Blood Urea Nitrogen 12 mg/dL (9-20); Calcium 8.5 mg/dL (8.4-10.2); Carbon Dioxide 22 mmol/L (22-30); Chloride 100 mmol/L (98-107); Glucose 103 mg/dL (74-99); Non-African American GFR(CKD) >90 (>60 ml/min/1.73 sqM); Potassium 3.9 mmol/L (3.5-5.1); Sodium 136 mmol/L (137-145)
[2024-12-18] MEDS: MORPHINE SULFATE 4 MG/ML SYRINGE IVP PRN (00:27)
[2024-12-18 05:12] LABS: HCT 45.7 % (39.0-53.0); HGB 15.2 gm/dL (13.0-17.5); MCH 30.6 pg (25.0-35.0); MCHC 33.2 g/dL (31.0-37.0); Mean Platelet Volume 8.6; Platelet Count 197 k/uL (150-450); RBC 4.97 m/uL (4.30-5.90); RDW 13.1 % (11.5-15.5); WBC 5.3 k/uL (3.8-10.6)
[2024-12-18 05:34] LABS: African American GFR (CKD) >90 (>60 ml/min/1.73 sqM); Anion Gap 11 mmol/L; Blood Urea Nitrogen 13 mg/dL (9-20); Calcium 8.7 mg/dL (8.4-10.2); Carbon Dioxide 23 mmol/L (22-30); Chloride 104 mmol/L (98-107); Glucose 91 mg/dL (74-99); Non-African American GFR(CKD) >90 (>60 ml/min/1.73 sqM); Potassium 4.1 mmol/L (3.5-5.1); Sodium 138 mmol/L (137-145)
[2024-12-18 14:19] VITALS: BMI 34.9
[2024-12-18] MEDS: KETOROLAC 15 MG/ML 1 ML VIAL IVP STA (16:24)
[2024-12-18] MEDS: LIDOCAINE 4% PATCH TOPICAL SCH (16:24)
--- NOTE | 2024-12-18 17:04 | P.PN ---
Subjective Progress Note Date: 12/18/24 Patient was seen and examined. Underwent cardiac cath yesterday showing 50-60% of the RCA. Procedure was complicated by VFib requiring defibrillation. Patient reports soreness in his right arm. No chest pain or shortness of breath. Echo shows EF 55%. CBC and BMP unremarkable. General: non toxic, no distress, appears at stated age Derm: warm, dry Head: atraumatic, normocephalic, symmetric Eyes: EOMI, no lid lag, anicteric sclera Mouth: no lip lesion, mucus membranes moist Cardiovascular: S1S2 reg, no murmur Lungs: Clear to auscultation bilateral, no rhonchi, no rales , no accessory muscle use Ext: no gross muscle atrophy, no edema, no contractures Neuro: no focal neuro deficits Psych: Alert, oriented, appropriate affect Based on my assessment of this patient, this patient meets a high complexity level of care. CAD: Troponins trended and ACS ruled out. EKG NSR. CXR within normal limits. Ech o EF 55%. Family history of father and grandfather [place] in their 30s. ASA 81 mg PO QD, Lipitor 40 mg PO QD. Telemetry monitoring. Cardiology on board. VFib: Likely from cardiac cath requiring defibrillation. Maintain K > 4 and Mg > 2. Monitor in ICU. Cardiology on board. Nicotine abuse: Advised to quit. Obesity: Structured weight loss diet. CODE STATUS: FULL CODE DVT Prophylaxis: SCD and early ambulation GI Prophylaxis: Designated medical POA if patient is not able to make medical decisions for themselves: I have reviewed the following risk control consultant notes: Cardiac cath note. I have reviewed the results of the following tests: CBC, BMP. I have ordered the following tests: I have discussed the care of this patient with the following independent historian: I have independently interpreted the following test below: I have discussed the management of this patient with the following physician: Objective - Vital Signs Vital signs: Vital Signs Temp 98.1 F 12/18/24 12:00 Pulse 75 12/18/24 15:00 Resp 14 12/18/24 15:00 BP 115/62 12/18/24 15:00 Pulse Ox 96 12/18/24 12:00 FiO2 Intake & Output 12/17/24 12/18/24 12/18/24 18:59 06:59 18:59 Intake Total 950 1225 0 Output Total 0 Balance 950 1225 0 Weight 110.3 kg 110.3 kg Intake: IV 350 1225 0 ACETAMINOPHEN IV (For NPO 400 ) 1,000 mg In Empty Bag 1 bag @ 400 mls/hr IVPB ONCE ONE Rx#:[id number] Sodium Chloride 0.9% 1, 825 0 000 ml @ 75 mls/hr IV . [id number] GUICHO Rx#:[id number] Oral 600 Output: Urine 0 Other: Voiding Method Urinal Urinal # Voids 2 1 - Labs CBC & Chem 7: 12/18/24 04:35 12/18/24 04:35 Labs: Abnormal Lab Results - Last 24 Hours (Table) 12/17/24 Range/Units 19:37 Sodium 136 L (137-145) mmol/L Glucose 103 H (74-99) mg/dL
--- NOTE | 2024-12-18 17:20 | P.PN ---
Subjective Progress Note Date: 12/18/24 The patient is a pleasant 34-year-old gentleman with no significant past medical history besides vaping presented to the emergency department complaining of chest discomfort. For the last several months he has been experiencing intermittent episodes of chest discomfort in the middle of the chest as a pre ssure on the chest with no radiation to the arms or neck or shoulders or back and he stated that sometimes the discomfort is worse with exertion and better with resting but does not all the time. No other cardiovascular symptoms of any shortness of breath or dizziness or lightheadedness or any feeling of heart racing or fluttering or presyncope or syncope or edema in the lower extremities or lower extremities intermittent claudication. He underwent further evaluation including an EKG showing sinus mechanism with early repolarization and also cardiac enzymes came in to be unremarkable and also chest x-ray came in to be unremarkable. He still have mild to moderate chest discomfort about 4-5/10 in intensity. I am going to give the patient nitroglycerin sublingual and address the response of the chest pain to the nitroglycerin sublingual. No history of CAD or heart failure or cardiac arrhythmia and never seen a virologist before. He does have significant family history of cardiovascular disease. The physical examination is remarkable for regular rhythm with a soft systolic murmu r at the right and left upper sternal border with clear breathing sounds bilaterally and no carotid bruit and no edema was noted December 17, 2024 The patient was seen and evaluated this morning. Unfortunately he continues to have ongoing chest discomfort about 6/10 intensity. The chest discomfort is worse with exertion and better with resting. Otherwise no other cardiovascular symptoms besides mild shortness of repeat the echo showed preserved LV systolic function with no significant valvular abnormalities. D-dimer is unremarkable. The physical examination is remarkable for regular rhythm with a soft systolic murmur at the right upper sternal border with clear breathing sounds bilaterally and no edema was noted in the lower extremities 12/18/2024 Patient seen and examined at bedside this a.m. Patient underwent cardiac catheterization yesterday during cardiac authorization patient had ventricular fibrillation for which she required multiple defibrillator shocks. It was hypothesized that the reason for ventricular fibrillation during cardiac catheterization could be related to high contrast burden in conus branch of RCA. Assessment Substernal chest pressure Ventricular fibrillation during cardiac catheterization. Vaping Prior history of alcohol abuse currently in remission Plan Patient's EKG might have some suspicion for pericarditis. Will obtain ESR and CRP levels Start ibuprofen to see if this helps patient symptoms. Start Protonix for GI prophylaxis Okay to be transferred out of ICU On discharge consider 30-day LifeVest for secondary prevention SCD from ventri cular fibrillation. Objective - Vital Signs Vital signs: Vital Signs Temp 98.1 F 12/18/24 12:00 Pulse 75 12/18/24 15:00 Resp 14 12/18/24 15:00 BP 115/62 12/18/24 15:00 Pulse Ox 96 12/18/24 12:00 FiO2 Intake & Output 12/17/24 12/18/24 12/18/24 18:59 06:59 18:59 Intake Total 950 1225 0 Output Total 0 Balance 950 1225 0 Weight 110.3 kg 110.3 kg Intake: IV 350 1225 0 ACETAMINOPHEN IV (For NPO 400 ) 1,000 mg In Empty Bag 1 bag @ 400 mls/hr IVPB ONCE ONE Rx#:[id number] Sodium Chloride 0.9% 1, 825 0 000 ml @ 75 mls/hr IV . [id number] [facility] Rx#:[id number] Oral 600 Output: Urine 0 Other: Voiding Method Urinal Urinal # Voids 2 1 - Labs CBC & Chem 7: 12/18/24 04:35 12/18/24 04:35 Labs: Abnormal Lab Results - Last 24 Hours (Table) 12/17/24 Range/Units 19:37 Sodium 136 L (137-145) mmol/L Glucose 103 H (74-99) mg/dL
[2024-12-18] MEDS: PANTOPRAZOLE 40 MG TABLET PO SCH (18:19)
[2024-12-18] MEDS: IBUPROFEN 600 MG TAB PO SCH (21:10)
[2024-12-19 04:40] VITALS: TEMP 98.4
--- NOTE | 2024-12-19 11:29 | P.PN ---
Subjective Progress Note Date: 12/19/24 The patient is a pleasant 34-year-old gentleman with no significant past medical history besides vaping presented to the emergency department complaining of chest discomfort. For the last several months he has been experiencing intermittent episodes of chest discomfort in the middle of the chest as a pre ssure on the chest with no radiation to the arms or neck or shoulders or back and he stated that sometimes the discomfort is worse with exertion and better with resting but does not all the time. No other cardiovascular symptoms of any shortness of breath or dizziness or lightheadedness or any feeling of heart racing or fluttering or presyncope or syncope or edema in the lower extremities or lower extremities intermittent claudication. He underwent further evaluation including an EKG showing sinus mechanism with early repolarization and also cardiac enzymes came in to be unremarkable and also chest x-ray came in to be unremarkable. He still have mild to moderate chest discomfort about 4-5/10 in intensity. I am going to give the patient nitroglycerin sublingual and address the response of the chest pain to the nitroglycerin sublingual. 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 He does have significant family history of cardiovascular disease. The physical examination is remarkable for regular rhythm with a soft systolic murmu r at the right and left upper sternal border with clear breathing sounds bilaterally and no carotid bruit and no edema was noted December 17, 2024 The patient was seen and evaluated this morning. Unfortunately he continues to have ongoing chest discomfort about 6/10 intensity. The chest discomfort is worse with exertion and better with resting. Otherwise no other cardiovascular symptoms besides mild shortness of repeat the echo showed preserved LV systolic function with no significant valvular abnormalities. D-dimer is unremarkable. The physical examination is remarkable for regular rhythm with a soft systolic murmur at the right upper sternal border with clear breathing sounds bilaterally and no edema was noted in the lower extremities 12/18/2024 Patient seen and examined at bedside this a.m. Patient underwent cardiac catheterization yesterday during cardiac catheterization patient had ventricular fibrillation for which she required multiple defibrillator shocks. It was hypothesized that the reason for ventricular fibrillation during cardiac catheterization could be related to high contrast burden in conus branch of RCA. 12/19/2024 Patient is seen and examined at bedside this a.m. He is still complaining of the redundant substernal chest pain which did not improve with opioid-based pain medications, anti-inflammatory like Toradol, ibuprofen, Protonix, lidocaine patch. Telemetry monitoring did not show any arrhythmias. Hemodynamically stable. No signs of bleeding. His ESR and CRP were not elevated. Assessment Substernal chest pressure Ventricular fibrillation during cardiac catheterization Vaping Prior history of alcohol abuse currently in remission Plan I discussed doing a 30-day LifeVest for the patient and explained him the intricacies of this. At this time patient is not sure if he really wants this and tells me that he would like to think about it before letting me know. He wants to go home at this time and will contact me. I have given him my office contact details. Follow-up with Dr. Bah in next 1 to 2 weeks. At this time patient is cleared from cardiovascular standpoint. Cardiology team will sign off. Please reconsult us in case of any question Objective - Vital Signs Vital signs: Vital Signs Temp 98.4 F 12/19/24 04:00 Pulse 65 12/19/24 04:00 Resp 14 12/19/24 04:00 BP 128/92 12/19/24 04:00 Pulse Ox 99 12/19/24 04:00 FiO2 Intake & Output 12/18/24 12/19/24 12/19/24 18:59 06:59 18:59 Intake Total 1000 Output Total 0 Balance 1000 Weight 110.3 kg 110.3 kg Intake: IV 0 Sodium Chloride 0.9% 1, 0 000 ml @ 75 mls/hr IV . [id number] [facility]ICHO Rx#:[id number] Oral 1000 Output: Urine 0 Other: Voiding Method Urinal Urinal # Voids 1 2 - Labs CBC & Chem 7: 12/18/24 04:35 12/18/24 04:35
[2024-12-19] MEDS: CALCIUM CARBONATE 500 MG CHEWABLE PO PRN (13:05)
--- NOTE | 2024-12-19 13:32 | P.DS ---
Providers Date of admission: 12/15/24 19:11 Expected date of discharge: 12/19/24 Attending physician: Merissa Dugan MD Consults: 12/15/24 19:09 Consult Physician Urgent Consulting Provider: Mark Cobos Consult Reason/Comments: chest pain Do you want consulting provider notified?: Yes Primary care physician: Stated None Hospital Course: 34-year-old male with no known past medical history who presents to the emergency department today with chief complaint of chest pain. He states that he has had worsening intermittent chest pain with exertion for the last few weeks but has had recurring chest pain similar to this for years. He states that today the chest pain worsened and radiated to the left arm as well as causing jaw heaviness. He rates the chest pain 8/10 but now is a 6/10 describing it as a squeezing feeling in his left arm. He expresses that the chest pain occurs with very minimal physical activity, including walking up 2 or 3 steps. He reports that he sometimes feels tingling in his left hand and fingers. Currently all of his pain is localized to the left anterior chest and shoulder. He reports that he had a stress test about 10 years ago and was told that it was normal. His family history significant for paternal grandfather and father having [place] at 39 and 38, respectively. He reports a fairly sedentary lifestyle due to the chest pain even with minimal exertion. He denies any medical history but does report a history of alcohol abuse currently in recovery for the last month. He states that in some of his past withdrawals he's had blood pressure readings with systolic in the 150s. In the ED he underwent extensive evaluation. BP 136/84, HR 77, T 98.4F, 97% on RA. CBC, Coag panel, CMP significant for glu 145. D-Dimer < 0.17. Troponin < 0.012 x 4. TSH 1.03. EKG sinus rhythm with no ST T wave changes. Patient was admitted for Cardiology evaluation. Echo showed EF 55%. Persistent chest pain, underwent cardiac cath on 12/17 which showed ostial RCA on the [place]OR[place] view has a concerning lesion appears to be in the range of 50 to 60%. Procedure was complicated by VFib requiring defibrillation. Patient did not have any further episodes of VFib post procedure. 12/19 Patient was seen and examined. He reports right arm soreness improved from yesterday. Cleared by Cardiology for discharge. Discharge Plan: Follow up with Dr. Calderon within 1 week of discharge for evaluation of LifeVest. Prescription for ASA, Lipitor, Nitro and Ibuprofen sent to the pharmacy. General: non toxic, no distress, appears at stated age Derm: warm, dry Head: atraumatic, normocephalic, symmetric Eyes: EOMI, no lid lag, anicteric sclera Mouth: no lip lesion, mucus membranes moist Cardiovascular: S1S2 reg, no murmur Lungs: Clear to auscultation bilateral, no rhonchi, no rales , no accessory muscle use Ext: no gross muscle atrophy, no edema, no contractures Neuro: no focal neuro deficits Psych: Alert, oriented, appropriate affect Discharge Diagnosis CAD VFib Nicotine abuse Obesity This complex discharge took 35 minutes to complete. Patient Condition at Discharge: Stable Plan - Discharge Summary Discharge Rx Participant: No New Discharge Prescriptions: New Aspirin 81 mg PO DAILY #30 tab Ibuprofen [Motrin] 600 mg PO BID PRN #14 tab PRN Reason: Pain Atorvastatin [Lipitor] 40 mg PO HS #30 tab Nitroglycerin Sl Tabs [Nitrostat] 0.4 mg SUBLINGUAL Q5M PRN #30 tab PRN Reason: Chest Pain Continue Folic Acid 1 mg PO DAILY 30 Days #30 tab Thiamine [Vitamin B-1] 100 mg PO DAILY 30 Days #30 tab Sertraline [Zoloft] 100 mg PO DAILY 30 Days #30 tab Multivitamins, Thera [Multivitamin (formulary)] 1 tab PO DAILY Discharge Medication List Folic Acid 1 mg PO DAILY 30 Days #30 tab 11/29/24 [Rx] Sertraline [Zoloft] 100 mg PO DAILY 30 Days #30 tab 11/29/24 [Rx] Thiamine [Vitamin B-1] 100 mg PO DAILY 30 Days #30 tab 11/29/24 [Rx] Multivitamins, Thera [Multivitamin (formulary)] 1 tab PO DAILY 12/15/24 [History] Aspirin 81 mg PO DAILY #30 tab 12/19/24 [Rx] Atorvastatin [Lipitor] 40 mg PO HS #30 tab 12/19/24 [Rx] Ibuprofen [Motrin] 600 mg PO BID PRN #14 tab 12/19/24 [Rx] Nitroglycerin Sl Tabs [Nitrostat] 0.4 mg SUBLINGUAL Q5M PRN #30 tab 12/19/24 [Rx] Follow up Appointment(s)/Referral(s): Lalit Calderon MD [Medical Doctor] - 1 Week (Office will call with appointment date and time.) None,Stated [Primary Care Provider] - 1-2 days Patient Instructions/Handouts: *Surgery [facility] - After Heart Catheterization - Doubling Machine Operator Instructions, Chest Pain (DC) Discharge/Stand Alone Forms: [facility] [place], Community Resources, Outpatient Counseling, Area PCPs Discharge Disposition: HOME SELF-CARE
[2024-12-19 16:55] VITALS: BP 116/82; PULSE 70; RESP 17
--- NOTE | 2024-12-19 19:42 | CA ---
Transthoracic Echo Report Name: Horace Nguyen Age: 34 Gender: M : 1990 Exam Date: 12/18/2024 08:50 Exam Location: [facility] Ht (in): 70 Wt (lb): 240 Ordering Physician: Mark Cobos MD ([id number]) Attending/Referring Phys: [employer] Management System Operator Giulia Gannon RDCS Procedure CPT: Indications: vfib arrest Cardiac Hx: Technical Quality: Fair Contrast 1: Total Dose (mL): Contrast 2: Total Dose (mL): MEASUREMENTS (Male / Female) Normal Values 2D ECHO LV Diastolic Diameter PLAX 4.0 cm 4.2 - 5.9 / 3.9 - 5.3 cm LV Systolic Diameter PLAX 2.8 cm IVS Diastolic Thickness 1.1 cm 0.6 - 1.0 / 0.6 - 0.9 cm LVPW Diastolic Thickness 1.2 cm 0.6 - 1.0 / 0.6 - 0.9 cm LV Relative Wall Thickness 0.6 RV Internal Dim ED PLAX 2.5 cm LA Systolic Diameter LX 3.4 cm 3.0 - 4.0 / 2.7 - 3.8 cm LV Diastolic Volume MOD BP 51.0 cm??? 67 - 155 / 56 - 104 cm??? LV Systolic Volume MOD BP 26.5 cm??? 22 - 58 / 19 - 49 cm??? LV Ejection Fraction MOD BP 47.9 % >= 55 % LV Cardiac Index MOD BP 642.3 cm???/min???m??? LV Diastolic Volume MOD 4C 61.7 cm??? LV Systolic Volume MOD 4C 28.3 cm??? LV Ejection Fraction MOD 4C 54.0 % LV Cardiac Index MOD 4C 876.8 cm???/min???m??? LV Diastolic Length 4C 8.0 cm LV Systolic Length 4C 6.0 cm LV Diastolic Volume MOD 2C 40.9 cm??? LV Systolic Volume MOD 2C 24.9 cm??? LV Ejection Fraction MOD 2C 39.2 % LV Cardiac Index MOD 2C 421.6 cm???/min???m??? LV Diastolic Length 2C 7.6 cm LV Systolic Length 2C 6.0 cm FINDINGS Left Ventricle Left ventricular ejection fraction is estimated at 50-55%. Mildly increased septal wall thickness. Mildly decreased left ventricular ejection fraction. No obvious regional wall motion abnormalities. Right Ventricle Normal right ventricular size and function. Right Atrium Left Atrium Mitral Valve Aortic Valve Tricuspid Valve Pulmonic Valve Pericardium No pericardial or pleural effusion. Aorta CONCLUSIONS Diagnosis: VF arrest Reduced LV systolic function ejection fraction 45 to 50% No pericardial effusion Previewed by: Dr. Arsen Esteves MD (Electronically Signed) Final Date: 19 December 2024 19:42
--- NOTE | 2024-12-20 18:50 | CDI ---
Documentation Clarification Form Date: 12/20/2024 05:48:00 PM From: Laura Mancilla RN, CCDS Phone: [phone] Admit Date: 12/15/2024 07:11:00 PM Patient Name: Horace Nguyen Visit Number: [id number] Discharge Date: 12/19/2024 04:41:00 PM ATTENTION: The Clinical Documentation Specialists (CDI) and [facility] Coding Staff appreciate your assistance in clarifying documentation. Please respond to the clarification below the line at the bottom and electronically sign. The CDI & [facility] Coding staff will review the response and follow-up if needed. Please note: Queries are made part of the Legal Health Record. If you have any questions, please contact the author of this message via ITS. Doctor[facility]sey Cobos Ventricular fibrillation required multiple shocks is documented in the procedure note on 12/17/24 and the patient had selective right and left coronary angiogram. Additional clarification is requested regarding the relationship, if any, that exists between the diagnosis and the procedure. History/Risk Factors: Vaping, Hypertension Patients admitting Diagnosis: substernal chest pressure Post-Operative Diagnosis: Same Procedure performed: Selective right and left coronary angiogram Ultrasound- guided access of the right radial artery Clinical Indicators: 34-year-old male who smoke and continues to have ongoing chest discomfort. 12/17 Cardiac Cath report: Complication: Ventricular fibrillation required multiple shocks The procedure was completed there was no complications Intermediate disease involving the ostial RCA 12/18 Cardiology progress note: patient had ventricular fibrillation for which she required multiple defibrillator shocks. It was hypothesized that the reason for ventricular fibrillation during cardiac catheterization could be related to high contrast burden in conus branch of RCA. Treatment: ICU/Telemetry Monitoring Heparin drip per orders 12/17-12/18 What relationship, if any, exists between the diagnosis of ventricular fibrillation and the procedure? [ ] Ventricular Fibrillation is clinically significant and not a complication [ ] Ventricular Fibrillation is clinically significant and a complication [ ] Other please specify ____ [ ] Unable to determine (Template Last Revised: November 2024) MTDD
== END 2024-12-19 16:41 | disposition home or self-care (01) | DRG 191 ==
LOC: EC 14:45 → OBSVTOIN 19:11 → 6NMEDSUR 19:11 → 2SICU 12-17 18:55
PROVIDERS: ADMIT Student in an Organized Health Care Education/Training Program; ATTEND Student in an Organized Health Care Education/Training Program
PROC: B2111ZZ Fluoroscopy of Multiple Coronary Arteries using Low Osmolar Contrast (ICD-10-PCS; 2024-12-17)
PROC: 5A2204Z Restoration of Cardiac Rhythm, Single (ICD-10-PCS; 2024-12-17)
PROC: 4A023N7 Measurement of Cardiac Sampling and Pressure, Left Heart, Percutaneous Approach (ICD-10-PCS; principal; 2024-12-17 18:00)
DX: I25.110 Atherosclerotic heart disease of native coronary artery with unstable angina pectoris (principal); F10.10 Alcohol abuse, uncomplicated; I49.01 Ventricular fibrillation; E66.9 Obesity, unspecified; Z68.34 Body mass index [BMI] 34.0-34.9, adult; I10 Essential (primary) hypertension; I97.790 Other intraoperative cardiac functional disturbances during cardiac surgery; Z87.891 Personal history of nicotine dependence; F11.10 Opioid abuse, uncomplicated; Z79.82 Long term (current) use of aspirin; Z79.899 Other long term (current) drug therapy; Z82.49 Family history of ischemic heart disease and other diseases of the circulatory system
CPT/HCPCS: 36415; 71046; 80048; 80053; 80306; 83735; 84443; 84484; 85025; 85027; 85379; 85610; 85652; 85730; 86140; 93005; 93306; 93308; 93454; 99285

== ENCOUNTER 2024-12-25 15:54 | Observation (INO) | payer OTHER ==
--- NOTE | 2024-12-25 16:50 | ED ---
Chest Pain HPI - General Source: patient, RN notes reviewed, old records reviewed Mode of arrival: ambulatory Limitations: no limitations <Nadir Aguilar - Last Filed: 12/26/24 00:38> <Abbi Dixon - Last Filed: 12/26/24 16:28> - General Chief Complaint: Chest Pain Stated Complaint: chest pain, l arm pain Time Seen by Provider: 12/25/24 16:49 - History of Present Illness Initial Comments: Quick note: 34-year-old male presented to the ER for evaluation of chest discomfort. Patient states he was seen here about a week and a half ago for similar complaint. He states pain has worsened and him feel weak and nauseated. He states pain makes him feel like he is going to pass out. (Nadir Aguilar) 34-year-old male presenting with chief complaint of chest pain. Patient is having crushing pressure-like chest pain in the center and left side of the chest with radiation to the left arm. Patient was seen here recently for these complaints. He underwent a cardiac catheterization and was found to have a 60% occlusion of the RCA. During his catheterization he went into V-fib and re quired multiple shocks. It was discussed sending him home with a LifeVest, patient ended up not going home with 1. Patient is now concerned that he did not receive 1. States that his pain seems to be worsening. He does get short of breath. Pain worsens on exertion. States that he also gets episodes of palpitations. (Abbi Dixon) - Related Data Home Medications Medication Instructions Recorded Confirmed Multivitamins, Thera [Multivitamin 1 tab PO DAILY 12/15/24 12/26/24 (formulary)] Previous Rx's Medication Instructions Recorded Folic Acid 1 mg PO DAILY 30 Days #30 tab 11/29/24 Sertraline [Zoloft] 100 mg PO DAILY 30 Days #30 tab 11/29/24 Thiamine [Vitamin B-1] 100 mg PO DAILY 30 Days #30 tab 11/29/24 Aspirin 81 mg PO DAILY #30 tab 12/19/24 Atorvastatin [Lipitor] 40 mg PO HS #30 tab 12/19/24 Ibuprofen [Motrin] 600 mg PO BID PRN #14 tab 12/19/24 Nitroglycerin Sl Tabs [Nitrostat] 0.4 mg SUBLINGUAL Q5M PRN #30 tab 12/19/24 Allergies Allergy/AdvReac Type Severity Reaction Status Date / Time No Known Allergies Allergy Verified 12/26/24 08:53 Review of Systems ROS Other: All systems not noted in ROS Statement are negative. <Nadir Aguilar - Last Filed: 12/26/24 00:38> ROS Other: All systems not noted in ROS Statement are negative. <Abbi Dixon - Last Filed: 12/26/24 16:28> ROS Statement: Those systems with pertinent positive or pertinent negative responses have been documented in the HPI. Past Medical History Past Medical History: Hypertension Additional Past Medical History / Comment(s): Patient states they occasionally have high BP but in correlation to drinking/withdrawal. History of Any Multi-Drug Resistant Organisms: None Reported Past Surgical History: Orthopedic Surgery Additional Past Surgical History / Comment(s): rt ankle, hardware Past Anesthesia/Blood Transfusion Reactions: No Reported Reaction Past Psychological History: Anxiety, Bipolar, Depression Smoking Status: Former smoker Past Alcohol Use History: Abuse, Daily, Heavy Past Drug Use History: Marijuana - Past Family History Mother Family Medical History: Hyperlipidemia Additional Family Medical History / Comment(s): Dad and paternal grandpa history of [place] in late 30s Father Family Medical History: Myocardial Infarction ([place]) (Dad and paternal grandpa history of [place] in late 30s) <Nadir Aguilar - Last Filed: 12/26/24 00:38> General Exam Limitations: no limitations <Nadir Aguilar - Last Filed: 12/26/24 00:38> Limitations: no limitations General appearance: alert, in no apparent distress Head exam: Present: atraumatic, normocephalic, normal inspection Eye exam: Present: normal appearance, EOMI Neck exam: Present: normal inspection. Absent: meningismus Respiratory exam: Present: normal lung sounds bilaterally. Absent: respiratory distress, wheezes, rales, rhonchi, stridor Cardiovascular Exam: Present: regular rate, normal rhythm, normal heart sounds. Absent: systolic murmur, diastolic murmur, rubs, gallop, clicks Neurological exam: Present: alert, oriented X3 Psychiatric exam: Present: normal affect, normal mood Skin exam: Present: warm, dry, normal color <Abbi Dixon - Last Filed: 12/26/24 16:28> - General Exam Comments Initial Comments: Visual Physical Exam Vital signs reviewed General: Well-appearing, nontoxic, no acute distress. Head: Normocephalic, atraumatic Eyes: PERRLA, EOMI ENT: Airway patent Chest: Nonlabored breathing Skin: No visual rash, normal skin tone Neuro: Alert and oriented 3 Musculoskeletal: No gross abnormalities (Nadir Aguilar) Course Vital Signs 12/25/24 12/25/24 12/26/24 16:41 23:33 00:08 Temperature 98.8 F Pulse Rate 115 H 83 96 Pulse Rate [ Foil Operator ] Respiratory 18 18 18 Rate Blood Pressure 105/75 133/96 122/90 O2 Sat by Pulse 96 95 95 Oximetry 12/26/24 12/26/24 12/26/24 01:23 06:00 09:00 Temperature 98.6 F Pulse Rate 80 64 72 Pulse Rate [ Foil Operator ] Respiratory 17 16 16 Rate Blood Pressure 122/82 128/73 121/71 O2 Sat by Pulse 96 99 99 Oximetry 12/26/24 12/26/24 12/26/24 10:58 12:58 14:49 Temperature Pulse Rate 77 74 Pulse Rate [ 78 Foil Operator ] Respiratory 16 18 18 Rate Blood Pressure 110/78 115/76 O2 Sat by Pulse 97 97 Oximetry Chest Pain MDM <Nadir Aguilar - Last Filed: 12/26/24 00:38> <Abbi Dixon - Last Filed: 12/26/24 16:28> - MDM I performed the quick note portion of this chart. Electronically signed by Nadir Aguilar PA-C (Nadir Aguilar) Was pt. sent in by a medical professional or institution ([facility], FRONT END DEVELOPER JAV[employer] HTML CSS, urgent care, hospital, or intermediate...) When possible be specific @ -No Did you speak to anyone other than the patient for history (EMS, parent, family, police, friend...)? What history was obtained from this source @ -No Did you review nursing and triage notes (agree or disagree)? Why? @ -I reviewed and agree with nursing and triage notes Were old charts reviewed (outside hosp., previous admission, EMS record, old EKG, old radiological studies, urgent care reports/EKG's, intermediate records)? Report findings @ -Reviewed the patient's recent admission and cardiac catheterization Differential Diagnosis (chest pain, altered mental status, abdominal pain women, abdominal pain men, vaginal bleeding, weakness, fever, dyspnea, syncope, headache, dizziness, GI bleed, back pain, seizure, CVA, palpatations, mental health, musculoskeletal)? @ -[facility] Differential Chest Pain: Stable Angina, Unstable Angina, STEMI, NSTEMI Aortic Dissection, Pneumothorax, Musculoskeletal, Esophageal Spasm GERD, Cholecystitis, Pancreatitis, Zoster This is not meant to be an all-inclusive list. EKG interpreted by me (3pts min.). @ -KG shows sinus tachycardia ventricular rate 110. ME interval 162. QRS 104. QT 317. QTc 382. X-rays interpreted by me (1pt min.). @ -Chest x-ray shows no acute process CT interpreted by me (1pt min.). @ -None done U/S interpreted by me (1pt. min.). @ -None done What testing was considered but not performed or refused? (CT, X-rays, U/S, labs)? Why? @ -None What meds were considered but not given or refused? Why? @ -None Did you discuss the management of the patient with other professionals (pr ofessionals i.e. , PA, FRONT END DEVELOPER [employer] CSS, lab, RT, psych nurse, geriatric social worker, slot machine repairer, teacher, correctional program officer, bilingual case manager)? Give summary @ -No Was smoking cessation discussed for >3mins.? @ -No Was critical care preformed (if so, how long)? @ -No Were there social determinants of health that impacted care today? How? (Homelessness, low income, unemployed, alcoholism, drug addiction, transportation, low edu. Level, literacy, decrease access to med. care, skilled nursing, rehab)? @ -No Was there de-escalation of care discussed even if they declined (Discuss DNR or withdrawal of care, Hospice)? DNR status @ -No What co-morbidities impacted this encounter? (DM, HTN, Smoking, COPD, CAD, Cancer, CVA, ARF, Chemo, Hep., AIDS, mental health diagnosis, sleep apnea, morbid obesity)? @ -None Was patient admitted / discharged? Hospital course, mention meds given and route, prescriptions, significant lab abnormalities, going to OR and other pertinent info. @ -34-year-old male presented with chief complaint of chest pain. Workup is initiated by triage. No leukocytosis or anemia. Negative troponin. Chest x- ray shows no acute process EKG shows sinus tachycardia. Patient is mildly tachycardic upon initial evaluation. He is treated with metoprolol 25 mg and IV fluids. Given for anxiety. Second troponin is negative. Had a lengthy discussion with the patient. He does follow with cardiology. Patient would feel more comfortable with admission tonight, he will be admitted for observation with evaluation by cardiology in the morning. Patient is agreeable with this plan. I discussed this case with my attending Dr. Hui Undiagnosed new problem with uncertain prognosis? @ -No Drug Therapy requiring intensive monitoring for toxicity (Heparin, Nitro, Insulin, Cardizem)? @ -No Were any procedures done? @ -No Diagnosis/symptom? @ -Chest pain Acute, or Chronic, or Acute on Chronic? @ -Acute Uncomplicated (without systemic symptoms) or Complicated (systemic symptoms)? @ -Complicated Side effects of treatment? @ -No Exacerbation, Progression, or Severe Exacerbation? @ -No Poses a threat to life or bodily function? How? (Chest pain, [place], SD, pneumonia, PE, COPD, DKA, ARF, appy, cholecystitis, CVA, Diverticulitis, Homicidal, Suicidal, threat to staff... and all critical care pts) @ -Yes (Abbi Dixon) Disposition <Nadir Aguilar - Last Filed: 12/26/24 00:38> Time of Disposition: 01:01 <Abbi Dixon - Last Filed: 12/26/24 16:28> Clinical Impression: Chest pain Disposition: ADMITTED IP TO THIS HOSP Condition: Fair
[2024-12-25 17:06] LABS: Basophils # (A) 0.1 k/uL (0-0.2); Basophils % (A) 1 %; Eosinophils # (A) 0.1 k/uL (0-0.7); Eosinophils % (A) 1 %; HCT 49.1 % (39.0-53.0); HGB 16.6 gm/dL (13.0-17.5); Lymphocytes # (A) 1.2 k/uL (1.0-4.8); Lymphocytes % (A) 13 %; MCH 30.8 pg (25.0-35.0); MCHC 33.9 g/dL (31.0-37.0); MCV 90.8 fL (80.0-100.0); Mean Platelet Volume 8.7; Monocytes # (A) 0.6 k/uL (0-1.0); Monocytes % (A) 6 %; Neutrophils # (A) 7.6 k/uL (1.3-7.7); Neutrophils % (A) 79 %; Platelet Count 214 k/uL (150-450); RDW 12.2 % (11.5-15.5); WBC 9.6 k/uL (3.8-10.6)
[2024-12-25 17:17] LABS: ALT 29 U/L (4-49); AST 30 U/L (17-59); African American GFR (CKD) >90 (>60 ml/min/1.73 sqM); Albumin 5.2 g/dL (3.5-5.0); Alkaline Phosphatase 79 U/L (38-126); Anion Gap 18 mmol/L; Blood Urea Nitrogen 17 mg/dL (9-20); Calcium 9.7 mg/dL (8.4-10.2); Carbon Dioxide 20 mmol/L (22-30); Chloride 97 mmol/L (98-107); Glucose 88 mg/dL (74-99); Magnesium 1.9 mg/dL (1.6-2.3); Non-African American GFR(CKD) >90 (>60 ml/min/1.73 sqM); Potassium 4.3 mmol/L (3.5-5.1); Sodium 135 mmol/L (137-145); Total Bilirubin 1.5 mg/dL (0.2-1.3); Total Protein 8.9 g/dL (6.3-8.2)
[2024-12-25 17:18] LABS: INR 1.1 (<1.2); Prothrombin Time 12.2 sec (10.0-12.5)
--- NOTE | 2024-12-25 19:38 | XR ---
EXAMINATION TYPE: XR chest 2V DATE OF EXAM: 12/25/2024 6:16 PM COMPARISON: 12/15/2024 CLINICAL INDICATION: Male, 34 years old with history of Chest Pain, TECHNIQUE: XR chest 2V view(s) obtained. FINDINGS: The heart size is normal. The pulmonary vasculature is normal. The lungs are clear. IMPRESSION: 1. No acute pulmonary process. [facility], , 12/25/2024 7:35 PM
[2024-12-25] MEDS: MORPHINE SULFATE 4 MG/ML SYRINGE IVP STA (22:36)
[2024-12-25] MEDS: SODIUM CHLORIDE 0.9% 1,000 ML IV ONE (23:02)
[2024-12-25] MEDS: METOPROLOL SUCCINATE (ER) 25 MG TAB.ER.24H PO STA (23:04)
[2024-12-25] MEDS: LORazepam 2 MG/ML INJ IV STA (23:44)
[2024-12-26] MEDS ORDERED: NALOXONE 0.4 MG/ML 1 ML VIAL IV PRN (00:59)
[2024-12-26] MEDS: ASPIRIN 81 MG PO STA (01:21)
--- NOTE | 2024-12-26 06:55 | P.HPIM ---
History of Present Illness H&P Date: 12/26/24 Patient is a 34-year-old male with a past medical history significant for recent cardiac catheterization who presents to the emergency department today with chief complaint of chest pain. He was recently admitted on 12/15/2024 for similar complaints. During his most recent cardiac catheterization on 12/17/2024 patient went into V-fib, was shocked 4 times a 200 J, and then sinus rhythm was achieved. At the time he also was found to have a 60% occlusion of the RCA. On 12/18/2024 echo revealed EF 45-50%. Prior to discharge patient was offered a LifeVest but the patient declined. Followed up with cardiology outpatient with Dr. Cobos two days ago, patient says he was referred to [facility] for a scan but is unsure of what for. Last few days chest pain has been getting worse, radiating to left arm with tingling in the jaw. He states that he has not been ambulating much since leaving the hospital as he is wanted to take it easy. He reports 3 episodes of nonbloody emesis about 3 days ago, has since resolved. He also reports having decreased appetite since leaving the hospital. He denies fever/chills, myalgias, dyspnea edema, orthopnea. He reports that his chest pain worsens with exertion but is present at rest intermittently. Initial vitals: BP 105/75, RI 115 bpm, RR 18, 96% O2 saturation on room air, 98.8 F Initial labs: WBC 9.6, hemoglobin 16.6, platelets 214, D-dimer 0.21, sodium 135, potassium 4.3, chloride 97, CO2 20, BUN 17, creatinine 0.78, bilirubin 1.5, troponin x 2 < 0.012 Initial chest x-ray: No acute pulmonary process Initial EKG: Sinus tachycardia with a ventricular rate of 110 bpm, QTc 382 ms ED documentation reviewed. Given aspirin 324 mg p.o. x 1, Ativan 1 mg IV x 1, metoprolol 25 mg p.o. x 1, morphine 4 mg IVP x 1, 0.9% saline 1 L x 1 Review of Systems Pertinent positives and negatives as discussed in HPI, a complete review of systems was performed and all other systems are negative. Past Medical History Past Medical History: Heart Failure, Hypertension Additional Past Medical History / Comment(s): Patient states they occasionally have high BP but in correlation to drinking/withdrawal. History of Any Multi-Drug Resistant Organisms: None Reported Past Surgical History: Orthopedic Surgery Additional Past Surgical History / Comment(s): rt ankle, hardware Past Anesthesia/Blood Transfusion Reactions: No Reported Reaction Past Psychological History: Anxiety, Bipolar, Depression Smoking Status: Former smoker Past Alcohol Use History: Abuse, Daily, Heavy Past Drug Use History: Marijuana - Past Family History Mother Family Medical History: Hyperlipidemia Additional Family Medical History / Comment(s): Dad and paternal grandpa history of [place] in late 30s Father Family Medical History: Myocardial Infarction ([place]) (Dad and paternal grandpa history of [place] in late 30s) Medications and Allergies Home Medications Medication Instructions Recorded Confirmed Type Folic Acid 1 mg PO DAILY 30 Days #30 tab 11/29/24 12/15/24 Rx Sertraline [Zoloft] 100 mg PO DAILY 30 Days #30 tab 11/29/24 12/15/24 Rx Thiamine [Vitamin B-1] 100 mg PO DAILY 30 Days #30 tab 11/29/24 12/15/24 Rx Multivitamins, Thera [Multivitamin 1 tab PO DAILY 12/15/24 12/15/24 History (formulary)] Aspirin 81 mg PO DAILY #30 tab 12/19/24 Rx Atorvastatin [Lipitor] 40 mg PO HS #30 tab 12/19/24 Rx Ibuprofen [Motrin] 600 mg PO BID PRN #14 tab 12/19/24 Rx Nitroglycerin Sl Tabs [Nitrostat] 0.4 mg SUBLINGUAL Q5M PRN #30 tab 12/19/24 Rx Allergies Allergy/AdvReac Type Severity Reaction Status Date / Time No Known Allergies Allergy Verified 12/25/24 16:44 Physical Exam Vitals: Vital Signs Temp Pulse Resp BP Pulse Ox 12/26/24 00:08 96 18 122/90 95 12/25/24 23:33 83 18 133/96 95 12/25/24 16:41 98.8 F 115 H 18 105/75 96 Intake and Output 12/25/24 12/25/24 12/26/24 14:59 22:59 06:59 Other: Weight 108.862 kg Vital signs reviewed General: Nontoxic, no distress, appears stated age, well-appearing Derm: Warm, dry, intact, no cyanosis Head: Atraumatic, normocephalic, symmetric Eyes: EOMI, anicteric sclera, PERRL Ears: Normal appearing, no external lesions, hearing intact Nose: Normal appearing, no external lesions Mouth: No lip lesion, mucus membranes moist, no tonsilar hypertrophy or exudate Neck: Supple, without lesions, trachea midline Cardiovascular: S1-S2 regular, no murmur, no pedal edema Lungs: CTA bilateral, no wheezes, no rhonchi, no rales, no accessory muscle use Abdominal: Soft, non-tender to palpation, bowel sounds present Extremities: Muscle strength 5/5 in all extremities, radial pulses 2+ bilateral, posterior tibial pulses 2+ bilateral Neuro: Alert, oriented x 4, gross neurological examination did not reveal any focal deficits. Cranial nerves II to XII grossly intact. Psych: Appropriate affect and mood Results CBC & Chem 7: 12/25/24 16:51 12/25/24 16:51 Labs: Abnormal Lab Results - Last 24 Hours (Table) 12/25/24 Range/Units 16:51 Sodium 135 L (137-145) mmol/L Chloride 97 L (98-107) mmol/L Carbon Dioxide 20 L (22-30) mmol/L Total Bilirubin 1.5 H (0.2-1.3) mg/dL Total Protein 8.9 H (6.3-8.2) g/dL Albumin 5.2 H (3.5-5.0) g/dL Thrombosis Risk Factor Assmnt - Choose All That Apply Each Factor Represents 1 point: Heart failure (<1month), Obesity (BMI >25) Thrombosis Risk Factor Assessment Total Risk Factor Score: 2 Thrombosis Risk Factor Assessment Level: Low Risk Assessment and Plan Assessment: Patient is a 34-year-old male with past medical history significant for recent cardiac catheterization admitted for chest pain. Plan: Active #. Atypical chest pain, rule out ACS Troponin x 2 <0.012 MAL score: 0 Cardiology consulted Continue aspirin 81 mg daily Nitroglycerin as needed for chest pain Supplemental oxygen as needed Cardiac monitoring Resume home medications once confirmed Initial labs: WBC 9.6, hemoglobin 16.6, platelets 214, D-dimer 0.21, sodium 135, potassium 4.3, chloride 97, CO2 20, BUN 17, creatinine 0.78, bilirubin 1.5, troponin x 2 < 0.012 Initial chest x-ray: No acute pulmonary process Initial EKG: Sinus tachycardia with a ventricular rate of 110 bpm, QTc 382 ms DVT prophylaxis: Lovenox 40 mg subcutaneous daily GI prophylaxis: Not indicated at this time Heart healthy diet The patient is admitted with an anticipated less than 2 midnight stay for evaluation of chest pain. CODE STATUS: Full code Anticipated discharge place: Pending clinical course I have seen and evaluated the patient today. I Discussed the case with the r tavodent and agree with the resident's findings I edited the assessment and plan as necessary as documented in the resident's note.
[2024-12-26] MEDS: ENOXAPARIN 40 MG/0.4 ML SYRINGE SQ SCH (09:05)
[2024-12-26] MEDS: METOPROLOL TARTRATE 25 MG TAB PO SCH (09:05)
[2024-12-26] MEDS: ASPIRIN 81 MG PO SCH (09:05)
[2024-12-26] MEDS: ACETAMINOPHEN TAB 325 MG TAB PO PRN (09:05)
[2024-12-26] MEDS: NITROGLYCERIN SL TABS 0.4 MG TAB SUBLINGUAL PRN (09:06)
[2024-12-26] MEDS ORDERED: LORazepam 2 MG/ML INJ IV PRN ×3 (09:30)
[2024-12-26] MEDS ORDERED: LORazepam 1 MG TAB PO PRN (09:30)
[2024-12-26] MEDS: KETOROLAC 15 MG/ML 1 ML VIAL IVP STA (10:25)
[2024-12-26] MEDS: LORazepam 0.5 MG TAB PO PRN (10:25)
[2024-12-26] MEDS: THIAMINE 100 MG TAB PO SCH (10:25)
[2024-12-26] MEDS: MULTIVITAMINS, THERA 1 EACH TAB PO SCH (10:25)
[2024-12-26] MEDS: SERTRALINE 100 MG TAB PO SCH (10:25)
--- NOTE | 2024-12-26 10:31 | P.CRDCN ---
History of Present Illness Consult date: 12/26/24 Consult reason: chest pain History of present illness: This is a 34-year-old male patient of Dr. Cobos with past medical history of coronary artery disease, dyslipidemia, tobacco use, anxiety, ventricular fibrillation which is iatrogenic, hypertension, history of alcohol abuse. We have been asked to evaluate the patient for chest pain. Patient states that he developed chest pain that was very similar to that when he is had previous stent done and it radiated to the left arm. He states he has weakness when he walks. Chest pain is worse with exertion and better when he is at rest but does not go away completely. He describes the pain as heaviness. Patient was last seen in the office on 12/22/2024 and at that time plan was to obtain coronary CTA to assess the ostial RCA which has not been scheduled yet. Patient is seen today in the emergency center waiting for a bed on the observation unit. Patient has been started on the CIWA protocol. Blood pressure 121/71, heart rate 72, pulse ox 99% on room air. Patient is seen today in the emergency center waiting for a bed on the observation unit. On his last hospitalization, it was recommended the patient obtain LifeVest which patient refused. -EKG: Sinus rhythm, nonspecific T wave changes. -Chest x-ray: No acute process. -Laboratory studies: CBC, INR, D-dimer within normal limits. Sodium 135, potassium 4.3, BUN 17 creatinine 0.7. Troponin negative x 3. -Home cardiac medications: Aspirin 81 mg daily, atorvastatin 40 mg at bedtime, Nitrostat as needed. -Echocardiogram performed 12/18/2024 revealed reduced LV systolic function with EF of 45 to 50%. No pericardial effusion. -Cardiac catheterization performed 12/15/2024 revealed intermediate disease involving the ostial RCA. Patient had ventricular fibrillation which required multiple shocks during the procedure. Review Of Systems: At the time of my exam: CONSTITUTIONAL: Denies fever or chills. HEENT: Denies blurred vision, vision changes, or eye pain. Denies hemoptysis CARDIOVASCULAR: Reports chest pain. Denies orthopnea. Denies PND. Denies palpitations RESPIRATORY: Denies shortness of breath. GASTROINTESTINAL: Denies abdominal pain. Denies nausea or vomiting. HEMATOLOGIC: Denies bleeding disorders. GENITOURINARY: Denies any blood in urine. SKIN: Denies puritis. Denies rash. Physical examination: Gen: This is a 34-year-old male in no acute distress VS: reviewed HEENT: Head is atraumatic, normocephalic. Pupils equal, round. Sclerae is anicteric. NECK: Supple. No JVD. LUNGS: Clear to auscultation. No wheezes or rhonchi. No intercostal retractions. HEART: Regular rate and rhythm. Systolic murmur. ABDOMEN: Soft No tenderness. EXTREMITIES: No pedal edema. No calf tenderness. NEUROLOGICAL: Patient is awake, alert and oriented x3. Assessment: Chest pain, possible unstable angina History of coronary artery disease with intermediate disease involving the ostial RCA Recent history of ventricular fibrillation requiring multiple shocks during heart catheterization Dyslipidemia Tobacco use Anxiety Hypertension History of alcohol use Plan: Resume patient's home cardiac medications Start patient on metoprolol tartrate 25 mg twice daily Continue telemetry monitoring Plan to monitor patient overnight Obtain 2-D echocardiogram and Doppler study to assess cardiac structure and function Further recommendations to follow based upon clinical course Thank you kindly for this consultation. Nurse practitioner note has been reviewed, I agree with documented findings and plan of care. Patient was seen and examined. Past Medical History Past Medical History: Heart Failure, Hypertension Additional Past Medical History / Comment(s): Patient states they occasionally have high BP but in correlation to drinking/withdrawal. History of Any Multi-Drug Resistant Organisms: None Reported Past Surgical History: Orthopedic Surgery Additional Past Surgical History / Comment(s): rt ankle, hardware Past Anesthesia/Blood Transfusion Reactions: No Reported Reaction Past Psychological History: Anxiety, Bipolar, Depression Smoking Status: Former smoker Past Alcohol Use History: Abuse, Daily, Heavy Past Drug Use History: Marijuana - Past Family History Mother Family Medical History: Hyperlipidemia Additional Family Medical History / Comment(s): Dad and paternal grandpa history of CA in late 30s Father Family Medical History: Myocardial Infarction (CA) (Dad and paternal grandpa history of CA in late 30s) Medications and Allergies Home Medications Medication Instructions Recorded Confirmed Type Folic Acid 1 mg PO DAILY 30 Days #30 tab 11/29/24 12/26/24 Rx Sertraline [Zoloft] 100 mg PO DAILY 30 Days #30 tab 11/29/24 12/26/24 Rx Thiamine [Vitamin B-1] 100 mg PO DAILY 30 Days #30 tab 11/29/24 12/26/24 Rx Multivitamins, Thera [Multivitamin 1 tab PO DAILY 12/15/24 12/26/24 History (formulary)] Aspirin 81 mg PO DAILY #30 tab 12/19/24 12/26/24 Rx Atorvastatin [Lipitor] 40 mg PO HS #30 tab 12/19/24 12/26/24 Rx Ibuprofen [Motrin] 600 mg PO BID PRN #14 tab 12/19/24 12/26/24 Rx Nitroglycerin Sl Tabs [Nitrostat] 0.4 mg SUBLINGUAL Q5M PRN #30 tab 12/19/24 12/26/24 Rx Allergies Allergy/AdvReac Type Severity Reaction Status Date / Time No Known Allergies Allergy Verified 12/26/24 08:53 Physical Exam Vitals: Vital Signs Temp Pulse Resp BP Pulse Ox 12/26/24 06:00 98.6 F 64 16 128/73 99 12/26/24 01:23 80 17 122/82 96 12/26/24 00:08 96 18 122/90 95 12/25/24 23:33 83 18 133/96 95 12/25/24 16:41 98.8 F 115 H 18 105/75 96 Intake and Output 12/25/24 12/26/24 12/26/24 22:59 06:59 14:59 Other: Weight 108.862 kg Results 12/25/24 16:51 12/25/24 16:51 Cardiac Enzymes 12/25/24 12/25/24 12/25/24 Range/Units 16:51 16:51 23:06 AST 30 (17-59) U/L Troponin I <0.012 <0.012 (0.000-0.034) ng/mL 12/26/24 Range/Units 02:28 AST (17-59) U/L Troponin I 0.019 (0.000-0.034) ng/mL Coagulation 12/25/24 Range/Units 16:51 PT 12.2 (10.0-12.5) sec APTT 24.0 (22.0-30.0) sec CBC 12/25/24 Range/Units 16:51 WBC 9.6 (3.8-10.6) k/uL RBC 5.40 (4.30-5.90) m/uL Hgb 16.6 (13.0-17.5) gm/dL Hct 49.1 (39.0-53.0) % Plt Count 214 (150-450) k/uL Comprehensive Metabolic Panel 12/25/24 Range/Units 16:51 Sodium 135 L (137-145) mmol/L Potassium 4.3 (3.5-5.1) mmol/L Chloride 97 L (98-107) mmol/L Carbon Dioxide 20 L (22-30) mmol/L BUN 17 (9-20) mg/dL Creatinine 0.78 (0.66-1.25) mg/dL Glucose 88 (74-99) mg/dL Calcium 9.7 (8.4-10.2) mg/dL AST 30 (17-59) U/L ALT 29 (4-49) U/L Alkaline Phosphatase 79 (38-126) U/L Total Protein 8.9 H (6.3-8.2) g/dL Albumin 5.2 H (3.5-5.0) g/dL Current Medications Generic Name Dose Route Start Last Admin Trade Name Freq PRN Reason Stop Dose Admin Acetaminophen 650 mg 12/26/24 02:20 Acetaminophen Tab 325 Mg Tab PO Q6HR PRN Fever and/ or Pain Aspirin 81 mg 12/26/24 09:00 Aspirin 81 Mg PO DAILY [facility] Enoxaparin Sodium 40 mg 12/26/24 09:00 Enoxaparin 40 Mg/0.4 Ml Syringe SQ DAILY [facility] Metoprolol Tartrate 25 mg 12/26/24 09:00 Metoprolol Tartrate 25 Mg Tab PO BID [facility] Naloxone HCl 0.2 mg 12/26/24 00:59 Naloxone 0.4 Mg/Ml 1 Ml Vial IV Q2M PRN Opioid Reversal Nitroglycerin 0.4 mg 12/26/24 05:06 Nitroglycerin Sl Tabs 0.4 Mg Tab SUBLINGUAL Q5M PRN Chest Pain Intake and Output 12/25/24 12/26/24 12/26/24 22:59 06:59 14:59 Other: Weight 108.862 kg 12/25/24 16:51 12/25/24 16:51
[2024-12-26] MEDS ORDERED: MAG HYDROX/AL HYDROX/SIMETH 30 ML CUP PO PRN (12:00)
[2024-12-26] MEDS: HYDROcodone/APAP 5-325MG 1 EACH TAB PO PRN (17:23)
--- NOTE | 2024-12-26 18:58 | P.PN ---
Subjective Progress Note Date: 12/26/24 Hospital course: Patient is a 34-year-old male with a past medical history of CAD, V-fib, cardiomyopathy with previous EF of 45 to 50%, hyperlipidemia, anxiety, and alcohol abuse. He presented to the hospital on 12/25/2024 with a chief complaint of chest pain. Patient admitted under services with consultation to cardiology. Physical exam: Vital signs reviewed and stable. General: Nontoxic, no distress and appears stated age. Derm: Skin warm and dry, normal coloration for ethnicity. Head: Atraumatic, normocephalic and symmetric. Eyes: EOM's intact, no lid lag, and anicteric sclera Mouth: no lip lesions, mucus membranes moist Cardiovascular: regular rate and rhythm with normal S1S2, no murmur, positive posterior tibial pulses bilaterally, and cap refill < 2 seconds. Lungs: Respirations even, regular, and unlabored on room air. Lungs CTA bilaterally, no rhonchi, no rales, no wheezing, and no accessory muscle usage. Abdominal: soft, nontender to palpation, no guarding, no appreciable organomegaly Ext: ROM intact. No gross muscle atrophy, no edema, no contractures Neuro: Speech clear, face symmetrical and CN II-XII grossly intact with no noted focal neuro deficits Psych: Alert and oriented to person, place, time, and situation. Appropriate and pleasant affect. Assessment and Plan of Care: Chest pain, rule out acute coronary event History of CAD History of V-fib Nonischemic cardiomyopathy with EF of 45 to 50% Hyperlipidemia Hypertension -Cardiology consulted, appreciate recommendations -Telemetry monitoring -Troponins trended resulting at less than 0.012, less than 0.012, and 0.019. -Continue cardiac medication regimen with aspirin 81 mg daily, atorvastatin 40 mg nightly, and metoprolol 25 mg twice daily. -Echocardiogram Alcohol abuse -Order placed for monitoring of CIWA scores and patient to be medicated with Ativan 0.5 mg every 4 hours as needed for CIWA score of 4-5, Ativan 1 mg every 4 hours for CIWA score of 6-7, Ativan 2 mg every 3 hours CIWA score of 8-9, and Ativan 2 mg every 2 hours forr CIWA score of 10 or greater. -Continuous IV hydration. -Thiamine 100 mg daily, and Multivitamin daily, and Folate 1 mg daily -Seizure, fall, aspiration, and elopement precautions in place. -Urine drug screen -Continued close monitoring of electrolytes and replace as needed. -Telemetry monitoring. Anxiety with depression -Continue Zoloft 100 mg daily. CODE STATUS: Full code DVT prophylaxis: Lovenox Anticipated discharge date: Pending echocardiogram results and clearance by cardiology. Anticipated discharge place: Home Patient was seen independently by Nurse Pracitioner. This document was prepared using [employer]* dictation software. Please allow for errors in lead blender, while rare they do occur. Gt Donaldson NP rendered care for this patient independently, reviewed the findings and plan as documented in the note above and agree with plan. I did not physically speak with or examine the patient on this date. Objective - Vital Signs Vital signs: Vital Signs Temp 98.6 F 12/26/24 06:00 Pulse 72 12/26/24 09:00 Resp 16 12/26/24 09:00 BP 121/71 12/26/24 09:00 Pulse Ox 99 12/26/24 09:00 FiO2 Intake & Output 12/25/24 12/26/24 12/26/24 18:59 06:59 18:59 Weight 108.862 kg - Labs CBC & Chem 7: 12/25/24 16:51 12/25/24 16:51 Labs: Abnormal Lab Results - Last 24 Hours (Table) 12/25/24 Range/Units 16:51 Sodium 135 L (137-145) mmol/L Chloride 97 L (98-107) mmol/L Carbon Dioxide 20 L (22-30) mmol/L Total Bilirubin 1.5 H (0.2-1.3) mg/dL Total Protein 8.9 H (6.3-8.2) g/dL Albumin 5.2 H (3.5-5.0) g/dL
[2024-12-26] MEDS: ATORVASTATIN 40 MG TAB PO SCH (21:38)
--- NOTE | 2024-12-27 07:56 | CA ---
Transthoracic Echo Report Name: Horace Nguyen Age: 34 Gender: M : 1990 Exam Date: 12/26/2024 16:17 Exam Location: [place] [facility] Ht (in): 70 Wt (lb): 240 Ordering Physician: Meenu Woodall Attending/Referring Phys: [id number], Talisha Sandblast Operator Ragini Luz RDCS Procedure CPT: Indications: LVF Cardiac Hx: Limited for LVEF, previous echo 12/18/24 Technical Quality: Good Contrast 1: Total Dose (mL): Contrast 2: Total Dose (mL): MEASUREMENTS (Male / Female) Normal Values 2D ECHO LV Diastolic Diameter PLAX 4.8 cm 4.2 - 5.9 / 3.9 - 5.3 cm LV Systolic Diameter PLAX 3.4 cm IVS Diastolic Thickness 1.3 cm 0.6 - 1.0 / 0.6 - 0.9 cm LVPW Diastolic Thickness 0.7 cm 0.6 - 1.0 / 0.6 - 0.9 cm LV Relative Wall Thickness 0.4 LV Diastolic Volume MOD BP 104.1 cm??? 67 - 155 / 56 - 104 cm??? LV Systolic Volume MOD BP 40.3 cm??? 22 - 58 / 19 - 49 cm??? LV Ejection Fraction MOD BP 61.3 % >= 55 % LV Cardiac Index MOD BP 2330.7 cm???/min???m??? LV Diastolic Volume MOD 4C 96.1 cm??? LV Systolic Volume MOD 4C 35.8 cm??? LV Ejection Fraction MOD 4C 62.7 % LV Cardiac Index MOD 4C 2201.4 cm???/min???m??? LV Diastolic Length 4C 8.5 cm LV Systolic Length 4C 6.3 cm LV Diastolic Volume MOD 2C 108.2 cm??? LV Systolic Volume MOD 2C 41.5 cm??? LV Ejection Fraction MOD 2C 61.7 % LV Cardiac Index MOD 2C 2435.8 cm???/min???m??? LV Diastolic Length 2C 8.9 cm LV Systolic Length 2C 7.0 cm FINDINGS Left Ventricle Left ventricular ejection fraction is estimated at 60 %. Mildly increased septal wall thickness. Left ventricular cavity size normal. No obvious regional wall motion abnormalities. Right Ventricle Right Atrium Left Atrium Mitral Valve Aortic Valve Tricuspid Valve Pulmonic Valve Pericardium No pericardial effusion. Aorta CONCLUSIONS Limited study Normal LV systolic function No pericardial effusion Previewed by: Dr. Mark Cobos MD (Electronically Signed) Final Date: 27 December 2024 07:55
[2024-12-27 09:14] VITALS: BP 105/66; PULSE 88; RESP 16; TEMP 98.5
[2024-12-27] MEDS: ISOSORBIDE MONONITRATE ER 30 MG TAB.ER.24H PO SCH (09:25)
[2024-12-27] MEDS: FOLIC ACID 1 MG TAB PO SCH (09:25)
--- NOTE | 2024-12-27 10:22 | P.DS ---
Providers Date of admission: 12/26/24 01:00 Expected date of discharge: 12/27/24 Attending physician: Fern Zuleta MD Consults: 12/26/24 00:59 Consult Physician Urgent Consulting Provider: [facility] Consult Reason/Comments: Chest pain Do you want consulting provider notified?: Yes, Notify in am Primary care physician: Stated None Hospital Course: Discharge Diagnosis: Chest pain, acute coronary event ruled out History of CAD History of V-fib Nonischemic cardiomyopathy with EF of 45 to 50%, EF improving to 60% on repeat echocardiogram this admission Hyperlipidemia Hypertension Alcohol abuse. Patient strongly advised cessation alcohol use. Anxiety with depression. Continue Zoloft 100 mg daily. Hospital Course: Patient is a 34-year-old male with a past medical history of CAD, V-fib, cardiomyopathy with previous EF of 45 to 50%, hyperlipidemia, anxiety, and alcohol abuse. He presented to the hospital on 12/25/2024 with a chief complaint of chest pain. Upon arrival to our facility, patient underwent evaluation in the emergency department. Vital signs upon arrival show blood pressure 105/75, heart rate 115, respiratory rate 18, temp 98.8 F, and SpO2 of 96% on room air. EKG completed showing sinus tachycardia with a heart rate of 110 bpm and prominent Q waves in inferior leads. X-ray completed negative for acute cardiopulmonary process. Labs completed and reviewed. CBC unremarkable. Coagulation profile normal findings including negative D-dimer of 0.21. BMP showing mild metabolic alkalosis with chloride of 97, bicarb of 20, and anion gap of 18. Magnesium was 1.9. Liver profile showing slightly elevated total bili of 1.5 otherwise normal findings. Troponin was negative at less than 0.012. Patient was admitted under services with consultation to cardiology. Troponins were trended and all negative at less than 0.012, less than 0.012 and 0.019. Echocardiogram was completed showing an improved EF of 60% from previous 45-50% and no significant valvular or structural abnormalities reported. Patient was evaluated by cardiology and medication changes were made. Patient was started on metoprolol 25 mg twice daily and isosorbide mononitrate 30 mg daily. He underwent a 2 night hospitalization for cardiac observation and symptoms improved. Patient ambulating up and down the halls denying any further episodes of chest pain/pressure with exertion. Patient was free from any other complaints with the exception of anxiety. Physical exam: Vital signs reviewed and stable. General: Nontoxic, no distress and appears stated age. Derm: Skin warm and dry, normal coloration for ethnicity. Head: Atraumatic, normocephalic and symmetric. Eyes: EOM's intact, no lid lag, and anicteric sclera Mouth: no lip lesions, mucus membranes moist Cardiovascular: regular rate and rhythm with normal S1S2, no murmur, positive posterior tibial pulses bilaterally, and cap refill < 2 seconds. Lungs: Respirations even, regular, and unlabored on room air. Lungs CTA bilaterally, no rhonchi, no rales, no wheezing, and no accessory muscle usage. Abdominal: soft, nontender to palpation, no guarding, no appreciable organomegaly Ext: ROM intact. No gross muscle atrophy, no edema, no contractures Neuro: Speech clear, face symmetrical and CN II-XII grossly intact with no noted focal neuro deficits Psych: Alert and oriented to person, place, time, and situation. Appropriate and pleasant affect. A total of 34 minutes of time were spent preparing this complex discharge summary. Pt was discharged on 12/27/2024 at 10:22 AM. Patient was seen independently by Nurse Practitioner. This document was prepared using [employer] dictation software. Please allow for errors in oil heater operator while rare they do occur. Gt Donaldson NP rendered care for this patient independently, reviewed the findings and plan as documented in the note above. I did not physically speak with or examine the patient on this date. Patient Condition at Discharge: Stable Plan - Discharge Summary New Discharge Prescriptions: New Isosorbide Mononitrate ER [Imdur] 30 mg PO DAILY 30 Days #30 tab Metoprolol Tartrate [Lopressor] 25 mg PO BID 30 Days #60 tab Continue Folic Acid 1 mg PO DAILY 30 Days #30 tab Thiamine [Vitamin B-1] 100 mg PO DAILY 30 Days #30 tab Aspirin 81 mg PO DAILY #30 tab Ibuprofen [Motrin] 600 mg PO BID PRN #14 tab PRN Reason: Pain Sertraline [Zoloft] 100 mg PO DAILY 30 Days #30 tab Multivitamins, Thera [Multivitamin (formulary)] 1 tab PO DAILY Atorvastatin [Lipitor] 40 mg PO HS #30 tab Nitroglycerin Sl Tabs [Nitrostat] 0.4 mg SUBLINGUAL Q5M PRN #30 tab PRN Reason: Chest Pain Discharge Medication List Folic Acid 1 mg PO DAILY 30 Days #30 tab 11/29/24 [Rx] Sertraline [Zoloft] 100 mg PO DAILY 30 Days #30 tab 11/29/24 [Rx] Thiamine [Vitamin B-1] 100 mg PO DAILY 30 Days #30 tab 11/29/24 [Rx] Multivitamins, Thera [Multivitamin (formulary)] 1 tab PO DAILY 12/15/24 [History] Aspirin 81 mg PO DAILY #30 tab 12/19/24 [Rx] Atorvastatin [Lipitor] 40 mg PO HS #30 tab 12/19/24 [Rx] Ibuprofen [Motrin] 600 mg PO BID PRN #14 tab 12/19/24 [Rx] Nitroglycerin Sl Tabs [Nitrostat] 0.4 mg SUBLINGUAL Q5M PRN #30 tab 12/19/24 [Rx] Isosorbide Mononitrate ER [Imdur] 30 mg PO DAILY 30 Days #30 tab 12/27/24 [Rx] Metoprolol Tartrate [Lopressor] 25 mg PO BID 30 Days #60 tab 12/27/24 [Rx] Follow up Appointment(s)/Referral(s): Mark Cobos MD [STAFF PHYSICIAN] - 2 Weeks (Office will call with appointment date and time) [facility] [NON-STAFF] - 1 Week (Please call and schedule first available appointment prior to discharging patient.) Patient Instructions/Handouts: Angina (DC), Chest Pain (DC) Activity/Diet/Wound Care/Special Instructions: Activity: As tolerated. Take breaks as needed. Diet: Heart healthy and carb consistent diet. Avoid salts, or foods with hidden salts such as canned or boxed foods and frozen dinners. Extra salt makes your heart work harder and traps the fluid in your body for longer. Special Instructions: Take all of your medications as directed and remember to keep all of your doctor's appointments and follow-up as needed. Thank you for allowing us to participate in your care, it was truly a pleasure having you for our patient!!! Discharge/Stand Alone Forms: Area PCPs Discharge Disposition: HOME SELF-CARE
--- NOTE | 2024-12-27 10:59 | P.PN ---
Subjective Progress Note Date: 12/27/24 Consult reason: chest pain History of present illness: This is a 34-year-old male patient of Dr. Cobos with past medical history of coronary artery disease, dyslipidemia, tobacco use, anxiety, ventricular fibrillation which is iatrogenic, hypertension, history of alcohol abuse. We have been asked to evaluate the patient for chest pain. Patient states that he developed chest pain that was very similar to that when he is had previous stent done and it radiated to the left arm. He states he has weakness when he walks. Chest pain is worse with exertion and better when he is at rest but does not go away completely. He describes the pain as heaviness. Patient was last seen in the office on 12/22/2024 and at that time plan was to obtain coronary CTA to assess the ostial RCA which has not been scheduled yet. Patient is seen today in the emergency center waiting for a bed on the observation unit. Patient has been started on the CIWA protocol. Blood pressure 121/71, heart rate 72, pulse ox 99% on room air. Patient is seen today in the emergency center waiting for a bed on the observation unit. On his last hospitalization, it was recommended the patient obtain LifeVest which patient refused. -EKG: Sinus rhythm, nonspecific T wave changes. -Chest x-ray: No acute process. -Laboratory studies: CBC, INR, D-dimer within normal limits. Sodium 135, potassium 4.3, BUN 17 creatinine 0.7. Troponin negative x 3. -Home cardiac medications: Aspirin 81 mg daily, atorvastatin 40 mg at bedtime, Nitrostat as needed. -Echocardiogram performed 12/18/2024 revealed reduced LV systolic function with EF of 45 to 50%. No pericardial effusion. -Cardiac catheterization performed 12/15/2024 revealed intermediate disease involving the ostial RCA. Patient had ventricular fibrillation which required multiple shocks during the procedure. 12/27 Patient is seen and examined on the observation floor. He states his pain in the chest is there but it is okay right now because he just received a Morton. Yesterday we added on Lopressor which she has received. Also discussed adding on Imdur. Blood pressure 105/66, heart rate 88, pulse ox 99% on room air. Limited echocardiogram reveals EF of 60%, no pericardial effusion. Discussed results of the test with the patient and plan is for patient to continue the new medications at home and follow-up in the office with Dr. Cobos. Physical examination: Gen: This is a 34-year-old male in no acute distress VS: reviewed HEENT: Head is atraumatic, normocephalic. Pupils equal, round. Sclerae is anicteric. NECK: Supple. No JVD. LUNGS: Clear to auscultation. No wheezes or rhonchi. No intercostal retractio ns. HEART: Regular rate and rhythm. Systolic murmur. ABDOMEN: Soft No tenderness. EXTREMITIES: No pedal edema. No calf tenderness. NEUROLOGICAL: Patient is awake, alert and oriented x3. Assessment: Chest pain, possible unstable angina History of coronary artery disease with intermediate disease involving the ostial RCA Recent history of ventricular fibrillation requiring multiple shocks during heart catheterization Dyslipidemia Tobacco use Anxiety Hypertension History of alcohol use Plan: Continue patient's home cardiac medications Continue patient on metoprolol tartrate 25 mg twice daily Start patient on Imdur 30 mg daily Patient is cleared for discharge from cardiology May follow-up in the office with Dr. Cobos in 2 weeks. Nurse practitioner note has been reviewed, I agree with documented findings and plan of care. Patient was seen and examined. Objective - Vital Signs Vital signs: Vital Signs Temp 98.1 F 12/27/24 02:11 Pulse 77 12/27/24 02:11 Resp 14 12/27/24 02:11 BP 110/68 12/27/24 02:11 Pulse Ox 96 12/27/24 02:11 FiO2 Intake & Output 12/26/24 12/27/24 12/27/24 18:59 06:59 18:59 Weight 108.862 kg Other: # Voids 2 - Labs CBC & Chem 7: 12/25/24 16:51 12/25/24 16:51
== END 2024-12-27 10:42 | disposition home or self-care (01) ==
LOC: EC 15:54 → 6NMEDSUR 12-26 01:00
PROVIDERS: ADMIT Internal Medicine; ATTEND Internal Medicine
DX: R07.89 Other chest pain (principal); E87.3 Alkalosis; I25.10 Atherosclerotic heart disease of native coronary artery without angina pectoris; I49.01 Ventricular fibrillation; I42.8 Other cardiomyopathies; I10 Essential (primary) hypertension; E78.5 Hyperlipidemia, unspecified; F31.9 Bipolar disorder, unspecified; F41.9 Anxiety disorder, unspecified; F10.10 Alcohol abuse, uncomplicated; M79.602 Pain in left arm; R53.1 Weakness; E66.9 Obesity, unspecified; Z68.34 Body mass index [BMI] 34.0-34.9, adult; Z79.82 Long term (current) use of aspirin; Z79.899 Other long term (current) drug therapy; Z87.891 Personal history of nicotine dependence
CPT/HCPCS: 96361 ×2; 96372; 96374; 96375 ×2; 99285; 36415; 93005; 93308; 85379; 80053; 83735; 84484 ×2; 85025; 85610; 85730; 71046; G0378 ×2; J2060; J2270; J1650; J1885

== ENCOUNTER 2025-04-16 15:11 | Observation (INO) | payer OTHER ==
--- NOTE | 2025-04-16 15:50 | ED ---
General Adult HPI - General Chief complaint: Psychiatric Symptoms Stated complaint: Mental health eval/ETOH Time Seen by Provider: 04/16/25 15:26 Source: patient Mode of arrival: ambulatory Limitations: no limitations - History of Present Illness Initial comments: 34-year-old male presenting for mental health evaluation. Patient is currently intoxicated, uncooperative poor historian. He reports suicidal ideation, denies any plan. He tells me "I do not want to talk right now". He is showing no acute signs of distress. He is resting in the stretcher. - Related Data Home Medications Medication Instructions Recorded Confirmed Aspirin EC [Ecotrin Low Dose] 81 mg PO DAILY 04/17/25 04/17/25 Disulfiram [Antabuse] 250 mg PO DAILY 04/17/25 04/17/25 Nitroglycerin Sl Tabs [Nitrostat] 0.4 mg SL Q5M PRN 04/17/25 04/17/25 Omeprazole 20 mg PO DAILY 04/17/25 04/17/25 busPIRone HCL 15 mg PO BID 04/17/25 04/17/25 minoxidiL [Loniten] 2.5 mg PO DAILY 04/17/25 04/17/25 Previous Rx's Medication Instructions Recorded Sertraline [Zoloft] 100 mg PO DAILY 30 Days #30 tab 11/29/24 Atorvastatin [Lipitor] 40 mg PO HS #30 tab 12/19/24 Isosorbide Mononitrate ER [Imdur] 30 mg PO DAILY 30 Days #30 tab 12/27/24 Metoprolol Tartrate [Lopressor] 25 mg PO BID 30 Days #60 tab 12/27/24 LORazepam [Ativan] 1 mg PO Q8HR PRN tab 04/18/25 Ibuprofen [Motrin] 400 mg PO TID-W/MEALS tab 04/20/25 Sulfamethoxazole/Trimethoprim 1 each PO BID 7 Days #14 tablet 04/20/25 [Bactrim DS 800-160 mg] Allergies Allergy/AdvReac Type Severity Reaction Status Date / Time No Known Allergies Allergy Verified 04/17/25 09:27 Review of Systems ROS Statement: Those systems with pertinent positive or pertinent negative responses have been documented in the HPI. ROS Other: All systems not noted in ROS Statement are negative. Past Medical History Past Medical History: Chest Pain / Angina, Hypertension Additional Past Medical History / Comment(s): Patient states they occasionally have high BP but in correlation to drinking/withdrawal, last drink over a month ago, palpiation, chest pain, heart cath 12/2024 History of Any Multi-Drug Resistant Organisms: None Reported Past Surgical History: Orthopedic Surgery Additional Past Surgical History / Comment(s): rt ankle, hardware Past Anesthesia/Blood Transfusion Reactions: No Reported Reaction Past Psychological History: Anxiety, Bipolar, Depression Smoking Status: Former smoker Past Alcohol Use History: Abuse, Daily, Heavy Past Drug Use History: Marijuana - Past Family History Mother Family Medical History: Hyperlipidemia Additional Family Medical History / Comment(s): Dad and paternal grandpa history of ND in late 30s Father Family Medical History: Myocardial Infarction (ND) General Exam Limitations: no limitations General appearance: alert, in no apparent distress, appears intoxicated Head exam: Present: atraumatic, normocephalic, normal inspection Eye exam: Present: normal appearance Neck exam: Present: normal inspection Respiratory exam: Absent: respiratory distress, stridor, accessory muscle use Neurological exam: Present: alert, oriented X3 Skin exam: Present: normal color Course Vital Signs 04/16/25 04/16/25 04/17/25 15:19 23:52 04:54 Temperature 99.7 F H Pulse Rate 129 H 88 102 H Pulse Rate [ Pulse Oximetery ] Respiratory 17 17 18 Rate Blood Pressure 101/63 91/51 112/82 Blood Pressure [Left Arm] O2 Sat by Pulse 96 96 96 Oximetry 04/17/25 04/17/25 05:49 07:00 Temperature 98.5 F 98.4 F Pulse Rate Pulse Rate [ 87 Pulse Oximetery ] Respiratory 20 Rate Blood Pressure Blood Pressure 113/73 [Left Arm] O2 Sat by Pulse 95 Oximetry Medical Decision Making - Medical Decision Making Was pt. sent in by a medical professional or institution (, PA, RAILROAD ACCOUNTANT, urgent care, hospital, or assisted...) When possible be specific @ -No Did you speak to anyone other than the patient for history (EMS, parent, family, police, friend...)? What history was obtained from this source @ -No Did you review nursing and triage notes (agree or disagree)? Why? @ -I reviewed and agree with nursing and triage notes Were old charts reviewed (outside hosp., previous admission, EMS record, old EKG, old radiological studies, urgent care reports/EKG's, assisted records)? Report findings @ -No old charts were reviewed Differential Diagnosis (chest pain, altered mental status, abdominal pain women, abdominal pain men, vaginal bleeding, weakness, fever, dyspnea, syncope, headache, dizziness, GI bleed, back pain, seizure, CVA, palpatations, mental health, musculoskeletal)? @ -Differential Mental Health Depression, anxiety, bipolar, psychosis, schizophrenia, borderline personality, situational depression, adjustment disorder, behavioral disorder, brain tumor, malingering, substance abuse, encephalopathy, medication reaction, dementia, hypothyroidism, degenerative neurologic disorder, lupus.... This is not meant to be all-inclusive list EKG interpreted by me (3pts min.). @ -As above X-rays interpreted by me (1pt min.). @ -None done CT interpreted by me (1pt min.). @ -None done U/S interpreted by me (1pt. min.). @ -None done What testing was considered but not performed or refused? (CT, X-rays, U/S, labs)? Why? @ -None What meds were considered but not given or refused? Why? @ -None Did you discuss the management of the patient with other professionals (professionals i.e. , PA, RAILROAD ACCOUNTANT, lab, RT, psych nurse, social worker assistant, orchestra leader, teacher, landcare officer, classification case manager)? Give summary @ -Spoke with the EPS nurse who attempted to complete an evaluation but states that the patient was not feeling well and she could not complete the evaluation at this time. I then spoke with the [facility] provider on-call stating that the patient is going through alcohol withdrawal and he should be medically admitted with psych on consult, they accepted admission Was smoking cessation discussed for >3mins.? @ -No Was critical care preformed (if so, how long)? @ -No Were there social determinants of health that impacted care today? How? (Homelessness, low income, unemployed, alcoholism, drug addiction, transportatio n, low edu. Level, literacy, decrease access to med. care, [facility], rehab)? @ -No Was there de-escalation of care discussed even if they declined (Discuss DNR or withdrawal of care, Hospice)? DNR status @ -No What co-morbidities impacted this encounter? (DM, HTN, Smoking, COPD, CAD, Cancer, CVA, ARF, Chemo, Hep., AIDS, mental health diagnosis, sleep apnea, morbid obesity)? @ -None Was patient admitted / discharged? Hospital course, mention meds given and route, prescriptions, significant lab abnormalities, going to OR and other pertinent info. @ -34-year-old male presenting with suicidal ideation. The patient is currently intoxicated, he does admit to daily alcohol use. Patient is currently poor historian and is not willing to answer my questions. EPS attempted to evaluate the patient when he was sober, patient was not feeling well and admitting to headache, nausea, anxiety, shakiness. Patient likely beginning alcohol withdrawal, he will be medically admitted with psychiatric consult. Patient is agreeable this plan. I discussed this case with my attending Dr. Everett Undiagnosed new problem with uncertain prognosis? @ -No Drug Therapy requiring intensive monitoring for toxicity (Heparin, Nitro, Insulin, Cardizem)? @ -No Were any procedures done? @ -No Diagnosis/symptom? @ -Alcohol withdrawal, suicidal ideation Acute, or Chronic, or Acute on Chronic? @ -Acute Uncomplicated (without systemic symptoms) or Complicated (systemic symptoms)? @ -Complicated Side effects of treatment? @ -No Exacerbation, Progression, or Severe Exacerbation? @ -No Poses a threat to life or bodily function? How? (Chest pain, USA, ND, pneumonia, PE, COPD, DKA, ARF, appy, cholecystitis, CVA, Diverticulitis, Homicidal, Suicidal, threat to staff... and all critical care pts) @ -Yes - Lab Data Result diagrams: 04/18/25 04:32 04/18/25 04:32 Lab Results 04/16/25 Range/Units 22:18 Urine Opiates Screen Not Detected (NotDetected) Ur Oxycodone Screen Not Detected (NotDetected) Urine Methadone Screen Not Detected (NotDetected) Ur Barbiturates Screen Not Detected (NotDetected) U Tricyclic Antidepress Not Detected (NotDetected) Ur Phencyclidine Scrn Not Detected (NotDetected) Ur Amphetamines Screen Not Detected (NotDetected) U Methamphetamines Scrn Not Detected (NotDetected) U Benzodiazepines Scrn Not Detected (NotDetected) Urine Cocaine Screen Not Detected (NotDetected) U Marijuana (THC) Screen Not Detected (NotDetected) Disposition Clinical Impression: Alcohol withdrawal, Suicidal ideation Disposition: ADMITTED IP TO THIS HOSP Condition: Fair Time of Disposition: 00:29
[2025-04-16] MEDS: ONDANSETRON ODT 4 MG TAB PO STA (22:27)
[2025-04-16] MEDS: LORazepam 1 MG TAB PO STA (22:27)
[2025-04-16 23:13] LABS: Amphetamine Screen,Urine Not Detected (NotDetected); Barbiturate Screen,Urine Not Detected (NotDetected); Benzodiazepines Screen,Urine Not Detected (NotDetected); Cocaine Screen,Urine Not Detected (NotDetected); Methadone Screen, Urine Not Detected (NotDetected); Opiate Screen,Urine Not Detected (NotDetected); Oxycodone Screen, Urine Not Detected (NotDetected); Phencyclidine Screen,Urine Not Detected (NotDetected); Tricyclic Antidepressant,Urine Not Detected (NotDetected); Urn Cannabinoid Scrn Not Detected (NotDetected)
[2025-04-16] MEDS ORDERED: LORazepam 1 MG TAB PO PRN ×4 (23:51)
[2025-04-16] MEDS ORDERED: LORazepam 0.5 MG TAB PO PRN (23:51)
[2025-04-17] MEDS ORDERED: LORazepam 1 MG/0.5 ML VIAL IV PRN ×2 (00:11)
[2025-04-17] MEDS ORDERED: NALOXONE 0.4 MG/ML 1 ML VIAL IV PRN (00:27)
[2025-04-17] MEDS ORDERED: ONDANSETRON 4 MG/2 ML VIAL IVP PRN (00:27)
[2025-04-17 00:52] LABS: Basophils # (A) 0.04 10*3/uL (0.00-0.10); Basophils % (A) 0.7 %; Eosinophils # (A) 0.08 10*3/uL (0.04-0.35); Eosinophils % (A) 1.4 %; HCT 38.3 % (39.6-50.0); HGB 13.1 g/dL (13.0-17.0); Lymphocytes # (A) 1.64 10*3/uL (0.90-5.00); Lymphocytes % (A) 27.8 %; MCH 30.6 pg (27.0-32.0); MCHC 34.2 g/dL (32.0-37.0); MCV 89.5 fL (80.0-97.0); Mean Platelet Volume 11.1 fL (9.5-12.2); Monocytes # (A) 0.59 10*3/uL (0.20-1.00); Neutrophils # (A) 3.53 10*3/uL (1.80-7.70); Neutrophils % (A) 59.9 %; Platelet Count 207 10*3/uL (140-440); RBC 4.28 10*6/uL (4.40-5.60); RDW 12.6 % (11.5-14.5); WBC 5.89 10*3/uL (4.50-10.00)
[2025-04-17 01:11] LABS: ALT 22 U/L (4-49); AST 22 U/L (17-59); African American GFR (CKD) >90 (>60 ml/min/1.73 sqM); Albumin 4.1 g/dL (3.5-5.0); Alkaline Phosphatase 65 U/L (38-126); Anion Gap 13 mmol/L; Blood Urea Nitrogen 12 mg/dL (9-20); Calcium 8.7 mg/dL (8.4-10.2); Carbon Dioxide 25 mmol/L (22-30); Chloride 109 mmol/L (98-107); Glucose 81 mg/dL (74-99); Non-African American GFR(CKD) >90 (>60 ml/min/1.73 sqM); Potassium 3.6 mmol/L (3.5-5.1); Sodium 147 mmol/L (137-145); Total Bilirubin 0.5 mg/dL (0.2-1.3); Total Protein 6.6 g/dL (6.3-8.2)
[2025-04-17] MEDS: LORazepam 1 MG/0.5 ML VIAL IV PRN (05:41)
[2025-04-17] MEDS: METOPROLOL TARTRATE 25 MG TAB PO SCH (12:43)
--- NOTE | 2025-04-17 13:00 | P.CN ---
Psychiatric Consult - . Consult date: 04/17/25 Consult:: 04/17/25 12:41 IDENTIFYING DATA: This patient is a 34-year-old male currently unemployed, living at [place] and single REASON FOR REFERRAL: Psychiatry was consulted for suicidal statements HISTORY OF PRESENT ILLNESS: The patient presented to the hospital intoxicated noting that he was suicidal. He notes a plan of drinking himself to or finding a high place and jumping off. He notes that he relapsed on alcohol on Wednesday and continued drinking through to Wednesday. He notes that the suicidal thoughts are chronic but when he is depressed they get worse. I asked if he left today he notes that it is possible that he would go through with his suicide attempt. He notes protective factors including his family. He notes once he starts thinking of his family it helps him to motivate to go to the emergency room to get help. Notes that he has horrible and anxiety. He notes that he has panic attacks that include palpitations, sweating, feelings of that last a couple of minutes. He notes no triggers. However, he does note when he is in public he can have a panic attack and feels that he is being evaluated. Additionally, he notes that he is a chronic worrywart, has problems initiating and maintaining sleep, has muscle tension, gets nauseated and fatigued when over anxious. He notes that his depression has been chronic for years. He currently rates his depression 7/10 and his anxiety 9/10 with 10 being worst. He notes that he is sleeping well but feels rundown. He notes that appetite is good but concentration fluctuates. He has feelings of worthlessness. He denies any bouts of crying but notes that he feels guilt and shame. He denies any homicidal thoughts or access to guns. Collateral: None Review of psychiatric systems: Bipolar disorder-negative OCD-negative PTSD-negative Psychosis-negative PAST PSYCHIATRIC HISTORY: The patient has a a history of use disorder, depression, anxiety. The patient is currently on Zoloft 100 mg and BuSpar 15 mg twice daily. The patient has multiple hospitalizations in the past most recently November 2024. The patient currently resides over at [place] and the doctor there is managing his mental health medications. He notes that he is not group for substance abuse. The patient notes history of trying to drink himself to but no specific suicide attempts. The patient denies any abuse in childhood. The patient notes a history of drunken a disorder and fighting. PAST MEDICAL HISTORY: Chest pain Hypercholesterolemia Hypertension ALLERGIES: No known drug allergies CHEMICAL DEPENDENCY HISTORY: Caffeine-positive Tobacco-recently quit vaping Alcohol-patient notes heavy drinking starting in his 20s. Currently he notes that he consumes several pints a day. Notes a history of DTs but denies any seizures going through detox. He has an unknown number of detoxes and rehabs. He has been on naltrexone and Antabuse in the past. He has 1 prior DUI. Multiple members in his family suffer from substance abuse. Cannabis-past history FAMILY PSYCHIATRIC/SUBSTANCE USE HISTORY: The patient notes that his father and mother suffer from bipolar disorder. He notes multiple siblings suffering from anxiety. He notes that his father suffers from alcoholism. SOCIAL HISTORY: The patient was born and raised in [place] [place] and notes that his childhood was "good". He notes that he completed high school with good grades. 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 He notes that he is currently not relationship. He believes in a higher power and denies any service. MENTAL STATUS EXAM: General Appearance: Patient appears to be stated age is alert, pleasant, and cooperative. Patient appears to have poor hygiene and grooming wearing hospital gown with poor eye contact. Behavior: Patient is calmly lying in bed without any agitated behavior. Speech: Patient's speech is fluent and nonpressured. Mood/Affect: Patient reports their mood is "severely depressed", affect is congruent Suicidality/Homicidality: Patient denies having any suicidal or homicidal ideation intent or plan. Perceptions: Patient denies any visual hallucinations and denies any auditory hallucinations Though content/process: There is no evidence of any delusional thought content and thought process is linear and goal-directed. Memory and concentration: AOX3, grossly intact for the purposes of this session. Can spell "WORLD" backwards Judgment and insight: Poor Diagnosis: 34-year-old male presenting after relapsing on alcohol for several days. The patient developed suicidal thoughts and has a history of when drinking having intense suicidal thoughts because his depression gets worse. He also notes that sobriety causes a lot of feelings including intense anxiety feelings and this is the main trigger of him relapsing on alcohol. The patient has a specific plan of jumping off a high place or drinking himself to . At this time it is felt that the patient is a danger to himself and requires further hospitalization. PLAN: -At this time patient DOES meet criteria for inpatient psychiatric admission. -Would recommend the following medication changes/additions: Continue Zoloft 100 mg take 1 tablet by mouth once daily for depression/anxiety BuSpar 15 mg take 1 tablet by mouth twice daily for depression and anxiety -CIWA protocol with PRN Ativan for alcohol withdrawal. Continue to monitor vital signs. -Continue 1:1 sitter for safety -Cannot leave AMA at this time. Patient will need a petition and certification if attempting to leave AMA. -flare worker to provide patient with outpatient mental health/psychiatry resources for appropriate follow up upon discharge -Privacy Analyst spoke with patient about substance abuse and the harmful effects on medical and mental health, patient verbally understood and agreed. -flare worker to provide patient substance use treatment resources including AA/NA meetings in the community. -flare worker to provide patient with access line number to call for inpatient substance rehab -When medically stable, patient is eligible for transfer to a psych bed when available. -Communicated plan to patient's nurse -Will continue to follow along -Please contact with any questions. 04/17/25 12:48 04/17/25 12:51
--- NOTE | 2025-04-17 15:24 | HP ---
HISTORY AND PHYSICAL CHIEF COMPLAINT: Alcohol intoxication as well as suicidal ideation. HISTORY OF PRESENT ILLNESS: This is a 34-year-old gentleman with a past medical history of anxiety, bipolar, depression, was admitted with alcohol intoxication as well as suicidal ideation. There is no history of any fever, rigors, or chills. The patient had alcohol withdrawal symptoms previously. PAST MEDICAL HISTORY: History of hypertension, anxiety, bipolar, depression. Rest of the history and chart is also reviewed. HOME MEDICATIONS: Reviewed include Nitrostat. Dose and rest of medications reviewed. ALLERGIES: None. FAMILY HISTORY: History of hyperlipidemia. SOCIAL HISTORY: History of alcohol, THC. REVIEW OF SYSTEMS: Fourteen-point review of systems is negative, except as mentioned earlier. PHYSICAL EXAMINATION: VITAL SIGNS: Pulse 87, blood pressure 130/70, respirations 20. HEENT: Conjunctivae normal. NECK: No jugular venous distention. CARDIOVASCULAR: S1 and S2 ABDOMEN: Soft. LEGS: No edema. LABORATORY DATA: Sodium 140. Rest of the labs are noted. ASSESSMENT: 1. Alcohol intoxication. 2. Suicidal ideation. 3. Hypertension history. 4. Anxiety, bipolar, depression. 5. Polysubstance abuse. RECOMMENDATIONS: This 34-year-old gentleman presented with multiple complex medical issues. We will monitor the patient closely. Continue the current medical management and [facility] protocol. I recommend Psychiatric consultation. I will recommend repeat labs. Monitor sodium closely. The patient is medically cleared. The patient might require intense psychiatric evaluation and also recommend alcohol cessation and rehab also. RACHEAL / SWAPNAN: [id number] / MTDD
[2025-04-17] MEDS: ATORVASTATIN 40 MG TAB PO SCH (19:36)
[2025-04-17] MEDS: busPIRone HCl 5 MG TAB PO SCH (19:36)
[2025-04-18] MEDS: ACETAMINOPHEN TAB 325 MG TAB PO STA (06:04)
[2025-04-18 08:03] LABS: Basophils # (A) 0.06 X 10*3/uL (0.00-0.10); Basophils % (A) 0.9 %; Eosinophils # (A) 0.22 X 10*3/uL (0.04-0.35); Eosinophils % (A) 3.4 %; HCT 40.4 % (39.6-50.0); HGB 13.5 g/dL (13.0-17.0); Lymphocytes # (A) 1.37 X 10*3/uL (0.90-5.00); Lymphocytes % (A) 21.1 %; MCH 30.6 pg (27.0-32.0); MCHC 33.4 g/dL (32.0-37.0); MCV 91.6 FL (80.0-97.0); Mean Platelet Volume 11.3 FL (9.5-12.2); Monocytes # (A) 0.62 X 10*3/uL (0.20-1.00); Monocytes % (A) 9.6 %; NRBC Per 100 WBC 0 X 10*3/uL (0.00-0.01); Neutrophils # (A) 4.21 X 10*3/uL (1.80-7.70); Neutrophils % (A) 64.8 %; Platelet Count 189 X 10*3/uL (140-440); RBC 4.41 X 10*6/uL (4.40-5.60); WBC 6.49 X 10*3/uL (4.50-10.00)
[2025-04-18 09:06] LABS: BUN/Creat Ratio 14.86 Ratio (12.00-20.00); Blood Urea Nitrogen 10.4 mg/dL (9.0-27.0); Calcium 8.8 mg/dL (8.7-10.3); Carbon Dioxide 24.7 mmol/L (21.6-31.8); Chloride 105 mmol/L (96-109); Glucose 92 mg/dL (70-110); Potassium 3.6 mmol/L (3.5-5.5); Sodium 141 mmol/L (135-145)
[2025-04-18] MEDS: ASPIRIN 81 MG PO SCH (09:14)
[2025-04-18] MEDS: PANTOPRAZOLE 40 MG TABLET PO SCH ×2 (09:14→20:49)
[2025-04-18] MEDS: SERTRALINE 100 MG TAB PO SCH (09:14)
[2025-04-18] MEDS: ISOSORBIDE MONONITRATE ER 30 MG TAB.ER.24H PO SCH (09:14)
[2025-04-18] MEDS: minoxidiL 2.5 MG TAB PO SCH (09:14)
[2025-04-18] MEDS: DISULFIRAM 250 MG PO SCH (09:16)
--- NOTE | 2025-04-18 13:36 | P.CN ---
Psychiatric Consult - . Consult date: 04/18/25 Consult:: 04/18/25 13:31 IDENTIFYING DATA: This patient is a 34-year-old male currently unemployed, living at [place] and single REASON FOR REFERRAL: Psychiatry was consulted for suicidal statements HISTORY OF PRESENT ILLNESS: I met the patient in his room. The patient was lying down in bed and presented slightly uncomfortable. The patient noted that he was definitely not suicidal. He notes that he was severely depressed and anxious. When asking if he would like to come down to the psychiatric floor once medically cleared he was ambiguous and did not know and would have to look at his medications to make that decision. The patient notes that he slept "too good". He notes no energy at this time and that he feels that he is continually going to detox right now. He feels that his appetite is good as well as his concentration. The nurse practitioner taking care of the patient informed me that the patient had stated that he was in a "bad place". PAST PSYCHIATRIC HISTORY: The patient has a a history of use disorder, depression, anxiety. The patient is currently on Zoloft 100 mg and BuSpar 15 mg twice daily. The patient has multiple hospitalizations in the past most recently November 2024. The patient currently resides over at [place] and the doctor there is managing his mental health medications. He notes that he is not group for substance abuse. The patient notes history of trying to drink himself to but no specific suicide attempts. The patient denies any abuse in childhood. The patient notes a history of drunken a disorder and fighting. PAST MEDICAL HISTORY: Chest pain Hypercholesterolemia Hypertension ALLERGIES: No known drug allergies CHEMICAL DEPENDENCY HISTORY: Caffeine-positive Tobacco-recently quit vaping Alcohol-patient notes heavy drinking starting in his 20s. Currently he notes that he consumes several pints a day. Notes a history of DTs but denies any seizures going through detox. He has an unknown number of detoxes and rehabs. He has been on naltrexone and Antabuse in the past. He has 1 prior DUI. Multiple members in his family suffer from substance abuse. Cannabis-past history MENTAL STATUS EXAM: General Appearance: Patient appears to be stated age is alert, pleasant, and cooperative. Patient appears to have poor hygiene and grooming wearing hospital gown with poor eye contact. Behavior: Patient is calmly lying in bed but appeared to be uncomfortable Speech: Patient's speech is fluent and nonpressured. Mood/Affect: Patient reports their mood is "severely depressed", affect is congruent Suicidality/Homicidality: Patient denies having any suicidal or homicidal ideation intent or plan. Perceptions: Patient denies any visual hallucinations and denies any auditory hallucinations Though content/process: There is no evidence of any delusional thought content and thought process is linear and goal-directed. Memory and concentration: AOX3, grossly intact for the purposes of this session. Can spell "WORLD" backwards Judgment and insight: Poor Diagnosis: 34-year-old male presenting after relapsing on alcohol for several days. The patient's presenting extremely ambiguous about what he wants to do. Additionally he is telling staff that he is not in a good place and telling this practitioner a different thing. At this point whether he wants to come in voluntarily or not it is recommended that he be admitted to the hospital. Additionally since receiving the other information it is felt that he should be continued on one-to-one. PLAN: -At this time patient DOES meet criteria for inpatient psychiatric admission. -Would recommend the following medication changes/additions: Continue Zoloft 100 mg take 1 tablet by mouth once daily for depression/anxiety BuSpar 15 mg take 1 tablet by mouth twice daily for depression and anxiety -CIWA protocol with PRN Ativan for alcohol withdrawal. Continue to monitor vital signs. -Continue 1:1 sitter for safety -Cannot leave AMA at this time. Patient will need a petition and certification if attempting to leave AMA. -marshmallow machine worker to provide patient with outpatient mental health/psychiatry resources for appropriate follow up upon discharge -Associate Research Scientist spoke with patient about substance abuse and the harmful effects on medical and mental health, patient verbally understood and agreed. -marshmallow machine worker to provide patient substance use treatment resources including AA/NA meetings in the community. -marshmallow machine worker to provide patient with access line number to call for inpatient substance rehab -When medically stable, patient is eligible for transfer to a psych bed when available. -Communicated plan to patient's nurse -Will continue to follow along -Please contact with any questions.
[2025-04-18] MEDS: LORazepam 1 MG TAB PO PRN (13:55)
--- NOTE | 2025-04-18 16:58 | P.DS ---
Providers Date of admission: 04/17/25 00:27 Expected date of discharge: 04/18/25 Attending physician: Serg Calzada Consults: 04/17/25 00:27 Consult Physician Urgent Consulting Provider: Psychiatry - MPH Psychiatry Consult Reason/Comments: Suicidal ideation Do you want consulting provider notified?: Yes, Notify in am Primary care physician: Stated None Hospital Course: Final diagnosis Alcohol intoxication with concern for acute alcohol withdrawal Suicidal ideation Hypertension history Anxiety/bipolar/depression Polysubstance abuse GI prophylaxis DVT prophylaxis Full code Discharge disposition Patient is being discharged in a stable condition with guarded prognosis to 3 W. inpatient psychiatric unit here at [facility]. Patient will follow-up with his primary care provider in the outpatient setting upon discharge. Strongly recommend AA meetings and inpatient alcohol rehab. Total time taken is greater than 35 minutes. Hospital course This is a 34-year-old male who was recently admitted with acute alcohol intoxication with suicidal ideation maintained on CIWA protocol. Patient with suicidal thoughts was evaluated by psychiatry on admission initially meeting inpatient criteria for continued suicidal ideation. Patient was admitted to medicine for EtOH withdrawal and was re-evaluated by psychiatry today and cleared for discharge home although patient is actively reporting and stating "he is not in a safe place and is had". Patient reported with suicide sitter and attending at bedside he continued to have suicidal ideations. Patient was petitioned and medically started as patient is medically stable for transfer to 3 . Psychiatry was notified and agreeable to admit the patient to 3 W. once a bed is available. Please refer to other consultation notes for further HPI. Medicine will follow on 3 W. Currently no reports of chest pain, shortness of breath, or palpitations. Patient is afebrile. No reports of nausea or vomiting and patient is tolerating diet. Patient will be transferred to 3 W. inpatient psychiatric unit today once a bed is available. Physical exam: Gen: This is a 34-year-old male who is awake, alert and oriented x 3, well- developed, well-nourished HEENT: Head is atraumatic, normocephalic. Pupils equal, round. Sclerae is anicteric. NECK: Supple. No JVD. No lymphadenopathy. No thyromegaly. LUNGS: Diminished breath sounds bilaterally otherwise clear to auscultation. No wheezes or rhonchi. No intercostal retractions. HEART: Regular rate and rhythm. No murmur. ABDOMEN: Soft. Bowel sounds are present. No masses. No tenderness. EXTREMITIES: No pedal edema. No calf tenderness. NEUROLOGICAL: Patient is awake, alert and oriented x3. Cranial nerves 2 through 12 are grossly intact. Please refer to medication reconciliation sheet for a list of medications. The impression and plan of care has been dictated by Raisa Kern, Nurse Practitioner as directed. Dr. Zheng MD I have performed a history and examination and MDM of this patient, discussed the same with the dictator, and agree with the dictator's assessment and plan as written ,documented as a scribe. Based on total visit time, I have performed more than 50% of the visit. Patient Condition at Discharge: Fair Plan - Discharge Summary Discharge Rx Participant: Yes New Discharge Prescriptions: New LORazepam [Ativan] 1 mg PO Q8HR PRN tab PRN Reason: Anxiety Continue Isosorbide Mononitrate ER [Imdur] 30 mg PO DAILY 30 Days #30 tab minoxidiL [Loniten] 2.5 mg PO DAILY busPIRone HCL 15 mg PO BID Aspirin EC [Ecotrin Low Dose] 81 mg PO DAILY Sertraline [Zoloft] 100 mg PO DAILY 30 Days #30 tab Atorvastatin [Lipitor] 40 mg PO HS #30 tab Metoprolol Tartrate [Lopressor] 25 mg PO BID 30 Days #60 tab Nitroglycerin Sl Tabs [Nitrostat] 0.4 mg SL Q5M PRN PRN Reason: Chest Pain Disulfiram [Antabuse] 250 mg PO DAILY Omeprazole 20 mg PO DAILY Discharge Medication List Sertraline [Zoloft] 100 mg PO DAILY 30 Days #30 tab 11/29/24 [Rx] Atorvastatin [Lipitor] 40 mg PO HS #30 tab 12/19/24 [Rx] Isosorbide Mononitrate ER [Imdur] 30 mg PO DAILY 30 Days #30 tab 12/27/24 [Rx] Metoprolol Tartrate [Lopressor] 25 mg PO BID 30 Days #60 tab 12/27/24 [Rx] Aspirin EC [Ecotrin Low Dose] 81 mg PO DAILY 04/17/25 [History] Disulfiram [Antabuse] 250 mg PO DAILY 04/17/25 [History] Nitroglycerin Sl Tabs [Nitrostat] 0.4 mg SL Q5M PRN 04/17/25 [History] Omeprazole 20 mg PO DAILY 04/17/25 [History] busPIRone HCL 15 mg PO BID 04/17/25 [History] minoxidiL [Loniten] 2.5 mg PO DAILY 04/17/25 [History] LORazepam [Ativan] 1 mg PO Q8HR PRN tab 04/18/25 [Rx] Follow up Appointment(s)/Referral(s): None,Stated [Primary Care Provider] - 1-2 days Activity/Diet/Wound Care/Special Instructions: Patient is medically stable with petition and certification for transfer to [facility] for further psychiatric evaluation for continued suicidal comments and thoughts Follow-up primary care provider on discharge Continue taking medications as prescribed Recommend avoiding alcohol consumption and exposure to Discharge Disposition: TRANSFER TO PSYCH HOSP/UNIT
[2025-04-18] MEDS: IBUPROFEN 400 MG TAB PO SCH (18:56)
[2025-04-18] MEDS: ceFAZolin 2 GM in DEXTROSE 5% IN WATER 50 ML IVPB SCH (18:58)
[2025-04-18] MEDS: NITROGLYCERIN SL TABS 0.4 MG TAB SUBLINGUAL PRN (21:31)
--- NOTE | 2025-04-18 21:39 | PN ---
PROGRESS NOTE DATE OF SERVICE: 04/18/2025 SUBJECTIVE: This is a 34-year-old gentleman, admitted with suicidal ideation and alcohol intake, is complaining of pain and swelling below the right cheek area. No chest pain. No palpitation. OBJECTIVE: VITAL SIGNS: Pulse is 78, blood pressure 140/96. CHEST: Clear. ABDOMEN: Soft. NERVOUS SYSTEM: No focal deficit otherwise. SKIN: Right cheek cellulitis and boil present. LABORATORY DATA: Noted. ASSESSMENT: 1. Alcohol intoxication. 2. Right facial cellulitis. 3. Suicidal ideation. 4. Hypertension history. 5. Anxiety, bipolar, depression. 6. Polysubstance abuse. RECOMMENDATIONS AND DISCUSSION: Recommend to continue current management. Recommend a short course of antibiotics. Symptomatic treatment. See orders for further details. Further recommendations to follow. MMODL / IJN: [id number] /
[2025-04-18] MEDS: CALCIUM CARBONATE 500 MG CHEWABLE PO PRN (21:48)
[2025-04-18] MEDS: FAMOTIDINE 20 MG TAB PO STA (21:48)
[2025-04-18] MEDS: KETOROLAC 15 MG/ML 1 ML VIAL IVP PRN (22:41)
[2025-04-19] MEDS ORDERED: KETOROLAC 15 MG/ML 1 ML VIAL IVP SCH
[2025-04-19] MEDS: HYDROcodone/APAP 5-325MG 1 EACH TAB PO PRN (00:30)
[2025-04-19] MEDS ORDERED: VANCOMYCIN IV PER PHARMACY 1 EACH MISC MISCELLANE PRN (17:26)
[2025-04-19] MEDS: VANCOMYCIN 1,500 MG in SODIUM CHLORIDE 0.9% 500 ML 500 ML IVPB SCH (18:47)
--- NOTE | 2025-04-20 06:11 | P.PN ---
Subjective Progress Note Date: 04/19/25 This is a 34-year-old male who was recently admitted with EtOH intoxication with concerns of EtOH withdrawal being closely monitored. Patient also reporting suicidal ideations and was evaluated by psychiatry initially not meeting criteria for inpatient psych. Patient continued to report not feeling right in the head and having suicidal ideations and was petitioned and reevaluated recommending transfer to psychiatric unit. Apparently patient had a wound on his right cheek that he had been picking at and discharged to psychiatric unit was held and initiated on Keflex factious disease on consult. Patient showing clinical improvement on cefazolin although per infectious disease, recommending vancomycin and cultures with concerns of possible MRSA. Patient is afebrile with no reported chest pain or shortness of breath at this time. Patient to continue with safety equipment testing specialist until cleared and discharged to 3 W. Review of systems: Constitutional: reports of fatigue, no fever, or chills Cardiovascular: No reports of chest pain or palpitations Respiratory: No reports of shortness of breath or cough GI: No reports of nausea, no reports of vomiting, no diarrhea : No reports of dysuria or retention Neurovascular: No reports of generalized weakness All medications have been reviewed PHYSICAL EXAMINATION: GENERAL: The patient is alert and oriented x4, Well developed, well nourished. HEENT: Pupils are round and equally reacting to light. EOMI. no scleral icterus. No conjunctival pallor. Normocephalic, atraumatic. No pharyngeal erythema. No thyromegaly. Right cheek lesion noted, improving CARDIOVASCULAR: S1 and S2 muffled PULMONARY: diminished breath sounds bilaterally with no wheezing or rhonchi noted. ABDOMEN: soft. Nontender on exam. non-distended, normoactive bowel sounds. No palpable organomegaly. MUSCULOSKELETAL: No joint swelling or deformity. EXTREMITIES: No cyanosis, clubbing, or pedal edema. NEUROLOGICAL: Gross neurological examination did not reveal any focal deficits. Diffuse weakness SKIN: No rashes. Right cheek redness with concerns of possible cellulitis, with improvements in redness overnight Assessment: Alcohol intoxication, present on admission Suicidal ideation right facial lesion that patient was picking, with concerns of developing ce llulitis Hypertension history History of anxiety/bipolar/depression History of polysubstance abuse GI prophylaxis DVT prophylaxis Full code Plan: Recommend to continue with current medications and management and was scheduled to be discharged to 3 W. for further psychiatric evaluation for suicidal ideations with continued sitter at the bedside Patient was initially to be discharged although continuing to report suicidal ideations and not feeling right and safe to go home. Patient was petit Patient Patient was noted to have some redness of the right cheek and had been picking and infectious disease was consulted and started on cefazolin. The patient was started on vancomycin and attempting to obtain cultures of the right cheek wound We will discuss further with infectious disease regarding discharge planning to 3 W. Continue monitoring for any alcohol withdrawal. Patient does not appear to be actively withdrawing at this time The impression and plan of care has been dictated by Raisa Kern, nurse practitioner as directed. Dr. Zheng MD I have performed a history and examination and MDM of this patient, discussed the same with the dictator, and agree with the dictator's assessment and plan as written ,documented as a scribe. Based on total visit time, I have performed more than 50% of the visit. Any additional findings or plans will be noted. Objective - Vital Signs Vital signs: Vital Signs Temp 97.8 F 04/19/25 11:48 Pulse 72 04/19/25 11:48 Resp 16 04/19/25 11:48 BP 112/75 04/19/25 11:48 Pulse Ox 96 04/19/25 11:48 FiO2 Intake & Output 04/18/25 04/19/25 04/19/25 18:59 06:59 18:59 Intake Total 590 Balance 590 Intake: Oral 590 Other: # Voids 2 2 - Labs CBC & Chem 7: 04/18/25 04:32 04/18/25 04:32
--- NOTE | 2025-04-20 10:25 | P.CONS ---
History of Present Illness - Reason for Consult Consult date: 04/19/25 Right facial cellulitis Requesting physician: Raisa Kern - Chief Complaint Right facial pain and swelling x days - History of Present Illness Patient is a 34-year-old male with a past medical history significant for hypertension and joint presenting to the hospital 3 days ago for evaluation of mental health evaluation patient was noticed to be intoxicated and subsequently has been evaluated by admitting and psychiatry services patient was noticed to have a right cheek boil/cellulitis prompting this consultation patient mentioned it started as a small pimple few days ago that has increased in size patient been complaining of pain mostly dull aching moderate intense without radiation pain denies having any drainage from it and currently do not have any other skin soft tissue infection patient on presentation to the hospital did have low-grade fever of 99.7 F patient did have a white count of 6.49 creatinine 0.7 urine drug screen was negative patient was started on cefazolin infectious was consulted today for right facial cellulitis Review of Systems Positive point and negatives has been mentioned in the HPI, complete review of systems was performed and all other systems are negative Past Medical History Past Medical History: Chest Pain / Angina, Hypertension Additional Past Medical History / Comment(s): Patient states they occasionally have high BP but in correlation to drinking/withdrawal, last drink over a month ago, palpiation, chest pain, heart cath 12/2024 History of Any Multi-Drug Resistant Organisms: None Reported Past Surgical History: Orthopedic Surgery Additional Past Surgical History / Comment(s): rt ankle, hardware Past Anesthesia/Blood Transfusion Reactions: No Reported Reaction Past Psychological History: Anxiety, Depression Smoking Status: Former smoker Past Alcohol Use History: Abuse, Daily, Heavy Additional Past Alcohol Use History / Comment(s): last drink 11-20-2024 Past Drug Use History: Marijuana - Past Family History Mother Family Medical History: Hyperlipidemia Additional Family Medical History / Comment(s): Dad and paternal grandpa history of NH in late 30s Father Family Medical History: Myocardial Infarction (NH) Medications and Allergies Home Medications Medication Instructions Recorded Confirmed Type Sertraline [Zoloft] 100 mg PO DAILY 30 Days #30 tab 11/29/24 04/17/25 Rx Atorvastatin [Lipitor] 40 mg PO HS #30 tab 12/19/24 04/17/25 Rx Isosorbide Mononitrate ER [Imdur] 30 mg PO DAILY 30 Days #30 tab 12/27/24 04/17/25 Rx Metoprolol Tartrate [Lopressor] 25 mg PO BID 30 Days #60 tab 12/27/24 04/17/25 Rx Aspirin EC [Ecotrin Low Dose] 81 mg PO DAILY 04/17/25 04/17/25 History Disulfiram [Antabuse] 250 mg PO DAILY 04/17/25 04/17/25 History Nitroglycerin Sl Tabs [Nitrostat] 0.4 mg SL Q5M PRN 04/17/25 04/17/25 History Omeprazole 20 mg PO DAILY 04/17/25 04/17/25 History busPIRone HCL 15 mg PO BID 04/17/25 04/17/25 History minoxidiL [Loniten] 2.5 mg PO DAILY 04/17/25 04/17/25 History LORazepam [Ativan] 1 mg PO Q8HR PRN tab 04/18/25 Rx Allergies Allergy/AdvReac Type Severity Reaction Status Date / Time No Known Allergies Allergy Verified 04/17/25 09:27 Physical Exam Vitals: Vital Signs Temp Pulse Resp BP Pulse Ox 04/19/25 11:48 97.8 F 72 16 112/75 96 04/19/25 07:11 97.8 F 69 16 137/66 97 04/19/25 01:36 97.9 F 77 16 112/68 97 04/18/25 19:18 98.1 F 90 16 104/63 97 Intake and Output 04/18/25 04/19/25 04/19/25 22:59 06:59 14:59 Intake Total 590 Balance 590 Intake: Oral 590 Other: # Voids 2 2 GENERAL DESCRIPTION: Middle-age male lying in bed, no distress. No tachypnea or accessory muscle of respiration use. HEENT: Shows Pallor , no scleral icterus. Oral mucous membrane is dry. NECK: Trachea central, no thyromegaly. LUNGS: Unlabored breathing. Clear to auscultation anteriorly. No wheeze or crackle. HEART: S1, S2, regular rate and rhythm. No loud murmur ABDOMEN: Soft, no tenderness , guarding or rigidity, no organomegaly EXTREMITIES: No edema of feet. SKIN: Right facial area did have a boil coming up to the head with some surrounding redness but no drainage NEUROLOGICAL: The patient is awake, alert, oriented x3, mood and affect normal. Results CBC & Chem 7: 04/18/25 04:32 04/18/25 04:32 Assessment and Plan (1) Facial cellulitis Current Visit: Yes Status: Acute Code(s): L03.211 - CELLULITIS OF FACE SNOMED Code(s): 435873294 Plan: 1patient with a right facial area pain and swelling and redness in this patient who did have a boil with secondary cellulitis likely staphylococcal infection with a question of MRSA 2nursing staff has been advised to obtain a culture of the area started to drain. 3we will discontinue cefazolin. 4start the patient on vancomycin pharmacy to dose and watching his kidney function closely Question concern answered We will follow on clinical condition and cultures to further adjust medication if needed Thank you for this consultation we will follow the patient along with you Dictation was produced using [employer] dictation software. please excuse any grammatical, word or spelling errors. Time with Patient: Greater than 30
--- NOTE | 2025-04-20 14:43 | P.DS ---
Providers Date of admission: 04/17/25 00:27 Expected date of discharge: 04/20/25 Attending physician: Segr Calzada Consults: 04/17/25 00:27 Consult Physician Urgent Consulting Provider: Psychiatry - MPH Psychiatry Consult Reason/Comments: Suicidal ideation Do you want consulting provider notified?: Yes, Notify in am 04/19/25 14:03 Consult Physician Urgent Consulting Provider: Maria M Kauffman Consult Reason/Comments: facial cellulitis Do you want consulting provider notified?: Yes Primary care physician: Stated None Hospital Course: Final diagnosis Alcohol intoxication with concern for acute alcohol withdrawal Right cheek facial cellulitis secondary to pimple that patient picked Suicidal ideation Hypertension history Anxiety/bipolar/depression Polysubstance abuse GI prophylaxis DVT prophylaxis Full code Discharge disposition Patient is being discharged in a stable condition with guarded prognosis to 3 W. inpatient psychiatric unit here at [facility]. Patient will follow-up with his primary care provider in the outpatient setting upon discharge. Patient is to continue on oral Bactrim per ID recommendations for 1 week. Strongly recommend AA meetings and inpatient alcohol rehab. Total time taken is greater than 35 minutes. Hospital course This is a 34-year-old male who was recently admitted with acute alcohol intoxication with suicidal ideation maintained on CIWA protocol. Patient with suicidal thoughts was evaluated by psychiatry on admission initially meeting inpatient criteria for continued suicidal ideation. Patient was admitted to medicine for EtOH withdrawal and was re-evaluated by psychiatry today and cleared for discharge home although patient is actively reporting and stating "he is not in a safe place and is had". Patient reported with suicide sitter and attending at bedside he continued to have suicidal ideations. Patient was petitioned and medically started as patient is medically stable for transfer to 3 W. Psychiatry was notified and agreeable to admit the patient to 3 W. once a bed is available. Please refer to other consultation notes for further HPI. Medicine will follow on 3 W. patient was seen and evaluated by infectious disease for right cheek cellulitis noted to have a pimple that patient was picking at and started on cefazolin and transition to vancomycin. Per infectious disease patient will continue on Bactrim and recommend to be seen in the office in the outpatient setting. Patient is medically stable and has been cleared by consultations for discharge to psychiatric unit for further psychiatric evaluation. Currently no reports of chest pain, shortness of breath, or palpitations. Patient is afebrile. No reports of nausea or vomiting and patient is tolerating diet. Patient will be transferred to 3 W. inpatient psychiatric unit today once a bed is available. Physical exam: Gen: This is a 34-year-old male who is awake, alert and oriented x 3, well- developed, well-nourished HEENT: Head is atraumatic, normocephalic. Pupils equal, round. Sclerae is anicteric. Right cheek redness, slightly improved with no drainage noted NECK: Supple. No JVD. No lymphadenopathy. No thyromegaly. LUNGS: Diminished breath sounds bilaterally otherwise clear to auscultation. No wheezes or rhonchi. No intercostal retractions. HEART: Regular rate and rhythm. No murmur. ABDOMEN: Soft. Bowel sounds are present. No masses. No tenderness. EXTREMITIES: No pedal edema. No calf tenderness. NEUROLOGICAL: Patient is awake, alert and oriented x3. Cranial nerves 2 through 12 are grossly intact. Please refer to medication reconciliation sheet for a list of medications. The impression and plan of care has been dictated by Raisa Kern, Nurse Practitioner as directed. Dr. Matt MD I have performed a history and examination and MDM of this patient, discussed the same with the dictator, and agree with the dictator's assessment and plan as written ,documented as a scribe. Based on total visit time, I have performed more than 50% of the visit. Patient Condition at Discharge: Fair Plan - Discharge Summary Discharge Rx Participant: Yes New Discharge Prescriptions: New Ibuprofen [Motrin] 400 mg PO TID-W/MEALS tab LORazepam [Ativan] 1 mg PO Q8HR PRN tab PRN Reason: Anxiety Sulfamethoxazole/Trimethoprim [Bactrim DS 800-160 mg] 1 each PO BID 7 Days #14 tablet Continue Isosorbide Mononitrate ER [Imdur] 30 mg PO DAILY 30 Days #30 tab minoxidiL [Loniten] 2.5 mg PO DAILY busPIRone HCL 15 mg PO BID Aspirin EC [Ecotrin Low Dose] 81 mg PO DAILY Sertraline [Zoloft] 100 mg PO DAILY 30 Days #30 tab Atorvastatin [Lipitor] 40 mg PO HS #30 tab Metoprolol Tartrate [Lopressor] 25 mg PO BID 30 Days #60 tab Nitroglycerin Sl Tabs [Nitrostat] 0.4 mg SL Q5M PRN PRN Reason: Chest Pain Disulfiram [Antabuse] 250 mg PO DAILY Omeprazole 20 mg PO DAILY Discharge Medication List Sertraline [Zoloft] 100 mg PO DAILY 30 Days #30 tab 11/29/24 [Rx] Atorvastatin [Lipitor] 40 mg PO HS #30 tab 12/19/24 [Rx] Isosorbide Mononitrate ER [Imdur] 30 mg PO DAILY 30 Days #30 tab 12/27/24 [Rx] Metoprolol Tartrate [Lopressor] 25 mg PO BID 30 Days #60 tab 12/27/24 [Rx] Aspirin EC [Ecotrin Low Dose] 81 mg PO DAILY 04/17/25 [History] Disulfiram [Antabuse] 250 mg PO DAILY 04/17/25 [History] Nitroglycerin Sl Tabs [Nitrostat] 0.4 mg SL Q5M PRN 04/17/25 [History] Omeprazole 20 mg PO DAILY 04/17/25 [History] busPIRone HCL 15 mg PO BID 04/17/25 [History] minoxidiL [Loniten] 2.5 mg PO DAILY 04/17/25 [History] LORazepam [Ativan] 1 mg PO Q8HR PRN tab 04/18/25 [Rx] Ibuprofen [Motrin] 400 mg PO TID-W/MEALS tab 04/20/25 [Rx] Sulfamethoxazole/Trimethoprim [Bactrim DS 800-160 mg] 1 each PO BID 7 Days #14 tablet 04/20/25 [Rx] Follow up Appointment(s)/Referral(s): None,Stated [Primary Care Provider] - 1-2 days Activity/Diet/Wound Care/Special Instructions: Patient is medically stable with petition and certification for transfer to [facility] for further psychiatric evaluation for continued suicidal comments and thoughts Follow-up primary care provider on discharge Continue taking medications as prescribed Recommend avoiding alcohol consumption and exposure to Patient will continue on Bactrim twice daily for 1 week Avoid touching the area on the right cheek, may apply warm compresses twice daily as needed and recommend keeping covered with a Band-Aid while awake. Discharge Disposition: TRANSFER TO PSYCH HOSP/UNIT
[2025-04-20] MEDS: VANCOMYCIN TROUGH DUE 1 EACH MISC MISCELLANE ONE (18:02)
[2025-04-20 19:39] VITALS: BP 115/73; PULSE 82; RESP 17; TEMP 98
--- NOTE | 2025-04-20 19:53 | P.PN ---
Subjective Progress Note Date: 04/20/25 Principal diagnosis: Right-sided facial boil/cellulitis Patient is a 34-year-old male with a past medical history significant for hypertension and joint presenting to the hospital for evaluation of mental health evaluation patient was noticed to be intoxicated, patient noticed to have right sided facial boil and cellulitis prompted this consultation. On today's evaluation that is 04/20/2025, the patient continues to be afebrile, the patient is on room air and breathing comfortably, the Pt denies having any chest pain or cough, the patient denies having any abdominal pain no vomiting or any diarrhea patient pain to the right-sided facial area has decreased and did have some drainage yesterday which has been cultured Objective - Vital Signs Vital signs: Vital Signs Temp 97.6 F 04/20/25 12:09 Pulse 69 04/20/25 12:09 Resp 18 04/20/25 12:09 BP 113/68 04/20/25 12:09 Pulse Ox 96 04/20/25 12:09 FiO2 Intake & Output 04/19/25 04/20/25 04/20/25 18:59 06:59 18:59 Intake Total 1080 300 Balance 1080 300 Intake: Oral 1080 300 Other: # Voids 2 1 - Exam GENERAL DESCRIPTION: Middle-age male lying in bed in no distress HEENT: Right-sided facial swelling redness slightly decreased RESPIRATORY SYSTEM: Unlabored breathing , decreased breath sounds at bases HEART: S1 S2 regular rate and rhythm , ABDOMEN: Soft , no tenderness EXTREMITIES: No edema feet - Labs CBC & Chem 7: 04/18/25 04:32 04/18/25 04:32 Labs: Microbiology - Last 24 Hours (Table) 04/19/25 19:00 Gram Stain - Preliminary Face Assessment and Plan (1) Facial cellulitis Current Visit: Yes Status: Acute Code(s): L03.211 - CELLULITIS OF FACE SNOMED Code(s): 161603734 (2) MRSA (methicillin resistant Staphylococcus aureus) infection Current Visit: Yes Status: Acute Code(s): A49.02 - METHICILLIN RESIS STAPH INFECTION, UNSP SITE SNOMED Code(s): 141551690 Plan: 1patient with a right facial area pain and swelling and redness in this patient who did have a boil with secondary cellulitis likely staphylococcal infection with a question of MRSA 2nursing staff did obtain culture last evening which is now growing presumptive MRSA 3patient is currently being treated with vancomycin pharmacy to dose however STUDENT DEVELOPMENT DEAN from admitting team mention need to transfer to the psych floor we will consider Bactrim DS 1 twice a day empirically however she will follow-up on the sen sitivity and let me know if it is Bactrim resistant Dictation was produced using [employer] dictation software. please excuse any grammatical, word or spelling errors. Time with Patient: Less than 30
== END 2025-04-20 21:45 ==
LOC: EC 15:11 → 6NMEDSUR 04-17 00:27 → 5NMEDONC 04-17 04:12
PROVIDERS: ADMIT Hospitalist; ATTEND Hospitalist
DX: F10.129 Alcohol abuse with intoxication, unspecified (principal); L03.211 Cellulitis of face; B95.62 Methicillin resistant Staphylococcus aureus infection as the cause of diseases classified elsewhere; R45.851 Suicidal ideations; I10 Essential (primary) hypertension; F19.10 Other psychoactive substance abuse, uncomplicated; E78.00 Pure hypercholesterolemia, unspecified; F31.9 Bipolar disorder, unspecified; F41.0 Panic disorder [episodic paroxysmal anxiety]; Z56.0 Unemployment, unspecified; Z87.891 Personal history of nicotine dependence; Z79.82 Long term (current) use of aspirin; Z79.899 Other long term (current) drug therapy
CPT/HCPCS: 96376 ×3; 96365; 96366 ×2; 96367; 96375 ×2; 82075; 99285; 80053; 80048; 84484; 85025 ×2; 80202; 80306; 87070; 87205; 87077; 87186; 87635; G0378 ×4; S0139 ×3; J3370 ×2; J2060 ×3; J0690 ×2; J1885

== ENCOUNTER 2025-04-20 19:40 | Inpatient (IN) | payer MEDICAID ==
[2025-04-20] MEDS ORDERED: OLANZapine 10 MG VIAL IM PRN (20:48)
[2025-04-20] MEDS ORDERED: ACETAMINOPHEN TAB 325 MG TAB PO PRN (20:48)
[2025-04-20] MEDS ORDERED: IBUPROFEN 600 MG TAB PO PRN (20:48)
[2025-04-20] MEDS ORDERED: MAG HYDROX/AL HYDROX/SIMETH 355 ML BOTTLE PO PRN (20:48)
[2025-04-20] MEDS ORDERED: MAGNESIUM HYDROXIDE 2,400 MG/30 ML CUP PO PRN (20:48)
[2025-04-20] MEDS: METOPROLOL TARTRATE 25 MG TAB PO SCH (22:42)
[2025-04-20] MEDS: ATORVASTATIN 40 MG TAB PO SCH (22:42)
[2025-04-20] MEDS: busPIRone HCl 5 MG TAB PO SCH (22:42)
[2025-04-20] MEDS: SULFAMETHOX-TMP 800-160MG 1 EACH TAB PO SCH (22:42)
[2025-04-20 22:52] VITALS: RESP 16
[2025-04-21] MEDS: ASPIRIN 81 MG PO SCH (08:08)
[2025-04-21] MEDS: ISOSORBIDE MONONITRATE ER 30 MG TAB.ER.24H PO SCH (08:09)
[2025-04-21] MEDS: PANTOPRAZOLE 40 MG TABLET PO SCH (08:09)
[2025-04-21] MEDS: NICOTINE 14MG/24HR PATCH TRANSDERM SCH (08:09)
[2025-04-21] MEDS: SERTRALINE 100 MG TAB PO SCH (08:09)
[2025-04-21] MEDS: NON FORMULARY DRUG (Disulfiram 250 MG Tab) PO SCH (08:09)
[2025-04-21] MEDS: minoxidiL 2.5 MG TAB PO SCH (08:09)
--- NOTE | 2025-04-21 09:01 | P.HP ---
Psychiatric H&P - . H&P Date: 04/21/25 History & Physical: Allergies Allergy/AdvReac Type Severity Reaction Status Date / Time No Known Allergies Allergy Verified 04/17/25 09:27 Vital Signs Temp 97.9 F 04/20/25 22:34 Pulse 75 04/20/25 22:34 Resp 16 04/20/25 22:34 BP 119/83 04/20/25 22:34 Pulse Ox 96 04/20/25 22:34 FiO2 Intake & Output 04/20/25 04/21/25 04/21/25 18:59 06:59 18:59 Weight 93.758 kg 04/21/25 08:53 IDENTIFYING DATA: This patient is a 34-year-old male currently unemployed, living at [facility] and single HPI: Patient presented to the hospital []. Patient denies any suicidal or homicidal ideations intent or plan. At this time patient denies any auditory or visual hallucinations. Patient denies any flight of ideas racing thoughts and increased in goal directed behavior. Patient admits to using [] PAST PSYCHIATRIC HISTORY: The patient presented to the hospital intoxicated noting that he was suicidal. He notes a plan of drinking himself to or finding a high place and jumping off. He notes that he relapsed on alcohol on Wednesday and continued drinking through to Wednesday. He notes that the suicidal thoughts are chronic but when he is depressed they get worse. He notes protective factors including his family. He notes once he starts thinking of his family it helps him to motivate to go to get some help at the emergency. The patient was admitted to the medical floors for detoxification he completed this without seizures or DTs. Patient then developed an infection on his face and was treated IV with antibiotics before being switched to oral antibiotics. Reviewed with the patient he notes that he feels that he needs to be here. He notes that he gets horrible anxiety. He notes nilton that t he has panic attacks that include palpitations, sweating, feelings of that last a couple of minutes. He notes no triggers. However, he does note when he is in public he can have a panic attack and it feels like hes being evaluated. Additionally, he notes that he is a chronic worrywart, and has problems initiating and maintaining sleep, has muscle tension, gets nauseated and fatigued when over anxious. He notes that his depression has been chronic for years. He currently rates his depression 6/10 and his anxiety 8/10 with 10 being worst. He notes that he has been sleeping but feels rundown. He notes that appetite has been good but concentration has fluctuated. He has feelings of worthlessness. He denies any bouts of crying but notes that he feels guilt and shameful. He denies any homicidal thoughts or access to guns. Collateral: Doesnt want anyone contacted Review of psychiatric systems: Bipolar disorder-negative OCD-negative PTSD-negative Psychosis-negative Stressor: None PAST PSYCHIATRIC HISTORY: The patient has a history of Alcohol use disorder, Depression, Anxiety. The patient is currently on Zoloft 100 mg and BuSpar 15 mg twice daily. The patient has multiple hospitalizations in the past with the most recent admission in November of 2024. The patient currently resides over at [facility] and the doctor there is managing his mental health medications. The patient notes history of trying to drink himself to but no specific suicide attempts. The patient denies any abuse in childhood. The patient notes a history of drunken and disorder as well as fighting charges. PAST MEDICAL HISTORY: Chest pain Hypercholesterolemia Hypertension ALLERGIES: No known drug allergies CHEMICAL DEPENDENCY HISTORY: Caffeine-positive Tobacco-recently quit vaping Alcohol-patient notes heavy drinking starting in his 20s. Currently he notes that he consumes several pints a day. Notes a history of DTs but denies any seizures going through detox. He has an unknown number of detoxes and rehabs. He has been on naltrexone and Antabuse in the past. He has 1 prior DUI. Multiple members in his family suffer from substance abuse. Cannabis-past history FAMILY PSYCHIATRIC/SUBSTANCE USE HISTORY: The patient notes that his father and mother suffer from bipolar disorder. He notes multiple siblings suffering from anxiety. He notes that his father suffers from alcoholism. SOCIAL HISTORY: The patient was born and raised in [place] and notes that his childhood was "good". He notes that he completed high school with good grades. 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 He notes that he is currently not relationship. He believes in a higher power and denies any service. MENTAL STATUS EXAM: General Appearance: Patient appears to be his stated age is alert, directable, and attempts to cooperate. Patient appears to have good hygiene and grooming. The patient had multiple tattoos Behavior: Patient is seated without any agitated behavior. Eye contact was fair sometimes looking at the floor. Patient did have some restless behaviors. Speech: Patient's speech is fluent and nonpressured. Mood/Affect: Patient reports their mood is moderate depression, affect is congruent and constricted. Suicidality/Homicidality: Patient denies having any homicidal ideation intent or plan. He notes that he does have thoughts but does not feel he is suicidal. Perceptions: Patient denies any visual hallucinations and denies any auditory hallucinations Though content/process: There is no evidence of any delusional thought content and thought process is linear and goal-directed. Memory and concentration: AOX3, grossly intact for the purposes of this session. Can spell "WORLD" backwards Judgment and insight: Fair STRENGTHS/WEAKNESSES: strength is that patient is resilient. Weakness is that patient has poor judgment and is impulsive INTELLECT: Average Diagnosis: Alcohol use disorder severe Major depressive disorder recurrent Generalized anxiety disorder Assessment: 34-year-old male transferred from the medical floors after relapsing on alcohol voicing suicidal thoughts. The patient has completed detoxification for alcohol. The patient notes that he shameful about relapse and notes that he was almost 5 months sober prior to this. He has a history of when drinking and having suicidal thoughts. He notes that he wants to think about sobriety medication but it is felt this is the best approach at this point to prevent further episodes of suicidal thoughts that intensified to the point where he might act on them. He feels that the Zoloft and BuSpar were helpful prior to the relapse. Additionally he is not sure if he can return to [facility] and it is essential that the patient has a place where he can stay sober. At this time the patient meets criteria for this level of care. PLAN: -Patient is admitted under voluntary status to MHU for stabilization of psychiatric symptoms and safety. Patient has signed adult voluntary form and m edication consent and is placed in patient's chart. -Medications : Continue Zoloft 100 mg take 1 tablet by mouth once daily for depression/anxiety BuSpar 15 mg take 1 tablet by mouth twice daily for depression and anxiety -Ativan and Zyprexa PRN for agitation/aggression -Started thiamine, MVM for etoh use -Patient was counselled on substance abuse and desired to cut back on use -Will offer patient subtance use rehab -Patient was informed of the risks, benefits and side effects of the medication and patient verbally consented to taking the medications. Patient signed med consent form and was placed in chart. -Internal Medicine consult to perform medical evaluation and physical. -NRT -not needed as patient does not smoke -SW on board for discharge planning. Encourage patient to participate in groups to work on coping skills.
[2025-04-21] MEDS: OLANZapine ODT 5 MG TAB PO PRN (09:12)
[2025-04-21 13:28] LABS: LDL Cholesterol,Calculated 37.5 mg/dL (0.0-131.0)
--- NOTE | 2025-04-21 13:43 | P.CONS ---
History of Present Illness - Reason for Consult Consult date: 04/21/25 - History of Present Illness This is a 34-year-old male who was recently admitted with acute alcohol intoxication with suicidal ideation. Patient with suicidal thoughts was evaluated by psychiatry on admission initially meeting inpatient criteria for continued suicidal ideation. Patient was admitted to medicine for EtOH withdrawal. Patient reported with suicide sitter and attending at bedside he continued to have suicidal ideations. Patient was petitioned and medically certed Psychiatry was notified and agreeable to admit the patient to 3 W. Prior to transfer; patient was seen and evaluated by infectious disease for right cheek cellulitis noted to have a pimple that patient was picking at and started on cefazolin and transition to vancomycin. The cultures are showing presumptive MRSA. Per infectious disease patient will continue on Bactrim and recommend to be seen in the office in the outpatient setting. Currently no reports of chest pain, shortness of breath, or palpitations. Patient is afebrile. No reports of nausea or vomiting and patient is tolerating diet. REVIEW OF SYSTEMS: CONSTITUTIONAL: No fever, no malaise, no fatigue. HEENT: No recent visual problems or hearing problems. Denied any sore throat. CARDIOVASCULAR: No chest pain, orthopnea, PND, no palpitations, no syncope. PULMONARY: No shortness of breath, no cough, no hemoptysis. GASTROINTESTINAL: No diarrhea, no nausea, no vomiting, no abdominal pain. NEUROLOGICAL: No headaches, no weakness, no numbness. HEMATOLOGICAL: Denies any bleeding or petechiae. GENITOURINARY: Denies any burning micturition, frequency, or urgency. MUSCULOSKELETAL/RHEUMATOLOGICAL: Denies any joint pain, swelling, or any muscle pain. ENDOCRINE: Denies any polyuria or polydipsia. The rest of the 14-point review of systems is negative. PHYSICAL EXAMINATION: GENERAL: The patient is alert and oriented x3, not in any acute distress. Well developed, well nourished. HEENT: Pupils are round and equally reacting to light. EOMI. No scleral icterus. No conjunctival pallor. Normocephalic, atraumatic. No pharyngeal erythema. No thyromegaly. CARDIOVASCULAR: S1 and S2 present. No murmurs, rubs, or gallops. PULMONARY: Chest is clear to auscultation, no wheezing or crackles. ABDOMEN: Soft, nontender, nondistended, normoactive bowel sounds. No palpable organomegaly. MUSCULOSKELETAL: No joint swelling or deformity. EXTREMITIES: No cyanosis, clubbing, or pedal edema. NEUROLOGICAL: Gross neurological examination did not reveal any focal deficits. SKIN: No rashes. Assessment Alcohol intoxication with concern for acute alcohol withdrawal Right cheek facial cellulitis secondary to pimple that patient picked cultures are showing presumptive MRSA Suicidal ideation Hypertension history Anxiety/bipolar/depression Polysubstance abuse GI prophylaxis DVT prophylaxis Full code Plan Continue oral bactrim twice daily for one week and follow up with ID on discharge Keep right cheek area covered with band-aid Continue home medications including metoprolol, imdur, atorvastatin aspirin, minoxidil Continue medications per psychiatry thank you kindly for this consultation we will follow along as needed this hospital stay The impression and plan of care has been dictated by Nevaeh Vega, Nurse Practitioner as directed. Dr. Matt MD I have performed a history and physical examination and medical decision making of this patient, discussed the same with the dictator, and agree with the dictators assessment and plan as written, documented as a scribe. Based on total visit time, I have performed more than 50% of this visit. Past Medical History Past Medical History: Chest Pain / Angina, Hypertension Additional Past Medical History / Comment(s): Patient states they occasionally have high BP but in correlation to drinking/withdrawal, palpiation, chest pain, heart cath 12/2024 History of Any Multi-Drug Resistant Organisms: None Reported Past Surgical History: Orthopedic Surgery Additional Past Surgical History / Comment(s): rt ankle, hardware Past Anesthesia/Blood Transfusion Reactions: No Reported Reaction Smoking Status: Former smoker - Past Family History Mother Family Medical History: Hyperlipidemia Additional Family Medical History / Comment(s): Dad and paternal grandpa history of CO in late 30s Father Family Medical History: Myocardial Infarction (CO) Medications and Allergies Home Medications Medication Instructions Recorded Confirmed Type Sertraline [Zoloft] 100 mg PO DAILY 30 Days #30 tab 11/29/24 04/21/25 Rx Atorvastatin [Lipitor] 40 mg PO HS #30 tab 12/19/24 04/21/25 Rx Isosorbide Mononitrate ER [Imdur] 30 mg PO DAILY 30 Days #30 tab 12/27/2404/21 Rx Metoprolol Tartrate [Lopressor] 25 mg PO BID 30 Days #60 tab 12/27/24 04/21/25 Rx Aspirin EC [Ecotrin Low Dose] 81 mg PO DAILY 04/17/25 04/21/25 History Disulfiram [Antabuse] 250 mg PO DAILY 04/17/25 04/21/25 History Nitroglycerin Sl Tabs [Nitrostat] 0.4 mg SL Q5M PRN 04/17/25 04/21/25 History Omeprazole 20 mg PO DAILY 04/17/25 04/21/25 History busPIRone HCL 15 mg PO BID 04/17/25 04/21/25 History minoxidiL [Loniten] 2.5 mg PO DAILY 04/17/25 04/21/25 History LORazepam [Ativan] 1 mg PO Q8HR PRN tab 04/18/25 04/21/25 Rx Ibuprofen [Motrin] 400 mg PO TID-W/MEALS tab 04/20/25 04/21/25 Rx Sulfamethoxazole/Trimethoprim 1 each PO BID 7 Days #14 tablet 04/20/25 04/21/25 Rx [Bactrim DS 800-160 mg] Allergies Allergy/AdvReac Type Severity Reaction Status Date / Time No Known Allergies Allergy Verified 04/17/25 09:27 Physical Exam Vitals: Vital Signs Temp Pulse Resp BP Pulse Ox 04/21/25 08:54 97.8 F 87 16 111/74 99 04/20/25 22:34 97.9 F 75 16 119/83 96 Intake and Output 04/20/25 04/21/25 04/21/25 22:59 06:59 14:59 Other: Weight 93.758 kg Assessment and Plan Time with Patient: Less than 30
--- NOTE | 2025-04-22 09:55 | P.PN ---
Progress Note - Text Progress Note Date: 04/22/25 Chief complaint: Suicidal thoughts Interval History: Patient was seen wandering the hallways and was directable and agreeable to speak with literary writer in the office. The patient presented somewhat tired. He notes that he has been sleeping a lot but still feels like he does not have a lot of energy. We asked about sobriety medications which the patient currently would like to decline. The patient notes that he is not having suicidal thoughts. He rates his depression 5/10 and his anxiety is 7/10 with 10 being worst (yesterday depression 6/10, anxiety 8/10). He notes that his appetite is normal. He feels that his concentration is improving.Patient denies any side effects from the medications and has been compliant with meds. Mental Status Exam: General Appearance: The patient presented dressed in a hospital gown, appropriately groomed and his stated age. Behavior: Patient did look somewhat withdrawn but was calm and cooperative Speech: Patient's speech is fluent and nonpressured. Mood/Affect: Mood is improving mildly, affect is congruent and constricted. Suicidality/Homicidality: Patient denies having any suicidal or homicidal ideation intent or plan. Perceptions: Patient denies any visual hallucinations and denies any auditory hallucinations Though content/process: There is no evidence of any delusional thought content and thought process is linear and goal-directed. Memory and concentration: AOX3, grossly intact for the purposes of this session Judgment and insight: Improving mildly Diagnosis: Alcohol use disorder severe Major depressive disorder recurrent Generalized anxiety disorder Assessment: At the patient has not figured out what he wants to do yet and will respond tomorrow morning. He was educated that we would like him to stay until we have services set up. He declines sobriety medications. Continue stabilization. PLAN: -Patient is admitted under voluntary status to MHU for stabilization of psychiatric symptoms and safety. Patient has signed adult voluntary form and medication consent and is placed in patient's chart. -Medications : Continue Zoloft 100 mg take 1 tablet by mouth once daily for depression/anxiety BuSpar 15 mg take 1 tablet by mouth twice daily for depression and anxiety -Ativan and Zyprexa PRN for agitation/aggression -Started thiamine, MVM for etoh use -Patient was counselled on substance abuse and desired to cut back on use -Will offer patient subtance use rehab -Patient was informed of the risks, benefits and side effects of the medication and patient verbally consented to taking the medications. Patient signed med consent form and was placed in chart. -Internal Medicine consult to perform medical evaluation and physical. -NRT -not needed as patient does not smoke -SW on board for discharge planning. Encourage patient to participate in groups to work on coping skills.
[2025-04-23 08:42] VITALS: BP 108/71; PULSE 108; TEMP 98
--- NOTE | 2025-04-23 10:13 | P.DS ---
Providers Date of admission: 04/20/25 22:22 Admission HPI: Admission note was completed by Dr. Francis "The patient presented to the hospital intoxicated noting that he was suicidal. He notes a plan of drinking himself to or finding a high place and jumping off. He notes that he relapsed on alcohol on Wednesday and continued drinking through to Wednesday. He notes that the suicidal thoughts are chronic but when he is depressed they get worse. He notes protective factors including his family. He notes once he starts thinking of his family it helps him to motivate to go to get some help at the emergency. The patient was admitted to the medical floors for detoxification he completed this without seizures or DTs. Patient then developed an infection on his face and was treated IV with antibiotics before being switched to oral antibiotics. Reviewed with the patient he notes that he feels that he needs to be here. He notes that he gets horrible anxiety. He notes nilton that t he has panic attacks that include palpitations, sweating, feelings of that last a couple of minutes. He notes no triggers. However, he does note when he is in public he can have a panic attack and it feels like hes being evaluated. Additionally, he notes that he is a chronic worrywart, and has problems initiating and maintaining sleep, has muscle tension, gets nauseated and fatigued when over anxious. He notes that his depression has been chronic for years. He currently rates his depression 6/10 and his anxiety 8/10 with 10 being worst. He notes that he has been sleeping but feels rundown. He notes that appetite has been good but concentration has fluctuated. He has feelings of worthlessness. He denies any bouts of crying but notes that he feels guilt and shameful. He denies any homicidal thoughts or access to guns." Hospital course: Upon admission to the unit patient was directable and agreeable to commence treatment and signed adult voluntary form. Patient got along well with other patients on the unit and followed unit protocol. Patient was compliant with the medications and denied any side effects throughout hospital course. Patient was started on his home meds including BuSpar and Zoloft. Sobriety medications were discussed during the appointment however the patient deferred. Patient spoke of his stressors and engaged in therapy both group and individual. Patient was also seen by medical team for history and physical exam. The patient was placed on Bactrim for a infection on his cheek and will be given a 5-day supply on discharge. Throughout the course of the hospitalization patient gradually improved with regards to mood, anxiety, sleep and returned back to their baseline level of functioning became more future oriented with improved insight and judgment. On the day of discharge patient denied any suicidal or homicidal ideations intent or plan denied any auditory or visual hallucinations. Patient endorsed wanting to live for their health and family. The patient denied any access to guns or weapons. Patient denied any paranoia and did not endorse any delusions. Patient does have a significant history of substance abuse and was counseled on abstaining from all substances including alcohol and marijuana. Patient elected to do outpatient substance use treatment program through their outpatient provider. Patient was also counseled on the medications and need for regular compliance and was encouraged to follow-up with their outpatient appointment for mental health and also for primary care. Prior to discharge a family meeting will be arranged by social sciences lecturer to answer any questions and ensure safety upon discharge incuding making sure that guns/weapons are either removed from the home or locked away. Day of discharge patient denied any ongoing depression or anxiety. He notes that he is doing well on his medications. He denied any suicidal or homicidal ideations. He noted a safety plan including 911 and [phone]. He notes many emergency room notes. He notes upon discharge he will be going to a sobriety facility to meet up with his sponsor. He denies any problems with sleep, energy, appetite or concentration. Mental status exam: General Appearance: Patient appears to be his stated age is alert, pleasant, and cooperative. Patient is in no acute distress and has improved hygiene and grooming Behavior: Patient is calmly seated without any agitated behavior. Speech: Patient's speech is fluent and nonpressured. Mood/Affect: Patient reports their mood is "better good", affect is congruent and euthymic. Suicidality/Homicidality: Patient denies having any suicidal or homicidal ideation intent or plan. Perceptions: Patient denies any auditory or visual hallucinations. Though content/process: There is no evidence of any delusional thought content and thought process is linear and goal-directed. More future oriented Memory and concentration: AOX3, grossly intact for the purposes of this session. Can spell "WORLD" backwards correctly. Judgment and insight: Chronically poor, however has improved with guarded prognosis Diagnosis: Alcohol use disorder severe Major depressive disorder recurrent Generalized anxiety disorder Plan: -Continue with discharge today as patient has improved and stabilized psychiatrically and is not currently an imminent threat to themself and/or others. Patient will remain at chronically elevated risk for harm to self and/or others due to their impulsivity and substance abuse. -Continue medications: Zoloft 100 mg take 1 tablet by mouth once daily for depression/anxiety BuSpar 15 mg take 1 tablet by mouth twice daily for depression and anxiety -Patient was counseled on the need for medication compliance and appropriate follow-up at mental health and also primary care for medical issues. Patient verbalized understanding and agreed. -Social work to help coordinate patients discharge today arrange for and conduct family meeting to ensure safety upon discharge and answer any questions/concerns. also to ensure safe home environment that guns/weapons are either removed from the home or locked away. Social work also to arrange for patients follow up appointments with [facility] for psychiatric care along with follow up with primary care provider. -Patient counseled on abstaining from recreational drugs and marijuana and alcohol. Was informed/educated on the adverse effects on their physical and mental health. Patient verbally agreed and understood. -Patient was instructed to return to the hospital or seek immediate medical care if their psychiatric or medical symptoms do worsen or reoccur. Attending physician: Silver Escobedo MD Consults: 04/20/25 20:48 Consult Physician Routine Consulting Provider: [facility] Hospitalists Consult Reason/Comments: History and Physical, New Admission Do you want consulting provider notified?: Yes Primary care physician: Stated None - Discharge Diagnosis(es) (1) Major depressive disorder, recurrent episode, severe Current Visit: Yes Status: Chronic Priority: Medium (2) Alcohol use disorder Current Visit: Yes Status: Chronic Priority: Medium (3) Generalized anxiety disorder Current Visit: Yes Status: Chronic Priority: Medium Patient Condition at Discharge: Fair Plan - Discharge Summary New Discharge Prescriptions: New Sulfamethox-Tmp 800-160Mg [Bactrim DS 800-160 mg] 1 each PO BID 5 Days #10 tab Continue Isosorbide Mononitrate ER [Imdur] 30 mg PO DAILY 30 Days #30 tab minoxidiL [Loniten] 2.5 mg PO DAILY busPIRone HCL 15 mg PO BID Aspirin EC [Ecotrin Low Dose] 81 mg PO DAILY Ibuprofen [Motrin] 400 mg PO TID-W/MEALS tab Sertraline [Zoloft] 100 mg PO DAILY 30 Days #30 tab Atorvastatin [Lipitor] 40 mg PO HS #30 tab Metoprolol Tartrate [Lopressor] 25 mg PO BID 30 Days #60 tab Nitroglycerin Sl Tabs [Nitrostat] 0.4 mg SL Q5M PRN PRN Reason: Chest Pain Disulfiram [Antabuse] 250 mg PO DAILY Omeprazole 20 mg PO DAILY Discontinued LORazepam [Ativan] 1 mg PO Q8HR PRN tab PRN Reason: Anxiety Sulfamethoxazole/Trimethoprim [Bactrim DS 800-160 mg] 1 each PO BID 7 Days #14 tablet Discharge Medication List Sertraline [Zoloft] 100 mg PO DAILY 30 Days #30 tab 11/29/24 [Rx] Atorvastatin [Lipitor] 40 mg PO HS #30 tab 12/19/24 [Rx] Isosorbide Mononitrate ER [Imdur] 30 mg PO DAILY 30 Days #30 tab 12/27/24 [Rx] Metoprolol Tartrate [Lopressor] 25 mg PO BID 30 Days #60 tab 12/27/24 [Rx] Aspirin EC [Ecotrin Low Dose] 81 mg PO DAILY 04/17/25 [History] Disulfiram [Antabuse] 250 mg PO DAILY 04/17/25 [History] Nitroglycerin Sl Tabs [Nitrostat] 0.4 mg SL Q5M PRN 04/17/25 [History] Omeprazole 20 mg PO DAILY 04/17/25 [History] busPIRone HCL 15 mg PO BID 04/17/25 [History] minoxidiL [Loniten] 2.5 mg PO DAILY 04/17/25 [History] Ibuprofen [Motrin] 400 mg PO TID-W/MEALS tab 04/20/25 [Rx] Sulfamethox-Tmp 800-160Mg [Bactrim DS 800-160 mg] 1 each PO BID 5 Days #10 tab 04/23/25 [Rx] Activity/Diet/Wound Care/Special Instructions: Avoid the use of street drugs and alcohol. Take all medications as prescribed. When you are in need of refills on your medications, please contact your medical provider and/or outpatient psychiatrist/provider to have this done. Please go to your scheduled outpatient appointment for aftercare treatment. If symptoms return or become worse, call the crisis line at and/or go to the nearest emergency room for evaluation. National Suicide Hotline [facility] [facility] confidentiality statement: "The information contained in this communication, including attachments, is confidential, may be privileged, and is intended only for the use of the named recipient(s). Unauthorized use, disclosure, forwarding or copying is strictly prohibited and may be unlawful. If you have received this communication in error, please notify me IMMEDIATELY at the phone number or pager listed above.
== END 2025-04-23 13:14 | disposition home or self-care (01) | DRG 751 ==
LOC: 3MHU 22:22
PROVIDERS: ADMIT Psychiatry & Neurology Psychiatry; ATTEND Psychiatry & Neurology Psychiatry
DX: F33.2 Major depressive disorder, recurrent severe without psychotic features (principal); R45.851 Suicidal ideations; F10.229 Alcohol dependence with intoxication, unspecified; F10.239 Alcohol dependence with withdrawal, unspecified; F19.10 Other psychoactive substance abuse, uncomplicated; I10 Essential (primary) hypertension; F41.1 Generalized anxiety disorder; F41.0 Panic disorder [episodic paroxysmal anxiety]; L03.211 Cellulitis of face; E78.00 Pure hypercholesterolemia, unspecified; Z79.82 Long term (current) use of aspirin; Z79.899 Other long term (current) drug therapy; Z63.72 Alcoholism and drug addiction in family; Z56.0 Unemployment, unspecified; Z87.891 Personal history of nicotine dependence; Z71.41 Alcohol abuse counseling and surveillance of alcoholic; Z71.51 Drug abuse counseling and surveillance of drug abuser
CPT/HCPCS: 80061; 83036; 84443

== ENCOUNTER 2025-04-24 13:11 | Emergency (ER) | payer OTHER ==
--- NOTE | 2025-04-24 13:57 | ED ---
Alcohol HPI - General Source: patient Mode of arrival: ambulatory Limitations: no limitations <Carlie Aguilar - Last Filed: 04/24/25 15:51> - General Source: patient, RN notes reviewed, old records reviewed Mode of arrival: ambulatory Limitations: no limitations - History of Present Illness MD Complaint: alcohol intoxication Last Drink: just AEROGRAPHER -: minute(s) Previous Visits for Alcohol Intoxication?: Yes Recent Trauma: Yes Associated Symptoms: denies other symptoms Treatments Prior to Arrival: none Chronic Alcohol Use: Yes <Edgar Everett - Last Filed: 04/27/25 23:52> - General Chief Complaint: Alcohol Stated Complaint: SI Time Seen by Provider: 04/24/25 13:57 - History of Present Illness Initial Comments: 34-year-old male presented to ER for evaluation of alcohol intoxication. Patient reports he typically drinks 1/5 of alcohol daily and has been doing it for "a while". Patient states he is attempting to enter [place] for rehabilitation. He was told he does not meet admission criteria at this time and was attempted to come to the ER for further evaluation. Patient denies a history of withdrawal seizures or DTs. Patient states he does have intermittent bouts of sobriety. Patient denies any other drug use. Patient denies SI, HI, auditory or visual hallucinations. When asked on numerous occasions of SI patient states "I do not talk about it". He denies any chest pain, shortness of breath, nausea, vomiting, abdominal pain, urinary complaints, fevers, change in bowel habits. (Carlie Aguilar) This is a 34-year-old male to ER for acute alcohol intoxication with suicidal thoughts and suicidal ideation (Edgar Everett) - Related Data Home Medications Medication Instructions Recorded Confirmed Aspirin EC [Ecotrin Low Dose] 81 mg PO DAILY 04/17/25 04/24/25 Disulfiram [Antabuse] 250 mg PO DAILY 04/17/25 04/24/25 Nitroglycerin Sl Tabs [Nitrostat] 0.4 mg SL Q5M PRN 04/17/25 04/24/25 Omeprazole 20 mg PO DAILY 04/17/25 04/24/25 busPIRone HCL 15 mg PO BID 04/17/25 04/24/25 minoxidiL [Loniten] 2.5 mg PO DAILY 04/17/25 04/24/25 Sulfamethox-Tmp 800-160Mg [Bactrim 1 tab PO BID 04/24/25 04/24/25 DS 800-160 mg] Previous Rx's Medication Instructions Recorded Sertraline [Zoloft] 100 mg PO DAILY 30 Days #30 tab 11/29/24 Atorvastatin [Lipitor] 40 mg PO HS #30 tab 12/19/24 Isosorbide Mononitrate ER [Imdur] 30 mg PO DAILY 30 Days #30 tab 12/27/24 Metoprolol Tartrate [Lopressor] 25 mg PO BID 30 Days #60 tab 12/27/24 Ibuprofen [Motrin] 400 mg PO TID-W/MEALS tab 04/20/25 Allergies Allergy/AdvReac Type Severity Reaction Status Date / Time No Known Allergies Allergy Verified 04/24/25 15:20 Review of Systems ROS Other: All systems not noted in ROS Statement are negative. <Carlie Aguilar - Last Filed: 04/24/25 15:51> ROS Other: All systems not noted in ROS Statement are negative. <Edgar Everett - Last Filed: 04/27/25 23:52> ROS Statement: Those systems with pertinent positive or pertinent negative responses have been documented in the HPI. Past Medical History Past Medical History: Chest Pain / Angina, Hypertension Additional Past Medical History / Comment(s): Patient states they occasionally have high BP but in correlation to drinking/withdrawal, palpiation, chest pain, heart cath 12/2024 History of Any Multi-Drug Resistant Organisms: None Reported Past Surgical History: Orthopedic Surgery Additional Past Surgical History / Comment(s): rt ankle, hardware Past Anesthesia/Blood Transfusion Reactions: No Reported Reaction Past Psychological History: Anxiety, Depression Smoking Status: Former smoker Past Alcohol Use History: Abuse, Daily, Heavy Past Drug Use History: Marijuana - Past Family History Mother Family Medical History: Hyperlipidemia Additional Family Medical History / Comment(s): Dad and paternal grandpa history of PA in late 30s Father Family Medical History: Myocardial Infarction (PA) <Carlie Aguilar - Last Filed: 04/24/25 15:51> General Exam Limitations: no limitations General appearance: alert, in no apparent distress, appears intoxicated Respiratory exam: Present: normal lung sounds bilaterally. Absent: respiratory distress, wheezes, rales, rhonchi, stridor Cardiovascular Exam: Present: normal rhythm, tachycardia, normal heart sounds GI/Abdominal exam: Present: soft, normal bowel sounds. Absent: distended, tenderness, guarding, rebound, rigid Neurological exam: Present: alert, oriented X3, CN II-XII intact Psychiatric exam: Present: suicidal ideation Skin exam: Present: warm, dry, intact, normal color. Absent: rash <Carlie Aguilar - Last Filed: 04/24/25 15:51> General appearance: alert, in no apparent distress Head exam: Present: atraumatic, normocephalic, normal inspection Eye exam: Present: normal appearance, PERRL, EOMI. Absent: scleral icterus, conjunctival injection, periorbital swelling ENT exam: Present: normal exam, mucous membranes moist Neck exam: Present: normal inspection. Absent: tenderness, meningismus, lymphadenopathy Respiratory exam: Present: normal lung sounds bilaterally. Absent: respiratory distress, wheezes, rales, rhonchi, stridor Cardiovascular Exam: Present: regular rate, normal rhythm, normal heart sounds. Absent: systolic murmur, diastolic murmur, rubs, gallop, clicks GI/Abdominal exam: Present: soft, normal bowel sounds. Absent: distended, tenderness, guarding, rebound, rigid Extremities exam: Present: normal inspection, full ROM, normal capillary refill. Absent: tenderness, pedal edema, joint swelling, calf tenderness Back exam: Present: normal inspection Neurological exam: Present: alert, oriented X3, CN II-XII intact Psychiatric exam: Present: normal affect, normal mood Skin exam: Present: warm, dry, intact, normal color. Absent: rash <Edgar Everett - Last Filed: 04/27/25 23:52> Course <Carlie Aguilar - Last Filed: 04/24/25 15:51> <Edgar Everett - Last Filed: 04/27/25 23:52> Vital Signs 04/24/25 04/24/25 04/24/25 13:16 13:43 14:51 Temperature 97.9 F Pulse Rate 125 H 110 H 100 Respiratory 22 20 16 Rate Blood Pressure 98/61 101/67 104/69 O2 Sat by Pulse 95 98 94 L Oximetry 04/24/25 04/24/25 04/24/25 16:05 19:29 21:55 Temperature 99.1 F 98.0 F Pulse Rate 98 99 74 Respiratory 19 18 16 Rate Blood Pressure 109/75 103/67 113/81 O2 Sat by Pulse 97 95 99 Oximetry 04/24/25 04/25/25 23:40 02:02 Temperature 98.0 F 98.7 F Pulse Rate 90 83 Respiratory 19 19 Rate Blood Pressure 119/85 112/76 O2 Sat by Pulse 98 97 Oximetry - Reevaluation(s) Reevaluation #1: 04/24/25 15:[address] Jernigan pending EPS evaluation and disposition. (Carlie Aguilar) 04/24/25 16:37 Medical records reviewed (Edgar Everett) Reevaluation #2: Patient's symptoms continue to improve here in the ER (Edgar Everett) Reevaluation #3: Differential Mental Health Depression, anxiety, bipolar, psychosis, schizophrenia, borderline personality, situational depression, adjustment disorder, behavioral disorder, brain tumor, malingering, substance abuse, encephalopathy, medication reaction, dementia, hypothyroidism, degenerative neurologic disorder, lupus.... This is not meant to be all-inclusive list (Edgar Everett) Reevaluation #4: Medically cleared for psychiatric evaluation (Edgar Everett) Medical Decision Making - Lab Data Result diagrams: 04/24/25 14:24 04/24/25 14:24 - EKG Data -: EKG Interpreted by Me <Carlie Aguilar - Last Filed: 04/24/25 15:51> - Lab Data Result diagrams: 04/24/25 14:24 04/24/25 14:24 <Edgar Everett - Last Filed: 04/27/25 23:52> - Medical Decision Making Was pt. sent in by a medical professional or institution (, PA, NURSE TRANSITIONAL, urgent care, hospital, or senior care...) When possible be specific @ -No Did you speak to anyone other than the patient for history (EMS, parent, family, police, friend...)? What history was obtained from this source @ -No Did you review nursing and triage notes (agree or disagree)? Why? @ -I reviewed and agree with nursing and triage notes Were old charts reviewed (outside hosp., previous admission, EMS record, old EKG, old radiological studies, urgent care reports/EKG's, senior care records)? Report findings @ -[Prior medical record Differential Diagnosis (chest pain, altered mental status, abdominal pain women, abdominal pain men, vaginal bleeding, weakness, fever, dyspnea, syncope, headache, dizziness, GI bleed, back pain, seizure, CVA, palpatations, mental health, musculoskeletal)? @ -Differential Mental Health Depression, anxiety, bipolar, psychosis, schizophrenia, borderline personality, situational depression, adjustment disorder, behavioral disorder, brain tumor, malingering, substance abuse, encephalopathy, medication reaction, dementia, hypothyroidism, degenerative neurologic disorder, lupus.... This is not meant to be all-inclusive list EKG interpreted by me (3pts min.). @ -As above X-rays interpreted by me (1pt min.). @ -None done CT interpreted by me (1pt min.). @ -None done U/S interpreted by me (1pt. min.). @ -None done What testing was considered but not performed or refused? (CT, X-rays, U/S, labs)? Why? @ -None What meds were considered but not given or refused? Why? @ -None Did you discuss the management of the patient with other professionals (professionals i.e. , PA, NURSE TRANSITIONAL, lab, RT, psych nurse, social work case manager, deflash and wash operator, teacher, contract officer, case resource manager)? Give summary @ -No Was smoking cessation discussed for >3mins.? @ -No Was critical care preformed (if so, how long)? @ -No Were there social determinants of health that impacted care today? How? (Homelessness, low income, unemployed, alcoholism, drug addiction, transportation, low edu. Level, literacy, decrease access to med. care, senior living, re hab)? @ -No Was there de-escalation of care discussed even if they declined (Discuss DNR or withdrawal of care, Hospice)? DNR status @ -No What co-morbidities impacted this encounter? (DM, HTN, Smoking, COPD, CAD, Cancer, CVA, ARF, Chemo, Hep., AIDS, mental health diagnosis, sleep apnea, morbid obesity)? @ -Alcoholism Was patient admitted / discharged? Hospital course, mention meds given and ro kaibab, prescriptions, significant lab abnormalities, going to OR and other pertinent info. @ -[30 year old male presenting to ER for evaluation of alcohol intoxication and SI. Upon arrival patient tachycardic 125 bpm vitals otherwise stable. Patient appears intoxicated but in no signs of acute distress. Serum alcohol 201. Suicide precautions in place. Patient provided with IV fluids and started on CIWA and Ativan protocol. Patient signed out to Dr. Everett pending sobriety, EPS evaluation and disposition. (Carlie Aguilar) 34 male to ER for psychiatric evaluation after alcohol intoxication and suicidal thoughts. Patient seen eval by psychiatry here in the ER and can be discharged home (Edgar Everett) - Lab Data Lab Results 04/24/25 04/24/25 04/24/25 Range/Units 14:24 14:24 15:57 WBC 5.14 (4.50-10.00) 10*3/uL RBC 4.28 L (4.40-5.60) 10*6/uL Hgb 13.5 (13.0-17.0) g/dL Hct 38.0 L (39.6-50.0) % MCV 88.8 (80.0-97.0) fL MCH 31.5 (27.0-32.0) pg MCHC 35.5 (32.0-37.0) g/dL Plt Count 213 (140-440) 10*3/uL MPV 10.6 (9.5-12.2) fL Immature Gran % (Auto) 0.4 % Neutrophils % 59.7 % Lymphocytes % 28.6 % Monocytes % 9.1 % Eosinophils % 1.2 % Basophils % 1.0 % Immature Gran # 0.02 (0.00-0.04) 10*3/uL Neutrophils # 3.07 (1.80-7.70) 10*3/uL Lymphocytes # 1.47 (0.90-5.00) 10*3/uL Monocytes # 0.47 (0.20-1.00) 10*3/uL Eosinophils # 0.06 (0.04-0.35) 10*3/uL Basophils # 0.05 (0.00-0.10) 10*3/uL Sodium 149 H (137-145) mmol/L Potassium 4.1 (3.5-5.1) mmol/L Chloride 111 H (98-107) mmol/L Carbon Dioxide 24 (22-30) mmol/L Anion Gap 14 mmol/L BUN 11 (9-20) mg/dL Creatinine 0.80 (0.66-1.25) mg/dL Est GFR (CKD-EPI)AfAm >90 (>60 ml/min/1.73 sqM) Est GFR (CKD-EPI)NonAf >90 (>60 ml/min/1.73 sqM) Glucose 125 H (74-99) mg/dL Calcium 8.6 (8.4-10.2) mg/dL Total Bilirubin 0.5 (0.2-1.3) mg/dL AST 43 (17-59) U/L ALT 36 (4-49) U/L Alkaline Phosphatase 81 (38-126) U/L Total Protein 7.2 (6.3-8.2) g/dL Albumin 4.5 (3.5-5.0) g/dL Urine Opiates Screen Not Detected (NotDetected) Ur Oxycodone Screen Not Detected (NotDetected) Urine Methadone Screen Not Detected (NotDetected) Ur Barbiturates Screen Not Detected (NotDetected) U Tricyclic Antidepress Not Detected (NotDetected) Ur Phencyclidine Scrn Not Detected (NotDetected) Ur Amphetamines Screen Not Detected (NotDetected) U Methamphetamines Scrn Not Detected (NotDetected) U Benzodiazepines Scrn Detected H (NotDetected) Urine Cocaine Screen Not Detected (NotDetected) U Marijuana (THC) Screen Not Detected (NotDetected) Serum Alcohol 201 H* mg/dL - EKG Data EKG Comments: EKG taken at 14: 05 showing sinus tachycardia. Early repolarization noted. Ventricular rate 106, OH of 185, QRS duration 106, QT/QTc 333/395. (Carlie Aguilar) Disposition <Carlie Aguilar - Last Filed: 04/24/25 15:51> Is patient prescribed a controlled substance at d/c from ED?: No <Edgar Everett - Last Filed: 04/27/25 23:52> Clinical Impression: Alcohol use disorder, Major depressive disorder, recurrent episode, severe Disposition: HOME SELF-CARE Condition: Fair Instructions (If sedation given, give patient instructions): Alcohol Intoxication (ED) Referrals: None,Stated [Primary Care Provider] - 1-2 days
[2025-04-24] MEDS ORDERED: LORazepam 1 MG TAB PO PRN ×3 (13:58)
[2025-04-24] MEDS: SODIUM CHLORIDE 0.9% 1,000 ML IV ONE (14:25)
[2025-04-24] MEDS: SODIUM CHLORIDE 0.9% 500 ML 500 ML IV ONE (14:25)
[2025-04-24 14:37] LABS: Basophils # (A) 0.05 10*3/uL (0.00-0.10); Eosinophils # (A) 0.06 10*3/uL (0.04-0.35); Eosinophils % (A) 1.2 %; HGB 13.5 g/dL (13.0-17.0); Lymphocytes # (A) 1.47 10*3/uL (0.90-5.00); Lymphocytes % (A) 28.6 %; MCH 31.5 pg (27.0-32.0); MCHC 35.5 g/dL (32.0-37.0); MCV 88.8 fL (80.0-97.0); Mean Platelet Volume 10.6 fL (9.5-12.2); Monocytes # (A) 0.47 10*3/uL (0.20-1.00); Monocytes % (A) 9.1 %; Neutrophils # (A) 3.07 10*3/uL (1.80-7.70); Neutrophils % (A) 59.7 %; Platelet Count 213 10*3/uL (140-440); RBC 4.28 10*6/uL (4.40-5.60); RDW 12.7 % (11.5-14.5); WBC 5.14 10*3/uL (4.50-10.00)
[2025-04-24 14:58] LABS: ALT 36 U/L (4-49); AST 43 U/L (17-59); African American GFR (CKD) >90 (>60 ml/min/1.73 sqM); Albumin 4.5 g/dL (3.5-5.0); Alkaline Phosphatase 81 U/L (38-126); Anion Gap 14 mmol/L; Blood Urea Nitrogen 11 mg/dL (9-20); Calcium 8.6 mg/dL (8.4-10.2); Carbon Dioxide 24 mmol/L (22-30); Chloride 111 mmol/L (98-107); Glucose 125 mg/dL (74-99); Non-African American GFR(CKD) >90 (>60 ml/min/1.73 sqM); Potassium 4.1 mmol/L (3.5-5.1); Sodium 149 mmol/L (137-145); Total Bilirubin 0.5 mg/dL (0.2-1.3); Total Protein 7.2 g/dL (6.3-8.2)
[2025-04-24 15:21] LABS: Alcohol 201 mg/dL
[2025-04-24] MEDS: LORazepam 0.5 MG TAB PO PRN (16:31)
[2025-04-24 16:58] LABS: Amphetamine Screen,Urine Not Detected (NotDetected); Barbiturate Screen,Urine Not Detected (NotDetected); Benzodiazepines Screen,Urine Detected (NotDetected); Cocaine Screen,Urine Not Detected (NotDetected); Methadone Screen, Urine Not Detected (NotDetected); Opiate Screen,Urine Not Detected (NotDetected); Oxycodone Screen, Urine Not Detected (NotDetected); Phencyclidine Screen,Urine Not Detected (NotDetected); Tricyclic Antidepressant,Urine Not Detected (NotDetected); Urn Cannabinoid Scrn Not Detected (NotDetected)
[2025-04-24 23:42] VITALS: RESP 19
[2025-04-25 02:04] VITALS: BP 112/76; PULSE 83; TEMP 98.7
== END 2025-04-25 02:20 | disposition home or self-care (01) ==
LOC: EC 13:11
DX: F33.2 Major depressive disorder, recurrent severe without psychotic features (principal); F10.129 Alcohol abuse with intoxication, unspecified; Z87.891 Personal history of nicotine dependence; Y90.9 Presence of alcohol in blood, level not specified
CPT/HCPCS: 36415; 80053; 80306; 80320; 82075; 85025; 93005; 96360; 99285